=== PATIENT | female | born 1950 | race Caucasian/White ===

== ENCOUNTER 2017-02-21 13:49 | Inpatient (IN) | payer MEDICARE, OTHER ==
[2017-02-21] MEDS ORDERED: FUROSEMIDE 10 MG/ML 4 ML VIAL IV STA (14:07)
[2017-02-21] MEDS ORDERED: diphenhydrAMINE 50 MG/ML 1 ML VIAL IVP STA (14:07)
[2017-02-21] MEDS ORDERED: methylPREDNISolone SOD SUCCI 125 MG/2 ML VIAL IV STA (14:07)
--- NOTE | 2017-02-21 14:12 | ED ---
General Adult HPI - General Source: patient, EMS, RN notes reviewed Mode of arrival: EMS Limitations: no limitations <Vineet Zambrano - Last Filed: 02/21/17 15:36> <Zack Shook - Last Filed: 02/21/17 16:46> - General Chief complaint: Allergic Reaction Stated complaint: Allergic Reaction Time Seen by Provider: 02/21/17 14:02 - History of Present Illness Initial comments: This a 66-year-old female presents emergency department via EMS for complaints of shortness of breath possible ALLERGIC reaction. Patient states she states tomorrow recurrently and somebody sprayed perfume close to her states that she started breaking out on her rash to her right arm and she had some shortness of breath. Patient does admit to having COPD and CHF. Patient states that they gave her breathing treatment on weight emergency Department which helped minimally. Denies any fevers or chills. Patient denies any lower extremity swelling. Patient states she states that mom wouldn't secondary to right above- knee amputation. Patient has no chest pain no headache no dizziness at time patient was not given any steroids or Benadryl prior arrival as IV access was not obtained. (Vineet Zambrano) - Related Data Home Medications Medication Instructions Recorded Confirmed Aspirin 325 mg PO DAILY@1700 03/21/15 02/21/17 Clopidogrel [Plavix] 75 mg PO DAILY 03/21/15 02/21/17 Docusate Sodium [Dulcolax Stool 100 mg PO DAILY 03/21/15 02/21/17 Softener] Furosemide [Lasix] 40 mg PO BID@0800,1700 03/21/15 02/21/17 HYDROcodone/APAP 10-325MG [[place] 1 tab PO Q6H PRN 03/21/15 02/21/17 10] Lactobacillus Acidophilus 1 tab PO TID@0800,1200,1900 03/21/15 02/21/17 [Acidophilus] Mag Hydrox/Al Hydrox/Simeth 16 ml PO QID PRN 03/21/15 02/21/17 [Maalox] Magnesium Hydroxide [Milk of 30 ml PO DAILY PRN 03/21/15 02/21/17 Magnesia] Melatonin 3 mg PO HS 03/21/15 02/21/17 Metoprolol Tartrate [Lopressor] 25 mg PO BID@0800,1700 03/21/15 02/21/17 Multivit with Calcium,Iron,Min 1 tab PO DAILY@1200 03/21/15 02/21/17 [Women's Daily Multivitamin] Potassium Chloride [Klor-Con 20] 20 meq PO DAILY@1700 03/21/15 02/21/17 cloNIDine HCL [Catapres] 0.1 mg PO BID 03/21/15 02/21/17 clonazePAM [KlonoPIN] 0.5 mg PO HS 03/21/15 02/21/17 fentaNYL [Duragesic 25MCG/HR] 1 patch TRANSDERM Q72H 03/21/15 02/21/17 Bisacodyl [Dulcolax] 10 mg RECTAL DAILY PRN 11/28/15 02/21/17 Caldesene Powder 81-15% 1 applic TOPICAL TID 11/28/15 02/21/17 Esomeprazole Magnesium [NexIUM] 40 mg PO DAILY@0700 11/28/15 02/21/17 Ferrous Sulfate [Feosol] 325 mg PO DAILY@169911/28/15 02/21/17 Loperamide HCl [Imodium A-D] 4 mg PO BID PRN 11/28/15 02/21/17 Na Phos,M-B/Na Phos,Di-Ba [Fleet 133 ml RECTAL DAILY PRN 11/28/15 02/21/17 Adult] Nystatin 100,000 Unit/gm Powd 1 applic TOPICAL TID 11/28/15 02/21/17 [Mycostatin Powder] Phenyleph/Pramoxin/Glycr/W.pet 1 applic TOPICAL DAILY PRN 11/28/15 02/21/17 [Preparation H Cream] Prochlorperazine [Compazine] 10 mg PO Q8H PRN 11/28/15 02/21/17 risperiDONE [Risperidone] 0.5 mg PO BID 11/28/15 02/21/17 Mirtazapine [Remeron] 15 mg PO HS 02/21/17 02/21/17 Sertraline HCl [Zoloft] 100 mg PO DAILY 02/21/17 02/21/17 diphenhydrAMINE [Benadryl] 50 mg PO TID 02/21/17 02/21/17 Allergies Allergy/AdvReac Type Severity Reaction Status Date / Time ciprofloxacin [From Cipro] Allergy Unknown Verified 02/21/17 15:10 ciprofloxacin HCl Allergy Unknown Verified 02/21/17 15:10 [From Cipro] Egg Derived Allergy Unknown Verified 02/21/17 15:10 iodine Allergy Unknown Verified 02/21/17 15:10 Penicillins Allergy Unknown Verified 02/21/17 15:10 Phenylpiperazine Allergy Unknown Verified 02/21/17 15:10 Antidepressant red dye Allergy Unknown Verified 02/21/17 15:10 Sulfa (Sulfonamide Allergy Unknown Verified 02/21/17 15:10 Antibiotics) Review of Systems ROS Other: All systems not noted in ROS Statement are negative. <Vineet Zambrano - Last Filed: 02/21/17 15:36> ROS Other: All systems not noted in ROS Statement are negative. <Zack Shook - Last Filed: 02/21/17 16:46> ROS Statement: Those systems with pertinent positive or pertinent negative responses have been documented in the HPI. Past Medical History Past Medical History: Coronary Artery Disease (CAD), Heart Failure, COPD, GERD/ Reflux, Hypertension, Skin Disorder, Vascular Disorder Additional Past Medical History / Comment(s): PVD, abdominal pain, hx. of gastric ulcer, right above knee amputee-uses wheelchair, currently rash on back- very sensitive skin, urinary incontinence-wears depends History of Any Multi-Drug Resistant Organisms: MRSA Date of last positivie culture/infection: 2012 MDRO Source:: right leg Past Surgical History: Orthopedic Surgery Additional Past Surgical History / Comment(s): right AKA, care provider doesn't know what other surgeries she has had Additional Past Anesthesia/Blood Transfusion Reaction / Comment(s): care provider doesn't know anesthesia hx. Past Psychological History: Anxiety, Depression Smoking Status: Former smoker Past Alcohol Use History: None Reported Past Drug Use History: None Reported - Past Family History Mother Family Medical History: Unable to Obtain <Vineet Zambrano - Last Filed: 02/21/17 15:36> General Exam Limitations: no limitations General appearance: alert, in no apparent distress ENT exam: Present: normal exam, normal oropharynx, mucous membranes moist, TM's normal bilaterally, normal external ear exam Neck exam: Present: normal inspection. Absent: tenderness, meningismus, lymphadenopathy Respiratory exam: Present: wheezes, rales. Absent: normal lung sounds bilaterally, respiratory distress, rhonchi, stridor Cardiovascular Exam: Present: regular rate, normal rhythm, normal heart sounds. Absent: systolic murmur, diastolic murmur, rubs, gallop, clicks Extremities exam: Present: other (right aka). Absent: pedal edema Skin exam: Present: warm, dry, rash (right forearm erythematous macular rash noted) <Vineet Zambrano - Last Filed: 02/21/17 15:36> EKG Findings - EKG Comments: EKG Findings:: EKG performed at 14:12 sinus tachycardia with a rate of 104 WI 134 QRS duration 70 QT/QTC 366/41 <Vineet Zambrano - Last Filed: 02/21/17 15:36> Medical Decision Making - Lab Data Result diagrams: 02/21/17 14:07 02/21/17 14:07 <Vineet Zambrano - Last Filed: 02/21/17 15:36> - Lab Data Result diagrams: 02/21/17 14:07 02/21/17 14:07 <Zack Shook - Last Filed: 02/21/17 16:46> - Medical Decision Making 66-year-old female presented emergency department for possible a reaction. Patient to have a mild rash which has resolved though she remains hypoxic. Patient is having COPD exacerbation at this time. Patient will be admitted for IV steroids, breathing treatments. (Vineet Zambrano) 66-year-old female with history of COPD presents with dyspnea. The reevaluation patient still is tachypneic, and hypoxic with decreased breath sounds bilaterally. Patient will be admitted for further treatment. Diagnosis : COPD exacerbation. (Zack Shook) - Lab Data Lab Results 02/21/17 02/21/17 02/21/17 Range/Units 14:07 14:07 14:07 WBC 13.8 H (3.8-10.6) k/uL RBC 6.18 H (3.80-5.40) m/uL Hgb 15.6 (11.4-16.0) gm/dL Hct 48.8 H (34.0-46.0) % MCV 78.9 L (80.0-100.0) fL MCH 25.2 (25.0-35.0) pg MCHC 32.0 (31.0-37.0) g/dL RDW 16.5 H (11.5-15.5) % Plt Count 248 (150-450) k/uL Neutrophils % 75 % Lymphocytes % 17 % Monocytes % 4 % Eosinophils % 3 % Basophils % 1 % Neutrophils # 10.3 H (1.3-7.7) k/uL Lymphocytes # 2.4 (1.0-4.8) k/uL Monocytes # 0.5 (0-1.0) k/uL Eosinophils # 0.4 (0-0.7) k/uL Basophils # 0.1 (0-0.2) k/uL Anisocytosis Slight Microcytosis Slight PT (9.0-12.0) sec INR (<1.2) APTT (22.0-30.0) sec Sodium 140 (137-145) mmol/L Potassium 4.0 (3.5-5.1) mmol/L Chloride 101 (98-107) mmol/L Carbon Dioxide 26 (22-30) mmol/L Anion Gap 13 mmol/L BUN 21 H (7-17) mg/dL Creatinine 0.79 (0.52-1.04) mg/dL Est GFR (MDRD) Af Amer >60 (>60 ml/min/1.73 sqM) Est GFR (MDRD) Non-Af >60 (>60 ml/min/1.73 sqM) Glucose 132 H (74-99) mg/dL Calcium 8.8 (8.4-10.2) mg/dL Magnesium 1.9 (1.6-2.3) mg/dL Total Bilirubin 0.5 (0.2-1.3) mg/dL AST 46 H (14-36) U/L ALT 48 (9-52) U/L Alkaline Phosphatase 116 (38-126) U/L Total Creatine Kinase 21 L (30-135) U/L CK-MB (CK-2) <0.2 (0.0-2.4) ng/mL CK-MB (CK-2) Rel Index Troponin I <0.012 (0.000-0.034) ng/mL NT-Pro-B Natriuret Pep pg/mL Total Protein 8.4 H (6.3-8.2) g/dL Albumin 4.1 (3.5-5.0) g/dL 02/21/17 02/21/17 Range/Units 14:07 14:07 WBC (3.8-10.6) k/uL RBC (3.80-5.40) m/uL Hgb (11.4-16.0) gm/dL Hct (34.0-46.0) % MCV (80.0-100.0) fL MCH (25.0-35.0) pg MCHC (31.0-37.0) g/dL RDW (11.5-15.5) % Plt Count (150-450) k/uL Neutrophils % % Lymphocytes % % Monocytes % % Eosinophils % % Basophils % % Neutrophils # (1.3-7.7) k/uL Lymphocytes # (1.0-4.8) k/uL Monocytes # (0-1.0) k/uL Eosinophils # (0-0.7) k/uL Basophils # (0-0.2) k/uL Anisocytosis Microcytosis PT 10.8 (9.0-12.0) sec INR 1.1 (<1.2) APTT 26.8 (22.0-30.0) sec Sodium (137-145) mmol/L Potassium (3.5-5.1) mmol/L Chloride (98-107) mmol/L Carbon Dioxide (22-30) mmol/L Anion Gap mmol/L BUN (7-17) mg/dL Creatinine (0.52-1.04) mg/dL Est GFR (MDRD) Af Amer (>60 ml/min/1.73 sqM) Est GFR (MDRD) Non-Af (>60 ml/min/1.73 sqM) Glucose (74-99) mg/dL Calcium (8.4-10.2) mg/dL Magnesium (1.6-2.3) mg/dL Total Bilirubin (0.2-1.3) mg/dL AST (14-36) U/L ALT (9-52) U/L Alkaline Phosphatase (38-126) U/L Total Creatine Kinase (30-135) U/L CK-MB (CK-2) (0.0-2.4) ng/mL CK-MB (CK-2) Rel Index Troponin I (0.000-0.034) ng/mL NT-Pro-B Natriuret Pep 129 pg/mL Total Protein (6.3-8.2) g/dL Albumin (3.5-5.0) g/dL Disposition <Vineet Zambrano - Last Filed: 02/21/17 15:36> <Zack Shook - Last Filed: 02/21/17 16:46> Clinical Impression: COPD exacerbation, Allergic reaction, CHF (congestive heart failure), Hypoxia Disposition: ADMITTED IP TO THIS HOSP Condition: Fair
[2017-02-21 14:17] LABS: Anisocytosis Slight; Basophils # (A) 0.1 k/uL (0-0.2); Basophils % (A) 1 %; CH 25.4; CHCM 32.4; Eosinophils # (A) 0.4 k/uL (0-0.7); Eosinophils % (A) 3 %; HCT 48.8 % (34.0-46.0); HDW 3.01; HGB 15.6 gm/dL (11.4-16.0); Luc # (Auto) 0.14; Luc % (Auto) 1; Lymphocytes # (A) 2.4 k/uL (1.0-4.8); Lymphocytes % (A) 17 %; MCH 25.2 pg (25.0-35.0); MCV 78.9 fL (80.0-100.0); Mean Platelet Volume 7.5; Microcytosis Slight; Monocytes # (A) 0.5 k/uL (0-1.0); Monocytes % (A) 4 %; Neutrophils # (A) 10.3 k/uL (1.3-7.7); Neutrophils % (A) 75 %; RBC 6.18 m/uL (3.80-5.40); RDW 16.5 % (11.5-15.5); WBC 13.8 k/uL (3.8-10.6); WBC (Perox) 13.42
[2017-02-21 14:25] LABS: INR 1.1 (<1.2); Partial Thromboplastin Time 26.8 sec (22.0-30.0); Prothrombin Time 10.8 sec (9.0-12.0)
[2017-02-21 14:28] LABS: ALT 48 U/L (9-52); AST 46 U/L (14-36); Alkaline Phosphatase 116 U/L (38-126); Anion Gap 13 mmol/L; Blood Urea Nitrogen 21 mg/dL (7-17); Calcium 8.8 mg/dL (8.4-10.2); Carbon Dioxide 26 mmol/L (22-30); Chloride 101 mmol/L (98-107); Glucose 132 mg/dL (74-99); Magnesium 1.9 mg/dL (1.6-2.3); Non-African American GFR(MDRD) >60 (>60 ml/min/1.73 sqM); Sodium 140 mmol/L (137-145); Total Bilirubin 0.5 mg/dL (0.2-1.3); Total Protein 8.4 g/dL (6.3-8.2)
[2017-02-21 14:45] LABS: Creatine Kinase 21 U/L (30-135)
--- NOTE | 2017-02-21 14:52 | XR ---
EXAMINATION TYPE: XR chest 2V DATE OF EXAM: 02/21/2017 COMPARISON: Chest x-ray and CTA chest May 29, 2013. HISTORY: Difficulty in breathing. TECHNIQUE: Frontal and lateral views of the chest are obtained. FINDINGS: There is background of chronic emphysematous change with upper lobe fibrosis, right greater than left, and hilar retraction bilaterally all redemonstrated. There is no suspicious new focal air space opacity, pleural effusion, or pneumothorax seen. The cardiac silhouette size is within normal limits. The osseous structures are intact. IMPRESSION: Chronic changes without acute pulmonary process.
[2017-02-21] MEDS ORDERED: HYDROcodone/APAP 10-325MG 1 EACH TAB PO ONE (14:55)
[2017-02-21 14:58] LABS: Creatine Kinase MB <0.2 ng/mL (0.0-2.4); Troponin I <0.012 ng/mL (0.000-0.034)
[2017-02-21] MEDS ORDERED: IPRATROPIUM-ALBUTEROL 3 ML NEB INHALATION STA (15:30)
[2017-02-21] MEDS ORDERED: BISACODYL 10 MG SUPP RECTAL PRN (15:39)
[2017-02-21] MEDS ORDERED: PROCHLORPERAZINE 10 MG TAB PO PRN (15:39)
[2017-02-21] MEDS ORDERED: FERROUS SULFATE 325 MG TAB PO SCH (17:00)
[2017-02-21] MEDS ORDERED: ASPIRIN 325 MG TAB PO SCH (17:00)
[2017-02-21 17:53] LABS: Glucose,Whole Blood 192 mg/dL (75-99)
[2017-02-21] MEDS ORDERED: methylPREDNISolone SOD SUCCI 125 MG/2 ML VIAL IV SCH (18:00)
[2017-02-21 18:04] VITALS: BMI 22.5
[2017-02-21] MEDS ORDERED: BENZOCAINE 20% HEMORRHOIDAL OINT 28GM RECTAL PRN (19:37)
[2017-02-21] MEDS: FUROSEMIDE 40 MG TAB PO SCH (19:40)
[2017-02-21] MEDS: ZINC OXIDE-CORN STARCH 142 GM POWDER TOPICAL SCH ×2 (19:40→22:23)
[2017-02-21] MEDS: diphenhydrAMINE 50 MG CAP PO SCH ×2 (19:40→22:08)
[2017-02-21] MEDS: LACTOBACILLUS ACIDOPH & BULGAR 1 EACH PACKET PO SCH (19:41)
[2017-02-21] MEDS: POTASSIUM CHLORIDE ER 20 MEQ TAB.ER PO SCH (19:41)
[2017-02-21] MEDS: METOPROLOL TARTRATE 25 MG TAB PO SCH ×2 (19:41→22:07)
--- NOTE | 2017-02-21 20:51 | P.HPIM ---
History of Present Illness H&P Date: 02/21/17 (PCP Dr. Kwame Ruiz) Chief Complaint: Acute ALLERGIC reaction to perfume and spray in the room. Dictation of admission history and physical, by Dr. Mninie Rodriguez M.D. [facility] date of service is 02/21/[address] Kwame Ruiz. Patient admitted through the emergency room after he evaluated by the ER physician and requested the patient to be admitted. Chief complaint shortness of breath associated with ALLERGIC reaction to the fume sprayed in the room at [facility] with the shortness of breath. And wheezing and cough. History of present illness: Patient brought to the emergency room because of the shortness of breath with the AB sodoku occurred after perfume of spraining the room was perfume or regular spray in the ED facility of [facility] she developed cough and wheezing and flushing as well as respiratory distress. They send her to the emergency room for further evaluation and evaluated by the ER physician who felt that the patient should be admitted to the hospital. Past medical history she had underlying history #1 multiple medication with the chronic pain. #2 she is a resident at [facility] unit #3 right above-knee amputation for poor circulation done [address] rhoades. #4 history of acid reflux a disease #5 hypertension with hypertensive heart disease #5 history of antiplatelet Plavix and aspirin etiology is unclear. #6 depression #7 peripheral vascular disease. No evidence of infection on this admission. Family history she is and has 2 children grown up #1 AGE OF 4040 YEARS OLD AND A DAUGHTER AGE OF 4545 YEARS OLD WITH NORMAL DELIVERY. ONE SISTER AGE OF 69 AND 1 BROTHER AGE OF 65. FATHER OF AL AT AGE OF 6767 YEARS OLD. MOM STILL ALIVE AGE OF 9494 YEARS OLD WITH ALZHEIMER'S. SMOKING HISTORY FOR 30 YEARS WITH THE UNDERLYING COPD. REVIEW OF SYSTEM MAINLY ASSOCIATED WITH EXPOSURE TO THE AIR ENTRY PERFUME AND SHORTNESS OF BREATH AND COUGH. Review of the 14 point no added to the history. Review old records she had a history of diabetes. She has currently normal renal function and she had pain in the left lower quadrant as well as splenic flexure. Physical exam: HEENT: Head was normocephalic and atraumatic she had oropharynx severe dental caries and glazed the tongue uvula midline no fascial asymmetry with normal healing Neck supple no JVD no thyromegaly no lymphadenopathy trachea midline. Chest: Increased anteroposterior diameter with history of COPD with the underlying smoking history of 30 years pack per day. No clear history of cardiac-barr we don't have any previous echo able to be retrieved, Abdomen: Positive bowel sounds with tenderness on the left lower quadrant as well as the splenic flexure of unknown etiology. With the underlying history of anemia however she had increased RBCs which could be due to the hydration. Extremities right above knee amputation, left lower extremities no edema and peripheral vascular disease with the 1+ over 2 on the dorsalis pedis and the posterior tibial. She had also left foot deformity with the presence of onychomycosis Neuro: Unable to ambulate with no prosthesis on the below knee amputation. With one drink only no evidence of stroke, able to communicate. Her laboratory reviewed indicating hyperglycemia with the use of steroid #2 mild elevation of AST. WBC 13.8 with a possibility due to steroid, RBCs 6.18 which is elevated could be secondary to dehydration as well as the hematocrit 48.8 however the MCV is 78.9 and we will be obtaining old and electrophoresis. PT and INR was stable the blood glucose POC 192 will be covered with insulin to scale. Total protein orally intubated 8.4 could be also secondary to dehydration and volume contraction and we will be obtaining CMP tomorrow with the starting hydration was 50 mL an hour. Cardiac enzyme with troponin was normal and a beta natruretic peptide was normal. Assessment: #1 acute ALLERGIC reaction with the associated respiratory symptoms with the exacerbation for COPD. #2 right occns-cdw-cysh amputation with difficulty of ambulation. #3 hyperglycemia possible association with steroid and we will gradually decrease his steroid as change in the prednisone so on IV to every 12 hour and hopefully tomorrow change it to oral if needed. #4 with the severe pain and tenderness on the left lower quadrant and the splenic flexure we'll obtain CAT scan of the abdomen without contrast with a history of ALLERGIES to iodine. #5 tachycardia #6 hypertension with hypertensive heart disease #7 mild dehydration considered with the increase itself and the hematocrit. #8 severe decayed teeth with the need for oral hygiene. Plan: #1 computed tomography scan of the abdomen without contrast #2 adjustment on her medication. #2 start IV 0.9 normal saline 50 mL an hour for rehydration Past Medical History Past Medical History: Coronary Artery Disease (CAD), Heart Failure, COPD, GERD/ Reflux, Hypertension, Skin Disorder, Vascular Disorder Additional Past Medical History / Comment(s): PVD, abdominal pain, hx. of gastric ulcer, right above knee amputee-uses wheelchair, currently rash on back- very sensitive skin, urinary incontinence-wears depends History of Any Multi-Drug Resistant Organisms: MRSA Date of last positivie culture/infection: 2012 MDRO Source:: right leg Past Surgical History: Appendectomy, Cholecystectomy, Orthopedic Surgery Additional Past Surgical History / Comment(s): right AKA, ovarian cyst removed Additional Past Anesthesia/Blood Transfusion Reaction / Comment(s): care provider doesn't know anesthesia hx. Past Psychological History: Anxiety, Depression Smoking Status: Former smoker Past Alcohol Use History: None Reported Past Drug Use History: None Reported - Past Family History Mother Family Medical History: Unable to Obtain Medications and Allergies Home Medications Medication Instructions Recorded Confirmed Type Aspirin 325 mg PO DAILY@1700 03/21/15 02/21/17 History Clopidogrel [Plavix] 75 mg PO DAILY 03/21/15 02/21/17 History Docusate Sodium [Dulcolax Stool 100 mg PO DAILY 03/21/15 02/21/17 History Softener] Furosemide [Lasix] 40 mg PO BID@0800,1700 03/21/15 02/21/17 History HYDROcodone/APAP 10-325MG [[place] 1 tab PO Q6H PRN 03/21/15 02/21/17 History 10] Lactobacillus Acidophilus 1 tab PO TID@0800,1200,1900 03/21/15 02/21/17 History [Acidophilus] Mag Hydrox/Al Hydrox/Simeth 16 ml PO QID PRN 03/21/15 02/21/17 History [Maalox] Magnesium Hydroxide [Milk of 30 ml PO DAILY PRN 03/21/15 02/21/17 History Magnesia] Melatonin 3 mg PO HS 03/21/15 02/21/17 History Metoprolol Tartrate [Lopressor] 25 mg PO BID@0800,1700 03/21/15 02/21/17 History Multivit with Calcium,Iron,Min 1 tab PO DAILY@1200 03/21/15 02/21/17 History [Women's Daily Multivitamin] Potassium Chloride [Klor-Con 20] 20 meq PO DAILY@1700 03/21/15 02/21/17 History cloNIDine HCL [Catapres] 0.1 mg PO BID 03/21/15 02/21/17 History clonazePAM [KlonoPIN] 0.5 mg PO HS 03/21/15 02/21/17 History fentaNYL [Duragesic 25MCG/HR] 1 patch TRANSDERM Q72H 03/21/15 02/21/17 History Bisacodyl [Dulcolax] 10 mg RECTAL DAILY PRN 11/28/15 02/21/17 History Caldesene Powder 81-15% 1 applic TOPICAL TID 11/28/15 02/21/17 History Esomeprazole Magnesium [NexIUM] 40 mg PO DAILY@0700 11/28/15 02/21/17 History Ferrous Sulfate [Feosol] 325 mg PO DAILY@1700 11/28/15 02/21/17 History Loperamide HCl [Imodium A-D] 4 mg PO BID PRN 11/28/15 02/21/17 History Na Phos,M-B/Na Phos,Di-Ba [Fleet 133 ml RECTAL DAILY PRN 11/28/15 02/21/17 History Adult] Nystatin 100,000 Unit/gm Powd 1 applic TOPICAL TID 11/28/15 02/21/17 History [Mycostatin Powder] Phenyleph/Pramoxin/Glycr/W.pet 1 applic TOPICAL DAILY PRN 11/28/15 02/21/17 History [Preparation H Cream] Prochlorperazine [Compazine] 10 mg PO Q8H PRN 11/28/15 02/21/17 History risperiDONE [Risperidone] 0.5 mg PO BID 11/28/15 02/21/17 History Mirtazapine [Remeron] 15 mg PO HS 02/21/17 02/21/17 History Sertraline HCl [Zoloft] 100 mg PO DAILY 02/21/17 02/21/17 History diphenhydrAMINE [Benadryl] 50 mg PO TID 02/21/17 02/21/17 History Allergies Allergy/AdvReac Type Severity Reaction Status Date / Time ciprofloxacin [From Cipro] Allergy Unknown Verified 02/21/17 15:10 ciprofloxacin HCl Allergy Unknown Verified 02/21/17 15:10 [From Cipro] Egg Derived Allergy Unknown Verified 02/21/17 15:10 iodine Allergy Unknown Verified 02/21/17 15:10 Penicillins Allergy Unknown Verified 02/21/17 15:10 Phenylpiperazine Allergy Unknown Verified 02/21/17 15:10 Antidepressant red dye Allergy Unknown Verified 02/21/17 15:10 Sulfa (Sulfonamide Allergy Unknown Verified 02/21/17 15:10 Antibiotics) Physical Exam Vitals: Vital Signs Temp Pulse Resp BP Pulse Ox 02/21/17 17:45 20 02/21/17 16:51 97.9 F 102 H 20 130/69 92 L 02/21/17 15:50 108 H 02/21/17 15:41 106 H 02/21/17 15:14 107 H 20 140/88 91 L 02/21/17 14:55 107 H 20 178/108 93 L 02/21/17 13:50 97.3 F L 96 17 105/59 96 Intake and Output 02/21/17 02/21/17 02/21/17 06:59 14:59 22:59 Other: Weight 67.132 kg 67.132 kg Patient Weight 02/22/17 06:59 Weight 67.132 kg Results CBC & Chem 7: 02/21/17 14:07 02/21/17 14:07 Labs: Abnormal Lab Results - Last 24 Hours (Table) 02/21/17 02/21/17 02/21/17 Range/Units 14:07 14:07 14:07 WBC 13.8 H (3.8-10.6) k/uL RBC 6.18 H (3.80-5.40) m/uL Hct 48.8 H (34.0-46.0) % MCV 78.9 L (80.0-100.0) fL RDW 16.5 H (11.5-15.5) % Neutrophils # 10.3 H (1.3-7.7) k/uL BUN 21 H (7-17) mg/dL Glucose 132 H (74-99) mg/dL POC Glucose (mg/dL) (75-99) mg/dL AST 46 H (14-36) U/L Total Creatine Kinase 21 L (30-135) U/L Total Protein 8.4 H (6.3-8.2) g/dL 02/21/17 Range/Units 17:50 WBC (3.8-10.6) k/uL RBC (3.80-5.40) m/uL Hct (34.0-46.0) % MCV (80.0-100.0) fL RDW (11.5-15.5) % Neutrophils # (1.3-7.7) k/uL BUN (7-17) mg/dL Glucose (74-99) mg/dL POC Glucose (mg/dL) 192 H (75-99) mg/dL AST (14-36) U/L Total Creatine Kinase (30-135) U/L Total Protein (6.3-8.2) g/dL Thrombosis Risk Factor Assmnt - Choose All That Apply Any of the Below Risk Factors Present?: Yes Each Factor Represents 1 point: Abnormal pulmonary function (COPD) Other Risk Factors: Yes Each Risk Factor Represents 2 Points: Age 61-74 years, Patient confined to bed Thrombosis Risk Factor Assessment Total Risk Factor Score: 5 Thrombosis Risk Factor Assessment Level: High Risk
[2017-02-21] MEDS ORDERED: cloNIDine HCL 0.1 MG TAB PO SCH ×2 (21:00)
--- NOTE | 2017-02-21 21:13 | CT ---
EXAMINATION TYPE: CT ChestAbdPelvis wo con DATE OF EXAM: 02/21/2017 COMPARISON: CTA chest May 29, 2013. CT abdomen and pelvis November 01, 2012. HISTORY: Left side pain. Rule out malignancy. CT DLP: 761.6 mGycm. Automated Exposure Control for Dose Reduction was Utilized. TECHNIQUE: CT scan of the thorax, abdomen and pelvis is performed without IV contrast. FINDINGS: Within the limitations of a noncontrast study, the following observations are made LUNGS: There is background moderate emphysematous change redemonstrated. There is persistent moderate apical pleural thickening bilaterally with parenchymal scarring bilaterally not significantly change d from prior study. There are some scarlike opacity in the left upper lobe abutting fissure redemonst rated. There is no suspicious new parenchymal nodule or mass identified bilaterally. No pleural effus ion or pneumothorax is seen bilaterally. Tracheobronchial tree is patent. MEDIASTINUM: There are no greater than 1 cm hilar or mediastinal lymph nodes clearly identified accou nting for limitations related to lack of IV contrast. Scattered prominent but subcentimeter lymph no valeri are redemonstrated. No cardiomegaly or significant pericardial effusion is seen. OTHER: No additional significant abnormality is seen. LIVER/GB: Liver is diffusely low dense consistent with fatty infiltration. Cholecystectomy clips are redemonstrated. PANCREAS: No significant abnormality is seen. SPLEEN: Splenomegaly is seen measuring 15.1 cm on long axis on coronal image 52. ADRENALS: No significant abnormality is seen. KIDNEYS: There are several staghorn-type calculi and left renal pelvis extending into collecting syst em. There is smaller calculus in right renal pelvis. There is 5.3 cm low dense lesion laterally left kidney correlates with simple appearing cyst on prior exam. No intraluminal calculus and bladder is p resent. There are few scattered pelvic phleboliths. BOWEL: There is no suspicious small or large bowel dilatation. There is suspected duodenal diverticul um second portion redemonstrated with debris or fecal material redemonstrated near axial image 72 the re are scattered diverticula throughout the colon. There is no CT evidence for acute diverticulitis. GENITAL ORGANS: No gross abnormality seen. LYMPH NODES: No greater than 1cm abdominal or pelvic lymph nodes are appreciated. OSSEOUS STRUCTURES: There is artifact from fixation hardware left proximal femur through healed fract ure. Multilevel spurring in the thoracic spine is present. Osseous structures are demineralized. Ther e is fairly advanced joint space loss in the right hip. OTHER: There appears to be new metallic stent graft in the right external iliac artery. Scar tissue r ight groin region is seen with clips. There is asymmetric mild to moderate atrophy of right-sided thi gh muscles. IMPRESSION: 1. No worrisome mass or adenopathy is seen to suggest neoplasm. 2. Moderate emphysematous change with apical scarring and pleural thickening redemonstrated. No acute pulmonary process is seen. 3. New splenomegaly is noted and may warrant further clinical workup. 4. Bilateral collecting system calculi with more prominent staghorn type calculi in the left kidney n oted.
[2017-02-21 21:39] LABS: Glucose,Whole Blood 204 mg/dL (75-99)
[2017-02-21] MEDS: MIRTAZAPINE 15 MG TAB PO SCH (22:08)
[2017-02-21] MEDS: INSULIN LISPRO (humaLOG) 300 UNIT/3 ML VIAL SQ SCH (22:08)
[2017-02-21] MEDS: risperiDONE 0.5 MG TAB PO SCH (22:08)
[2017-02-21] MEDS: MAG HYDROX/AL HYDROX/SIMETH 30 ML CUP PO PRN (22:09)
[2017-02-21] MEDS: clonazePAM 0.5 MG TAB PO SCH (22:22)
[2017-02-21] MEDS: ASPIRIN 81 MG CHEW PO SCH (22:22)
[2017-02-21] MEDS: HYDROcodone/APAP 10-325MG 1 EACH TAB PO PRN (22:23)
[2017-02-22] MEDS: methylPREDNISolone SOD SUCCI 40 MG/ML 1 ML VIAL IV SCH ×2 (00:53→09:38)
[2017-02-22] MEDS: MELATONIN 3 MG TABLET PO SCH ×2 (00:59→23:24)
[2017-02-22] MEDS: SODIUM CHLORIDE 0.9% 1,000 ML IV SCH (01:11)
[2017-02-22] MEDS: METOPROLOL TARTRATE 50 MG TAB PO SCH ×3 (01:17→21:42)
[2017-02-22] MEDS: NYSTATIN 100,000 UNIT/GM POWD 15 GM TOPICAL SCH ×3 (01:19→23:24)
[2017-02-22 07:20] LABS: Glucose,Whole Blood 179 mg/dL (75-99)
[2017-02-22 07:42] LABS: Anisocytosis Slight; Basophils % (A) 0 %; CH 25.2; Eosinophils % (A) 0 %; HCT 47.2 % (34.0-46.0); HGB 14.6 gm/dL (11.4-16.0); Hypochromasia Slight; Luc # (Auto) 0.05; Luc % (Auto) 0; Lymphocytes % (A) 5 %; MCH 24.4 pg (25.0-35.0); MCHC 30.9 g/dL (31.0-37.0); Monocytes # (A) 0.3 k/uL (0-1.0); Monocytes % (A) 2 %; Neutrophils # (A) 16.8 k/uL (1.3-7.7); Neutrophils % (A) 93 %; RBC 5.98 m/uL (3.80-5.40); RDW 16.1 % (11.5-15.5); WBC 18.1 k/uL (3.8-10.6); WBC (Perox) 18.37
[2017-02-22] MEDS: IPRATROPIUM-ALBUTEROL 3 ML NEB INHALATION PRN ×4 (08:34→20:02)
[2017-02-22 08:38] LABS: ALT 53 U/L (9-52); AST 35 U/L (14-36); Alkaline Phosphatase 111 U/L (38-126); Anion Gap 14 mmol/L; Blood Urea Nitrogen 28 mg/dL (7-17); Calcium 8.8 mg/dL (8.4-10.2); Carbon Dioxide 26 mmol/L (22-30); Chloride 102 mmol/L (98-107); Glucose 169 mg/dL (74-99); Non-African American GFR(MDRD) >60 (>60 ml/min/1.73 sqM); Potassium 4.5 mmol/L (3.5-5.1); Sodium 142 mmol/L (137-145); Total Bilirubin 0.5 mg/dL (0.2-1.3)
[2017-02-22] MEDS: diphenhydrAMINE 50 MG CAP PO SCH ×3 (09:38→23:24)
[2017-02-22] MEDS: ASPIRIN 81 MG CHEW PO SCH (09:38)
[2017-02-22] MEDS: CLOPIDOGREL 75 MG TAB PO SCH (09:39)
[2017-02-22] MEDS: MULTIVITAMINS, THERA 1 EACH TAB PO SCH (09:39)
[2017-02-22] MEDS: PANTOPRAZOLE 40 MG TABLET PO SCH (09:39)
[2017-02-22] MEDS: DOCUSATE 100 MG CAP PO SCH (09:39)
[2017-02-22] MEDS: FUROSEMIDE 40 MG TAB PO SCH ×2 (09:39→18:03)
[2017-02-22] MEDS: SERTRALINE 100 MG TAB PO SCH (09:40)
[2017-02-22] MEDS: risperiDONE 0.5 MG TAB PO SCH ×2 (09:40→21:42)
[2017-02-22] MEDS: INSULIN LISPRO (humaLOG) 300 UNIT/3 ML VIAL SQ SCH ×3 (09:51→17:58)
[2017-02-22] MEDS: ZINC OXIDE-CORN STARCH 142 GM POWDER TOPICAL SCH ×3 (09:52→23:24)
[2017-02-22] MEDS: LACTOBACILLUS ACIDOPH & BULGAR 1 EACH PACKET PO SCH ×3 (09:52→23:24)
[2017-02-22 10:09] LABS: Hemoglobin A1C 5.9 % (4.2-6.1)
[2017-02-22 11:45] LABS: Glucose,Whole Blood 208 mg/dL (75-99)
[2017-02-22] MEDS: MAG HYDROX/AL HYDROX/SIMETH 30 ML CUP PO PRN ×3 (12:41→21:43)
[2017-02-22] MEDS: HYDROcodone/APAP 10-325MG 1 EACH TAB PO PRN ×2 (12:41→18:02)
[2017-02-22 13:04] LABS: Vitamin B12 1000 pg/mL
[2017-02-22 16:54] LABS: Glucose,Whole Blood 158 mg/dL (75-99)
[2017-02-22] MEDS: METOPROLOL TARTRATE 25 MG TAB PO SCH (18:05)
[2017-02-22] MEDS: POTASSIUM CHLORIDE ER 20 MEQ TAB.ER PO SCH (18:06)
[2017-02-22] MEDS: clonazePAM 0.5 MG TAB PO SCH (21:42)
[2017-02-22] MEDS: MIRTAZAPINE 15 MG TAB PO SCH (21:42)
--- NOTE | 2017-02-22 21:57 | P.GSCN ---
History of Present Illness Consult date: 02/22/17 Reason for Consult: Kidney stones Requesting physician: Ian Peter History of present illness: The patient is a 66-year-old white female with no known prior history of urolithiasis. She has been treated for UTIs. She currently resides at [facility]. She was admitted with dyspnea and cough. A computed tomography scan shows evidence of urolithiasis. We are consulted for this reason. She reports a two-month history of LLQ abdominal pain. Review of Systems - Constitutional Denies chills, Denies fever - Respiratory Reports cough, Reports dyspnea - Genitourinary Genitourinary: Reports dysuria, Reports kidney stones, Denies hematuria, Denies stress incontinence, Denies urge incontinence Past Medical History Past Medical History: Coronary Artery Disease (CAD), Heart Failure, COPD, GERD/ Reflux, Hypertension, Skin Disorder, Vascular Disorder Additional Past Medical History / Comment(s): PVD, abdominal pain, hx. of gastric ulcer, right above knee amputee-uses wheelchair, currently rash on back- very sensitive skin, urinary incontinence-wears depends History of Any Multi-Drug Resistant Organisms: MRSA Year Discovered:: 2012 MDRO Source:: right leg Past Surgical History: Appendectomy, Cholecystectomy, Orthopedic Surgery Additional Past Surgical History / Comment(s): right AKA, ovarian cyst removed Additional Past Anesthesia/Blood Transfusion Reaction / Comm: care provider doesn't know anesthesia hx. Past Psychological History: Anxiety, Depression Smoking Status: Former smoker Past Alcohol Use History: None Reported Past Drug Use History: None Reported - Past Family History Mother Family Medical History: Unable to Obtain Medications and Allergies Home Medications Medication Instructions Recorded Confirmed Type Aspirin 325 mg PO DAILY@1700 03/21/15 02/21/17 History Clopidogrel [Plavix] 75 mg PO DAILY 03/21/15 02/21/17 History Docusate Sodium [Dulcolax Stool 100 mg PO DAILY 03/21/15 02/21/17 History Softener] Furosemide [Lasix] 40 mg PO BID@0800,1700 03/21/15 02/21/17 History HYDROcodone/APAP 10-325MG [[place] 1 tab PO Q6H PRN 03/21/15 02/21/17 History 10] Lactobacillus Acidophilus 1 tab PO TID@0800,1200,1900 03/21/15 02/21/17 History [Acidophilus] Mag Hydrox/Al Hydrox/Simeth 16 ml PO QID PRN 03/21/15 02/21/17 History [Maalox] Magnesium Hydroxide [Milk of 30 ml PO DAILY PRN 03/21/15 02/21/17 History Magnesia] Melatonin 3 mg PO HS 03/21/15 02/21/17 History Metoprolol Tartrate [Lopressor] 25 mg PO BID@0800,1700 03/21/15 02/21/17 History Multivit with Calcium,Iron,Min 1 tab PO DAILY@1200 03/21/15 02/21/17 History [Women's Daily Multivitamin] Potassium Chloride [Klor-Con 20] 20 meq PO DAILY@1700 03/21/15 02/21/17 History cloNIDine HCL [Catapres] 0.1 mg PO BID 03/21/15 02/21/17 History clonazePAM [KlonoPIN] 0.5 mg PO HS 03/21/15 02/21/17 History fentaNYL [Duragesic 25MCG/HR] 1 patch TRANSDERM Q72H 03/21/15 02/21/17 History Bisacodyl [Dulcolax] 10 mg RECTAL DAILY PRN 11/28/15 02/21/17 History Caldesene Powder 81-15% 1 applic TOPICAL TID 11/28/15 02/21/17 History Esomeprazole Magnesium [NexIUM] 40 mg PO DAILY@0700 11/28/15 02/21/17 History Ferrous Sulfate [Feosol] 325 mg PO DAILY@1700 11/28/15 02/21/17 History Loperamide HCl [Imodium A-D] 4 mg PO BID PRN 11/28/15 02/21/17 History Na Phos,M-B/Na Phos,Di-Ba [Fleet 133 ml RECTAL DAILY PRN 11/28/15 02/21/17 History Adult] Nystatin 100,000 Unit/gm Powd 1 applic TOPICAL TID 11/28/15 02/21/17 History [Mycostatin Powder] Phenyleph/Pramoxin/Glycr/W.pet 1 applic TOPICAL DAILY PRN 11/28/15 02/21/17 History [Preparation H Cream] Prochlorperazine [Compazine] 10 mg PO Q8H PRN 11/28/15 02/21/17 History risperiDONE [Risperidone] 0.5 mg PO BID 11/28/15 02/21/17 History Mirtazapine [Remeron] 15 mg PO HS 02/21/17 02/21/17 History Sertraline HCl [Zoloft] 100 mg PO DAILY 02/21/17 02/21/17 History diphenhydrAMINE [Benadryl] 50 mg PO TID 02/21/17 02/21/17 History Allergies Allergy/AdvReac Type Severity Reaction Status Date / Time ciprofloxacin [From Cipro] Allergy Unknown Verified 02/21/17 15:10 ciprofloxacin HCl Allergy Unknown Verified 02/21/17 15:10 [From Cipro] Egg Derived Allergy Unknown Verified 02/21/17 15:10 iodine Allergy Unknown Verified 02/21/17 15:10 Penicillins Allergy Unknown Verified 02/21/17 15:10 Phenylpiperazine Allergy Unknown Verified 02/21/17 15:10 Antidepressant red dye Allergy Unknown Verified 02/21/17 15:10 Sulfa (Sulfonamide Allergy Unknown Verified 02/21/17 15:10 Antibiotics) Surgical - Exam Vital Signs Temp Pulse Resp BP Pulse Ox 97.3 F L 96 17 105/59 96 02/21/17 13:50 02/21/17 13:50 02/21/17 13:50 02/21/17 13:50 02/21/17 13:50 - General well developed, well nourished, no distress - Respiratory normal respiratory effort - Abdomen Abdomen: soft, tender (LLQ tenderness), no guarding, no rigid, no rebound - Psychiatric oriented to time, oriented to person, oriented to place, speech is normal, memory intact Results - Labs 02/22/17 06:58 02/22/17 06:58 Abnormal Lab Results - Last 24 Hours (Table) 02/22/17 02/22/17 02/22/17 Range/Units 06:58 06:58 07:18 WBC 18.1 H (3.8-10.6) k/uL RBC 5.98 H (3.80-5.40) m/uL Hct 47.2 H (34.0-46.0) % MCV 79.0 L (80.0-100.0) fL MCH 24.4 L (25.0-35.0) pg MCHC 30.9 L (31.0-37.0) g/dL RDW 16.1 H (11.5-15.5) % Neutrophils # 16.8 H (1.3-7.7) k/uL BUN 28 H (7-17) mg/dL Glucose 169 H (74-99) mg/dL POC Glucose (mg/dL) 179 H (75-99) mg/dL Plasma Lactic Acid Jacinto (0.7-2.0) mmol/L ALT 53 H (9-52) U/L 02/22/17 02/22/17 02/22/17 Range/Units 11:43 15:12 16:52 WBC (3.8-10.6) k/uL RBC (3.80-5.40) m/uL Hct (34.0-46.0) % MCV (80.0-100.0) fL MCH (25.0-35.0) pg MCHC (31.0-37.0) g/dL RDW (11.5-15.5) % Neutrophils # (1.3-7.7) k/uL BUN (7-17) mg/dL Glucose (74-99) mg/dL POC Glucose (mg/dL) 208 H 158 H (75-99) mg/dL Plasma Lactic Acid Jacinto 2.8 H* (0.7-2.0) mmol/L ALT (9-52) U/L 02/22/17 Range/Units 18:48 WBC (3.8-10.6) k/uL RBC (3.80-5.40) m/uL Hct (34.0-46.0) % MCV (80.0-100.0) fL MCH (25.0-35.0) pg MCHC (31.0-37.0) g/dL RDW (11.5-15.5) % Neutrophils # (1.3-7.7) k/uL BUN (7-17) mg/dL Glucose (74-99) mg/dL POC Glucose (mg/dL) (75-99) mg/dL Plasma Lactic Acid Jacinto 3.2 H* (0.7-2.0) mmol/L ALT (9-52) U/L Diabetes panel 02/21/17 02/22/17 Range/Units 14:07 06:58 Sodium 142 (137-145) mmol/L Potassium 4.5 (3.5-5.1) mmol/L Chloride 102 (98-107) mmol/L Carbon Dioxide 26 (22-30) mmol/L BUN 28 H (7-17) mg/dL Creatinine 0.89 (0.52-1.04) mg/dL Glucose 169 H (74-99) mg/dL Hemoglobin A1c 5.9 (4.2-6.1) % Calcium 8.8 (8.4-10.2) mg/dL AST 35 (14-36) U/L ALT 53 H (9-52) U/L Alkaline Phosphatase 111 (38-126) U/L Total Protein 8.0 (6.3-8.2) g/dL Albumin 3.9 (3.5-5.0) g/dL Calcium panel 02/22/17 Range/Units 06:58 Calcium 8.8 (8.4-10.2) mg/dL Albumin 3.9 (3.5-5.0) g/dL Pituitary panel 02/22/17 Range/Units 06:58 Sodium 142 (137-145) mmol/L Potassium 4.5 (3.5-5.1) mmol/L Chloride 102 (98-107) mmol/L Carbon Dioxide 26 (22-30) mmol/L BUN 28 H (7-17) mg/dL Creatinine 0.89 (0.52-1.04) mg/dL Glucose 169 H (74-99) mg/dL Calcium 8.8 (8.4-10.2) mg/dL Adrenal panel 02/22/17 Range/Units 06:58 Sodium 142 (137-145) mmol/L Potassium 4.5 (3.5-5.1) mmol/L Chloride 102 (98-107) mmol/L Carbon Dioxide 26 (22-30) mmol/L BUN 28 H (7-17) mg/dL Creatinine 0.89 (0.52-1.04) mg/dL Glucose 169 H (74-99) mg/dL Calcium 8.8 (8.4-10.2) mg/dL Total Bilirubin 0.5 (0.2-1.3) mg/dL AST 35 (14-36) U/L ALT 53 H (9-52) U/L Alkaline Phosphatase 111 (38-126) U/L Total Protein 8.0 (6.3-8.2) g/dL Albumin 3.9 (3.5-5.0) g/dL Assessment and Plan (1) Renal calculi Status: Acute Plan: The patient is a 66-year-old white female admitted with dyspnea. She has no prior history of urolithiasis, but a computed tomography scan shows evidence of bilateral renal calculi. There appears to be a calculus within the right renal pelvis, and a partial staghorn calculus on the left. There is no evidence of hydronephrosis. The left kidney appears atrophic. A KUB x-ray will be obtained for further evaluation. Time with Patient: Greater than 30
[2017-02-22 23:30] LABS: Glucose,Whole Blood 124 mg/dL (75-99)
[2017-02-23] MEDS: HYDROcodone/APAP 10-325MG 1 EACH TAB PO PRN ×4 (02:23→20:52)
[2017-02-23 07:30] LABS: Basophils % (A) 0 %; CH 24.7; CHCM 31.5; Eosinophils # (A) 0.1 k/uL (0-0.7); Eosinophils % (A) 0 %; HCT 44.1 % (34.0-46.0); HDW 2.92; HGB 14.3 gm/dL (11.4-16.0); Hypochromasia Slight; Luc # (Auto) 0.17; Luc % (Auto) 1; Lymphocytes # (A) 2.2 k/uL (1.0-4.8); Lymphocytes % (A) 13 %; MCH 25.5 pg (25.0-35.0); MCHC 32.3 g/dL (31.0-37.0); MCV 78.7 fL (80.0-100.0); Mean Platelet Volume 6.7; Monocytes # (A) 0.9 k/uL (0-1.0); Monocytes % (A) 5 %; Neutrophils # (A) 13.5 k/uL (1.3-7.7); Neutrophils % (A) 81 %; RDW 15.2 % (11.5-15.5); WBC 16.8 k/uL (3.8-10.6)
[2017-02-23 07:32] LABS: Glucose,Whole Blood 91 mg/dL (75-99)
[2017-02-23] MEDS: IPRATROPIUM-ALBUTEROL 3 ML NEB INHALATION PRN ×2 (08:18→13:38)
[2017-02-23] MEDS: SODIUM CHLORIDE 0.9% 1,000 ML IV SCH ×3 (08:35→15:31)
[2017-02-23] MEDS: INSULIN LISPRO (humaLOG) 300 UNIT/3 ML VIAL SQ SCH ×5 (08:36→21:17)
[2017-02-23] MEDS: MAG HYDROX/AL HYDROX/SIMETH 30 ML CUP PO PRN ×2 (08:43→14:46)
[2017-02-23] MEDS: LACTOBACILLUS ACIDOPH & BULGAR 1 EACH PACKET PO SCH ×3 (08:46→19:44)
[2017-02-23] MEDS: risperiDONE 0.5 MG TAB PO SCH ×2 (08:46→20:52)
[2017-02-23] MEDS: PANTOPRAZOLE 40 MG TABLET PO SCH (08:46)
[2017-02-23] MEDS: NYSTATIN 100,000 UNIT/GM POWD 15 GM TOPICAL SCH ×3 (08:46→20:53)
[2017-02-23] MEDS: METOPROLOL TARTRATE 50 MG TAB PO SCH ×2 (08:46→20:52)
[2017-02-23] MEDS: FUROSEMIDE 40 MG TAB PO SCH (08:47)
[2017-02-23] MEDS: SERTRALINE 100 MG TAB PO SCH (08:47)
[2017-02-23] MEDS: CLOPIDOGREL 75 MG TAB PO SCH (08:50)
[2017-02-23] MEDS: diphenhydrAMINE 50 MG CAP PO SCH (08:50)
[2017-02-23] MEDS: DOCUSATE 100 MG CAP PO SCH (08:50)
[2017-02-23] MEDS: METOPROLOL TARTRATE 25 MG TAB PO SCH ×3 (08:50→17:08)
[2017-02-23] MEDS: ZINC OXIDE-CORN STARCH 142 GM POWDER TOPICAL SCH ×3 (11:06→20:53)
[2017-02-23 11:26] LABS: Appearance,Urine Turbid (Clear); Bacteria,Urine Few /hpf; Bilirubin,Urine Negative (Negative); Glucose,Urine (UA) Negative (Negative); Ketones,Urine Negative (Negative); Leukocyte Esterase,Urine Large (Negative); Nitrite,Urine Negative (Negative); PH, Urine 7.5 (5.0-8.0); Particle Count 19799; Protein,Urine Trace (Negative); RBC,Urine >182 /hpf (0-5); Specific Gravity,Urine 1.007 (1.001-1.035); UA Billing (MACRO vs. MICRO) MICRO; Urobilinogen,Urine <2.0 mg/dL (<2.0); WBC,Urine >182 /hpf (0-5)
[2017-02-23 11:43] LABS: Glucose,Whole Blood 102 mg/dL (75-99)
[2017-02-23] MEDS: ASPIRIN 81 MG CHEW PO SCH (12:19)
[2017-02-23] MEDS: MULTIVITAMINS, THERA 1 EACH TAB PO SCH (12:19)
--- NOTE | 2017-02-23 13:16 | XR ---
EXAMINATION TYPE: XR KUB DATE OF EXAM: 02/23/2017 CLINICAL HISTORY: Nephrolithiasis TECHNIQUE: Single supine KUB image of the abdomen is obtained. COMPARISON: CT abdomen pelvis dated 02/21/2017. FINDINGS: Staghorn calculus is again seen on the left. The known right renal calculus is not well vi sualized and may be due to overlying bowel gas. Vascular stent is seen within the right common iliac vasculature extending into the femoral artery. Surgical clips are seen within the inguinal region. At heromatous changes are seen of the abdominal aorta and its branches. Left-sided cephalomedullary freddie and fixation plate with surrounding heterotopic ossification is noted from fixation of prior fracture . Scattered gas is seen in non-distended small bowel loops. Gas and fecal material is seen in non-dist ended colon. Cholecystectomy clips are seen within the right upper quadrant. IMPRESSION: 1. Left staghorn calculus. Nonvisualization of the known right renal calculus, possibly due to overly ing bowel gas. 2. Nonobstructive bowel gas pattern.
--- NOTE | 2017-02-23 13:16 | CDI ---
In responding to this query, please exercise your independent professional judgment. The [facility] Coding Staff and Clinical Documentation Specialists appreciate your assistance in clarifying documentation, maintaining compliance with coding guidelines, accurately documenting patients condition and capturing severity of illness. The fact that a question is asked does not imply that any particular answer is desired or expected. Communication forms are a method of clarifying documentation and are not made part of the Legal Health Record. Thank you in advance for your clarification. Last Revision, September 2016 Bella [place] [address] [address] Documentation Clarification Form Date: 02/23/2017 1:07:00 PM From: Shae Rodriguez CCS, CCDS Admit Date: 02/21/2017 3:56:00 PM Patient Name: Prema Krause Visit Number: [id number] Discharge Date: Dr. Ian Peter: CHF is documented in the history & physical. History/Risk Factors: Hypertensive heart disease & CHF on home po Lasix 20 mg BID, COPD, Former smoker. Residing in [place] for [facility]. Clinical Indicators: Patient had allergic reaction to perfumed sprayed in her room in skilled nursing, broke out in a rash, complained of sob, wheezing & cough. VS: P 96 - 107, R 17 (sob, labored), PO 96 ra, 93 2Lnc BNP: 129 Chest X Ray: Chronic changes. Treatment: Blood & urine cultures pending. IV Lasix, IV Benadryl, IV Solumedrol , Albuterol INH. Consults: Urology (for kidney stones) In your professional opinion, can you please clarify the acuity and type of CHF if known? Systolic Heart Failure: o Acute o Chronic o Acute on Chronic Diastolic Heart Failure: o Acute o Chronic o Acute on Chronic Systolic & Diastolic Heart Failure: o Acute o Chronic o Acute on Chronic Unable to determine Other, please specify Please document in your progress notes and discharge summary in order to capture severity of illness and risk of mortality. Include clinical findings that support your diagnosis. FYI: Press F11 to launch patient chart MTDD
--- NOTE | 2017-02-23 13:18 | PN ---
DATE OF SERVICE: 02/22/2017 Patient initially admitted through the emergency room, sent from [facility] by EMS with the understanding of acute allergic reaction to perfume or spray in the room. Patient did well; however, and on the examination through the emergency room they gave her steroids and we gradually decreased the steroids and probably will discontinue today with no shortness of breath; however, on the examination , found that she had severe tenderness on the left flank with the associated shortness of breath. We obtained CT scan of the chest, abdomen and pelvis. We found noted in the CT scan results, emphysema, also apical scarring and significant splenomegaly, bilateral collecting system calculi with the prominence staghorn calculi of the left kidney and the EKG was indicating inferior infarction in the past; however patient had no evidence of symptoms of chest pain or anginal pain. Patient also had right [id number] amputation and she has actually the left hip she had a screw with apparently fracture in the past and they have fixation in the left hip which was found to be in the CT scan. Patient had persistent leukocytosis and the etiology of that is unclear except chronic infection with bilateral calyceal nephrolithiasis on the staghorn and we will be obtaining the opinion of Urology tomorrow. Meanwhile, will obtain the UA and culture and sensitivity to see if the chronicity of the infection if it is present at this time. On the examination today, patient is resting comfortably. She accepted the pain in the left flank and she is conscious, alert, oriented. Her vitals signs today indicating that her heart rate in the 80s and the blood pressure in the average of 107/65 today, temperature 97.6 and the pulse rate 83. Her mean blood pressure is 79. Her pulse ox is 95% and she is on 2 L nasal cannula and her laboratory today was indicating on 02/22 that her sodium 142 and potassium 4.5 per renal function appeared to be estimated with glomerular filtrate rate for non- more than 60. She has blood sugar 169 which is monitored and covered with insulin to scale with the history of diabetes mellitus. Her AST is 53 and the alkaline phosphatase 111, her total protein is normal with the albumin as well as vitamin B12 of 1000. Apparently, we do not have a CBC with differential today and will obtain that tomorrow as well as the BMP and hemoglobin A1c on 02/21 and her hemoglobin A1c was 5.9. On the current examination the patient is conscious, alert, still complaining of pain and requesting morphine and shots in spite that she has taken pain patch as well Duragesic 25 mcg and [place]. HEENT: The head was normocephalic, atraumatic. She had dental caries, severe and she had no teeth in the upper jaw. Neck was supple, no JVD, no thyromegaly, no lymphadenopathy. Chest was increased anteroposterior diameter; however, no wheezes, no rhonchi today. The heart was regular sinus and the abdomen was soft. She had tenderness on the left flank, probably now we know with the CT, no evidence of malignancy but presence of the staghorn calculi in the left kidney. The extremities, we have right below knee amputation and the left she had a pin and screw with the removal of the head of the left humerus and unknown how many years ago that done. Patient is a very poor historian. Patient unable to ambulate and we will be planning for consultation. ASSESSMENT: 1. History of allergic reaction. 2. Persistent leukocytosis probably associated with chronic infection and we will be obtain blood culture as well as the urine and obtaining also the consultation with Neurology for his input regarding of this problem. Will adjust his steroid and discontinue for today. No further reaction and she is from the point of acute allergy has been resolved. NIRALI
[2017-02-23 14:18] LABS: Anion Gap 14 mmol/L; Blood Urea Nitrogen 26 mg/dL (7-17); Calcium 7.9 mg/dL (8.4-10.2); Carbon Dioxide 23 mmol/L (22-30); Chloride 110 mmol/L (98-107); Glucose 136 mg/dL (74-99); Non-African American GFR(MDRD) >60 (>60 ml/min/1.73 sqM); Potassium 3.5 mmol/L (3.5-5.1); Sodium 147 mmol/L (137-145)
--- NOTE | 2017-02-23 14:36 | ECHOF ---
Referral Reason:r/o endocarditis MEASUREMENTS -------- HEIGHT: 172.7 cm WEIGHT: 67.6 kg BP: 123/82 IVSd: 1.3 cm (0.6 - 1.1) LVIDd: 3.0 cm (3.9 - 5.3) LVPWd: 1.1 cm (0.6 - 1.1) IVSs: 1.1 cm LVIDs: 2.3 cm LVPWs: 1.2 cm Ao Diam: 2.9 cm (2.0 - 3.7) AV Cusp: 1.9 cm (1.5 - 2.6) LA Diam: 2.8 cm (2.7 - 3.8) MV EXCURSION: 11.540 mm (> 18.000) MV EF SLOPE: 24 mm/s (70 - 150) EPSS: 0.4 cm MV E Kurt: 0.73 m/s MV DecT: 164 ms MV A Kurt: 0.64 m/s MV E/A Ratio: 1.13 RAP: 5.00 mmHg RVSP: 9.49 mmHg FINDINGS -------- Sinus rhythm. This was a technically difficult study with suboptimal views. No Apicals due to skin tears. There is mild concentric left ventricular hypertrophy. Overall left ventricular systolic function is normal with, an EF between 55 - 60 %. The right ventricle is normal in size and function. The left atrium is normal in size. The right atrium is normal in size. The aortic valve is trileaflet, and appears structurally normal. No aortic stenosis or regurgitation. The mitral valve leaflets are mildly thickened. Mild mitral annular calcification present. There is trace mitral regurgitation. Trace tricuspid regurgitation present. The right ventricular systolic pressure, as measured by Doppler, is 9.49mmHg. Pulmonic valve appears structurally normal. The aortic root size is normal. The pericardium is normal. CONCLUSIONS -------- 1. Sinus rhythm. 2. The mitral valve leaflets are mildly thickened. 3. Mild mitral annular calcification present. 4. There is trace mitral regurgitation. 5. Trace tricuspid regurgitation present. 6. The right ventricular systolic pressure, as measured by Doppler, is 9.49mmHg. 7. Pulmonic valve appears structurally normal. 8. The aortic root size is normal. 9. The pericardium is normal. 10. This was a technically difficult study with suboptimal views. 11. No Apicals due to skin tears. 12. There is mild concentric left ventricular hypertrophy. 13. Overall left ventricular systolic function is normal with, an EF between 55 - 60 %. 14. The right ventricle is normal in size and function. 15. The left atrium is normal in size. 16. The right atrium is normal in size. 17. The aortic valve is trileaflet, and appears structurally normal. No aortic stenosis or regurgitation. [employer] HEAD MATCHER: Patricia Myrick RDCS
[2017-02-23] MEDS: AZTREONAM 2 GM in SODIUM CHLORIDE 0.9% 100 ML IVPB SCH ×2 (15:31→23:42)
[2017-02-23 16:49] LABS: Glucose,Whole Blood 96 mg/dL (75-99)
[2017-02-23] MEDS: POTASSIUM CHLORIDE ER 20 MEQ TAB.ER PO SCH (17:07)
[2017-02-23] MEDS: MELATONIN 3 MG TABLET PO SCH (20:51)
[2017-02-23] MEDS: MIRTAZAPINE 15 MG TAB PO SCH (20:52)
[2017-02-23] MEDS: clonazePAM 0.5 MG TAB PO SCH (20:52)
[2017-02-23 21:15] LABS: Glucose,Whole Blood 113 mg/dL (75-99)
[2017-02-24] MEDS: MAG HYDROX/AL HYDROX/SIMETH 30 ML CUP PO PRN ×4 (03:24→21:48)
[2017-02-24] MEDS: HYDROcodone/APAP 10-325MG 1 EACH TAB PO PRN ×4 (03:24→21:55)
[2017-02-24] MEDS: IPRATROPIUM-ALBUTEROL 3 ML NEB INHALATION PRN ×5 (03:46→19:52)
[2017-02-24 07:07] LABS: Glucose,Whole Blood 92 mg/dL (75-99)
[2017-02-24 07:26] LABS: Anisocytosis Slight; Basophils # (A) 0.1 k/uL (0-0.2); Basophils % (A) 1 %; CH 25.1; CHCM 30.6; Eosinophils # (A) 0.1 k/uL (0-0.7); Eosinophils % (A) 1 %; HCT 46.5 % (34.0-46.0); HDW 2.91; HGB 13.9 gm/dL (11.4-16.0); Hypochromasia Moderate; Luc # (Auto) 0.14; Luc % (Auto) 1; Lymphocytes # (A) 1.5 k/uL (1.0-4.8); Lymphocytes % (A) 16 %; MCH 24.5 pg (25.0-35.0); MCHC 29.9 g/dL (31.0-37.0); MCV 82.2 fL (80.0-100.0); Mean Platelet Volume 7.5; Monocytes # (A) 0.5 k/uL (0-1.0); Monocytes % (A) 6 %; Neutrophils # (A) 7.1 k/uL (1.3-7.7); Neutrophils % (A) 75 %; RBC 5.66 m/uL (3.80-5.40); RDW 16.1 % (11.5-15.5); WBC 9.5 k/uL (3.8-10.6); WBC (Perox) 9.15
--- NOTE | 2017-02-24 07:37 | PN ---
MEDICAL FOLLOWUP: Patient's age is 66 years ago, . HER DATA: She is 5 feet 8 inches, 71 kg and BSA 1.84 sq. m, BMI 23.8 kg/sq m. ALLERGIES: 1. CIPROFLOXACIN. 2. IODINE. 3. PENICILLIN. 4. SULFA. 5. RED DYE. 6. PHENYLPIPERAZINE ANTIDEPRESSANT. Patient seen today, evaluated and discussed with her sister as well as the patient. Her vital signs indicating that her white count was 18.1 on the 21 of February and today 16.8. Her hematocrit improved to 44.1. Her platelet count 182 today. Her chemistry profile is pending and her last chemistry profile indicating that her blood sugar was hemoglobin A1c was 5.9 with glucose 169. Normal vitamin B12. Troponin was normal. Her potassium is 4.5. Her carbon dioxide 26. Her BUN is 28 and creatinine 0.89. Her temperature is 97.8. Her pulse 80 and her respiratory rate is 20. Her blood pressure 128/70 and her pulse ox 98% on 2 L. The KUB showed staghorn in the left kidney, however, she also found in the lab that she had underlying urinalysis which was indicating moderate blood, large leukocyte esterase and urine RBC was more than 182 and white cells in the urine more than 182 as well and there is many clumps present with the few bacteria. Culture was obtained. Her CBG has been controlled very well 91 to 102. Her lactic acid today 3.2 was increased and yesterday was 2.8. The CT scan of the abdomen and pelvis as well as the chest indicating no malignancy, however, she bilateral nephrolithiasis and probably she has also pyelonephritis as well with the abnormal urinalysis indicate infection as well and this could be associated with the chronicity of the infection of the kidney with stones especially with the staghorn stone. Currently with this, lab is sepsis. We already ordered the echocardiogram 2-D with Doppler. However, the result was not yet available and I did call the echo and they will show it to Dr. Anne Patricia who is currently busy with procedure and he will be calling me subsequently to see how much function of her heart and left ventricular function for increase her IV fluid. We will be temporarily increasing her IV fluid to 100 mL an hour until further information of the echocardiogram. Patient did not have evidence of congestive heart failure and not present any congestive heart failure in this admission or I have no knowledge of the previous admission. With this finding, we will be gradually adjusting her medication as well and decreasing her Lasix to the minimum as we have understanding that the Lasix was used for her blood pressure. No evidence of edema. No evidence of congestive heart failure and her BNP was normal. We will be consulting the infectious disease, Dr. Boogie, which I did talk to him personally and because of the patient has multiple allergies as mentioned above and we will be planning to see which antibiotic needed for how long as well as well as Dr. Childs will be looking after the patient's staghorn and the chronic infection. The patient had on the examination today she had severe flank pain with minimal palpation on the left flank area. Her bowel sound is present. There is no tenderness in the other quadrant. Her chest is clear to auscultation and percussion. She had history of COPD and the heart was regular sinus rhythm and no evidence of dysrhythmia. Patient found to be on Plavix and I did ask the patient she said that she had questionable stroke 6 years ago by her sister. She has multiple medications for depression. She has severe peripheral disease and she had right below knee amputation and the left she had prosthesis as well with the screw in the left hip. She is unable to walk. Patient is conscious, alert, oriented x3 with the underlying oropharyngeal tooth decayed. ASSESSMENT: No evidence of congestive heart failure. I did receive a call from the inquiry Mrs. Shea Rothman and I did advise that patient has no evidence of congestive heart failure and the inquiry is invalid. The echo was done, however , that mainly for evaluation of the left ventricular function with a history of hypertension. Patient received blood culture yesterday, which we do not have result and the urine culture is pending. The CMP is pending. We also ordered PTH intact to see the activity of the parathyroid hormone. Because of the chronic obstructive pulmonary disease, she is on oxygen. PLAN: 1. Consulting the infectious doctor, Dr. Boogie. 2. Working with Dr. Childs, urologist, regarding of her chronic infection. 3. Sepsis. 4. History of allergic reaction has been resolved. 5. Left flank pain severe secondary to the staghorn stone. 6. Multiple medications. We will be continuing the current treatment and antibiotic will be taking care by Dr. Keagan infectious disease as I spoke to him personally. Progress note more than 30 minutes. NIRALI
[2017-02-24 08:10] LABS: Anion Gap 12 mmol/L; Blood Urea Nitrogen 20 mg/dL (7-17); Calcium 8.1 mg/dL (8.4-10.2); Carbon Dioxide 23 mmol/L (22-30); Chloride 112 mmol/L (98-107); Glucose 98 mg/dL (74-99); Non-African American GFR(MDRD) >60 (>60 ml/min/1.73 sqM); Potassium 4.5 mmol/L (3.5-5.1); Sodium 147 mmol/L (137-145)
[2017-02-24] MEDS: METOPROLOL TARTRATE 25 MG TAB PO SCH ×2 (08:44→16:55)
[2017-02-24] MEDS: AZTREONAM 2 GM in SODIUM CHLORIDE 0.9% 100 ML IVPB SCH ×2 (08:44→15:09)
[2017-02-24] MEDS: LACTOBACILLUS ACIDOPH & BULGAR 1 EACH PACKET PO SCH ×3 (08:44→21:49)
[2017-02-24] MEDS: INSULIN LISPRO (humaLOG) 300 UNIT/3 ML VIAL SQ SCH ×3 (08:45→17:30)
[2017-02-24] MEDS: PANTOPRAZOLE 40 MG TABLET PO SCH (08:45)
[2017-02-24] MEDS: DOCUSATE 100 MG CAP PO SCH (08:46)
[2017-02-24] MEDS: CLOPIDOGREL 75 MG TAB PO SCH (08:46)
[2017-02-24] MEDS: risperiDONE 0.5 MG TAB PO SCH ×2 (08:47→21:48)
[2017-02-24] MEDS: ZINC OXIDE-CORN STARCH 142 GM POWDER TOPICAL SCH ×2 (08:47→16:58)
[2017-02-24] MEDS: SERTRALINE 100 MG TAB PO SCH (08:47)
[2017-02-24] MEDS: FUROSEMIDE 20 MG TAB PO SCH (08:48)
[2017-02-24] MEDS: METOPROLOL TARTRATE 50 MG TAB PO SCH ×2 (08:49→21:48)
[2017-02-24] MEDS: NYSTATIN 100,000 UNIT/GM POWD 15 GM TOPICAL SCH ×2 (09:06→16:57)
--- NOTE | 2017-02-24 10:40 | US ---
EXAMINATION TYPE: US kidneys/renal and bladder DATE OF EXAM: 02/24/2017 COMPARISON: 02/21/2017 CLINICAL HISTORY: CK D, nephrolithiasis, atrophic left kidney.. Lt flank pain, abnormal CT EXAM MEASUREMENTS: Right Kidney: 11.5 x 5.4 x 5.2 cm Left Kidney: 10.3 x 5.5 x 5.3 cm Difficult scan, pt limited mobility There are bilateral renal calculi as noted by recent CT scan. There is a least 2 cysts seen involving the left kidney measuring 5.4 x 4.4 x 5.2 cm and has a simple appearance. Bladder distends normally. IMPRESSION: Bilateral renal calculi corresponding to the CT abnormality. Simple appearing left renal cyst noted. No obvious hydronephrosis.
[2017-02-24 12:02] LABS: Glucose,Whole Blood 99 mg/dL (75-99)
[2017-02-24] MEDS: ASPIRIN 81 MG CHEW PO SCH (12:37)
[2017-02-24] MEDS: MULTIVITAMINS, THERA 1 EACH TAB PO SCH (12:37)
[2017-02-24] MEDS: SODIUM CHLORIDE 0.9% 1,000 ML IV SCH (14:50)
--- NOTE | 2017-02-24 16:06 | P.PN ---
Subjective The patient is in the hospital with dyspnea. She seems to have improved. Dr. childs was asked to see the patient for kidney stones. She is found to have it partial staghorn on the left to almost a complete staghorn. I saw the patient in consultation for Dr. Childs to consider a percutaneous nephrostolithotomy. I think this is a reasonable approach. The patient is interested that. I reviewed the x-rays with radiology and they concur. I will see her in the office as an outpatient to get this arranged. Objective - Vital Signs Vital signs: Vital Signs Temp 98.0 F 02/24/17 15:00 Pulse 80 02/24/17 16:01 Resp 16 02/24/17 15:00 BP 123/75 02/24/17 15:00 Pulse Ox 95 02/24/17 15:49 Intake & Output 02/23/17 02/24/17 02/24/17 18:59 06:59 18:59 Intake Total 744 839 6082 Output Total 200 Balance 342 498 5356 Intake: IV 600 Sodium Chloride 0.9% 1, 600 000 ml @ 75 mls/hr IV . [id number] [facility] Rx#:[id number] Intake, IV Titration 600 Amount Sodium Chloride 0.9% 1, 600 000 ml @ 75 mls/hr IV . [id number] [facility] Rx#:[id number] Oral 200 480 480 Output: Urine 200 Straight 200 Other: Voiding Method Diaper Incontinent # Voids 1 2 # Bowel Movements 1 - Labs CBC & Chem 7: 02/24/17 06:45 02/24/17 06:45 Labs: Abnormal Lab Results - Last 24 Hours (Table) 02/23/17 02/24/17 02/24/17 Range/Units 21:08 06:45 06:45 RBC 5.66 H (3.80-5.40) m/uL Hct 46.5 H (34.0-46.0) % MCH 24.5 L (25.0-35.0) pg MCHC 29.9 L (31.0-37.0) g/dL RDW 16.1 H (11.5-15.5) % Sodium 147 H (137-145) mmol/L Chloride 112 H (98-107) mmol/L BUN 20 H (7-17) mg/dL POC Glucose (mg/dL) 113 H (75-99) mg/dL Calcium 8.1 L (8.4-10.2) mg/dL Microbiology - Last 24 Hours (Table) 02/23/17 11:00 Urine Culture - Preliminary Urine,Catheterized Gram Neg Bacilli 02/22/17 15:19 Blood Culture - Preliminary Blood No Growth after 24 hours
[2017-02-24] MEDS: POTASSIUM CHLORIDE ER 20 MEQ TAB.ER PO SCH (16:55)
[2017-02-24 17:02] LABS: Glucose,Whole Blood 124 mg/dL (75-99)
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
[2017-02-24 21:09] LABS: Glucose,Whole Blood 121 mg/dL (75-99)
[2017-02-24] MEDS: MELATONIN 3 MG TABLET PO SCH (21:48)
[2017-02-24] MEDS: clonazePAM 0.5 MG TAB PO SCH (21:48)
[2017-02-24] MEDS: MIRTAZAPINE 15 MG TAB PO SCH (21:48)
[2017-02-25] MEDS: AZTREONAM 2 GM in SODIUM CHLORIDE 0.9% 100 ML IVPB SCH ×4 (00:13→23:04)
[2017-02-25] MEDS: INSULIN LISPRO (humaLOG) 300 UNIT/3 ML VIAL SQ SCH ×5 (00:15→21:05)
[2017-02-25] MEDS: ZINC OXIDE-CORN STARCH 142 GM POWDER TOPICAL SCH ×4 (00:15→20:52)
[2017-02-25] MEDS: NYSTATIN 100,000 UNIT/GM POWD 15 GM TOPICAL SCH ×4 (00:15→20:52)
[2017-02-25] MEDS: SODIUM CHLORIDE 0.9% 1,000 ML IV SCH ×3 (04:04→09:15)
[2017-02-25] MEDS: HYDROcodone/APAP 10-325MG 1 EACH TAB PO PRN ×4 (04:10→23:06)
[2017-02-25] MEDS: MAG HYDROX/AL HYDROX/SIMETH 30 ML CUP PO PRN ×3 (04:10→23:06)
[2017-02-25 07:14] LABS: Glucose,Whole Blood 99 mg/dL (75-99)
[2017-02-25] MEDS: IPRATROPIUM-ALBUTEROL 3 ML NEB INHALATION PRN ×4 (08:41→19:58)
[2017-02-25] MEDS: PANTOPRAZOLE 40 MG TABLET PO SCH (09:18)
[2017-02-25] MEDS: METOPROLOL TARTRATE 25 MG TAB PO SCH ×2 (09:18→20:42)
[2017-02-25] MEDS: ASPIRIN 81 MG CHEW PO SCH (09:19)
[2017-02-25] MEDS: DOCUSATE 100 MG CAP PO SCH (09:20)
[2017-02-25] MEDS: CLOPIDOGREL 75 MG TAB PO SCH (09:20)
[2017-02-25] MEDS: FUROSEMIDE 20 MG TAB PO SCH (09:20)
[2017-02-25] MEDS: METOPROLOL TARTRATE 50 MG TAB PO SCH ×2 (09:21→20:49)
[2017-02-25] MEDS: risperiDONE 0.5 MG TAB PO SCH ×2 (09:21→20:48)
[2017-02-25] MEDS: SERTRALINE 100 MG TAB PO SCH (09:22)
[2017-02-25] MEDS: LACTOBACILLUS ACIDOPH & BULGAR 1 EACH PACKET PO SCH ×3 (09:23→20:48)
[2017-02-25 11:48] LABS: Glucose,Whole Blood 104 mg/dL (75-99)
[2017-02-25] MEDS: MULTIVITAMINS, THERA 1 EACH TAB PO SCH (12:37)
--- NOTE | 2017-02-25 14:35 | P.PN ---
Subjective There is a dictation on progress note date of service 03/07/2017, PCP attending physician Dr. Kwame Ruiz. Dictating the progress note by Dr. Maura Kim FACP. Patient seen and evaluated today discussed with her the course of the plan. Patient seen by Dr. Cai urologist with the underlying bilateral nephrolithiasis and chronic infection with the pyelonephritis associated with elevated lactic acid which has been currently improved and normalize. Also the urine showed to be infected with Proteus mirabilis and currently on antibiotic. Dr. Boogie infectious disease will address the issue of how long antibiotic and the Avenue of the antibiotic subsequently patient will be [facility] and to follow up with Dr. Cai as outpatient where today he will be planning for surgical intervention probably next week when Dr. Ruiz will be back. Patient is seen today: Conscious alert oriented 3 no acute respiratory distress , she still have pain in the left flank and that's associated with the staghorn stone and probably was had the surgery may be the amount of narcotic needs to be adjusted. HEENT no change with the dental hygiene as needed. Neck was supple no JVD no thyromegaly no lymphadenopathy. Chest clear to auscultation percussion heart: Regular sinus rhythm no evidence of congestive heart failure. Abdomen soft positive bowel sounds with the tenderness on the flanks mainly on the left side however she had bilateral nephrolithiasis and the chronic leukocytosis has been is improved and now normalized and normal white cell. Extremities she had peripheral vascular disease with the right above-knee amputation done by Dr. rhoades in the past. And she had a peripheral vascular disease of the left lower extremities however no acute ischemic changes. The laboratory reviewed and will repeat the lab in a.m. Assessment #1 assessment associated with sepsis and bilateral nephrolithiasis with staghorn stones in the left kidney with elevated lactic acid and infected urine was Proteus mirabilis. #2 underlying pyelonephritis under the treatment with antibiotic Zosyn. #3 future plan for surgery I Dr. Cai as outpatient. 4 right below-knee amputation and left peripheral vascular disease of the lower extremities We'll continue the medication and antibiotic, we'll wait for Dr. Garber for his decision with the continuation of the antibiotic Culture was negative. Objective - Vital Signs Vital signs: Vital Signs Temp 97.3 F L 02/25/17 02:30 Pulse 88 02/25/17 12:15 Resp 16 02/25/17 02:30 BP 137/72 02/25/17 02:30 Pulse Ox 96 02/25/17 02:30 Intake & Output 02/24/17 02/25/17 02/25/17 18:59 06:59 18:59 Intake Total 1080 1375 Output Total 400 Balance 1080 975 Intake: IV 825 Sodium Chloride 0.9% 1, 825 000 ml @ 75 mls/hr IV . [id number] [facility] Rx#:[id number] Intake, IV Titration 600 100 Amount Aztreonam 2 gm In Sodium 100 Chloride 0.9% 100 ml @ 100 mls/hr IVPB Q8HR [facility] LU[facility] Rx#:[id number] Sodium Chloride 0.9% 1, 600 000 ml @ 75 mls/hr IV . [id number] [facility] Rx#:[id number] Oral 480 450 Output: Urine 400 Other: Voiding Method Diaper Diaper Incontinent Incontinent # Voids 2 # Bowel Movements 1 - Labs CBC & Chem 7: 02/24/17 06:45 02/24/17 06:45 Labs: Abnormal Lab Results - Last 24 Hours (Table) 02/24/17 02/24/17 02/25/17 Range/Units 16:42 21:07 11:46 POC Glucose (mg/dL) 124 H 121 H 104 H (75-99) mg/dL Microbiology - Last 24 Hours (Table) 02/23/17 11:00 Urine Culture - Final Urine,Catheterized Proteus mirabilis 02/22/17 15:19 Blood Culture - Preliminary Blood No Growth after 48 hours
[2017-02-25 17:16] LABS: Glucose,Whole Blood 92 mg/dL (75-99)
[2017-02-25 20:45] LABS: Glucose,Whole Blood 111 mg/dL (75-99)
[2017-02-25] MEDS: clonazePAM 0.5 MG TAB PO SCH (20:48)
[2017-02-25] MEDS: POTASSIUM CHLORIDE ER 20 MEQ TAB.ER PO SCH (20:48)
[2017-02-25] MEDS: MIRTAZAPINE 15 MG TAB PO SCH (20:48)
[2017-02-25] MEDS: MELATONIN 3 MG TABLET PO SCH (20:48)
--- NOTE | 2017-02-25 21:48 | PN ---
DATE OF SERVICE: 02/25/2017 REASON FOR FOLLOWUP: Gram-negative urinary tract infection. INTERVAL HISTORY: The patient is afebrile. She is breathing comfortably. The patient denies significant chest pain. No shortness of breath or cough. No abdominal pain. No nausea, vomiting or any diarrhea. On examination, blood pressure is 137/72 with a pulse of 75, temperature 97.3. She is 96% on room air. General description is an elderly female lying in bed in no distress. RESPIRATORY SYSTEM: Unlabored breathing. Clear to auscultation anteriorly. HEART: S1, S2. Regular rate and rhythm. ABDOMEN: Soft. No tenderness. LABS: No new labs obtained today. Urine is showing Proteus mirabilis. DIAGNOSTIC IMPRESSION AND PLAN: Patient with Proteus mirabilis urinary tract infection in a patient who has underlying staghorn calculus. which is usually ( ) associated with this type of infection. She is responding to the Azactam because of her multiple antibiotic allergies, though the organism is sensitive to ceftriaxone. May be able to give her a dose of Rocephin tomorrow, and if the patient does well, discharge antibiotic can be in the form of Ceftin. Will continue supportive care. NIRALI
[2017-02-26] MEDS: IPRATROPIUM-ALBUTEROL 3 ML NEB INHALATION PRN (07:20)
[2017-02-26 07:29] LABS: ALT 55 U/L (9-52); AST 38 U/L (14-36); Alkaline Phosphatase 95 U/L (38-126); Anion Gap 9 mmol/L; Blood Urea Nitrogen 18 mg/dL (7-17); Calcium 8.4 mg/dL (8.4-10.2); Carbon Dioxide 23 mmol/L (22-30); Chloride 111 mmol/L (98-107); Glucose 107 mg/dL (74-99); Non-African American GFR(MDRD) >60 (>60 ml/min/1.73 sqM); Potassium 4.4 mmol/L (3.5-5.1); Sodium 143 mmol/L (137-145); Total Bilirubin 0.4 mg/dL (0.2-1.3); Total Protein 6.8 g/dL (6.3-8.2)
[2017-02-26 07:30] LABS: Glucose,Whole Blood 106 mg/dL (75-99)
[2017-02-26 07:35] LABS: Basophils % (A) 0 %; CH 24.4; CHCM 30.5; Eosinophils # (A) 0.4 k/uL (0-0.7); Eosinophils % (A) 4 %; HCT 45.6 % (34.0-46.0); HGB 14.3 gm/dL (11.4-16.0); Hypochromasia Marked; Luc # (Auto) 0.12; Luc % (Auto) 1; Lymphocytes # (A) 1.6 k/uL (1.0-4.8); Lymphocytes % (A) 15 %; MCH 25.2 pg (25.0-35.0); MCHC 31.3 g/dL (31.0-37.0); MCV 80.3 fL (80.0-100.0); Mean Platelet Volume 6.6; Monocytes # (A) 0.4 k/uL (0-1.0); Monocytes % (A) 3 %; Neutrophils # (A) 8.1 k/uL (1.3-7.7); Neutrophils % (A) 76 %; RBC 5.68 m/uL (3.80-5.40); RDW 15.2 % (11.5-15.5); WBC 10.7 k/uL (3.8-10.6); WBC (Perox) 10.67
[2017-02-26] MEDS: MAG HYDROX/AL HYDROX/SIMETH 30 ML CUP PO PRN ×3 (07:57→21:35)
[2017-02-26] MEDS: FUROSEMIDE 20 MG TAB PO SCH (07:58)
[2017-02-26] MEDS: LACTOBACILLUS ACIDOPH & BULGAR 1 EACH PACKET PO SCH ×3 (07:58→17:27)
[2017-02-26] MEDS: METOPROLOL TARTRATE 25 MG TAB PO SCH ×2 (07:58→17:27)
[2017-02-26] MEDS: PANTOPRAZOLE 40 MG TABLET PO SCH (07:59)
[2017-02-26] MEDS: CLOPIDOGREL 75 MG TAB PO SCH (07:59)
[2017-02-26] MEDS: METOPROLOL TARTRATE 50 MG TAB PO SCH ×2 (07:59→21:37)
[2017-02-26] MEDS: DOCUSATE 100 MG CAP PO SCH (07:59)
[2017-02-26] MEDS: ASPIRIN 81 MG CHEW PO SCH (08:00)
[2017-02-26] MEDS: INSULIN LISPRO (humaLOG) 300 UNIT/3 ML VIAL SQ SCH ×4 (08:00→21:41)
[2017-02-26] MEDS: HYDROcodone/APAP 10-325MG 1 EACH TAB PO PRN ×3 (08:10→21:36)
[2017-02-26] MEDS: ZINC OXIDE-CORN STARCH 142 GM POWDER TOPICAL SCH ×3 (08:15→21:38)
[2017-02-26] MEDS: SERTRALINE 100 MG TAB PO SCH (08:20)
[2017-02-26] MEDS: NYSTATIN 100,000 UNIT/GM POWD 15 GM TOPICAL SCH ×3 (08:25→21:38)
[2017-02-26] MEDS: risperiDONE 0.5 MG TAB PO SCH ×2 (08:30→21:37)
[2017-02-26] MEDS: AZTREONAM 2 GM in SODIUM CHLORIDE 0.9% 100 ML IVPB SCH ×2 (09:06→17:53)
[2017-02-26 12:07] LABS: Glucose,Whole Blood 90 mg/dL (75-99)
[2017-02-26] MEDS: MULTIVITAMINS, THERA 1 EACH TAB PO SCH (12:32)
[2017-02-26] MEDS: LOSARTAN 25 MG TAB PO SCH (14:20)
[2017-02-26 16:16] LABS: Glucose,Whole Blood 127 mg/dL (75-99)
[2017-02-26] MEDS: POTASSIUM CHLORIDE ER 20 MEQ TAB.ER PO SCH (17:27)
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
--- NOTE | 2017-02-26 20:04 | PN ---
ALLERGIES INCLUDE: 1. CIPROFLOXACIN. 2. IODINE. 3. PENICILLIN. 4. PHENYLPIPERAZINE ANTIDEPRESSANT. 5. RED DYE. 6. SULFONAMIDE. Patient is a resident at [facility]. Attending physician is Dr. Kwame Ruiz. I am dictating the progress note in the absence of Dr. Kwame Ruiz. Patient currently is seen and evaluated today. Her underlying vital signs indicate blood pressure has started to pepper picker; today it is 153/93. Her temperature is 97.7, pulse rate 77, respiratory rate 20. Her mean blood pressure is 112. Her oxygen saturation on room air is 96. Current laboratory indicates that her white count is 10.7 with RBC 5.68, mildly elevated, with neutrophils of 8.1. She had also hypochromasia. On the chem-3, her sodium is normal at 143, potassium 4.4, chloride 111. She was on IV fluid for hydration with the elevated lactic acid with the associated sepsis. She had BUN of 18 and creatinine 0.63. MTDD
[2017-02-26 20:19] LABS: Glucose,Whole Blood 94 mg/dL (75-99)
[2017-02-26] MEDS: MIRTAZAPINE 15 MG TAB PO SCH (21:37)
[2017-02-26] MEDS: MELATONIN 3 MG TABLET PO SCH (21:37)
[2017-02-26] MEDS: clonazePAM 0.5 MG TAB PO SCH (21:40)
[2017-02-27 07:12] LABS: Glucose,Whole Blood 110 mg/dL (75-99)
[2017-02-27 07:12] LABS: Anisocytosis Slight; Basophils # (A) 0.1 k/uL (0-0.2); Basophils % (A) 0 %; CH 25.2; CHCM 31.5; Eosinophils # (A) 0.4 k/uL (0-0.7); Eosinophils % (A) 3 %; HCT 46.6 % (34.0-46.0); HDW 2.96; HGB 14.6 gm/dL (11.4-16.0); Hypochromasia Slight; Luc # (Auto) 0.13; Luc % (Auto) 1; Lymphocytes # (A) 1.5 k/uL (1.0-4.8); Lymphocytes % (A) 11 %; MCH 25.2 pg (25.0-35.0); MCHC 31.3 g/dL (31.0-37.0); MCV 80.3 fL (80.0-100.0); Mean Platelet Volume 7.1; Monocytes # (A) 0.5 k/uL (0-1.0); Monocytes % (A) 4 %; Neutrophils # (A) 10.9 k/uL (1.3-7.7); Neutrophils % (A) 81 %; RDW 16.3 % (11.5-15.5); WBC 13.5 k/uL (3.8-10.6); WBC (Perox) 13.68
--- NOTE | 2017-02-27 07:27 | PN ---
DATE OF SERVICE: 02/26/2017 Reason for follow up is proteus mirabilis urinary tract infection. INTERVAL HISTORY: The patient is afebrile. She is feeling better, breathing comfortably. Denies any significant chest pain, shortness of breath, cough. Some pain in the left leg area but no worsening. No nausea,vomiting. No abdominal pain or diarrhea. On examination, blood pressure 152/93 with a pulse of 84, temperature is 97.5. She is 93% on 3 L nasal cannula. General description is an elderly female lying in bed in no distress. RESPIRATORY SYSTEM: Unlabored breathing, clear to auscultation anteriorly. HEART: S1, S2, regular rate and rhythm. ABDOMEN: Soft, no tenderness. LABS: Hemoglobin is 14.3, white count is 10.7 with a BUN of 18, creatinine 0.63. Urine with proteus mirabilis that is sensitive to Rocephin. DIAGNOSTIC IMPRESSION AND PLAN: Patient with a proteus mirabilis urinary tract infection. The patient did have ( ) of the UTI with the ( ). Patient did have PENICILLIN allergy with rash. No history of ( ). She has been given a dose of Rocephin which the patient tolerated. She will be continued on Rocephin with the plan to finish therapy with Ceftin 500 mg twice a day for two weeks. Continue supportive care. MTDD
[2017-02-27 07:33] LABS: Anion Gap 11 mmol/L; Blood Urea Nitrogen 17 mg/dL (7-17); Calcium 8.4 mg/dL (8.4-10.2); Carbon Dioxide 23 mmol/L (22-30); Chloride 110 mmol/L (98-107); Glucose 114 mg/dL (74-99); Non-African American GFR(MDRD) >60 (>60 ml/min/1.73 sqM); Sodium 144 mmol/L (137-145)
[2017-02-27] MEDS: INSULIN LISPRO (humaLOG) 300 UNIT/3 ML VIAL SQ SCH (07:55)
[2017-02-27] MEDS: risperiDONE 0.5 MG TAB PO SCH (07:55)
[2017-02-27] MEDS: METOPROLOL TARTRATE 25 MG TAB PO SCH (07:55)
[2017-02-27] MEDS: LACTOBACILLUS ACIDOPH & BULGAR 1 EACH PACKET PO SCH ×2 (07:55→12:05)
[2017-02-27] MEDS: LOSARTAN 25 MG TAB PO SCH (07:55)
[2017-02-27] MEDS: DOCUSATE 100 MG CAP PO SCH (07:55)
[2017-02-27] MEDS: PANTOPRAZOLE 40 MG TABLET PO SCH (07:56)
[2017-02-27] MEDS: SERTRALINE 100 MG TAB PO SCH (07:56)
[2017-02-27] MEDS: ASPIRIN 81 MG CHEW PO SCH (07:56)
[2017-02-27] MEDS: CLOPIDOGREL 75 MG TAB PO SCH (07:56)
[2017-02-27] MEDS: ZINC OXIDE-CORN STARCH 142 GM POWDER TOPICAL SCH (07:56)
[2017-02-27] MEDS: MAG HYDROX/AL HYDROX/SIMETH 30 ML CUP PO PRN ×2 (07:59→14:38)
[2017-02-27] MEDS: HYDROcodone/APAP 10-325MG 1 EACH TAB PO PRN ×2 (07:59→14:37)
[2017-02-27] MEDS: METOPROLOL TARTRATE 50 MG TAB PO SCH (08:05)
[2017-02-27] MEDS ORDERED: cefTRIAXone 2,000 MG in SODIUM CHLORIDE 0.9% 100 ML IVPB SCH (09:00)
[2017-02-27] MEDS: FUROSEMIDE 20 MG TAB PO SCH (09:45)
[2017-02-27 11:58] LABS: Glucose,Whole Blood 92 mg/dL (75-99)
[2017-02-27] MEDS: MULTIVITAMINS, THERA 1 EACH TAB PO SCH (12:05)
[2017-02-27] MEDS: NYSTATIN 100,000 UNIT/GM POWD 15 GM TOPICAL SCH (12:05)
[2017-02-27 15:38] VITALS: BP 133/87; PULSE 90; RESP 16; TEMP 97.6
[2017-02-27 16:46] LABS: Glucose,Whole Blood 97 mg/dL (75-99)
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
--- NOTE | 2017-02-28 09:39 | PN ---
DATE OF SERVICE: 02/27/2017 REASON FOR FOLLOW UP: Proteus mirabilis urinary tract infection. INTERVAL HISTORY: The patient is afebrile. She is breathing comfortably. Patient has tolerated Rocephin without any problem. Denies significant chest pain, shortness of breath or cough. No abdominal pain, nausea, vomiting or any diarrhea. On examination: Blood pressure 127/56 with pulse 58. Temperature 98.1. She is 95% on room air. General description is an elderly female lying in bed in no distress. RESPIRATORY: Unlabored breathing. Clear to auscultation anteriorly. HEART: S1, S2 regular rate and rhythm. ABDOMEN: Soft, no tenderness. LABS: BUN 17 with creatinine 0.61. Urine with Proteus mirabilis that is sensitive to the ceftriaxone. DIAGNOSTIC IMPRESSION AND PLAN: Patient with urinary tract infection with ( ) calculus. Urine with Proteus mirabilis sensitive to Rocephin currently on Rocephin that will be switched to p.o ceftriaxone twice a day for two weeks to finish course of therapy. MTDD
== END 2017-02-27 17:18 | DRG 915 ==
LOC: EC 13:49 → 3SUR 15:56
PROVIDERS: ADMIT Internal Medicine; ATTEND Internal Medicine
DX: T78.49XA Other allergy, initial encounter (principal); A41.9 Sepsis, unspecified organism; E11.51 Type 2 diabetes mellitus with diabetic peripheral angiopathy without gangrene; I11.9 Hypertensive heart disease without heart failure; E11.65 Type 2 diabetes mellitus with hyperglycemia; J44.1 Chronic obstructive pulmonary disease with (acute) exacerbation; N12 Tubulo-interstitial nephritis, not specified as acute or chronic; R09.02 Hypoxemia; K21.9 Gastro-esophageal reflux disease without esophagitis; N20.0 Calculus of kidney; E86.0 Dehydration; K02.9 Dental caries, unspecified; F32.9 Major depressive disorder, single episode, unspecified; F41.9 Anxiety disorder, unspecified; D63.8 Anemia in other chronic diseases classified elsewhere; B96.4 Proteus (mirabilis) (morganii) as the cause of diseases classified elsewhere; I25.10 Atherosclerotic heart disease of native coronary artery without angina pectoris; G89.4 Chronic pain syndrome; R32 Unspecified urinary incontinence; Z16.24 Resistance to multiple antibiotics; Z79.82 Long term (current) use of aspirin; Z79.02 Long term (current) use of antithrombotics/antiplatelets; Z79.899 Other long term (current) drug therapy; Z87.891 Personal history of nicotine dependence; Z86.14 Personal history of Methicillin resistant Staphylococcus aureus infection; Z89.611 Acquired absence of right leg above knee; Z87.11 Personal history of peptic ulcer disease; Z86.73 Personal history of transient ischemic attack (TIA), and cerebral infarction without residual deficits; Z90.49 Acquired absence of other specified parts of digestive tract; Z88.0 Allergy status to penicillin; Z88.2 Allergy status to sulfonamides; Z88.8 Allergy status to other drugs, medicaments and biological substances; Z88.1 Allergy status to other antibiotic agents; Z91.041 Radiographic dye allergy status; Z91.012 Allergy to eggs; Z91.02 Food additives allergy status
CPT/HCPCS: 36415; 71020; 71250; 74000; 74176; 76770; 80048; 80053; 81001; 82550; 82553; 82607; 83021; 83036; 83605; 83735; 83880; 83970; 84484; 85025; 85610; 85730; 87040; 87077; 87086; 87186; 93005; 93306; 94640; 96374; 96375; 99285

== ENCOUNTER 2017-03-25 08:47 | Inpatient (IN) | payer MEDICARE, OTHER ==
[2017-03-19 16:45] VITALS: BMI 22.6
--- NOTE | 2017-03-25 05:16 | HP ---
HISTORY AND PHYSICAL ADMITTING DIAGNOSIS: Left renal calculus. PROCEDURE TO BE PERFORMED: Left percutaneous nephrostolithotomy. Mrs. Krause is a 66-year-old female with no previous history of urolithiasis treated for recurrent urinary tract infection. She is a resident of [facility]. She was in the hospital recently with dyspnea and a cough. She had a CT scan of the abdomen which identified a partial to almost complete staghorn calculus on the left. Dr. Childs saw the patient in consultation and due to the large size of the stone probably need for a percutaneous nephrostolithotomy and I saw the patient in followup. I reviewed the CT scan with the radiologist and the patient and we decided to proceed with a percutaneous nephrostolithotomy. The risks and complications including injury to adjacent organs, infection, bleeding, pain, loss of kidney, failure to remove all the stone, urosepsis among others have been explained, understood and accepted. She comes for this procedure. PAST MEDICAL HISTORY: She has had no fever, chest pain, chills, nausea or vomiting. She does have some mild left lower quadrant discomfort. She has not had any hematuria. Past medical history is positive for coronary artery disease, COPD, reflux, hypertension, vascular disease. She has a history of gastric ulcer. Surgical history includes right ptgvz-yel-fwci amputation for vascular disease. She does have chronic incontinence. SURGICAL HISTORY: Surgical history includes appendectomy, cholecystectomy, a right atdak-khl-xoyf amputation, ovarian cyst. She used to smoke, but no longer does. MEDICATIONS: Medications have included: 1. Aspirin, which is stopped. 2. Plavix, which is stopped. 3. Colace. 4. Lasix. 5. Charlotte. 6. Acidophilus. 7. Maalox. 8. Lopressor 25 b.i.d. 9. Potassium chloride 20 mEq daily. 10.Catapres 0.1 mg b.i.d. 11.Klonopin 0.5 mg daily. 12.Duragesic patch 25 mcg/hour 1 patch q.72 hours. 13.Dulcolax 10 mg daily p.r.n. 14.Nexium 40 mg daily. 15.Feosol 325 daily. 16.Imodium 4 mg b.i.d. 17.Compazine 10 mg q.8 hours p.r.n. 18.Risperidone 0.5 mg p.o. b.i.d. 19.Remeron 15 mg at bedtime. 20.Zoloft 100 mg daily. 21.Benadryl 50 mg t.i.d. ALLERGIES: Allergies include possibly CIPRO, IODINE, PENICILLIN, PHENYLPIPERAZINE, SULFA, none of these are documented as to the reaction. PHYSICAL EXAMINATION: On examination, blood pressure is 105/59, pulse 96, respirations 17, temperature 97.3. HEENT examination is unremarkable. Respirations are nonlabored. She is not tachycardic. Abdomen is soft. No mass or organomegaly. Extremities without edema on the left. There is a right agvwn-zmb-xhoq amputation. Neurologic examination grossly intact. IMPRESSION: This patient has a partial staghorn calculus on the left and she comes for percutaneous nephrostolithotomy. PUSHPA / MYN: [id number] /
[~2017-03-25 08:47] MED LIST: DEXAMETHASONE SOD PHOSPHATE 10 MG/ML 1 ML VIAL IV ONE; GENTAMICIN 100 MG in SODIUM CHLORIDE 0.9% 100 ML IVPB ONE; ONDANSETRON 4 MG/2 ML VIAL IVP ONE; Pre Op ABX Message 1 EACH MISC MISCELLANE ONE
--- NOTE | 2017-03-25 09:04 | XR ---
Abdomen HISTORY: Left renal calculus Frontal view of the abdomen on 2 images correlated to prior dated 02/23/2017 Postop changes are stable. Bone mineralization is reduced. There are dense vascular calcifications pr esent. Staghorn calculus within the left kidney is stable. Surgical clips are present in the right up per quadrant. Calcifications in the right kidney are poorly visualized. IMPRESSION: Nephrolithiasis on the left is stable.
[2017-03-25 10:13] LABS: Glucose,Whole Blood 123 mg/dL (75-99)
[2017-03-25] MEDS: LACTATED RINGERS 1,000 ML IV ONE ×2 (10:19→16:32)
[2017-03-25] MEDS ORDERED: LIDOCAINE 1% 20 ML VIAL (10MG/ML) FOR IV START INTRADERMA ONE (10:20)
[2017-03-25] MEDS ORDERED: PROPOFOL 10 MG/ML 20 ML VIAL IV ONE (10:40)
[2017-03-25] MEDS ORDERED: ROCURONIUM BROMIDE 10 MG/ML 10 ML VIAL IV ONE (10:40)
[2017-03-25] MEDS ORDERED: MIDAZOLAM 2 MG/2 ML VIAL ONE (10:40)
[2017-03-25] MEDS ORDERED: NEOSTIGMINE 1 MG/ML 10 ML VIAL ONE (10:40)
[2017-03-25] MEDS ORDERED: fentaNYL (PF) 50 MCG/ML 2 ML AMP ONE (10:40)
[2017-03-25] MEDS ORDERED: LACTATED RINGERS 1,000 ML IV ONE (10:40)
[2017-03-25] MEDS ORDERED: SUCCINYLCHOLINE CHLORIDE 100 MG/5 ML SYR IV ONE (10:40)
[2017-03-25] MEDS ORDERED: LIDOCAINE 1% INJ 10MG/ML (20 ML MDV) ONE (10:40)
[2017-03-25] MEDS ORDERED: PHENYLEPHRINE-0.9% NACL SYG 1 MG/10 ML SYRINGE ONE (10:40)
[2017-03-25] MEDS ORDERED: SODIUM CHLORIDE 0.9% 50 ML with ceFAZolin 2,000 MG IV ONE ×2 (10:55)
[2017-03-25] MEDS ORDERED: IOHEXOL 350 MG/ML 100 ML BOTTLE MISCELLANE ONE (11:15)
[2017-03-25] MEDS ORDERED: MAGNESIUM HYDROXIDE 2,400 MG/10 ML CUP PO PRN (12:35)
[2017-03-25] MEDS ORDERED: MAG HYDROX/AL HYDROX/SIMETH 30 ML CUP PO PRN ×2 (12:35)
[2017-03-25] MEDS ORDERED: BISACODYL 10 MG SUPP RECTAL PRN (12:35)
--- NOTE | 2017-03-25 12:47 | P.OP ---
Date of Procedure: 03/25/17 Preoperative Diagnosis: Infected left renal staghorn calculus Postoperative Diagnosis: Same Procedure(s) Performed: Cystoscopy, placement of left occluding balloon catheter, left percutaneous nephrostomy (Dr. bowman), percutaneous nephrostolithotomy with ultrasound, placement of 20-Slovak reentry nephrostomy tube. Implants: Anesthesia: MINAA Surgeon: Yan Bahena Estimated Blood Loss (ml): 200 Pathology: other (Stone) Condition: stable Disposition: PACU Indications for Procedure: The patient is a 66-year-old bedridden jail patient with a staghorn calculus, greater than 3 cm diameter, that is infected who comes for a percutaneous nephrostolithotomy. Operative Findings: Description of Procedure: The patient is brought to the operating suite given a general endotracheal anesthesia on the transport gurney. She's placed in a frog position with a sterile prep and drape. Cystoscopy with a Foroblique lens and 21-Slovak sheath identifies a normal urethra. The bladder wall is chronically inflamed. The left ureteral orifice is intubated with a 5-Slovak occluding balloon catheter that passed into the renal pelvis. The cystoscope was removed the ureteral catheter secured to a 16-Slovak [place]. Patient is placed in a prone position with care to airways and extremities. Dr. Bowman of radiology performed percutaneous access to the left lower pole calyx. The track is dilated to 30-Slovak. With the rigid nephroscope I remove clot. The mucosa of the collecting systems extremely inflamed as expected with a chronically infected Staghorn calculus. Culture specific antibiotics for the Proteus infection. With ultrasound I break the large stone into smaller pieces in either suction or grasp the fragments out. After removing all the visible fragments with the rigid scope I passed the flexible scope throughout the collecting system remove fragments as possible. It is quite edematous and bleeds quite easily making visualization somewhat difficult. At the end of the procedure there appears to be small fragments that I'm unable to localize due to edema and bleeding. A second look nephroscopy will be required because of the fact that this is an infected stone. I thus placed a 20-Slovak reentry nephrostomy tube into the collecting system for a second look. It is secured to the skin with 2-0 silk. It is positioned appropriately be determined fluoroscopically. It is secured to the skin with 2-0 silk. The wound distress the patient awake and returned recovery in good condition. She tolerated the procedure well. Blood loss is 200 mL. She'll be placed in the hospital postoperatively.
[2017-03-25] MEDS: HYDROmorphone 1 MG/ML 1 ML SYRINGE IVP PRN ×2 (13:02→13:09)
[2017-03-25 13:21] LABS: Glucose,Whole Blood 187 mg/dL (75-99)
[2017-03-25] MEDS: ONDANSETRON 4 MG/2 ML VIAL IVP PRN ×2 (14:13→17:03)
[2017-03-25] MEDS: DEXTROSE 5%-0.45% NACL 1,000 ML IV SCH (14:46)
[2017-03-25] MEDS: KETOROLAC 30 MG/ML 1 ML VIAL IVP PRN ×2 (14:47→21:15)
--- NOTE | 2017-03-25 15:12 | FL ---
EXAMINATION TYPE: FL Perc Nephrostomy New Access DATE OF EXAM: 03/25/2017 COMPARISON: NONE HISTORY: Left renal stones Procedure had been discussed with the patient by Dr. Bahena, risks, benefits, alternatives, were dis cussed and any questions were answered. Informed consent was obtained. The patient was in a semipro ne position prepped and draped on the OR table in the usual sterile fashion. Utilizing a 15 cm lengt h Chiba needle a single pass was made into a lower pole posterior calyx under fluoroscopic guidance. An 0.018 guidewire is passed through the needle and there was placement of a 6-Kinyarwanda catheter sheat h system. There was conversion to a 0.035 system was performed with passage of a guidewire into the ureter utilizing a directional catheter. A second safety wire was placed. Remaining portion of pro cedure performed by . Approximately 2 minutes 32 seconds of fluoroscopy was provided. No i mages provided IMPRESSION: 1. Successful intraoperative left nephrostomy prior to nephrolithotomy.
[2017-03-25] MEDS ORDERED: SODIUM CHLORIDE 0.9% 500 ML IV ONE (15:45)
[2017-03-25] MEDS ORDERED: CALDESENE TOPICAL SCH (16:00)
[2017-03-25] MEDS: NYSTATIN 100,000 UNIT/GM POWD 15 GM TOPICAL SCH ×2 (17:03→21:22)
[2017-03-25] MEDS: ceFAZolin 1,000 MG in DEXTROSE/WATER 1 50ML.BAG IVPB SCH ×2 (17:03→23:25)
[2017-03-25] MEDS: HYDROcodone/APAP 10-325MG 1 EACH TAB PO PRN (17:03)
[2017-03-25] MEDS: FUROSEMIDE 40 MG TAB PO SCH (17:13)
[2017-03-25] MEDS: METOPROLOL TARTRATE 50 MG TAB PO SCH (19:47)
[2017-03-25] MEDS ORDERED: CEFUROXIME 250 MG TAB PO SCH (21:00)
[2017-03-25] MEDS: MIRTAZAPINE 15 MG TAB PO SCH (21:22)
[2017-03-25] MEDS: risperiDONE 0.5 MG TAB PO SCH (21:22)
[2017-03-25] MEDS: clonazePAM 0.5 MG TAB PO SCH (23:32)
[2017-03-26] MEDS: DEXTROSE 5%-0.45% NACL 1,000 ML IV SCH ×3 (00:24→20:50)
[2017-03-26] MEDS: HYDROcodone/APAP 10-325MG 1 EACH TAB PO PRN ×2 (01:53→08:24)
[2017-03-26] MEDS: IPRATROPIUM-ALBUTEROL 3 ML NEB INHALATION PRN ×2 (02:15→16:27)
[2017-03-26] MEDS ORDERED: FUROSEMIDE 10 MG/ML 2 ML VIAL IV STA (02:24)
[2017-03-26] MEDS: ACETAMINOPHEN TAB 325 MG TAB PO PRN ×2 (03:21→13:49)
--- NOTE | 2017-03-26 03:33 | XR ---
EXAM: XR Chest, 1 View CLINICAL HISTORY: Reason: shortness of breath and wheezing TECHNIQUE: Frontal view of the chest. COMPARISON: 02/21/2017. FINDINGS: Lungs: Again seen is a background of chronic emphysematous change with upper lobe fibrosis. Hilar retraction again seen bilaterally. No evidence of suspicious new focal airspace opacity. Pleural space: Unremarkable. No pneumothorax. Heart: Unchanged. No cardiomegaly. Mediastinum: Unremarkable. Bones/joints: Unchanged. Other findings: Patient's chin overlies the bilateral apices. IMPRESSION: Chronic changes without acute pulmonary process, essentially unchanged.
[2017-03-26] MEDS: KETOROLAC 30 MG/ML 1 ML VIAL IVP PRN ×3 (04:46→22:03)
[2017-03-26 05:05] LABS: CH 25.7; CHCM 32.8; HDW 3.03; MCH 25.1 pg (25.0-35.0); MCHC 31.9 g/dL (31.0-37.0); MCV 78.7 fL (80.0-100.0); Mean Platelet Volume 7.7; RBC 4.57 m/uL (3.80-5.40); RDW 15.8 % (11.5-15.5); WBC 14.2 k/uL (3.8-10.6)
[2017-03-26 05:18] LABS: Anion Gap 11 mmol/L; Blood Urea Nitrogen 13 mg/dL (7-17); Calcium 7.4 mg/dL (8.4-10.2); Carbon Dioxide 22 mmol/L (22-30); Chloride 105 mmol/L (98-107); Glucose 121 mg/dL (74-99); Magnesium 1.4 mg/dL (1.6-2.3); Non-African American GFR(MDRD) >60 (>60 ml/min/1.73 sqM); Phosphorous 2.6 mg/dL (2.5-4.5); Potassium 3.5 mmol/L (3.5-5.1); Sodium 138 mmol/L (137-145)
[2017-03-26 05:41] LABS: HGB 11.5 gm/dL (11.4-16.0)
[2017-03-26] MEDS ORDERED: SODIUM CHLORIDE 0.9% 500 ML IV STA (05:48)
[2017-03-26 06:14] LABS: Glucose,Whole Blood 115 mg/dL (75-99)
[2017-03-26] MEDS ORDERED: NALOXONE 0.4 MG/ML 1 ML VIAL IV PRN (06:48)
--- NOTE | 2017-03-26 06:49 | P.PN ---
Subjective The patient is 24 hours post left percutaneous nephrostolithotomy. This was an infected stone. She grew Proteus mirabilis preoperatively. She was on culture specific antibiotics preoperatively and intraoperatively. She had a somewhat rolando course consistent with urinary tract infection with sepsis postoperatively. She had a labile blood pressure and was tachycardic. She required fluid boluses. She continued to be labile thus I placed in the intensive care unit. She will be cared for by the intensivists. She seems to be better this morning although her blood pressure is lower. Her labs were consistent with the sepsis. Objective - Vital Signs Vital signs: Vital Signs Temp 97.1 F L 03/26/17 05:28 Pulse 112 H 03/26/17 05:56 Resp 24 03/26/17 05:28 BP 81/44 03/26/17 05:56 Pulse Ox 96 03/26/17 05:28 Intake & Output 03/25/17 03/25/17 03/26/17 06:59 18:59 06:59 Intake Total 1102.5 400 Output Total 1275 660 Balance -172.5 -260 Weight 67.585 kg Intake: IV 1102.5 400 Dextrose 5%-0.45% NaCl 1, 400 000 ml @ 100 mls/hr IV . Q10H [facility] Rx#:[id number] Output: Drainage 25 120 Left Back 25 120 Urine 1050 540 Uretheral (Gamb[place]) 540 Estimated Blood Loss 200 Other: Voiding Method Indwelling Catheter Indwelling Catheter - Labs CBC & Chem 7: 03/26/17 04:49 03/26/17 04:49 Labs: Abnormal Lab Results - Last 24 Hours (Table) 03/25/17 03/25/17 03/26/17 Range/Units 09:49 13:19 04:49 WBC 14.2 H (3.8-10.6) k/uL MCV 78.7 L (80.0-100.0) fL RDW 15.8 H (11.5-15.5) % Glucose (74-99) mg/dL POC Glucose (mg/dL) 123 H 187 H (75-99) mg/dL Plasma Lactic Acid Jacinto (0.7-2.0) mmol/L Calcium (8.4-10.2) mg/dL Magnesium (1.6-2.3) mg/dL 03/26/17 03/26/1703/26/17 Range/Units 04:49 04:49 06:13 WBC (3.8-10.6) k/uL MCV (80.0-100.0) fL RDW (11.5-15.5) % Glucose 121 H (74-99) mg/dL POC Glucose (mg/dL) 115 H (75-99) mg/dL Plasma Lactic Acid Jacinto 2.3 H* (0.7-2.0) mmol/L Calcium 7.4 L (8.4-10.2) mg/dL Magnesium 1.4 L (1.6-2.3) mg/dL
[2017-03-26] MEDS: NOREPINEPHRIN 4 MG-0.9% NS PMX 4 MG/250 ML ML IV SCH ×2 (06:55→18:21)
[2017-03-26] MEDS ORDERED: NOREPINEPHRIN 4 MG-0.9% NS PMX 4 MG/250 ML ML IV ONE (06:59)
[2017-03-26] MEDS ORDERED: SODIUM CHLORIDE 0.9% 1,000 ML IV ONE (07:14)
[2017-03-26] MEDS: ONDANSETRON 4 MG/2 ML VIAL IVP PRN (08:39)
[2017-03-26] MEDS: HEPARIN SODIUM,PORCINE 5,000 UNIT/ML 1 ML VIAL SQ SCH ×2 (08:59→16:15)
[2017-03-26] MEDS: PANTOPRAZOLE 40 MG TABLET PO SCH (08:59)
[2017-03-26] MEDS: DOCUSATE 100 MG CAP PO SCH (08:59)
[2017-03-26] MEDS: risperiDONE 0.5 MG TAB PO SCH ×2 (09:37→20:51)
[2017-03-26] MEDS: ceFAZolin 1,000 MG in DEXTROSE/WATER 1 50ML.BAG IVPB SCH ×3 (09:37→23:12)
[2017-03-26] MEDS: SERTRALINE 100 MG TAB PO SCH (09:37)
[2017-03-26] MEDS: MEROPENEM 1 GM in SODIUM CHLORIDE 0.9% 100 ML IVPB SCH ×2 (10:21→16:55)
[2017-03-26] MEDS: FUROSEMIDE 40 MG TAB PO SCH ×3 (12:28→20:50)
[2017-03-26] MEDS: METOPROLOL TARTRATE 50 MG TAB PO SCH ×2 (12:28→20:50)
[2017-03-26] MEDS: LOSARTAN 25 MG TAB PO SCH (12:29)
[2017-03-26] MEDS: NYSTATIN 100,000 UNIT/GM POWD 15 GM TOPICAL SCH ×3 (12:30→23:11)
[2017-03-26] MEDS: POTASSIUM CHLORIDE ER 20 MEQ TAB.ER PO SCH (12:30)
--- NOTE | 2017-03-26 12:44 | P.CNPUL ---
History of Present Illness Consult date: 03/26/17 Requesting physician: Yan Bahena Chief complaint: Hypertension, sepsis. History of present illness: This is a 66-year-old female, [facility] patient with a staghorn calculus, infected with Proteus mirabilis based on previous workup by Dr. Cai. Patient was admitted this time for percutaneous nephroostolithotomy. This was done on , postoperatively, the patient developed symptoms of hypotension, tachycardia, and she required multiple fluid boluses. Considering the low blood pressure, patient was admitted to the ICU, and I was asked to see her on consultation. Over the last 24 hours, patient received about 3 L of IV fluid boluses, patient did require placement on levo fed for low blood pressure. Hence the patient seems to have developed a picture of septic shock from urinary tract infection and infected nephrolithiasis. During my evaluation, patient was noted to be in no form of distress, complaining of low back pain, and this pain has been going on since her surgery. Considering the cultures of her urine, I recommended adding Merrem. Patient is ALLERGIC to multiple medications including quinolones, she is also ALLERGIC to penicillin. She was on cefazolin given to her by urology in the immediate postoperative period. During my evaluation, patient denied any headaches, no blurred vision, no dizziness. No nausea no vomiting no abdominal pain. No dysuria and no frequency no urgency. Review of Systems Constitutional: Positive fever, chills, no weight loss, some weakness, some fatigue. HEENT: Negative Pulmonary: No cough no wheezing no shortness of breath. Cardiac: No chest pain no palpitations no diaphoresis. Patient did have hypotension responded as noted above. GI: No nausea no vomiting no abdominal pain no melena no hematemesis. Genitourinary: As noted in the HPI. Hematologic: No history of clotting or bleeding or bruising. Muscular skeletal: History of previous right above-knee amputation. Neurologic: No headaches, no blurred vision, no dizziness. Past Medical History Past Medical History: Coronary Artery Disease (CAD), Heart Failure, COPD, GERD/ Reflux, Hypertension, Skin Disorder, Vascular Disorder Additional Past Medical History / Comment(s): PVD, abdominal pain, hx. of gastric ulcer, right above knee amputee-uses wheelchair, currently rash on back- very sensitive skin, urinary incontinence-wears depends History of Any Multi-Drug Resistant Organisms: MRSA Date of last positivie culture/infection: 2012 MDRO Source:: right leg Past Surgical History: Appendectomy, Cholecystectomy, Orthopedic Surgery Additional Past Surgical History / Comment(s): right AKA, ovarian cyst removed Additional Past Anesthesia/Blood Transfusion Reaction / Comment(s): care provider doesn't know anesthesia hx. Past Psychological History: Anxiety, Depression Smoking Status: Former smoker Past Alcohol Use History: None Reported Past Drug Use History: None Reported - Past Family History Mother Family Medical History: Unable to Obtain Medications and Allergies Home Medications Medication Instructions Recorded Confirmed Type Clopidogrel [Plavix] 75 mg PO DAILY 03/21/15 03/26/17 History Docusate Sodium [Dulcolax Stool 100 mg PO DAILY 03/21/15 03/26/17 History Softener] Furosemide [Lasix] 40 mg PO BID@0800,1700 03/21/15 03/26/17 History Lactobacillus Acidophilus 1 tab PO TID@0800,1200,1900 03/21/15 03/26/17 History [Acidophilus] Mag Hydrox/Al Hydrox/Simeth 16 ml PO QID PRN 03/21/15 03/26/17 History [Maalox] Melatonin 3 mg PO HS 03/21/15 03/26/17 History Multivit with Calcium,Iron,Min 1 tab PO DAILY@1200 03/21/15 03/26/17 History [Women's Daily Multivitamin] Potassium Chloride [Klor-Con 20] 20 meq PO DAILY 03/21/15 03/26/17 History clonazePAM [KlonoPIN] 0.5 mg PO HS 03/21/15 03/26/17 History Bisacodyl [Dulcolax] 10 mg RECTAL DAILY PRN 11/28/15 03/26/17 History Caldesene Powder 81-15% 1 applic TOPICAL TID 11/28/15 03/26/17 History Esomeprazole Magnesium [NexIUM] 40 mg PO DAILY@0700 11/28/15 03/26/17 History Nystatin 100,000 Unit/gm Powd 1 applic TOPICAL TID 11/28/15 03/26/17 History [Mycostatin Powder] Phenyleph/Pramoxin/Glycr/W.pet 1 applic TOPICAL DAILY PRN 11/28/15 03/26/17 History [Preparation H Cream] risperiDONE [Risperidone] 0.5 mg PO BID 11/28/15 03/26/17 History Mirtazapine [Remeron] 15 mg PO HS 02/21/17 03/26/17 History Aspirin 81 mg PO DAILY 02/27/17 03/26/17 Rx HYDROcodone/APAP 10-325MG [[place] 1 tab PO Q6H PRN #30 02/27/17 03/26/17 Rx 10-325] Ipratropium-Albuterol Nebulize 3 ml INHALATION RT-Q4H PRN neb 02/27/17 Rx [Duoneb 0.5 mg-3 mg/3 ml Soln] Losartan [Cozaar] 12.5 mg PO DAILY #0 tab 02/27/17 03/26/17 Rx Metoprolol Tartrate [Lopressor] 50 mg PO BID tab 02/27/17 03/26/17 Rx Lactose-Reduced Food [Ensure Plus] 237 ml PO BID 03/19/17 03/26/17 History Mag Hydrox/Al Hydrox/Simeth 30 ml PO QID PRN 03/19/17 03/26/17 History [Maalox] Magnesium Hydroxide [Milk of 7,200 mg PO DAILY PRN 03/19/17 03/26/17 History Magnesia Concentrate] Na Phos,M-B/Na Phos,Di-Ba [Fleet 133 ml RECTAL DAILY PRN 03/19/17 03/26/17 History Adult] Sertraline [Zoloft] 100 mg PO DAILY 03/19/17 03/26/17 History fentaNYL [Duragesic 25MCG/HR] 1 patch TRANSDERM Q72H 03/19/17 03/26/17 History Cefuroxime Axetil [Ceftin] 500 mg PO BID 03/24/17 03/26/17 History Allergies Allergy/AdvReac Type Severity Reaction Status Date / Time ciprofloxacin [From Cipro] Allergy Unknown Verified 03/19/17 15:41 ciprofloxacin HCl Allergy Unknown Verified 03/19/17 15:41 [From Cipro] iodine Allergy Unknown Verified 03/19/17 15:41 Penicillins Allergy Unknown Verified 03/19/17 15:41 Phenylpiperazine Allergy Unknown Verified 03/19/17 15:41 Antidepressant red dye Allergy Unknown Verified 03/19/17 15:41 Sulfa (Sulfonamide Allergy Unknown Verified 03/19/17 15:41 Antibiotics) Physical Exam Vitals: Vital Signs Temp Pulse Pulse Pulse Pulse Resp BP 03/26/17 10:00 107 H 30 H 87/47 03/26/17 09:00 112 H 26 H 100/63 03/26/17 08:00 98.1 F 104 H 25 H 99/49 03/26/17 07:41 03/26/17 07:00 103 H 29 H 77/36 03/26/17 06:22 110 H 26 H 82/42 03/26/17 05:56 112 H 03/26/17 05:52 112 H 03/26/17 05:45 03/26/17 05:28 97.1 F L 107 H 24 03/26/17 05:21 105 H 03/26/17 04:49 124 H 03/26/17 04:40 102.4 F H 03/26/17 04:35 122 H 03/26/17 04:30 124 H 03/26/17 04:25 123 H 03/26/17 04:23 98.8 F 125 H 28 H 03/26/17 03:19 101.9 F H 120 H 20 03/26/17 02:58 03/26/17 02:26 108 H 03/26/17 02:15 112 H 03/26/17 02:08 98.2 F 113 H 28 H 03/26/17 01:54 98.8 F 112 H 24 03/26/17 00:00 16 03/25/17 23:31 98.5 F 94 16 03/25/17 21:15 90 03/25/17 20:00 16 03/25/17 19:40 98.5 F 88 16 03/25/17 17:30 87 03/25/17 17:20 89 03/25/17 17:15 95 03/25/17 17:00 89 03/25/17 16:45 88 03/25/17 16:30 90 03/25/17 16:15 85 03/25/17 16:00 89 03/25/17 15:45 89 03/25/17 15:30 89 03/25/17 15:15 86 03/25/17 15:00 89 03/25/17 14:45 102 H 03/25/17 14:30 99.1 F 95 16 03/25/17 14:13 90 16 03/25/17 13:58 91 16 03/25/17 13:43 92 18 03/25/17 13:27 94 18 03/25/17 13:13 86 18 03/25/17 12:58 101 H 20 03/25/17 12:43 98.2 F 99 16 BP BP Pulse Ox 03/26/17 10:00 100 03/26/17 09:00 100 03/26/17 08:00 100 03/26/17 07:41 100 03/26/17 07:00 99 03/26/17 06:22 95 03/26/17 05:56 81/44 03/26/17 05:52 72/72 03/26/17 05:45 70/36 03/26/17 05:28 96/44 96 03/26/17 05:21 72/37 03/26/17 04:49 102/53 03/26/17 04:40 03/26/17 04:35 112/47 03/26/17 04:30 85/61 03/26/17 04:25 85/66 03/26/17 04:23 108/51 95 03/26/17 03:19 98/50 97 03/26/17 02:58 110/60 03/26/17 02:26 03/26/17 02:15 03/26/17 02:08 142/84 97 03/26/17 01:54 106/85 97 03/26/17 00:00 03/25/17 23:31 97/61 96 03/25/17 21:15 91/63 03/25/17 20:00 03/25/17 19:40 87/58 97 03/25/17 17:30 93/53 03/25/17 17:20 114/64 03/25/17 17:15 96/57 03/25/17 17:00 106/56 03/25/17 16:45 104/67 03/25/17 16:30 109/76 03/25/17 16:15 87/54 03/25/17 16:00 82/52 03/25/17 15:45 89/55 03/25/17 15:30 82/60 03/25/17 15:15 80/52 03/25/17 15:00 84/59 03/25/17 14:45 87/52 03/25/17 14:30 162/57 96 03/25/17 14:13 112/61 96 03/25/17 13:58 103/67 96 03/25/17 13:43 131/61 95 03/25/17 13:27 98/50 96 03/25/17 13:13 95/51 95 03/25/17 12:58 116/64 96 03/25/17 12:43 142/76 97 Intake and Output 03/25/17 03/26/17 03/26/17 22:59 06:59 14:59 Intake Total 400 1800 Output Total 245 440 210 Balance 155 -440 1590 Intake: IV 400 300 Dextrose 5%-0.45% NaCl 1, 400 300 000 ml @ 100 mls/hr IV . Q10H [facility] Rx#:[id number] Intake, IV Titration 1500 Amount Sodium Chloride 0.9% 1, 1500 000 ml @ 999 mls/hr IV . Q1H1M [facility] Rx#:[id number] Output: Drainage 25 120 Left Back 25 120 Urine 220 320 210 Uretheral ([place]) 220 320 Other: Voiding Method Indwelling Catheter Physical Exam: Revealed a 66-year-old in no distress. HEENT:[Neck is supple.] [No neck masses.] [No thyromegaly.] [No JVD.] Chest: [Clear throughout, no crackles, no rhonchi, no wheezes.] Cardiac Exam: [Normal S1 and S2, no S3 gallop, no murmur.] Abdomen: [Soft, nontender, no megaly, no rebound, no guarding, normal bowel sounds.] Extremities: Above-knee amputation] Neurological Exam: [No focal neurologic deficit.] Results - Laboratory Findings CBC and BMP: 03/26/17 04:49 03/26/17 04:49 Abnormal lab findings: Abnormal Labs 03/25/17 03/25/17 03/26/17 09:49 13:19 04:49 WBC 14.2 H MCV 78.7 L RDW 15.8 H Glucose POC Glucose (mg/dL) 123 H 187 H Plasma Lactic Acid Jacinto Calcium Magnesium 03/26/17 03/26/17 03/26/17 04:49 04:49 06:13 WBC MCV RDW Glucose 121 H POC Glucose (mg/dL) 115 H Plasma Lactic Acid Jacinto 2.3 H* Calcium 7.4 L Magnesium 1.4 L - Diagnostic Findings Chest x-ray: image reviewed (Chronic changes, no acute pulmonary process noted. Background of chronic emphysema noted with upper lobe fibrosis.) Assessment and Plan Plan: Impression: 1 acute septic shock secondary to urinary tract infection secondary to Proteus mirabilis. 2 status post percutaneous nephrostolithotomy, postoperative day #1. 3 history of chronic urolithiasis and recurrent urinary tract infections. 4 history of multiple comorbidities including coronary artery disease, COPD, hypertension, peripheral vessel occlusive disease and the right above-knee amputation, history of gastric ulcer. Recommendation: Continue present supportive care measures including fluids, antibiotics in the form of Merrem, pressors for low blood pressure and titrate accordingly. Bronchodilators for underlying COPD, pain medications for pain control. GI and DVT prophylaxis. We will continue to follow. Time with Patient: Greater than 30
[2017-03-26] MEDS: MAG HYDROX/AL HYDROX/SIMETH 30 ML CUP PO PRN ×2 (13:45→22:04)
[2017-03-26] MEDS ORDERED: LIDOCAINE 2% INJ 20 MG/ML SQ ONE (14:26)
--- NOTE | 2017-03-26 15:12 | XR ---
EXAMINATION TYPE: XR chest 1V portable DATE OF EXAM: 03/26/2017 CLINICAL HISTORY: Left-sided PICC line. TECHNIQUE: Single AP portable upright view of the chest is obtained. COMPARISON: Chest x-ray from earlier today. CT chest abdomen and pelvis February 21, 2017. FINDINGS: There is new left-sided PICC line with tip near central left brachiocephalic vein. There i s low lung volumes with chronic fibrosis and nodularity and pleural thickening involving upper lungs bilaterally redemonstrated. Right hilar scarring is redemonstrated. There is no new suspicious focal airspace opacity, pleural effusion, or pneumothorax seen bilaterally. Cardiac silhouette size is stab le and within normal limits. Osseous structures are demineralized. IMPRESSION: New left-sided PICC line with tip near central left brachiocephalic vein. No evidence of complication related to PICC line placement. Other findings are stable as detailed above.
[2017-03-26] MEDS: clonazePAM 0.5 MG TAB PO SCH (20:50)
[2017-03-26] MEDS: MIRTAZAPINE 15 MG TAB PO SCH (20:51)
[2017-03-26] MEDS: MELATONIN 3 MG TABLET PO SCH (23:11)
[2017-03-27] MEDS: HEPARIN SODIUM,PORCINE 5,000 UNIT/ML 1 ML VIAL SQ SCH ×4 (00:52→23:23)
[2017-03-27] MEDS: MEROPENEM 1 GM in SODIUM CHLORIDE 0.9% 100 ML IVPB SCH ×4 (00:52→23:23)
[2017-03-27 05:07] LABS: Anion Gap 5 mmol/L; Blood Urea Nitrogen 8 mg/dL (7-17); Calcium 6.8 mg/dL (8.4-10.2); Carbon Dioxide 25 mmol/L (22-30); Chloride 111 mmol/L (98-107); Glucose 132 mg/dL (74-99); Magnesium 1.5 mg/dL (1.6-2.3); Non-African American GFR(MDRD) >60 (>60 ml/min/1.73 sqM); Phosphorous 2.1 mg/dL (2.5-4.5); Potassium 3.1 mmol/L (3.5-5.1); Sodium 141 mmol/L (137-145)
[2017-03-27 05:17] LABS: Basophils % (A) 1 %; CH 24.4; CHCM 30.9; Eosinophils # (A) 0.1 k/uL (0-0.7); Eosinophils % (A) 2 %; HCT 32.3 % (34.0-46.0); HDW 3.15; HGB 10.3 gm/dL (11.4-16.0); Hypochromasia Moderate; Luc % (Auto) 2; Lymphocytes % (A) 15 %; MCH 25.3 pg (25.0-35.0); MCV 79.1 fL (80.0-100.0); Mean Platelet Volume 7.8; Monocytes # (A) 0.4 k/uL (0-1.0); Monocytes % (A) 6 %; Neutrophils # (A) 5.1 k/uL (1.3-7.7); Neutrophils % (A) 75 %; RBC 4.08 m/uL (3.80-5.40); RDW 15.3 % (11.5-15.5); WBC 6.8 k/uL (3.8-10.6)
[2017-03-27] MEDS: DEXTROSE 5%-0.45% NACL 1,000 ML IV SCH ×2 (07:10→15:24)
[2017-03-27] MEDS: MAGNESIUM SULFATE-D5W PMX 1 GM in DEXTROSE/WATER 1 100ML.BAG IVPB SCH ×2 (07:11→10:12)
[2017-03-27] MEDS: POTASSIUM CHLORIDE 10 MEQ in WATER FOR INJECTION 1 100ML.BAG IVPB SCH ×2 (07:54→10:12)
[2017-03-27] MEDS: ceFAZolin 1,000 MG in DEXTROSE/WATER 1 50ML.BAG IVPB SCH ×3 (08:23→23:46)
[2017-03-27] MEDS: SERTRALINE 100 MG TAB PO SCH (08:24)
[2017-03-27] MEDS: PANTOPRAZOLE 40 MG TABLET PO SCH (08:24)
[2017-03-27] MEDS: DOCUSATE 100 MG CAP PO SCH (08:24)
[2017-03-27] MEDS: MAG HYDROX/AL HYDROX/SIMETH 30 ML CUP PO PRN ×3 (08:24→21:43)
[2017-03-27] MEDS: POTASSIUM CHLORIDE ER 20 MEQ TAB.ER PO SCH (08:24)
[2017-03-27] MEDS: risperiDONE 0.5 MG TAB PO SCH ×2 (08:24→20:05)
[2017-03-27] MEDS: NYSTATIN 100,000 UNIT/GM POWD 15 GM TOPICAL SCH ×3 (08:24→21:43)
--- NOTE | 2017-03-27 08:56 | CDI ---
In responding to this query, please exercise your independent professional judgment. The [facility] Coding Staff and Clinical Documentation Specialists appreciate your assistance in clarifying documentation, maintaining compliance with coding guidelines, accurately documenting patients condition and capturing severity of illness. The fact that a question is asked does not imply that any particular answer is desired or expected. Communication forms are a method of clarifying documentation and are not made part of the Legal Health Record. Thank you in advance for your clarification. Last Revision, September 2016 Bella Horvath [address] [place] [address] Documentation Clarification Form Date: 03/27/2017 8:37:00 AM From: Prudence Cannon RN, CDS Admit Date: 03/26/2017 6:20:00 AM Patient Name: Prema Krause Visit Number: [id number] Dr. Quang Garcia, 56 year old patient direct admitted for Percutaneous Nephrostolithotomy and is being treated for Sepsis, septic shock secondary to recurrent UTI second to Proteus miribilis. Patient has a history of Heart Failure per your consult note. History/Risk Factors: CAD, Heart Failure, COPD, HTN Clinical Indicators: ECHO 03/05/17: mild LVH, LV function normal EF 55-60%, VS: 99.4 101 36 99/52 99/2L CXR: "chronic fibrosis and nodularity and pleural thickening involving upper lungs bilaterally redemonstrated" "Heart Failure" documented under past medical history in your consult note Treatment: Home Meds: Losartan 12.5 daily, Lasix 40 bid, Lopressor 50 bid :In your professional opinion, can you please clarify the acuity and type of CHF if known? Systolic Heart Failure: Compensated Chronic Acute Acute on Chronic Diastolic Heart Failure: Compensated Chronic Acute Acute on Chronic Unable to determine Other, please specify Please document in your progress notes and discharge summary in order to capture severity of illness and risk of mortality. Include clinical findings that support your diagnosis. FYI: Press F11 to launch patient chart. Thank you. NIRALI
--- NOTE | 2017-03-27 09:36 | XR ---
EXAMINATION TYPE: XR chest 1V portable DATE OF EXAM: 03/27/2017 HISTORY: Shortness of breath. COMPARISON: 03/26/2017 TECHNIQUE: Single view of the chest is submitted. FINDINGS: Demonstrated are scattered senescent parenchymal change. There is no evidence for focal infiltrate. There is pulmonary venous congestion. Upper lobe scarring noted. The heart is stable. Hilar and mediastinal structures are within normal limits. Degenerative changes are seen of the dorsal spine. IMPRESSION: 1. Chronic changes without evidence for acute pulmonary disease.
[2017-03-27] MEDS: FUROSEMIDE 40 MG TAB PO SCH ×3 (09:45→14:11)
--- NOTE | 2017-03-27 12:17 | P.PN ---
Subjective The patient is in her second postoperative day from her percutaneous nephrostolithotomy. She developed a urine infection with sepsis secondary to manipulation of the infected stone despite culture specific antibiotics. She has recuperated nicely in the intensive care unit yesterday. She'll be transferred to the floor today. She is feeling much better. She is off her pressor agents. The catheter,. She is eating a regular diet. She will need a secondary nephrostolithotomy later next week. Continue with supportive care. Objective - Vital Signs Vital signs: Vital Signs Temp 98.7 F 03/27/17 09:00 Pulse 99 03/27/17 11:00 Resp 33 H 03/27/17 11:00 BP 107/57 03/27/17 11:00 Pulse Ox 97 03/27/17 11:00 Intake & Output 03/26/17 03/27/17 03/27/17 18:59 06:59 18:59 Intake Total 3186.375 1599.375 500 Output Total 2200 1685 445 Balance 986.375 -85.625 55 Weight 75.9 kg Intake: IV 1100 1350 500 Dextrose 5%-0.45% NaCl 1, 1100 1200 500 000 ml @ 100 mls/hr IV . Q10H [facility] Rx#:[id number] Meropenem 1 gm In Sodium 100 Chloride 0.9% 100 ml @ 200 mls/hr IVPB Q8HR [facility] Rx#:[id number] ceFAZolin 1,000 mg In 50 Dextrose/Water 1 50ml.bag @ 100 mls/hr IVPB Q8HR [facility] Rx#:[id number] Intake, IV Titration 2086.375 249.375 Amount Norepinephrin 4 mg-0.9% 86.375 249.375 Ns Pmx 4 mg In 250 ml @ Titrate IV .Q0M MARIA LUISA Rx#: [id number] Sodium Chloride 0.9% 1, 2000 000 ml @ 999 mls/hr IV . Q1H1M ONE Rx#:[id number] Output: Drainage 400 425 Left Back 400 425 Urine 1800 1260 445 Uretheral ([place]) 320 Other: Voiding Method Indwelling Catheter Indwelling Catheter Indwelling Catheter - Labs CBC & Chem 7: 03/27/17 04:30 03/27/17 11:40 Labs: Abnormal Lab Results - Last 24 Hours (Table) 03/27/17 03/27/17 Range/Units 04:30 04:30 Hgb 10.3 L (11.4-16.0) gm/dL Hct 32.3 L (34.0-46.0) % MCV 79.1 L (80.0-100.0) fL Plt Count 130 L (150-450) k/uL Potassium 3.1 L (3.5-5.1) mmol/L Chloride 111 H (98-107) mmol/L Glucose 132 H (74-99) mg/dL Calcium 6.8 L (8.4-10.2) mg/dL Phosphorus 2.1 L (2.5-4.5) mg/dL Magnesium 1.5 L (1.6-2.3) mg/dL
--- NOTE | 2017-03-27 12:26 | P.PN ---
Subjective Principal diagnosis: Acute sepsis secondary to urinary tract infection, post percutaneous nephrostolithotomy. This is a 66-year-old female, care home patient with a staghorn calculus, infected with Proteus mirabilis based on previous workup by Dr. Cai. Patient was admitted this time for percutaneous nephroostolithotomy. This was done on , postoperatively, the patient developed symptoms of hypotension, tachycardia, and she required multiple fluid boluses. Considering the low blood pressure, patient was admitted to the ICU, and I was asked to see her on consultation. Over the last 24 hours, patient received about 3 L of IV fluid boluses, patient did require placement on levo fed for low blood pressure. Hence the patient seems to have developed a picture of septic shock from urinary tract infection and infected nephrolithiasis. During my evaluation, patient was noted to be in no form of distress, complaining of low back pain, and this pain has been going on since her surgery. Considering the cultures of her urine, I recommended adding Merrem. Patient is ALLERGIC to multiple medications including quinolones, she is also ALLERGIC to penicillin. She was on cefazolin given to her by urology in the immediate postoperative period. During my evaluation, patient denied any headaches, no blurred vision, no dizziness. No nausea no vomiting no abdominal pain. No dysuria and no frequency no urgency. Patient was reevaluated today on 03/27/2017, remains in the ICU, however she is off norepinephrine, and her blood pressures seems to be holding. Patient required norepinephrine for what seemed to be a septic shock from urinary tract infection secondary to Proteus mirabilis. Patient had a T-max of 99.4 yesterday , presently afebrile. WBC count is down to 6.8 hemoglobin is 10.3. Electrolytes are relatively normal except for low potassium being corrected as per protocol. Lactic acid was down to 1.7 yesterday. Magnesium is 1.5 being corrected as per protocol. And potassium was corrected as per protocol. Patient denies any shortness of breath, no cough, no wheezing, no nausea, no vomiting, continues to have some left upper quadrant tenderness. Chest x-ray showed chronic parenchymal changes, no acute process. And no evidence of congestive heart failure. No evidence of pneumonia or noncardiogenic pulmonary edema. Objective - Vital Signs Vital signs: Vital Signs Temp 98.7 F 03/27/17 09:00 Pulse 99 03/27/17 11:00 Resp 33 H 03/27/17 11:00 BP 107/57 03/27/17 11:00 Pulse Ox 97 03/27/17 11:00 Intake & Output 03/26/17 03/27/17 03/27/17 18:59 06:59 18:59 Intake Total 3186.375 1599.375 500 Output Total 2200 1685 445 Balance 986.375 -85.625 55 Weight 75.9 kg Intake: IV 1100 1350 500 Dextrose 5%-0.45% NaCl 1, 1100 1200 500 000 ml @ 100 mls/hr IV . Q10H [facility] Rx#:[id number] Meropenem 1 gm In Sodium 100 Chloride 0.9% 100 ml @ 200 mls/hr IVPB Q8HR [facility] Rx#:[id number] ceFAZolin 1,000 mg In 50 Dextrose/Water 1 50ml.bag @ 100 mls/hr IVPB Q8HR [facility] Rx#:[id number] Intake, IV Titration 2086.375 249.375 Amount Norepinephrin 4 mg-0.9% 86.375 249.375 Ns Pmx 4 mg In 250 ml @ Titrate IV .Q0M [facility] Rx#: [id number] Sodium Chloride 0.9% 1, 2000 000 ml @ 999 mls/hr IV . Q1H1M ONE Rx#:[id number] Output: Drainage 400 425 Left Back 400 425 Urine 1800 1260 445 Uretheral ([place]) 320 Other: Voiding Method Indwelling Catheter Indwelling Catheter Indwelling Catheter - Exam Physical Exam: Revealed a 66-year-old in no distress. HEENT:[Neck is supple.] [No neck masses.] [No thyromegaly.] [No JVD.] Chest: [Clear throughout, no crackles, no rhonchi, no wheezes.] Cardiac Exam: [Normal S1 and S2, no S3 gallop, no murmur.] Abdomen: [Soft, slightly tender left upper quadrant, no megaly, no rebound, no guarding, normal bowel sounds.] Extremities: Above-knee amputation] Neurological Exam: [No focal neurologic deficit.] - Labs CBC & Chem 7: 03/27/17 04:30 03/27/17 11:40 Labs: Abnormal Lab Results - Last 24 Hours (Table) 03/27/17 03/27/17 Range/Units 04:30 04:30 Hgb 10.3 L (11.4-16.0) gm/dL Hct 32.3 L (34.0-46.0) % MCV 79.1 L (80.0-100.0) fL Plt Count 130 L (150-450) k/uL Potassium 3.1 L (3.5-5.1) mmol/L Chloride 111 H (98-107) mmol/L Glucose 132 H (74-99) mg/dL Calcium 6.8 L (8.4-10.2) mg/dL Phosphorus 2.1 L (2.5-4.5) mg/dL Magnesium 1.5 L (1.6-2.3) mg/dL Assessment and Plan Plan: Impression: 1 acute septic shock secondary to urinary tract infection secondary to Proteus mirabilis. 2 status post percutaneous nephrostolithotomy, postoperative day #2 3 history of chronic urolithiasis and recurrent urinary tract infections. 4 history of multiple comorbidities including coronary artery disease, COPD, hypertension, peripheral vessel occlusive disease and the right above-knee amputation, history of gastric ulcer. 5 patient has history of chronic compensated diastolic congestive heart failure , stable at this point, and she is not demonstrating any findings of congestive heart failure presently. Recommendation: Continue present supportive care measures including fluids, antibiotics in the form of Merrem, off pressors for low blood pressure. Bronchodilators for underlying COPD, pain medications for pain control. GI and DVT prophylaxis. We will continue to follow. We'll likely transfer the patient out of the ICU today. Time with Patient: Less than 30
[2017-03-27] MEDS: LOSARTAN 25 MG TAB PO SCH (12:57)
[2017-03-27] MEDS: METOPROLOL TARTRATE 50 MG TAB PO SCH ×2 (12:57→20:05)
[2017-03-27] MEDS: KETOROLAC 30 MG/ML 1 ML VIAL IVP PRN ×2 (13:03→18:57)
[2017-03-27] MEDS: MELATONIN 3 MG TABLET PO SCH (20:04)
[2017-03-27] MEDS: MIRTAZAPINE 15 MG TAB PO SCH (20:05)
[2017-03-27] MEDS: clonazePAM 0.5 MG TAB PO SCH (20:07)
[2017-03-28] MEDS: KETOROLAC 30 MG/ML 1 ML VIAL IVP PRN ×4 (01:21→20:57)
[2017-03-28] MEDS: DEXTROSE 5%-0.45% NACL 1,000 ML IV SCH ×4 (04:29→12:12)
[2017-03-28] MEDS: PANTOPRAZOLE 40 MG TABLET PO SCH (06:29)
[2017-03-28 06:35] LABS: Basophils % (A) 0 %; CH 24.4; CHCM 30.8; Eosinophils # (A) 0.1 k/uL (0-0.7); Eosinophils % (A) 2 %; HCT 32.3 % (34.0-46.0); HDW 3.18; HGB 10.2 gm/dL (11.4-16.0); Hypochromasia Moderate; Luc # (Auto) 0.17; Luc % (Auto) 3; Lymphocytes % (A) 18 %; MCHC 31.5 g/dL (31.0-37.0); MCV 79.5 fL (80.0-100.0); Mean Platelet Volume 7.7; Monocytes # (A) 0.3 k/uL (0-1.0); Monocytes % (A) 6 %; Neutrophils # (A) 4.1 k/uL (1.3-7.7); Neutrophils % (A) 72 %; RBC 4.07 m/uL (3.80-5.40); WBC 5.8 k/uL (3.8-10.6); WBC (Perox) 6.03
[2017-03-28 06:49] LABS: Anion Gap 8 mmol/L; Blood Urea Nitrogen 7 mg/dL (7-17); Calcium 7.7 mg/dL (8.4-10.2); Carbon Dioxide 23 mmol/L (22-30); Chloride 109 mmol/L (98-107); Glucose 108 mg/dL (74-99); Non-African American GFR(MDRD) >60 (>60 ml/min/1.73 sqM); Phosphorous 1.3 mg/dL (2.5-4.5); Potassium 3.7 mmol/L (3.5-5.1); Sodium 140 mmol/L (137-145)
[2017-03-28] MEDS: FUROSEMIDE 40 MG TAB PO SCH (07:37)
[2017-03-28] MEDS: HEPARIN SODIUM,PORCINE 5,000 UNIT/ML 1 ML VIAL SQ SCH ×3 (07:38→23:36)
[2017-03-28] MEDS: DOCUSATE 100 MG CAP PO SCH (07:38)
[2017-03-28] MEDS: SERTRALINE 100 MG TAB PO SCH (07:38)
[2017-03-28] MEDS: POTASSIUM CHLORIDE ER 20 MEQ TAB.ER PO SCH (07:38)
[2017-03-28] MEDS: risperiDONE 0.5 MG TAB PO SCH ×2 (07:39→19:57)
[2017-03-28] MEDS: ACETAMINOPHEN TAB 325 MG TAB PO PRN (07:47)
[2017-03-28] MEDS: LOSARTAN 25 MG TAB PO SCH (07:48)
[2017-03-28] MEDS: METOPROLOL TARTRATE 50 MG TAB PO SCH ×2 (07:49→19:58)
[2017-03-28] MEDS: NYSTATIN 100,000 UNIT/GM POWD 15 GM TOPICAL SCH ×3 (07:57→22:18)
[2017-03-28] MEDS ORDERED: FUROSEMIDE 40 MG TAB PO SCH (09:00)
[2017-03-28] MEDS: MAG HYDROX/AL HYDROX/SIMETH 30 ML CUP PO PRN ×2 (09:48→18:46)
[2017-03-28] MEDS: MEROPENEM 1 GM in SODIUM CHLORIDE 0.9% 100 ML IVPB SCH ×3 (09:48→23:36)
[2017-03-28] MEDS: ceFAZolin 1,000 MG in DEXTROSE/WATER 1 50ML.BAG IVPB SCH ×3 (10:26→23:36)
--- NOTE | 2017-03-28 11:48 | P.PN ---
Subjective Principal diagnosis: Acute sepsis secondary to urinary tract infection, post percutaneous nephrostolithotomy. This is a 66-year-old female, retirement patient with a staghorn calculus, infected with Proteus mirabilis based on previous workup by Dr. Cai. Patient was admitted this time for percutaneous nephroostolithotomy. This was done on , postoperatively, the patient developed symptoms of hypotension, tachycardia, and she required multiple fluid boluses. Considering the low blood pressure, patient was admitted to the ICU, and I was asked to see her on consultation. Over the last 24 hours, patient received about 3 L of IV fluid boluses, patient did require placement on levo fed for low blood pressure. Hence the patient seems to have developed a picture of septic shock from urinary tract infection and infected nephrolithiasis. During my evaluation, patient was noted to be in no form of distress, complaining of low back pain, and this pain has been going on since her surgery. Considering the cultures of her urine, I recommended adding Merrem. Patient is ALLERGIC to multiple medications including quinolones, she is also ALLERGIC to penicillin. She was on cefazolin given to her by urology in the immediate postoperative period. During my evaluation, patient denied any headaches, no blurred vision, no dizziness. No nausea no vomiting no abdominal pain. No dysuria and no frequency no urgency. Patient was reevaluated today on 03/27/2017, remains in the ICU, however she is off norepinephrine, and her blood pressures seems to be holding. Patient required norepinephrine for what seemed to be a septic shock from urinary tract infection secondary to Proteus mirabilis. Patient had a T-max of 99.4 yesterday , presently afebrile. WBC count is down to 6.8 hemoglobin is 10.3. Electrolytes are relatively normal except for low potassium being corrected as per protocol. Lactic acid was down to 1.7 yesterday. Magnesium is 1.5 being corrected as per protocol. And potassium was corrected as per protocol. Patient denies any shortness of breath, no cough, no wheezing, no nausea, no vomiting, continues to have some left upper quadrant tenderness. Chest x-ray showed chronic parenchymal changes, no acute process. And no evidence of congestive heart failure. No evidence of pneumonia or noncardiogenic pulmonary edema. Patient was reevaluated today on 03/28/2017, doing well, hemodynamically stable, urine output is excellent, she has a low-grade fever, blood cultures were ordered. And she remains on Merrem for her urinary tract infection and what seems to be a presentation of septic shock. CBC is normal basic metabolic profile is normal renal profile is normal. Patient is tolerating antibiotics well. Objective - Vital Signs Vital signs: Vital Signs Temp 98.0 F 03/28/17 11:43 Pulse 77 03/28/17 11:44 Resp 20 03/28/17 11:44 BP 97/62 03/28/17 11:43 Pulse Ox 96 03/28/17 11:43 Intake & Output 03/27/17 03/28/17 03/28/17 18:59 06:59 18:59 Intake Total 1270 650 240 Output Total 1021 702 Balance 249 -52 240 Weight 71.5 kg Intake: IV 1150 350 Dextrose 5%-0.45% NaCl 1, 1000 300 000 ml @ 100 mls/hr IV . Q10H [facility] Rx#:[id number] Meropenem 1 gm In Sodium 100 Chloride 0.9% 100 ml @ 200 mls/hr IVPB Q8HR [facility] Rx#:[id number] ceFAZolin 1,000 mg In 50 50 Dextrose/Water 1 50ml.bag @ 100 mls/hr IVPB Q8HR [facility] Rx#:[id number] Intake, IV Titration 200 Amount Meropenem 1 gm In Sodium 200 Chloride 0.9% 100 ml @ 200 mls/hr IVPB Q8HR [facility] Rx#:[id number] Oral 120 100 240 Output: Drainage 400 Left Back 400 Urine 1020 300 Stool 1 2 Other: Voiding Method Indwelling Catheter Diaper Diaper # Voids 1 2 # Bowel Movements 1 - Exam Physical Exam: Revealed a 66-year-old in no distress. HEENT:[Neck is supple.] [No neck masses.] [No thyromegaly.] [No JVD.] Chest: [Clear throughout, no crackles, no rhonchi, no wheezes.] Cardiac Exam: [Normal S1 and S2, no S3 gallop, no murmur.] Abdomen: [Soft, slightly tender left upper quadrant, no megaly, no rebound, no guarding, normal bowel sounds.] Extremities: Above-knee amputation] Neurological Exam: [No focal neurologic deficit.] - Labs CBC & Chem 7: 03/28/17 05:43 03/28/17 05:43 Labs: Abnormal Lab Results - Last 24 Hours (Table) 03/28/17 03/28/17 Range/Units 05:43 05:43 Hgb 10.2 L (11.4-16.0) gm/dL Hct 32.3 L (34.0-46.0) % MCV 79.5 L (80.0-100.0) fL Plt Count 114 L (150-450) k/uL Chloride 109 H (98-107) mmol/L Glucose 108 H (74-99) mg/dL Calcium 7.7 L (8.4-10.2) mg/dL Phosphorus 1.3 L (2.5-4.5) mg/dL Assessment and Plan Plan: Impression: 1 acute septic shock secondary to urinary tract infection secondary to Proteus mirabilis. 2 status post percutaneous nephrostolithotomy, postoperative day #3 3 history of chronic urolithiasis and recurrent urinary tract infections. 4 history of multiple comorbidities including coronary artery disease, COPD, hypertension, peripheral vessel occlusive disease and the right above-knee amputation, history of gastric ulcer. 5 patient has history of chronic compensated diastolic congestive heart failure , stable at this point, and she is not demonstrating any findings of congestive heart failure presently. Recommendation: Continue present supportive care measures including fluids, antibiotics in the form of Merrem, off pressors for low blood pressure. Bronchodilators for underlying COPD, pain medications for pain control. GI and DVT prophylaxis. We will continue to follow. Discharge planning probably early next week, patient already has a PICC line in place for possible IV antibiotics on outpatient basis. Time with Patient: Less than 30
--- NOTE | 2017-03-28 13:05 | P.PN ---
Subjective The patient is in her third day postop from a left percutaneous nephrostolithotomy. The stone is a chronic infected stone with Proteus. Despite antibiotic she became septic and required a 24-hour stay in the intensive care unit. She is recuperating nicely. She has minimal discomfort. Her urine output is good. Her vital signs and labs are stable. I suspect she' ll be ready for discharge in the next couple of days. I plan on doing a second look nephroscopy next . This has been discussed with the patient. I suspect she'll be transferred back to [facility] earlier in the week and then return as an outpatient for final stone and stent removal. Objective - Vital Signs Vital signs: Vital Signs Temp 98.0 F 03/28/17 11:43 Pulse 77 03/28/17 11:44 Resp 20 03/28/17 11:44 BP 97/62 03/28/17 11:43 Pulse Ox 96 03/28/17 11:43 Intake & Output 03/27/17 03/28/17 03/28/17 18:59 06:59 18:59 Intake Total 1270 650 600 Output Total 1021 702 Balance 249 -52 600 Weight 71.5 kg Intake: IV 1150 350 Dextrose 5%-0.45% NaCl 1, 1000 300 000 ml @ 100 mls/hr IV . Q10H [facility] Rx#:[id number] Meropenem 1 gm In Sodium 100 Chloride 0.9% 100 ml @ 200 mls/hr IVPB Q8HR [facility] Rx#:[id number] ceFAZolin 1,000 mg In 50 50 Dextrose/Water 1 50ml.bag @ 100 mls/hr IVPB Q8HR [facility] Rx#:[id number] Intake, IV Titration 200 Amount Meropenem 1 gm In Sodium 200 Chloride 0.9% 100 ml @ 200 mls/hr IVPB Q8HR [facility] Rx#:[id number] Oral 120 100 600 Output: Drainage 400 Left Back 400 Urine 1020 300 Stool 1 2 Other: Voiding Method Indwelling Catheter Diaper Diaper # Voids 1 2 # Bowel Movements 1 - Labs CBC & Chem 7: 03/28/17 05:43 03/28/17 05:43 Labs: Abnormal Lab Results - Last 24 Hours (Table) 03/28/17 03/28/17 Range/Units 05:43 05:43 Hgb 10.2 L (11.4-16.0) gm/dL Hct 32.3 L (34.0-46.0) % MCV 79.5 L (80.0-100.0) fL Plt Count 114 L (150-450) k/uL Chloride 109 H (98-107) mmol/L Glucose 108 H (74-99) mg/dL Calcium 7.7 L (8.4-10.2) mg/dL Phosphorus 1.3 L (2.5-4.5) mg/dL
--- NOTE | 2017-03-28 16:10 | XR ---
Abdomen HISTORY: Left renal calculus follow-up Frontal view of the abdomen on 2 images correlated to prior dated 03/25/2017 Interval placement of a left-sided approximately tube with ureteral extension coursing along the dist ribution of the ureter. Postop changes are again noted as on previous. Multiple small calcifications are seen overlying the left kidney, 3 or 4 calcifications suspected, the largest approximately 6 to 7 mm.. Basilar atelectatic changes are noted. No evident pneumoperitoneum. IMPRESSION: There are some residual fragments of calcification within the left kidney.
[2017-03-28] MEDS: MELATONIN 3 MG TABLET PO SCH (19:57)
[2017-03-28] MEDS: MIRTAZAPINE 15 MG TAB PO SCH (19:57)
[2017-03-28] MEDS: clonazePAM 0.5 MG TAB PO SCH (19:59)
[2017-03-29] MEDS: PANTOPRAZOLE 40 MG TABLET PO SCH (06:33)
[2017-03-29] MEDS: KETOROLAC 30 MG/ML 1 ML VIAL IVP PRN (07:53)
[2017-03-29] MEDS: LOSARTAN 25 MG TAB PO SCH (07:53)
[2017-03-29] MEDS: NYSTATIN 100,000 UNIT/GM POWD 15 GM TOPICAL SCH ×3 (07:54→20:07)
[2017-03-29] MEDS: DOCUSATE 100 MG CAP PO SCH (07:54)
[2017-03-29] MEDS: METOPROLOL TARTRATE 50 MG TAB PO SCH ×2 (07:54→20:06)
[2017-03-29] MEDS: HEPARIN SODIUM,PORCINE 5,000 UNIT/ML 1 ML VIAL SQ SCH ×3 (07:54→23:58)
[2017-03-29] MEDS: POTASSIUM CHLORIDE ER 20 MEQ TAB.ER PO SCH (07:55)
[2017-03-29] MEDS: risperiDONE 0.5 MG TAB PO SCH ×2 (07:55→20:06)
[2017-03-29] MEDS: SERTRALINE 100 MG TAB PO SCH (07:55)
[2017-03-29] MEDS: DEXTROSE 5%-0.45% NACL 1,000 ML IV SCH (09:44)
[2017-03-29] MEDS: MAG HYDROX/AL HYDROX/SIMETH 30 ML CUP PO PRN ×2 (10:47→20:11)
[2017-03-29] MEDS: MEROPENEM 1 GM in SODIUM CHLORIDE 0.9% 100 ML IVPB SCH ×2 (10:47→15:31)
[2017-03-29] MEDS: ceFAZolin 1,000 MG in DEXTROSE/WATER 1 50ML.BAG IVPB SCH ×3 (11:17→23:58)
[2017-03-29 11:31] VITALS: RESP 18
--- NOTE | 2017-03-29 12:15 | P.PN ---
Subjective Principal diagnosis: Acute sepsis secondary to urinary tract infection, post percutaneous nephrostolithotomy. This is a 66-year-old female, residential patient with a staghorn calculus, infected with Proteus mirabilis based on previous workup by Dr. Cai. Patient was admitted this time for percutaneous nephroostolithotomy. This was done on , postoperatively, the patient developed symptoms of hypotension, tachycardia, and she required multiple fluid boluses. Considering the low blood pressure, patient was admitted to the ICU, and I was asked to see her on consultation. Over the last 24 hours, patient received about 3 L of IV fluid boluses, patient did require placement on levo fed for low blood pressure. Hence the patient seems to have developed a picture of septic shock from urinary tract infection and infected nephrolithiasis. During my evaluation, patient was noted to be in no form of distress, complaining of low back pain, and this pain has been going on since her surgery. Considering the cultures of her urine, I recommended adding Merrem. Patient is ALLERGIC to multiple medications including quinolones, she is also ALLERGIC to penicillin. She was on cefazolin given to her by urology in the immediate postoperative period. During my evaluation, patient denied any headaches, no blurred vision, no dizziness. No nausea no vomiting no abdominal pain. No dysuria and no frequency no urgency. Patient was reevaluated today on 03/27/2017, remains in the ICU, however she is off norepinephrine, and her blood pressures seems to be holding. Patient required norepinephrine for what seemed to be a septic shock from urinary tract infection secondary to Proteus mirabilis. Patient had a T-max of 99.4 yesterday , presently afebrile. WBC count is down to 6.8 hemoglobin is 10.3. Electrolytes are relatively normal except for low potassium being corrected as per protocol. Lactic acid was down to 1.7 yesterday. Magnesium is 1.5 being corrected as per protocol. And potassium was corrected as per protocol. Patient denies any shortness of breath, no cough, no wheezing, no nausea, no vomiting, continues to have some left upper quadrant tenderness. Chest x-ray showed chronic parenchymal changes, no acute process. And no evidence of congestive heart failure. No evidence of pneumonia or noncardiogenic pulmonary edema. Patient was reevaluated today on 03/28/2017, doing well, hemodynamically stable, urine output is excellent, she has a low-grade fever, blood cultures were ordered. And she remains on Merrem for her urinary tract infection and what seems to be a presentation of septic shock. CBC is normal basic metabolic profile is normal renal profile is normal. Patient is tolerating antibiotics well. Reevaluated today on 03/29/2017, patient is doing quite well, relatively asymptomatic. Remains on antibiotics for her urinary tract infection and septic shock on presentation. WBC count is 5.8 hemoglobin is 10.2. Basic metabolic profile is normal. Patient is doing extremely well, and could be considered for discharge planning with IV antibiotics on outpatient basis for at least 2-3 weeks. Objective - Vital Signs Vital signs: Vital Signs Temp 98.6 F 03/29/17 11:30 Pulse 75 03/29/17 11:31 Resp 18 03/29/17 11:31 BP 116/62 03/29/17 11:30 Pulse Ox 97 03/29/17 11:30 Intake & Output 03/28/17 03/29/17 03/29/17 18:59 06:59 18:59 Intake Total 840 900 180 Output Total 701 1151 Balance 139 -251 180 Weight 75.5 kg Intake: IV 450 Dextrose 5%-0.45% NaCl 1, 300 000 ml @ 25 mls/hr IV . Q24H [facility]ISA Rx#:[id number] Meropenem 1 gm In Sodium 100 Chloride 0.9% 100 ml @ 200 mls/hr IVPB Q8HR [facility] Rx#:[id number] ceFAZolin 1,000 mg In 50 Dextrose/Water 1 50ml.bag @ 100 mls/hr IVPB Q8HR MARIA LUISA Rx#:[id number] Oral 840 450 180 Output: Drainage 500 Left Back 500 Urine 700 650 Stool 1 1 Other: Voiding Method Diaper Diaper Diaper # Voids 3 1 - Exam Physical Exam: Revealed a 66-year-old in no distress. HEENT:[Neck is supple.] [No neck masses.] [No thyromegaly.] [No JVD.] Chest: [Clear throughout, no crackles, no rhonchi, no wheezes.] Cardiac Exam: [Normal S1 and S2, no S3 gallop, no murmur.] Abdomen: [Soft, slightly tender left upper quadrant, no megaly, no rebound, no guarding, normal bowel sounds.] Extremities: Above-knee amputation] Neurological Exam: [No focal neurologic deficit.] - Labs CBC & Chem 7: 03/28/17 05:43 03/28/17 05:43 Assessment and Plan Plan: Impression: 1 acute septic shock secondary to urinary tract infection secondary to Proteus mirabilis. 2 status post percutaneous nephrostolithotomy, postoperative day #4 3 history of chronic urolithiasis and recurrent urinary tract infections. 4 history of multiple comorbidities including coronary artery disease, COPD, hypertension, peripheral vessel occlusive disease and the right above-knee amputation, history of gastric ulcer. 5 patient has history of chronic compensated diastolic congestive heart failure , stable at this point, and she is not demonstrating any findings of congestive heart failure presently. Recommendation: Continue present supportive care measures including fluids, antibiotics in the form of Merrem, Bronchodilators for underlying COPD, pain medications for pain control. GI and DVT prophylaxis. We will continue to follow. Discharge planning probably early next week, patient already has a PICC line in place for possible IV antibiotics on outpatient basis. Time with Patient: Less than 30
[2017-03-29] MEDS: HYDROcodone/APAP 10-325MG 1 EACH TAB PO PRN ×2 (14:22→20:10)
--- NOTE | 2017-03-29 14:35 | P.PN ---
Subjective The patient continues to recuperate from her left percutaneous nephrostolithotomy, postoperative urinary tract infection with sepsis and hypotension. She feels well. Her vital signs are stable. Urine output is good. Cultures are negative. Her KUB shows some persistent stone as I expected and she will need a secondary nephrostolithotomy which have scheduled for next . Urologic standpoint she can go home back to [facility] tomorrow. She should stay on antibiotic until we cleaned up the left side and probably even the right side. Her Proteus urinary infection was instituted to oral Ceftin. I will discuss with Dr. Garcia as to what antibiotic we will send her back on. Objective - Vital Signs Vital signs: Vital Signs Temp 98.6 F 03/29/17 11:30 Pulse 75 03/29/17 11:31 Resp 18 03/29/17 11:31 BP 116/62 03/29/17 11:30 Pulse Ox 97 03/29/17 11:30 Intake & Output 03/28/17 03/29/17 03/29/17 18:59 06:59 18:59 Intake Total 840 900 540 Output Total 701 1151 Balance 139 -251 540 Weight 75.5 kg Intake: IV 450 Dextrose 5%-0.45% NaCl 1, 300 000 ml @ 25 mls/hr IV . Q24H MARIA LUISA Rx#:[id number] Meropenem 1 gm In Sodium 100 Chloride 0.9% 100 ml @ 200 mls/hr IVPB Q8HR MARIA LUISA Rx#:[id number] ceFAZolin 1,000 mg In 50 Dextrose/Water 1 50ml.bag @ 100 mls/hr IVPB Q8HR MARIA LUISA Rx#:[id number] Oral 840 450 540 Output: Drainage 500 Left Back 500 Urine 700 650 Stool 1 1 Other: Voiding Method Diaper Diaper Diaper # Voids 3 1 - Labs CBC & Chem 7: 03/28/17 05:43 03/28/17 05:43 Labs: Microbiology - Last 24 Hours (Table) 03/28/17 11:23 Blood Culture - Preliminary Blood No Growth after 24 hours
[2017-03-29] MEDS: clonazePAM 0.5 MG TAB PO SCH (20:05)
[2017-03-29] MEDS: MELATONIN 3 MG TABLET PO SCH (20:06)
[2017-03-29] MEDS: MIRTAZAPINE 15 MG TAB PO SCH (20:06)
[2017-03-30] MEDS: MEROPENEM 1 GM in SODIUM CHLORIDE 0.9% 100 ML IVPB SCH ×2 (00:02→11:02)
[2017-03-30] MEDS: HYDROcodone/APAP 10-325MG 1 EACH TAB PO PRN ×2 (02:51→10:19)
[2017-03-30] MEDS: MAG HYDROX/AL HYDROX/SIMETH 30 ML CUP PO PRN ×2 (02:51→10:19)
[2017-03-30] MEDS: PANTOPRAZOLE 40 MG TABLET PO SCH (06:26)
--- NOTE | 2017-03-30 07:32 | P.DS ---
Providers Date of admission: 03/26/17 06:20 Expected date of discharge: 03/30/17 Attending physician: Yan Bahena Consults: 03/26/17 05:57 Consult Physician Stat Consulting Provider: Quang Garcia Reason/Comments: ICU management Do you want consulting provider notified?: Yes Primary care physician: Stated None Hospital Course: The patient was brought into the hospital 03/25/2017 for a left percutaneous nephrostolithotomy. 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 Not unexpectedly she had sepsis post surgical treatment by culture specific antibiotics. She ended up in the ICU. She had a 24-hour stay where they responded nicely and was transferred back to the floor. She has done well ever since. She has grown Proteus mirabilis sensitive to the capsule that she has been on and now will be discharged home on Ceftin which she is on preoperatively. Postoperative KUB does show a some persistence of stone as expected and she will need a second look nephrostolithotomy which is scheduled for 04/02/2017. She will resume her home medications. Her diet is regular. Condition is stable. Patient Condition at Discharge: Stable Plan - Discharge Summary New Discharge Prescriptions: New Cefuroxime Axetil [Ceftin] 500 mg PO BID #30 tab No Action Furosemide [Lasix] 40 mg PO BID@0800,1700 Potassium Chloride [Klor-Con 20] 20 meq PO DAILY clonazePAM [KlonoPIN] 0.5 mg PO HS Clopidogrel [Plavix] 75 mg PO DAILY Multivit with Calcium,Iron,Min [Women's Daily Multivitamin] 1 tab PO DAILY@ 1200 Melatonin 3 mg PO HS Mag Hydrox/Al Hydrox/Simeth [Maalox] 16 ml PO QID PRN PRN Reason: Gerd DISTRESS >48H Lactobacillus Acidophilus [Acidophilus] 1 tab PO TID@0800,1200,1900 Docusate Sodium [Dulcolax Stool Softener] 100 mg PO DAILY Phenyleph/Pramoxin/Glycr/W.pet [Preparation H Cream] 1 applic TOPICAL DAILY PRN PRN Reason: Hemorrhoids Bisacodyl [Dulcolax] 10 mg RECTAL DAILY PRN PRN Reason: Constipation risperiDONE [Risperidone] 0.5 mg PO BID Esomeprazole Magnesium [NexIUM] 40 mg PO DAILY@0700 Nystatin 100,000 Unit/gm Powd [Mycostatin Powder] 1 applic TOPICAL TID Caldesene Powder 81-15% 1 applic TOPICAL TID Mirtazapine [Remeron] 15 mg PO HS Aspirin 81 mg PO DAILY Ipratropium-Albuterol Nebulize [Duoneb 0.5 mg-3 mg/3 ml Soln] 3 ml INHALATION RT-Q4H PRN neb PRN Reason: Shortness Of Breath Or Wheezing Losartan [Cozaar] 12.5 mg PO DAILY #0 tab Metoprolol Tartrate [Lopressor] 50 mg PO BID tab HYDROcodone/APAP 10-325MG [Seward 10-325] 1 tab PO Q6H PRN #30 PRN Reason: Pain fentaNYL [Duragesic 25MCG/HR] 1 patch TRANSDERM Q72H Sertraline [Zoloft] 100 mg PO DAILY Mag Hydrox/Al Hydrox/Simeth [Maalox] 30 ml PO QID PRN PRN Reason: GERD Magnesium Hydroxide [Milk of Magnesia Concentrate] 7,200 mg PO DAILY PRN PRN Reason: Constipation Na Phos,M-B/Na Phos,Di-Ba [Fleet Adult] 133 ml RECTAL DAILY PRN PRN Reason: Constipation Lactose-Reduced Food [Ensure Plus] 237 ml PO BID Cefuroxime Axetil [Ceftin] 500 mg PO BID Discharge Medication List Clopidogrel [Plavix] 75 mg PO DAILY 03/21/15 [History] Docusate Sodium [Dulcolax Stool Softener] 100 mg PO DAILY 03/21/15 [History] Furosemide [Lasix] 40 mg PO BID@0800,1700 03/21/15 [History] Lactobacillus Acidophilus [Acidophilus] 1 tab PO TID@0800,1200,1900 03/21/15 [ History] Mag Hydrox/Al Hydrox/Simeth [Maalox] 16 ml PO QID PRN 03/21/15 [History] Melatonin 3 mg PO HS 03/21/15 [History] Multivit with Calcium,Iron,Min [Women's Daily Multivitamin] 1 tab PO DAILY@1200 03/21/15 [History] Potassium Chloride [Klor-Con 20] 20 meq PO DAILY 03/21/15 [History] clonazePAM [KlonoPIN] 0.5 mg PO HS 03/21/15 [History] Bisacodyl [Dulcolax] 10 mg RECTAL DAILY PRN 11/28/15 [History] Caldesene Powder 81-15% 1 applic TOPICAL TID 11/28/15 [History] Esomeprazole Magnesium [NexIUM] 40 mg PO DAILY@0700 11/28/15 [History] Nystatin 100,000 Unit/gm Powd [Mycostatin Powder] 1 applic TOPICAL TID 11/28/15 [History] Phenyleph/Pramoxin/Glycr/W.pet [Preparation H Cream] 1 applic TOPICAL DAILY PRN 11/28/15 [History] risperiDONE [Risperidone] 0.5 mg PO BID 11/28/15 [History] Mirtazapine [Remeron] 15 mg PO HS 02/21/17 [History] Aspirin 81 mg PO DAILY 02/27/17 [Rx] HYDROcodone/APAP 10-325MG [Seward 10-325] 1 tab PO Q6H PRN #30 02/27/17 [Rx] Ipratropium-Albuterol Nebulize [Duoneb 0.5 mg-3 mg/3 ml Soln] 3 ml INHALATION RT -Q4H PRN neb 02/27/17 [Rx] Losartan [Cozaar] 12.5 mg PO DAILY #0 tab 02/27/17 [Rx] Metoprolol Tartrate [Lopressor] 50 mg PO BID tab 02/27/17 [Rx] Lactose-Reduced Food [Ensure Plus] 237 ml PO BID 03/19/17 [History] Mag Hydrox/Al Hydrox/Simeth [Maalox] 30 ml PO QID PRN 03/19/17 [History] Magnesium Hydroxide [Milk of Magnesia Concentrate] 7,200 mg PO DAILY PRN [History] Na Phos,M-B/Na Phos,Di-Ba [Fleet Adult] 133 ml RECTAL DAILY PRN 03/19/17 [ History] Sertraline [Zoloft] 100 mg PO DAILY 03/19/17 [History] fentaNYL [Duragesic 25MCG/HR] 1 patch TRANSDERM Q72H 03/19/17 [History] Cefuroxime Axetil [Ceftin] 500 mg PO BID 03/24/17 [History] Cefuroxime Axetil [Ceftin] 500 mg PO BID #30 tab 03/30/17 [Rx] Follow up Appointment(s)/Referral(s): Yan Bahena MD [STAFF PHYSICIAN] - 04/09/17 Activity/Diet/Wound Care/Special Instructions: The patient should go home with her nephrostomy tube. I have scheduled her for a second look nephroscopy and nephrostolithotomy for . We will contact [facility] for that arrangement. [facility] and should continue with that. She may resume her home medications.
--- NOTE | 2017-03-30 09:42 | IR ---
PICC LINE PLACEMENT: HISTORY: Infection requiring long-term antibiotic therapy PROCEDURE: Ultrasound guidance of PICC line placement. COMPLICATIONS: None ANESTHESIA: 1. 1% Lidocaine locally. FINDINGS/TECHNIQUE: The procedure was explained to the patient. The risks, complications, benefits and alternatives were discussed and any questions were answered. Informed consent was obtained. The patient was placed supine on the fluoroscopic table and prepped and draped in the usual sterile fash ion. Utilizing a 21 gauge needle and sonographic guidance, access in the left basilic vein was achi eved and there is placement of a 0.018 guidewire. The vein is patent. A 5-F. sheath was placed over the guidewire. The guidewire and dilator were removed and a 5-F. Double lumen PICC line was placed through the sheath with the chest x-ray confirming the tip at the level of the SVC. The sheath was r emoved, the catheter was flushed and sutured into position. The patient was stable throughout the pr ocedure and remained stable upon discharge from the Department of Radiology. The vein puncture was patent under ultrasound. A floyd scale image was obtained to document patency of the vein punctured. All elements of the maximal barrier technique were utilized. No images submitted. IMPRESSION: 1. Successful PICC line placement under ultrasound performed bedside within the ICU.
[2017-03-30] MEDS: HEPARIN SODIUM,PORCINE 5,000 UNIT/ML 1 ML VIAL SQ SCH (10:19)
[2017-03-30] MEDS: SERTRALINE 100 MG TAB PO SCH (10:20)
[2017-03-30] MEDS: FUROSEMIDE 40 MG TAB PO SCH (10:20)
[2017-03-30] MEDS: DOCUSATE 100 MG CAP PO SCH (10:20)
[2017-03-30] MEDS: NYSTATIN 100,000 UNIT/GM POWD 15 GM TOPICAL SCH (10:21)
[2017-03-30] MEDS: LOSARTAN 25 MG TAB PO SCH (10:21)
[2017-03-30] MEDS: METOPROLOL TARTRATE 50 MG TAB PO SCH (10:21)
[2017-03-30] MEDS: risperiDONE 0.5 MG TAB PO SCH (10:22)
[2017-03-30] MEDS: POTASSIUM CHLORIDE ER 20 MEQ TAB.ER PO SCH (10:22)
[2017-03-30] MEDS: ceFAZolin 1,000 MG in DEXTROSE/WATER 1 50ML.BAG IVPB SCH (11:02)
--- NOTE | 2017-03-30 12:52 | P.PN ---
Subjective Plan dated 03/30/2017 This is a 66-year-old female with history of acute septic shock secondary to urinary tract infection caused by Proteus mirabilis. She is status post percutaneous nephro lithotomy postop day #5 and has a history of chronic urolithiasis and chronic urinary tract infections. In addition, she has a history of CAD COPD hypertension peripheral vascular disease and right above-the -knee amputation. The patient is doing relatively well. She is being readied for possible discharge. She was admitted to Dr. Cai's service. No issues with her lungs. The shortness of breath no cough no wheezing or phlegm production. No chest pain. No nausea vomiting or diarrhea. Objective - Vital Signs Vital signs: Vital Signs Temp 97.9 F 03/30/17 04:00 Pulse 87 03/30/17 09:50 Resp 18 03/30/17 09:50 BP 114/67 03/30/17 04:00 Pulse Ox 93 L 03/30/17 10:14 Intake & Output 03/29/17 03/30/17 03/30/17 18:59 06:59 18:59 Intake Total 1360 600 240 Output Total 401 350 1 Balance 959 250 239 Weight 74.5 kg Intake: IV 600 600 Dextrose 5%-0.45% NaCl 1, 300 300 000 ml @ 25 mls/hr IV . Q24H MARIA LUISA Rx#:[id number] Meropenem 1 gm In Sodium 200 200 Chloride 0.9% 100 ml @ 200 mls/hr IVPB Q8HR MARIA LUISA Rx#:[id number] ceFAZolin 1,000 mg In 100 100 Dextrose/Water 1 50ml.bag @ 100 mls/hr IVPB Q8HR MARIA LUISA Rx#:[id number] Oral 760 240 Output: Drainage 400 350 Left Back 400 350 Stool 1 1 Other: Voiding Method Diaper Diaper Diaper # Voids 1 2 1 # Bowel Movements 1 - Exam No acute distress, oriented 3. HEENT examination is grossly unremarkable. Mucous membranes are moist. No oral lesions. Neck supple. Full range of motion. No adenopathy or thyromegaly. Cardiovascular examination reveals regular rhythm rate. S1-S2 normal. No S3- S4 or crackles. Breath sounds are equal. No adventitious lung sounds. Abdomen soft bowel sounds are heard. Extremities are intact. No cyanosis clubbing or edema. Skin without rash. Neurologic examination is nonfocal. - Labs CBC & Chem 7: 03/28/17 05:43 03/28/17 05:43 Labs: Microbiology - Last 24 Hours (Table) 03/28/17 11:23 Blood Culture - Preliminary Blood No Growth after 24 hours Assessment and Plan (1) Urinary tract infection Status: Acute (2) Sepsis due to urinary tract infection Status: Acute (3) Kidney stones Status: Acute (4) Renal calculi Status: Acute Plan: Plan dated 03/30/2017 The patient might be discharged home today. The patient seemed be doing relatively well. No respiratory or hemodynamic issues. She's not requiring any supplemental oxygen. She does have follow-up with one of my partners in the office. No additional recommendations are made. Time with Patient: Less than 30
[2017-03-30] MEDS: DEXTROSE 5%-0.45% NACL 1,000 ML IV SCH (14:48)
[2017-03-30 14:53] VITALS: BP 126/65; PULSE 82; TEMP 96.7
== END 2017-03-30 15:20 | DRG 853 ==
LOC: OR 08:47 → EDSTATUS 10:30 → 3SUR 12:43 → OR 03-26 06:20 → 6ICU 03-26 06:20 → 6SEL 03-27 13:40
PROVIDERS: ADMIT Urology; ATTEND Urology
DX: A41.9 Sepsis, unspecified organism (principal); R65.21 Severe sepsis with septic shock; I50.32 Chronic diastolic (congestive) heart failure; N39.0 Urinary tract infection, site not specified; I11.0 Hypertensive heart disease with heart failure; J44.9 Chronic obstructive pulmonary disease, unspecified; B96.4 Proteus (mirabilis) (morganii) as the cause of diseases classified elsewhere; I25.10 Atherosclerotic heart disease of native coronary artery without angina pectoris; I73.9 Peripheral vascular disease, unspecified; K21.9 Gastro-esophageal reflux disease without esophagitis; N20.0 Calculus of kidney; Z79.02 Long term (current) use of antithrombotics/antiplatelets; Z79.82 Long term (current) use of aspirin; Z79.899 Other long term (current) drug therapy; Z87.11 Personal history of peptic ulcer disease; Z87.440 Personal history of urinary (tract) infections; Z87.442 Personal history of urinary calculi; Z87.891 Personal history of nicotine dependence; Z88.0 Allergy status to penicillin; Z89.611 Acquired absence of right leg above knee; Z88.1 Allergy status to other antibiotic agents; Z88.3 Allergy status to other anti-infective agents; Z88.2 Allergy status to sulfonamides; Z74.01 Bed confinement status
CPT/HCPCS: 36569; 50432; 71010; 74000; 76937; 80048; 82365; 83605; 83735; 84100; 84132; 85025; 85027; 86850; 86900; 86901; 87040; 87324; 93005; 94640; 94760

== ENCOUNTER 2017-04-02 09:05 | Day surgery (SDC) | payer MEDICARE, OTHER ==
[2017-03-31 16:00] VITALS: BMI 25.4
--- NOTE | 2017-04-01 21:55 | HP ---
HISTORY AND PHYSICAL DIAGNOSIS: Persistent infected kidney stones. PROCEDURE TO BE PERFORMED: Secondary percutaneous nephrostolithotomy. Mrs. Krause is 66. She came to our attention because of recurrent infection, a staghorn calculus on the left and stones on the right. Last week she underwent a percutaneous nephrostolithotomy to debulk the majority of the large staghorn calculus on the left. She was on culture-specific antibiotics. Despite that, she became septic postoperatively requiring a 24-hour ICU stay. She recuperated nicely and was transferred back to [facility] on Thursday. She comes for a secondary nephrostolithotomy to completely remove all the stones from her left kidney. PAST MEDICAL HISTORY: 1. Coronary artery disease. 2. COPD. 3. Reflux esophagitis. 4. Hypertension. 5. Vascular disease. 6. Gastric ulcer. SURGICAL HISTORY: Surgical history includes: 1. Ajcwy-bfb-kgxm amputation for vascular disease. 2. Appendectomy. 3. Cholecystectomy. 4. Ovarian cystectomy. REVIEW OF SYSTEMS: Noncontributory. FAMILY AND SOCIAL HISTORY: She is a nonsmoker at present. She used to smoke. She lives at [facility]. MEDICATIONS: Medications include: 1. Aspirin and Plavix, which have stopped. 2. Colace. 3. Lasix. 4. [place]. 5. Acidophilus. 6. Maalox. 7. Lopressor. 8. Potassium. 9. Catapres. 10.Klonopin. 11.Duragesic patch. 12.Dulcolax. 13.Nexium. 14.Feosol. 15.Imodium. 16.Compazine. 17.Risperdal. 18.Remeron. 19.Zoloft. 20.Benadryl. 21.Ceftin. ALLERGIES: 1. CIPRO. 2. IODINE. 3. PENICILLIN. 4. PHENYLPIPERAZINE. 5. SULFA. PHYSICAL EXAMINATION: Pleasant white female. She has an above-knee right amputation. HEENT examination is unremarkable. Respirations are nonlabored. She is not tachycardic. There is a nephroscopy tube out of her left flank area. Her abdomen is soft. Extremities without edema. Neurological examination is grossly intact. IMPRESSION: Retained stone, status post percutaneous nephrostolithotomy for full branch staghorn calculus. PLAN: Secondary nephrostolithotomy to the small amount of remaining stone. MMODL / IJN: [id number] /
[~2017-04-02 09:05] MED LIST changes: -GENTAMICIN 100 MG in SODIUM CHLORIDE 0.9% 100 ML IVPB ONE; +HYDROmorphone 1 MG/ML 1 ML SYRINGE IVP PRN; +LACTATED RINGERS 1,000 ML IV SCH; +LIDOCAINE 1% 20 ML VIAL (10MG/ML) FOR IV START INTRADERMA PRN; -Pre Op ABX Message 1 EACH MISC MISCELLANE ONE; +SCOPOLAMINE 1.5MG/72HR PATCH TRANSDERM ONE; +ceFAZolin 2 GM in SODIUM CHLORIDE 0.9% 100 ML IVPB ONE
[2017-04-02] MEDS ORDERED: LACTATED RINGERS 1,000 ML IV ONE (09:21)
[2017-04-02 09:48] LABS: Anisocytosis Slight; Basophils # (A) 0.1 k/uL (0-0.2); Basophils % (A) 0 %; CH 25.5; CHCM 33.3; Eosinophils # (A) 0.4 k/uL (0-0.7); Eosinophils % (A) 2 %; HCT 40.3 % (34.0-46.0); HDW 3.21; HGB 13.1 gm/dL (11.4-16.0); Luc # (Auto) 0.19; Luc % (Auto) 1; Lymphocytes # (A) 1.6 k/uL (1.0-4.8); Lymphocytes % (A) 10 %; MCH 24.9 pg (25.0-35.0); MCHC 32.4 g/dL (31.0-37.0); MCV 76.9 fL (80.0-100.0); Mean Platelet Volume 7.8; Microcytosis Slight; Monocytes # (A) 0.7 k/uL (0-1.0); Monocytes % (A) 4 %; Neutrophils # (A) 13.3 k/uL (1.3-7.7); Neutrophils % (A) 82 %; RBC 5.24 m/uL (3.80-5.40); RDW 16.2 % (11.5-15.5); WBC 16.1 k/uL (3.8-10.6); WBC (Perox) 17.49
[2017-04-02 10:05] LABS: Anion Gap 13 mmol/L; Blood Urea Nitrogen 15 mg/dL (7-17); Calcium 8.6 mg/dL (8.4-10.2); Carbon Dioxide 23 mmol/L (22-30); Chloride 104 mmol/L (98-107); Glucose 136 mg/dL (74-99); Non-African American GFR(MDRD) >60 (>60 ml/min/1.73 sqM); Potassium 4.3 mmol/L (3.5-5.1); Sodium 140 mmol/L (137-145)
[2017-04-02] MEDS ORDERED: fentaNYL (PF) 50 MCG/ML 2 ML AMP ONE (10:35)
[2017-04-02] MEDS ORDERED: SUCCINYLCHOLINE CHLORIDE 100 MG/5 ML SYR IV ONE (10:35)
[2017-04-02] MEDS ORDERED: PROPOFOL 10 MG/ML 20 ML VIAL IV ONE (10:35)
[2017-04-02] MEDS ORDERED: LIDOCAINE 1% INJ 10MG/ML (20 ML MDV) ONE (10:35)
[2017-04-02] MEDS ORDERED: MIDAZOLAM 2 MG/2 ML VIAL ONE (10:35)
[2017-04-02] MEDS ORDERED: ePHEDrine SULFATE/0.9% NACL/PF 50 MG/5 ML SYRINGE IV ONE (10:35)
[2017-04-02] MEDS ORDERED: PHENYLEPHRINE-0.9% NACL SYG 1 MG/10 ML SYRINGE ONE (10:35)
[2017-04-02] MEDS ORDERED: IOHEXOL 350 MG/ML 50ML BOTTLE INJ ONE (11:09)
--- NOTE | 2017-04-02 11:27 | P.OP ---
Date of Procedure: 04/02/17 Preoperative Diagnosis: Left renal calculi Postoperative Diagnosis: Same Procedure(s) Performed: Secondary nephroscopy with nephrostolithotomy Anesthesia: HOLLI Surgeon: Yan Bahena Pathology: none sent Condition: stable Disposition: PACU Indications for Procedure: The patient is a 66-year-old female who underwent a left percutaneous nephrostolithotomy for full branch staghorn last week. She comes for a secondary nephroscopy and nephrostolithotomy for remaining fragments Description of Procedure: Patient brought operating suite and given a general endotracheal anesthesia on the transport gurney Gamboa catheters placed sterilely. She's placed in a prone position care to airways and extremities. The nephrostomy tube was removed. An 035 wires passed down the ureter. With flexible and rigid nephroscopy the collecting system was inspected in its entirety. Small fragments are irrigated are basketed out. Then the procedure I see no remaining fragments. The patient 's awake and returned recovery in good condition. The nephrostomy tube remains out. The Gam[place] catheter be removed. She'll be discharged home upon recovery and follow in the office in 2 weeks. At that point time we will assess the right side to determine whether further treatment will be needed.
[2017-04-02 11:37] VITALS: TEMP 97.2
[2017-04-02] MEDS ORDERED: HYDROcodone/APAP 10-325MG 1 EACH TAB PO ONE (13:16)
[2017-04-02 13:47] VITALS: BP 102/71; PULSE 88; RESP 20
--- NOTE | 2017-04-02 15:22 | FL ---
EXAMINATION TYPE: FL Perc Nephro Tube Change DATE OF EXAM: 04/02/2017 COMPARISON: NONE HISTORY: Urology procedure TECHNIQUE: Fluoroscopy. FINDINGS: Fluoroscopic guidance was provided during procedure. A total of 11 seconds of fluoroscopi c time was utilized during the procedure and spot images was acquired. IMPRESSION: As Above.
[2017-04-04 06:52] LABS: Glucose,Whole Blood 127 mg/dL (75-99)
--- NOTE | 2017-04-06 10:59 | XR ---
EXAMINATION TYPE: XR KUB DATE OF EXAM: 04/02/2017 9:09 AM CLINICAL HISTORY: Presurgical study, left-sided calculus TECHNIQUE: Single supine KUB image of the abdomen is obtained. COMPARISON: Abdominal x-ray March 28, 2017 FINDINGS: There is redemonstration of percutaneous left-sided nephrostomy tube and left ureter food and beverage intern al stent likely short of UVJ. There are 2-5 adjacent are staghorn type calculi upper pole level left kidney redemonstrated. No right-sided nephrolithiasis. Scattered pelvic phleboliths are seen. There is vascular calcification in the pelvis. There is metallic stent graft in the right common and external iliac artery redemonstrated. Cholecystectomy clips are redemonstrated. Partial visualization of surgical change left hip level is redemonstrated. IMPRESSION: Stable left-sided nephrolithiasis and surgical change.
== END 2017-04-02 13:59 ==
LOC: OR 09:05
PROVIDERS: ATTEND Urology
DX: N20.0 Calculus of kidney (principal); I25.10 Atherosclerotic heart disease of native coronary artery without angina pectoris; J44.9 Chronic obstructive pulmonary disease, unspecified; K21.0 Gastro-esophageal reflux disease with esophagitis; I50.9 Heart failure, unspecified; I11.0 Hypertensive heart disease with heart failure; K25.9 Gastric ulcer, unspecified as acute or chronic, without hemorrhage or perforation; I73.9 Peripheral vascular disease, unspecified; Z88.1 Allergy status to other antibiotic agents; Z88.2 Allergy status to sulfonamides; Z88.8 Allergy status to other drugs, medicaments and biological substances; Z91.09 Other allergy status, other than to drugs and biological substances; Z87.891 Personal history of nicotine dependence; Z79.891 Long term (current) use of opiate analgesic; Z79.82 Long term (current) use of aspirin; Z79.899 Other long term (current) drug therapy; Z89.611 Acquired absence of right leg above knee
CPT/HCPCS: 80048; 85025; 74000; 50435; 50561; C1769; J2250; J1100; J0690; J2405; J2001; J3010; J2370; J0330; J2704; Q9967

== ENCOUNTER 2017-06-04 09:03 | Day surgery (SDC) | payer MEDICARE, OTHER ==
[2017-05-15 15:45] VITALS: BMI 22.1
[~2017-06-04 09:03] MED LIST changes: +GENTAMICIN 100 MG in SODIUM CHLORIDE 0.9% 100 ML IVPB ONE; +HYDROmorphone 0.5 MG/0.5 ML SYRINGE IVP PRN; -HYDROmorphone 1 MG/ML 1 ML SYRINGE IVP PRN; -LIDOCAINE 1% 20 ML VIAL (10MG/ML) FOR IV START INTRADERMA PRN; +MIDAZOLAM 2 MG/2 ML VIAL IV PRN; +Pre Op ABX Message 1 EACH MISC MISCELLANE ONE; -SCOPOLAMINE 1.5MG/72HR PATCH TRANSDERM ONE; -ceFAZolin 2 GM in SODIUM CHLORIDE 0.9% 100 ML IVPB ONE
--- NOTE | 2017-06-04 09:52 | XR ---
EXAMINATION TYPE: XR KUB DATE OF EXAM: 06/04/2017 COMPARISON: 04/02/2017 INDICATION: Renal stone TECHNIQUE: Single view abdomen supine view FINDINGS: There is a normal bowel gas pattern. Psoas margins are normal. Spleen appears prominent. There is a 1.9 x 0.8 cm calcification within the mid portion left kidney. This was present previousl y. No right renal stones are evident. Cholecystectomy clips are present. Ureteral stones are not iden tified. Vascular calcifications within the iliac vessels. A stent is present on the right. Left hip p in is present. IMPRESSION: 1. Mid left renal stone.
[2017-06-04] MEDS ORDERED: GLYCOPYRROLATE 0.2 MG/ML 2 ML VIAL ONE (11:08)
[2017-06-04] MEDS ORDERED: LIDOCAINE 1% INJ 10MG/ML (20 ML MDV) ONE (11:08)
[2017-06-04] MEDS ORDERED: fentaNYL (PF) 50 MCG/ML 2 ML AMP ONE (11:08)
[2017-06-04] MEDS ORDERED: ePHEDrine SULFATE/0.9% NACL/PF 50 MG/5 ML SYRINGE IV ONE (11:08)
[2017-06-04] MEDS ORDERED: MIDAZOLAM 2 MG/2 ML VIAL ONE (11:08)
[2017-06-04] MEDS ORDERED: NEOSTIGMINE 1 MG/ML 10 ML VIAL ONE (11:08)
[2017-06-04] MEDS ORDERED: PROPOFOL 10 MG/ML 20 ML VIAL IV ONE (11:08)
[2017-06-04] MEDS ORDERED: SUCCINYLCHOLINE CHLORIDE 100 MG/5 ML SYR IV ONE (11:08)
[2017-06-04] MEDS ORDERED: ROCURONIUM BROMIDE 10 MG/ML 10 ML VIAL IV ONE (11:08)
[2017-06-04] MEDS ORDERED: PHENYLEPHRINE-0.9% NACL SYG 1 MG/10 ML SYRINGE ONE (11:08)
[2017-06-04] MEDS ORDERED: IOHEXOL 350 MG/ML 50ML BOTTLE IRRIGATION ONE (12:20)
[2017-06-04] MEDS ORDERED: MAGNESIUM HYDROXIDE 2,400 MG/10 ML CUP PO PRN (12:36)
[2017-06-04] MEDS ORDERED: BISACODYL 10 MG SUPP RECTAL PRN (12:36)
[2017-06-04] MEDS ORDERED: IPRATROPIUM-ALBUTEROL 3 ML NEB INHALATION PRN (12:36)
[2017-06-04] MEDS ORDERED: NYSTATIN 100,000 UNIT/GM POWD 15 GM TOPICAL PRN (12:36)
[2017-06-04] MEDS ORDERED: NA PHOS,M-B/NA PHOS,DI-BA 133 ML ENEMA RECTAL PRN (12:36)
[2017-06-04] MEDS ORDERED: MAG HYDROX/AL HYDROX/SIMETH 30 ML CUP PO PRN (12:38)
[2017-06-04] MEDS ORDERED: ACETAMINOPHEN TAB 325 MG TAB PO PRN (12:38)
[2017-06-04] MEDS ORDERED: ONDANSETRON 4 MG/2 ML VIAL IVP PRN (12:38)
--- NOTE | 2017-06-04 12:47 | P.OP ---
Date of Procedure: 06/04/17 Preoperative Diagnosis: Infected right renal calculi Postoperative Diagnosis: Same Procedure(s) Performed: Cystoscopy, placement of losing balloon catheter right, percutaneous nephrostomy (Dr. León percutaneous nephrostolithotomy (Dr. Bahena Anesthesia: HOLLI Surgeon: Yan Bahena Estimated Blood Loss (ml): 30 Pathology: none sent Condition: stable Disposition: PACU Indications for Procedure: The patient is a 66-year-old senior care patient who proximally one month ago underwent percutaneous nephrostolithotomy to a large volume of left renal infected kidney stones. She is recuperated for that. Her computed tomography scan identified stone and stony debris in the right kidney she come for a or cutaneous nephrostomy on the right Description of Procedure: The patient is brought to the operating suite and on the transport gurney given a successful general endotracheal anesthesia. She's placed in a frog position with a sterile prep and drape. Cystoscopy a Foroblique lens and 22-Austrian sheath identifies a normal urethra. The ureteral orifices are normal. The right ureteral orifice is in intubated with a 5-Austrian occluding balloon catheter. It is secured to a Gamboa catheter The patient placed in a prone position to care to airways and extremities. The ureteral catheters adjusted. Dr. León of radiology performed percutaneous access to the lower pole calyx. I dilate the tract to 30-Austrian. I remove clot and sand-like debris adherent to the clot out of the renal pelvis and out of the collecting system. I irrigate the rest of the debris out of the collecting system. I look up into the upper middle and lower poles and irrigate sand out of the collecting system. There is no remaining stone. The ureters inspected and there is no stone. An 8-Austrian J nephrostomy tubes place the patient awake and returned recovery room good condition Impression successful removal of less than 2 cm of sand out of the collecting system It is important to remove this sand in this debilitated immobilized patient has a sand would turn into a staghorn calculus. Blood loss is less than 30 mL. She tolerated the procedure well be observed in the hospital overnight. She'll be discharged home tomorrow follow-up next week for nephrostomy tube removal
[2017-06-04 13:18] LABS: Glucose,Whole Blood 150 mg/dL (75-99)
--- NOTE | 2017-06-04 13:25 | FL ---
EXAMINATION TYPE: FL Perc Nephrostomy New Access DATE OF EXAM: 06/04/2017 COMPARISON: NONE HISTORY: Right-sided kidney stones PROCEDURE: Maximal barrier technique was utilized. The skin overlying the right kidney was localized using fluo roscopy and the overlying skin prepped and draped. Lidocaine used for local anesthesia. Skin rayo w as made with a scalpel. Access was gained under fluoroscopy, following placement of a ureteral occlu thierno balloon by the referring clinician and instillation of air in the renal collecting system with a 21-gauge needle to the kidney. A suitable posterior calyx was chosen. A 0.018 inch wire was Definition 6. The access site was dilated and subsequently a sheath was advanced into the renal pelvis follow ing dilation with balloon along the tract. The patient underwent nephrolithotomy by the referring cl inician. The patient remained in stable condition without complication. The patient was discharged to observation. 5.24 minutes fluoroscopy time, 2 intraoperative C-arm images document the procedure IMPRESSION: STATUS POST NEPHROSTOMY PLACEMENT FOR NEPHROLITHOTOMY WITH FLUOROSCOPIC GUIDANCE. THIS PROCEDURE PER FORMED BY THE UNDERSIGNED.
[2017-06-04] MEDS: HYDROcodone/APAP 10-325MG 1 EACH TAB PO PRN (14:18)
[2017-06-04] MEDS: MORPHINE SULFATE 4 MG/ML SYRINGE IVP PRN ×3 (15:06→21:00)
[2017-06-04] MEDS: DEXTROSE 5%-0.45% NACL 1,000 ML IV SCH (15:06)
[2017-06-04] MEDS: ZINC OXIDE-CORN STARCH 142 GM POWDER TOPICAL SCH ×2 (15:16→20:59)
[2017-06-04 17:07] LABS: Glucose,Whole Blood 187 mg/dL (75-99)
[2017-06-04] MEDS: MAG HYDROX/AL HYDROX/SIMETH 30 ML CUP PO PRN ×2 (17:21→23:16)
[2017-06-04] MEDS: FUROSEMIDE 40 MG TAB PO SCH (17:23)
[2017-06-04] MEDS: METOPROLOL TARTRATE 50 MG TAB PO SCH (20:58)
[2017-06-04] MEDS: MIRTAZAPINE 15 MG TAB PO SCH (20:58)
[2017-06-04] MEDS: risperiDONE 0.5 MG TAB PO SCH (20:59)
[2017-06-04 21:10] LABS: Glucose,Whole Blood 166 mg/dL (75-99)
[2017-06-04] MEDS: clonazePAM 0.5 MG TAB PO SCH (21:11)
[2017-06-05] MEDS: HYDROcodone/APAP 10-325MG 1 EACH TAB PO PRN (03:20)
[2017-06-05] MEDS: DEXTROSE 5%-0.45% NACL 1,000 ML IV SCH ×2 (03:20→12:38)
[2017-06-05] MEDS: MORPHINE SULFATE 4 MG/ML SYRINGE IVP PRN ×3 (05:17→19:12)
[2017-06-05 06:52] LABS: Glucose,Whole Blood 120 mg/dL (75-99)
[2017-06-05] MEDS: METOPROLOL TARTRATE 50 MG TAB PO SCH ×2 (08:29→20:22)
[2017-06-05] MEDS: FUROSEMIDE 40 MG TAB PO SCH ×2 (08:29→18:18)
[2017-06-05] MEDS: DOCUSATE 100 MG CAP PO SCH (08:29)
[2017-06-05] MEDS: PANTOPRAZOLE 40 MG TABLET PO SCH (08:29)
[2017-06-05] MEDS: POTASSIUM CHLORIDE ER 20 MEQ TAB.ER PO SCH (08:29)
[2017-06-05] MEDS: SERTRALINE 50 MG TAB PO SCH (08:30)
[2017-06-05] MEDS: [UNRECOGNIZED DRUG - OTHER] IVP SCH ×3 (08:30→23:27)
[2017-06-05] MEDS: ZINC OXIDE-CORN STARCH 142 GM POWDER TOPICAL SCH ×3 (08:30→22:41)
[2017-06-05] MEDS: risperiDONE 0.25 MG TAB PO SCH (08:30)
[2017-06-05] MEDS: MAG HYDROX/AL HYDROX/SIMETH 30 ML CUP PO PRN ×2 (09:54→20:22)
[2017-06-05 11:54] LABS: Glucose,Whole Blood 121 mg/dL (75-99)
[2017-06-05 17:13] LABS: Glucose,Whole Blood 106 mg/dL (75-99)
[2017-06-05] MEDS: risperiDONE 0.5 MG TAB PO SCH (20:22)
[2017-06-05] MEDS: clonazePAM 0.5 MG TAB PO SCH (20:22)
[2017-06-05] MEDS: MIRTAZAPINE 15 MG TAB PO SCH (20:22)
[2017-06-05 20:47] LABS: Glucose,Whole Blood 124 mg/dL (75-99)
[2017-06-05] MEDS ORDERED: MELATONIN 3 MG TABLET PO SCH (23:00)
[2017-06-06] MEDS: MORPHINE SULFATE 4 MG/ML SYRINGE IVP PRN ×3 (04:31→11:33)
[2017-06-06] MEDS: DEXTROSE 5%-0.45% NACL 1,000 ML IV SCH (04:33)
[2017-06-06] MEDS: HYDROcodone/APAP 10-325MG 1 EACH TAB PO PRN (05:50)
[2017-06-06 07:41] LABS: Glucose,Whole Blood 119 mg/dL (75-99)
[2017-06-06 08:07] VITALS: BP 97/59; PULSE 79; RESP 20; TEMP 96.7
[2017-06-06] MEDS: PANTOPRAZOLE 40 MG TABLET PO SCH (08:10)
[2017-06-06] MEDS: FUROSEMIDE 40 MG TAB PO SCH (08:11)
[2017-06-06] MEDS: METOPROLOL TARTRATE 50 MG TAB PO SCH (08:11)
[2017-06-06] MEDS: risperiDONE 0.25 MG TAB PO SCH (08:12)
[2017-06-06] MEDS: POTASSIUM CHLORIDE ER 20 MEQ TAB.ER PO SCH (08:12)
[2017-06-06] MEDS: SERTRALINE 50 MG TAB PO SCH (08:12)
[2017-06-06] MEDS: ZINC OXIDE-CORN STARCH 142 GM POWDER TOPICAL SCH (08:13)
[2017-06-06] MEDS: MAG HYDROX/AL HYDROX/SIMETH 30 ML CUP PO PRN (09:01)
[2017-06-06] MEDS: [UNRECOGNIZED DRUG - OTHER] IVP SCH (09:58)
--- NOTE | 2017-06-06 10:07 | P.DS ---
Providers Expected date of discharge: 06/06/17 Attending physician: Yan Bahena Primary care physician: Stated None Hospital Course: The patient is a 66-year-old female with a history of multiple right renal calculi who underwent percutaneous nephrostolithotomy for treatment of a staghorn left renal calculus in March. She was admitted electively for percutaneous nephrostolithotomy for treatment of right renal calculi. The procedure was performed on the date of admission. The patient remained afebrile and was discharged on her second day postop with the nephrostomy catheter in place. It is anticipated that she will see Dr. Bahena on 06/09 or for removal of the nephrostomy catheter. She has a history of a chronic Proteus mirabilis urinary tract infection and will continue cefuroxime 500 mg twice a day until that time. Patient Condition at Discharge: Good Plan - Discharge Summary Discharge Rx Participant: No New Discharge Prescriptions: No Action Furosemide [Lasix] 40 mg PO BID@0800,1700 Potassium Chloride [Klor-Con 20] 20 meq PO DAILY clonazePAM [KlonoPIN] 0.5 mg PO HS Clopidogrel [Plavix] 75 mg PO DAILY Multivit with Calcium,Iron,Min [Women's Daily Multivitamin] 1 tab PO DAILY@ 1200 Melatonin 3 mg PO HS Lactobacillus Acidophilus [Acidophilus] 1 tab PO TID@0800,1200,1900 Docusate Sodium [Dulcolax Stool Softener] 100 mg PO DAILY Phenyleph/Pramoxin/Glycr/W.pet [Preparation H Cream] 1 applic TOPICAL DAILY PRN PRN Reason: Hemorrhoids Bisacodyl [Dulcolax] 10 mg RECTAL DAILY PRN PRN Reason: Constipation risperiDONE [Risperidone] 0.25 mg PO QAM Esomeprazole Magnesium [NexIUM] 40 mg PO DAILY@0700 Nystatin 100,000 Unit/gm Powd [Mycostatin Powder] 1 applic TOPICAL TID PRN PRN Reason: FUNGAL INFECTION Caldesene Powder 81-15% 1 applic TOPICAL TID Mirtazapine [Remeron] 15 mg PO HS Aspirin 81 mg PO DAILY Ipratropium-Albuterol Nebulize [Duoneb 0.5 mg-3 mg/3 ml Soln] 3 ml INHALATION RT-Q4H PRN neb PRN Reason: Shortness Of Breath Or Wheezing Losartan [Cozaar] 12.5 mg PO DAILY #0 tab Metoprolol Tartrate [Lopressor] 50 mg PO BID tab HYDROcodone/APAP 10-325MG [Ray 10-325] 1 tab PO Q6H PRN #30 PRN Reason: Pain Sertraline [Zoloft] 50 mg PO DAILY Mag Hydrox/Al Hydrox/Simeth [Maalox] 15 ml PO QID PRN PRN Reason: GERD Magnesium Hydroxide [Milk of Magnesia Concentrate] 30 ml PO DAILY PRN PRN Reason: Constipation Na Phos,M-B/Na Phos,Di-Ba [Fleet Adult] 133 ml RECTAL DAILY PRN PRN Reason: Constipation carBAMazepine [carBAMazepine ER] 200 mg PO BID fentaNYL 50MCG/HR PATCH [Duragesic 50MCG/HR] 50 mcg TRANSDERM Q72H Mag Hydrox/Al Hydrox/Simeth [Maalox] 30 ml PO QID PRN PRN Reason: HEARTBURN, INDIGESTION Menthol/Zinc Oxide [Calmoseptine Ointment] 1 applic TOPICAL TID risperiDONE [RisperDAL] 0.5 mg PO HS Lactose-Reduced Food [Ensure Plus] 1 can PO BID Cefuroxime [Ceftin] 250 mg PO BID Discharge Medication List Clopidogrel [Plavix] 75 mg PO DAILY 03/21/15 [History] Docusate Sodium [Dulcolax Stool Softener] 100 mg PO DAILY 03/21/15 [History] Furosemide [Lasix] 40 mg PO BID@0800,1700 03/21/15 [History] Lactobacillus Acidophilus [Acidophilus] 1 tab PO TID@0800,1200,1900 03/21/15 [ History] Melatonin 3 mg PO HS 03/21/15 [History] Multivit with Calcium,Iron,Min [Women's Daily Multivitamin] 1 tab PO DAILY@1200 03/21/15 [History] Potassium Chloride [Klor-Con 20] 20 meq PO DAILY 03/21/15 [History] clonazePAM [KlonoPIN] 0.5 mg PO HS 03/21/15 [History] Bisacodyl [Dulcolax] 10 mg RECTAL DAILY PRN 11/28/15 [History] Caldesene Powder 81-15% 1 applic TOPICAL TID 11/28/15 [History] Esomeprazole Magnesium [NexIUM] 40 mg PO DAILY@0700 11/28/15 [History] Nystatin 100,000 Unit/gm Powd [Mycostatin Powder] 1 applic TOPICAL TID PRN 11/27 [History] Phenyleph/Pramoxin/Glycr/W.pet [Preparation H Cream] 1 applic TOPICAL DAILY PRN 11/28/15 [History] risperiDONE [Risperidone] 0.25 mg PO QAM 11/28/15 [History] Mirtazapine [Remeron] 15 mg PO HS 02/21/17 [History] Aspirin 81 mg PO DAILY 02/27/17 [Rx] HYDROcodone/APAP 10-325MG [Ray 10-325] 1 tab PO Q6H PRN #30 02/27/17 [Rx] Ipratropium-Albuterol Nebulize [Duoneb 0.5 mg-3 mg/3 ml Soln] 3 ml INHALATION RT -Q4H PRN neb 02/27/17 [Rx] Losartan [Cozaar] 12.5 mg PO DAILY #0 tab 02/27/17 [Rx] Metoprolol Tartrate [Lopressor] 50 mg PO BID tab 02/27/17 [Rx] Mag Hydrox/Al Hydrox/Simeth [Maalox] 15 ml PO QID PRN 03/19/17 [History] Magnesium Hydroxide [Milk of Magnesia Concentrate] 30 ml PO DAILY PRN 03/19/17 [ History] Na Phos,M-B/Na Phos,Di-Ba [Fleet Adult] 133 ml RECTAL DAILY PRN 03/19/17 [ History] Sertraline [Zoloft] 50 mg PO DAILY 03/19/17 [History] Lactose-Reduced Food [Ensure Plus] 1 can PO BID 05/19/17 [History] Mag Hydrox/Al Hydrox/Simeth [Maalox] 30 ml PO QID PRN 05/19/17 [History] Menthol/Zinc Oxide [Calmoseptine Ointment] 1 applic TOPICAL TID 05/19/17 [ History] carBAMazepine [carBAMazepine ER] 200 mg PO BID 05/19/17 [History] fentaNYL 50MCG/HR PATCH [Duragesic 50MCG/HR] 50 mcg TRANSDERM Q72H 05/19/17 [ History] risperiDONE [RisperDAL] 0.5 mg PO HS 05/19/17 [History] Cefuroxime [Ceftin] 250 mg PO BID 06/06/17 [History] Follow up Appointment(s)/Referral(s): Yan Bahena MD [STAFF PHYSICIAN] - 3 Days Discharge Disposition: TRANSFER TO SNF/ECF
[2017-06-06] MEDS ORDERED: BENZOCAINE 20% HEMORRHOIDAL OINT 28GM RECTAL PRN (10:08)
[2017-06-06] MEDS: DOCUSATE 100 MG CAP PO SCH (11:19)
[2017-06-06] MEDS ORDERED: LACTOBACILLUS ACIDOPH & BULGAR 1 EACH PACKET PO SCH (12:00)
[2017-06-06] MEDS ORDERED: MULTIVITAMINS, THERA 1 EACH TAB PO SCH (12:00)
[2017-06-06 12:09] LABS: Glucose,Whole Blood 120 mg/dL (75-99)
[2017-06-06] MEDS ORDERED: MENTHOL-ZINC OXIDE OINT 113 GM TUBE TOPICAL SCH (16:00)
[2017-06-06] MEDS ORDERED: NON-FORMULARY DRUG (Lactose-Reduced Food [Ensure Plus] 1 CAN) PO SCH (21:00)
[2017-06-06] MEDS ORDERED: CEFUROXIME 250 MG TAB PO SCH ×2 (21:00)
[2017-06-06] MEDS ORDERED: MELATONIN 3 MG TABLET PO SCH (21:00)
[2017-06-07] MEDS ORDERED: CLOPIDOGREL 75 MG TAB PO SCH (09:00)
[2017-06-07] MEDS ORDERED: ASPIRIN 81 MG PO SCH (09:00)
[2017-06-07] MEDS ORDERED: LOSARTAN 25 MG TAB PO SCH (09:00)
== END 2017-06-06 13:01 ==
LOC: OR 09:03 → 4MS4W 12:25 → OR 06-06 13:01
PROVIDERS: ATTEND Urology
DX: N20.0 Calculus of kidney (principal); D64.9 Anemia, unspecified; I11.0 Hypertensive heart disease with heart failure; I50.9 Heart failure, unspecified; I25.10 Atherosclerotic heart disease of native coronary artery without angina pectoris; I27.20 Pulmonary hypertension, unspecified; E11.9 Type 2 diabetes mellitus without complications; K21.9 Gastro-esophageal reflux disease without esophagitis; L30.9 Dermatitis, unspecified; F31.9 Bipolar disorder, unspecified; F43.10 Post-traumatic stress disorder, unspecified; J44.9 Chronic obstructive pulmonary disease, unspecified; E78.5 Hyperlipidemia, unspecified; Z86.73 Personal history of transient ischemic attack (TIA), and cerebral infarction without residual deficits; Z79.02 Long term (current) use of antithrombotics/antiplatelets; Z79.82 Long term (current) use of aspirin; Z79.899 Other long term (current) drug therapy; Z88.1 Allergy status to other antibiotic agents; Z88.0 Allergy status to penicillin; Z88.2 Allergy status to sulfonamides; Z91.09 Other allergy status, other than to drugs and biological substances; Z87.891 Personal history of nicotine dependence
CPT/HCPCS: 74000; 50432; 52000; C1769 ×3; C1894; C1729; J2250; J2270 ×3; J1100; J2710; J2405; J0694 ×2; J2001; J3010; J1580; J2370; J0330; J2704; Q9967

== ENCOUNTER → 2018-01-14 | Outpatient (CLI) | payer MEDICARE, OTHER ==
--- NOTE | 2018-01-14 14:54 | CT ---
EXAMINATION TYPE: CT abdomen pelvis wo con DATE OF EXAM: 01/14/2018 COMPARISON: 02/21/2017 HISTORY: 67-year-old female pain, calculus of kidney CT DLP: 422.8 mGycm. Automated exposure control for dose reduction was used. TECHNIQUE: Contiguous axial scanning of the abdomen and pelvis without IV contrast. Coronal and sagit martin reconstructions performed. FINDINGS: Heart is normal size with small pericardial effusion measuring 8 mm thick at the base of the heart. Emphysematous changes in the visualized lower lungs with strandy atelectasis/scarring. No pleural eff usion. Ectatic 2.6 cm distal thoracic aorta. Noncontrast appearance of the liver, adrenal glands, and atrophic pancreas show no gross abnormality. Diverticulum of the second portion of the duodenum projecting in the pancreatic head region. Stable dilated bile duct at 1.6 cm. Patient is status post cholecystectomy. There is similar mild splenomegaly at 14.7 cm coronal image 55. 1 cm cortical hypodensity lower pole right kidney not clearly seen on 02/21/2017. Six-month follow-up C T can be performed to exclude the possibility of an enlarging solid lesion. Lobulated contour to the upper to mid pole right kidney is unchanged. Previous right-sided renal calculi have resolved. Redemonstrated 5.7 cm left renal cyst. Multiple left-sided renal calculi are redemonstrated. The numb er of calculi have decreased in lower pole now with a couple residual calculi measuring up to 5 mm. C alculi at the posterior midpole have also decreased now with a residual 5 mm calculus Calculi in the upper pole casting along the calyceal system has increased in the interval measuring u p to 1.9 cm versus 1.5 cm, previously. The previous central staghorn calculus in the pelvis has resol nidia. 2 hypodense lesions at the lower pole of the right kidney measuring 1.7 and 1.6 cm are new with the previous lower pole exophytic lesion now much smaller. Stable prominent left para-aortic lymph node measuring 7 mm. No mesenteric lymphadenopathy. Mild atherosclerotic calcifications in the infrarenal abdominal aorta, more moderate within the iliac arteries with a right-sided external iliac artery stent. Diffuse colonic diverticulosis with mild stool. No pericolonic inflammatory change. Bladder is urine distended. Uterus and both ovaries are visualized. Pelvic phleboliths. Mild pelvic f merly relaxation. No abnormal fluid collection in the pelvis or pelvic lymphadenopathy. Bones: Diffuse osteopenia. Left hip dynamic hip screw fixation. Degenerative changes at both hips. Mi ld degenerative disc disease L5-S1. Mild superior and plate deformities of L1, L2, and L3, age indete rminate, likely chronic in the absence of any localizing pain. No surrounding swelling. However, perez ges are new from 02/21/2017. IMPRESSION: 1. The previous right sided collecting system calculi have cleared. There is a new 1 cm hypodense le thierno lower pole right kidney not seen previously. Six-month follow-up CT recommended to exclude an en larging solid mass. 2. Multiple left-sided renal calculi. The previous staghorn calculus in the renal pelvis has resolve d. A staghorn calculus in the upper calyceal system is larger measuring 1.9 cm versus 1.5 cm, previou sly. Smaller clusters of calculi in the mid and lower pole have decreased. 3. 2 new hypodense lesions in the lower pole left kidney measuring up to 1.7 cm likely represent cys ts. The previous lower pole cyst is much smaller. Again, these can be reassessed at 6 month follow-up . 4. Stable splenomegaly (14.7 cm) and diffuse clonic diverticulosis. Mild pelvic floor relaxation. 5. Mild superior endplate compression deformities at L1, L2, and L3 are age indeterminate but new fr om 02/21/2017. These are still suspected to be chronic injuries. Correlate for any localizing pain.
== END | disposition home or self-care (01) ==
LOC: RADCTMAIN 14:02
PROVIDERS: ATTEND Urology
DX: N20.0 Calculus of kidney (principal); K57.30 Diverticulosis of large intestine without perforation or abscess without bleeding; N81.89 Other female genital prolapse; R16.0 Hepatomegaly, not elsewhere classified; N28.9 Disorder of kidney and ureter, unspecified; Z88.0 Allergy status to penicillin; Z88.1 Allergy status to other antibiotic agents; Z88.2 Allergy status to sulfonamides; Z91.041 Radiographic dye allergy status
CPT/HCPCS: 74176

== ENCOUNTER 2018-02-17 06:46 | Inpatient (IN) | payer MEDICARE, OTHER ==
[2018-02-10 10:53] VITALS: BMI 20.7
--- NOTE | 2018-02-16 20:46 | P.GSHP ---
History of Present Illness H&P Date: 02/16/18 Juan is67. She has chronic medical debiltiation due to cardiac disease and cva SHe is bedridden SHe has painful left renal stones, large She comes for a pcnl left - Constitutional Constitutional: Reports chronic pain - Genitourinary (Female) Genitourinary: Reports as per HPI - Musculoskeletal Musculoskeletal: Reports leg numbness/tingling, Reports myalgias - Neurological Neurological: Reports balance difficulties Past Medical History Past Medical History: Coronary Artery Disease (CAD), Heart Failure, COPD, Diabetes Mellitus, GERD/Reflux, Hypertension, Renal Disease, Skin Disorder, Vascular Disorder Additional Past Medical History / Comment(s): PVD. abdominal pain, hx. of gastric ulcer, right above knee amputee-uses wheelchair, very sensitive skin, urinary incontinence-wears depends. Kidney stones History of Any Multi-Drug Resistant Organisms: MRSA Date of last positivie culture/infection: 2012 MDRO Source:: right leg Past Surgical History: Appendectomy, Cholecystectomy, Orthopedic Surgery Additional Past Surgical History / Comment(s): Right AKA. Ovarian cyst removed. LT PERCUTANEOUS NEPHROSTOLITHOTOMY 03/2016, PICC LINE past; NEPHROSCOPY , NEPHROSTOLITHOTOMY 04/02/17. Past Anesthesia/Blood Transfusion Reactions: No Reported Reaction Additional Past Anesthesia/Blood Transfusion Reaction / Comment(s): care provider doesn't know anesthesia hx. Smoking Status: Former smoker - Past Family History Mother Family Medical History: Unable to Obtain Additional Family Medical History / Comment(s): CARE PROVIDER DOES NOT HAVE THIS INFORMATION Medications and Allergies Home Medications Medication Instructions Recorded Confirmed Type Clopidogrel [Plavix] 75 mg PO DAILY 03/21/15 02/12/18 History Docusate Sodium [Dulcolax Stool 100 mg PO DAILY 03/21/15 02/12/18 History Softener] Furosemide [Lasix] 40 mg PO BID@0800,1700 03/21/15 02/12/18 History Lactobacillus Acidophilus 1 tab PO TID@0800,1200,1900 03/21/15 02/12/18 History [Acidophilus] Melatonin 6 mg PO HS 03/21/15 02/12/18 History Multivit with Calcium,Iron,Min 1 tab PO DAILY@1200 03/21/15 02/12/18 History [Women's Daily Multivitamin] Potassium Chloride [Klor-Con 20] 20 meq PO DAILY 03/21/15 02/12/18 History clonazePAM [KlonoPIN] 0.5 mg PO HS 03/21/15 02/12/18 History Bisacodyl [Dulcolax] 10 mg RECTAL DAILY PRN 11/28/15 02/12/18 History Caldesene Powder 81-15% 1 applic TOPICAL TID 11/28/15 02/12/18 History Esomeprazole Magnesium [NexIUM] 40 mg PO DAILY@0700 11/28/15 02/12/18 History risperiDONE [Risperidone] 0.25 mg PO BID 11/28/15 02/12/18 History Mirtazapine [Remeron] 15 mg PO HS 02/21/17 02/12/18 History Aspirin 81 mg PO DAILY 02/27/17 02/12/18 Rx HYDROcodone/APAP 10-325MG [[place] 1 tab PO Q6H PRN #30 02/27/17 02/12/18 Rx 10-325] Losartan [Cozaar] 12.5 mg PO DAILY #0 tab 02/27/17 02/12/18 Rx Metoprolol Tartrate [Lopressor] 50 mg PO BID tab 02/27/17 02/12/18 Rx Magnesium Hydroxide [Milk of 30 ml PO DAILY PRN 03/19/17 02/12/18 History Magnesia Concentrate] Sertraline [Zoloft] 100 mg PO DAILY 03/19/17 02/12/18 History carBAMazepine [carBAMazepine ER] 200 mg PO BID 05/19/17 02/12/18 History fentaNYL 50MCG/HR PATCH [Duragesic 50 mcg TRANSDERM Q72H 05/19/17 02/12/18 History 50MCG/HR] Isosorbide Mononitrate ER [Imdur] 30 mg PO DAILY tab.er.24h 06/15/17 02/12/18 Rx Ferrous Sulfate [Feosol] 325 mg PO DAILY 02/12/18 02/12/18 History Mag Hydrox/Al Hydrox/Simeth 30 ml PO QID PRN 02/12/18 02/12/18 History [Maalox] Nystatin 100,000Unit/gm Cream 1 applic TOPICAL BID 02/12/18 02/12/18 History [Mycostatin Cream] Triamcinolone 0.025% Cream 1 applic TOPICAL BID 02/12/18 02/12/18 History [Kenalog 0.025% Cream] Allergies Allergy/AdvReac Type Severity Reaction Status Date / Time ciprofloxacin [From Cipro] Allergy Unknown Verified 02/10/18 10:43 iodine Allergy Unknown Verified 02/10/18 10:43 Penicillins Allergy Unknown Verified 02/10/18 10:43 Phenylpiperazine Allergy Unknown Verified 02/10/18 10:43 Antidepressant red dye Allergy Unknown Verified 02/10/18 10:43 Sulfa (Sulfonamide Allergy Unknown Verified 02/10/18 10:43 Antibiotics) Surgical - Exam - General well developed, well nourished, no distress - Eyes PERRL - ENT no hearing loss - Neck no masses - Respiratory normal expansion, normal respiratory effort - Cardiovascular Rhythm: irregularly irregular - Abdomen Abdomen: soft, non tender - Integumentary no rash, no growths - Neurologic normal sensation - Musculoskeletal normal posture - Psychiatric oriented to time, oriented to person, oriented to place, speech is normal, memory intact Results - Imaging CT scan - abdomen: report reviewed, image reviewed CT scan - pelvis: report reviewed, image reviewed Assessment and Plan Assessment: impression: Left renal calculi large, Multiple medical and cardiac illnesses PLan: Pcnl left large
[~2018-02-17 06:46] MED LIST changes: -GENTAMICIN 100 MG in SODIUM CHLORIDE 0.9% 100 ML IVPB ONE; +GENTAMICIN 90 MG in SODIUM CHLORIDE 0.9% 100 ML IVPB ONE; -LACTATED RINGERS 1,000 ML IV SCH; +LIDOCAINE 1% 20 ML VIAL (10MG/ML) FOR IV START INTRADERMA PRN; -Pre Op ABX Message 1 EACH MISC MISCELLANE ONE; +SCOPOLAMINE 1.5MG/72HR PATCH TRANSDERM ONE; +cefTRIAXone IN SWFI 1,000 MG/10 ML SYRINGE IVP ONE
[2018-02-17] MEDS: LACTATED RINGERS 1,000 ML IV SCH (07:33)
--- NOTE | 2018-02-17 07:47 | XR ---
EXAMINATION TYPE: XR KUB DATE OF EXAM: 02/17/2018 7:36 AM CLINICAL HISTORY: Preoperative evaluation for percutaneous nephrostomy and nephrolithiasis. TECHNIQUE: Single supine KUB image of the abdomen is obtained. COMPARISON: 06/04/2017. FINDINGS: There is redemonstration of 2 adjacent left renal calculi measuring approximately 1.2 cm an d 1.3 cm. Extensive left common iliac vascular sclerosis and right iliofemoral stent surgical clips i n the superficial inguinal region are noted. Left-sided surgical fixation of the proximal femur is se en with moderate right femoral acetabular arthropathy. Bowel is nondilated. Cholecystectomy clips res mario alberto within the right upper quadrant. IMPRESSION: 1. Redemonstration of nephrolithiasis as seen on the prior of 06/04/2017. No new calculi are identifi ed. 2. Nonobstructive bowel gas pattern.
[2018-02-17] MEDS ORDERED: MIDAZOLAM 2 MG/2 ML VIAL ONE (07:58)
[2018-02-17] MEDS ORDERED: PROPOFOL 10 MG/ML 20 ML VIAL IV ONE (07:58)
[2018-02-17] MEDS ORDERED: fentaNYL (PF) 50 MCG/ML 2 ML AMP ONE (07:58)
[2018-02-17] MEDS ORDERED: SUCCINYLCHOLINE CHLORIDE 100 MG/5 ML SYR IV ONE (07:58)
[2018-02-17] MEDS ORDERED: IOPAMIDOL-370 50ML BTL MISCELLANE ONE (08:51)
--- NOTE | 2018-02-17 09:57 | FL ---
EXAMINATION TYPE: FL Perc Nephrostomy New Access DATE OF EXAM: 02/17/2018 COMPARISON: NONE HISTORY: Left renal calculus Procedure had been discussed with the patient by Dr. Bahena, risks, benefits, alternatives, were dis cussed and any questions were answered. Informed consent was obtained. The patient was in a semipro ne position prepped and draped on the OR table in the usual sterile fashion. Utilizing a 15 cm lengt h Ch[place] needle a single pass was made into a lower pole posterior calyx under fluoroscopic guidance. An 0.018 guidewire is passed through the needle and there was placement of a 6-[place] catheter sheat h system. There was conversion to a 0.035 system was performed with passage of a guidewire into the ureter utilizing a directional catheter. A second safety wire was placed. Remaining portion of pro cedure performed by . Approximately 5.06 minutes of fluoroscopy was provided. IMPRESSION: 1. Successful intraoperative left nephrostomy prior to nephrolithotomy.
--- NOTE | 2018-02-17 10:15 | P.OP ---
Date of Procedure: 02/17/18 Preoperative Diagnosis: Left renal calculi large, infected Postoperative Diagnosis: Same Procedure(s) Performed: Cystoscopy, placement of ureteral catheter left, percutaneous nephrostomy, percutaneous nephrostolithotomy with ultrasound, large, placement of 10-Yemeni J nephrostomy Anesthesia: HOLLI Surgeon: Yan Bahena Estimated Blood Loss (ml): 100 Pathology: other (Stone) Condition: stable Disposition: PACU Indications for Procedure: The patient is a 59-year-old female, snf patient due to multiple medical illnesses with chronic urinary infections. She has partial staghorn, greater than 2 cm stone in the upper pole calyx and a smaller stone in the lower pole calyx on the left side she comes for percutaneous nephrostolithotomy she's been on preoperative antibiotics. Description of Procedure: The patient is brought to the operating suite. She is given a successful general endotracheal anesthesia on the transport gurney. She's placed in a frog position with a sterile prep and drape. Cystoscopy is performed. The left ureteral orifice is identified. It is difficult to intubate. He requires using the ureteroscope to pass an 025 wire up into the collecting system. Then over the 025 wire 5-Yemeni ureteral catheter passed up into the upper collecting system. The patient is placed in prone position. Care to airways and extremities are maintained. Dr. Bowman of radiology performed percutaneous access to the upper pole calyx where the large stone resides. I dilate the tract to 30- Yemeni. I look in the collecting system with grasping forceps or ultrasound and remove the stone. The stone was very soft consistent with a struvite stone. I move into the lower pole calyx and remove stone. I looked down the ureter there is no remaining stone. Then of the procedure I see no remaining stone with flexible scope. I passed over the working wire a 10-Yemeni J nephrostomy tube the coils in the renal pelvis. It is secured the skin. The sheath is removed. The patient awake and returned recovery in good condition. Blood loss is approximately 100 mL.
[2018-02-17] MEDS ORDERED: MAG HYDROX/AL HYDROX/SIMETH 30 ML CUP PO PRN (11:46)
[2018-02-17] MEDS ORDERED: BISACODYL 10 MG SUPP RECTAL PRN (11:46)
[2018-02-17] MEDS ORDERED: MAGNESIUM HYDROXIDE 2,400 MG/10 ML CUP PO PRN (11:46)
[2018-02-17] MEDS: HYDROcodone/APAP 10-325MG 1 EACH TAB PO PRN ×2 (12:01→17:30)
[2018-02-17] MEDS: MAG HYDROX/AL HYDROX/SIMETH 30 ML CUP PO PRN ×2 (12:12→17:35)
[2018-02-17] MEDS: MULTIVITAMINS, THERA 1 EACH TAB PO SCH (15:11)
[2018-02-17] MEDS: ACETAMINOPHEN TAB 325 MG TAB PO PRN (15:11)
[2018-02-17] MEDS: LACTOBACILLUS ACIDOPH & BULGAR 1 EACH PACKET PO SCH ×2 (15:12→22:02)
[2018-02-17] MEDS: DEXTROSE 5%-0.45% NACL 1,000 ML IV SCH ×2 (19:31→22:20)
[2018-02-17] MEDS: ZINC OXIDE-CORN STARCH 142 GM POWDER TOPICAL SCH ×2 (19:32→22:24)
[2018-02-17] MEDS: FUROSEMIDE 40 MG TAB PO SCH (19:35)
[2018-02-17] MEDS: ONDANSETRON 4 MG/2 ML VIAL IVP PRN (21:26)
[2018-02-17] MEDS: clonazePAM 0.5 MG TAB PO SCH (22:21)
[2018-02-17] MEDS: CEFUROXIME 250 MG TAB PO SCH (22:21)
[2018-02-17] MEDS: MELATONIN 3 MG TABLET PO SCH (22:21)
[2018-02-17] MEDS: MIRTAZAPINE 15 MG TAB PO SCH (22:22)
[2018-02-17] MEDS: NYSTATIN 100,000UNIT/GM CREAM 30 GM TUBE TOPICAL SCH (22:22)
[2018-02-17] MEDS: risperiDONE 0.25 MG TAB PO SCH (22:22)
[2018-02-17] MEDS: METOPROLOL TARTRATE 50 MG TAB PO SCH (22:22)
[2018-02-17] MEDS: TRIAMCINOLONE 0.1% CREAM 80 GM TUBE TOPICAL SCH (22:23)
[2018-02-18] MEDS: ACETAMINOPHEN TAB 325 MG TAB PO PRN (00:53)
[2018-02-18] MEDS: HYDROcodone/APAP 10-325MG 1 EACH TAB PO PRN ×4 (00:54→21:37)
[2018-02-18] MEDS: LACTATED RINGERS 1,000 ML IV SCH (01:58)
[2018-02-18] MEDS: DEXTROSE 5%-0.45% NACL 1,000 ML IV SCH ×2 (08:46→15:37)
[2018-02-18] MEDS: FUROSEMIDE 40 MG TAB PO SCH ×2 (08:47→17:42)
[2018-02-18] MEDS: PANTOPRAZOLE 40 MG TABLET PO SCH (08:47)
[2018-02-18] MEDS: LACTOBACILLUS ACIDOPH & BULGAR 1 EACH PACKET PO SCH ×3 (08:48→22:33)
[2018-02-18] MEDS: ASPIRIN 81 MG PO SCH (08:48)
[2018-02-18] MEDS: DOCUSATE 100 MG CAP PO SCH (08:48)
[2018-02-18] MEDS: CEFUROXIME 250 MG TAB PO SCH (08:48)
[2018-02-18] MEDS: FERROUS SULFATE 325 MG TAB PO SCH (08:50)
[2018-02-18] MEDS: LOSARTAN 25 MG TAB PO SCH (08:50)
[2018-02-18] MEDS: ISOSORBIDE MONONITRATE ER 30 MG TAB.ER.24H PO SCH (08:50)
[2018-02-18] MEDS: METOPROLOL TARTRATE 50 MG TAB PO SCH ×2 (08:51→21:38)
[2018-02-18] MEDS: risperiDONE 0.25 MG TAB PO SCH ×2 (08:51→21:40)
[2018-02-18] MEDS: POTASSIUM CHLORIDE ER 20 MEQ TAB.ER PO SCH (08:51)
[2018-02-18] MEDS: SERTRALINE 100 MG TAB PO SCH (08:51)
[2018-02-18] MEDS: MULTIVITAMINS, THERA 1 EACH TAB PO SCH (08:56)
[2018-02-18] MEDS ORDERED: CLOPIDOGREL 75 MG TAB PO SCH (09:00)
[2018-02-18] MEDS: MAG HYDROX/AL HYDROX/SIMETH 30 ML CUP PO PRN (14:15)
[2018-02-18] MEDS: NYSTATIN 100,000UNIT/GM CREAM 30 GM TUBE TOPICAL SCH ×2 (14:15→21:40)
[2018-02-18] MEDS: ZINC OXIDE-CORN STARCH 142 GM POWDER TOPICAL SCH ×3 (14:15→21:39)
[2018-02-18] MEDS: TRIAMCINOLONE 0.1% CREAM 80 GM TUBE TOPICAL SCH ×2 (14:15→21:39)
--- NOTE | 2018-02-18 17:59 | P.PN ---
Subjective Progress Note Date: 02/18/18 Principal diagnosis: POD #1, s/p Left PCNL The patient reports left-sided abdominal and flank discomfort. She denies nausea and vomiting. Objective - Vital Signs Vital signs: Vital Signs Temp 98.4 F 02/18/18 14:00 Pulse 83 02/18/18 14:00 Resp 18 02/18/18 14:00 BP 94/55 02/18/18 14:00 Pulse Ox 94 L 02/18/18 14:00 Intake & Output 02/17/18 02/18/18 02/18/18 18:59 06:59 18:59 Intake Total 950 800 Output Total 570 1350 570 Balance 380 -1350 230 Weight 59.874 kg Intake: IV 950 Intake, IV Titration 800 Amount Dextrose 5%-0.45% NaCl 1, 800 000 ml @ 100 mls/hr IV . Q10H [facility] Rx#:[id number] Output: Drainage 100 225 120 Left Posterior Hip 100 225 120 Urine 450 1125 450 2-way Urethral 200 Estimated Blood Loss 20 Other: Voiding Method Indwelling Catheter Indwelling Catheter Indwelling Catheter - Constitutional General appearance: Present: average body habitus, cooperative - Gastrointestinal General gastrointestinal: Present: soft. Absent: distended Localized gastrointestinal: tender: LUQ (No rebound tenderness), LLQ (No rebound tenderness) - Psychiatric Psychiatric: Present: A&O x's 3 Assessment and Plan Plan: The patient's condition is stable. The left nephrostomy tube is draining urine which shows evidence of hematuria without clots. The [place] catheter is draining blood-tinged urine. The [place] catheter will be removed.
[2018-02-18] MEDS: MELATONIN 3 MG TABLET PO SCH (21:37)
[2018-02-18] MEDS: clonazePAM 0.5 MG TAB PO SCH (21:37)
[2018-02-18] MEDS: MIRTAZAPINE 15 MG TAB PO SCH (21:40)
[2018-02-18] MEDS: CEFDINIR 300 MG CAP PO SCH (23:18)
[2018-02-19] MEDS: DEXTROSE 5%-0.45% NACL 1,000 ML IV SCH ×3 (03:27→23:06)
[2018-02-19] MEDS: HYDROcodone/APAP 10-325MG 1 EACH TAB PO PRN ×4 (03:34→23:06)
[2018-02-19] MEDS: LACTATED RINGERS 1,000 ML IV SCH (03:39)
--- NOTE | 2018-02-19 07:12 | P.PN ---
Subjective Progress Note Date: 02/19/18 The patient is status post percutaneous nephrostolithotomy left. She is a prison patient and incapacitated. She is still having too much pain to be discharged home. The urine is clearing. Objective - Vital Signs Vital signs: Vital Signs Temp 97.3 F L 02/18/18 23:22 Pulse 94 02/18/18 23:22 Resp 20 02/18/18 23:22 BP 103/69 02/18/18 23:22 Pulse Ox 96 02/18/18 23:22 Intake & Output 02/18/18 02/19/18 02/19/18 18:59 06:59 18:59 Intake Total 800 950 Output Total 570 950 Balance 230 0 Intake: Intake, IV Titration 800 800 Amount Dextrose 5%-0.45% NaCl 1, 800 800 000 ml @ 100 mls/hr IV . Q10H [facility] Rx#:[id number] Oral 150 Output: Drainage 120 200 Left Posterior Hip 120 200 Urine 450 750 2-way Urethral 150 Other: Voiding Method Indwelling Catheter Indwelling Catheter
[2018-02-19] MEDS: ASPIRIN 81 MG PO SCH (09:04)
[2018-02-19] MEDS: DOCUSATE 100 MG CAP PO SCH (09:04)
[2018-02-19] MEDS: ISOSORBIDE MONONITRATE ER 30 MG TAB.ER.24H PO SCH (09:04)
[2018-02-19] MEDS: FERROUS SULFATE 325 MG TAB PO SCH (09:04)
[2018-02-19] MEDS: SERTRALINE 100 MG TAB PO SCH (09:04)
[2018-02-19] MEDS: MULTIVITAMINS, THERA 1 EACH TAB PO SCH (09:05)
[2018-02-19] MEDS: POTASSIUM CHLORIDE ER 20 MEQ TAB.ER PO SCH (09:05)
[2018-02-19] MEDS: risperiDONE 0.25 MG TAB PO SCH ×2 (09:18→20:20)
[2018-02-19] MEDS: LOSARTAN 25 MG TAB PO SCH (09:18)
[2018-02-19] MEDS: LACTOBACILLUS ACIDOPH & BULGAR 1 EACH PACKET PO SCH ×3 (09:19→16:54)
[2018-02-19] MEDS: METOPROLOL TARTRATE 50 MG TAB PO SCH ×2 (09:19→20:19)
[2018-02-19] MEDS: CEFDINIR 300 MG CAP PO SCH ×2 (09:19→20:23)
[2018-02-19] MEDS: FUROSEMIDE 40 MG TAB PO SCH ×2 (09:19→16:54)
[2018-02-19] MEDS: PANTOPRAZOLE 40 MG TABLET PO SCH (09:19)
[2018-02-19] MEDS: MAG HYDROX/AL HYDROX/SIMETH 30 ML CUP PO PRN ×2 (09:26→15:28)
[2018-02-19] MEDS: NYSTATIN 100,000UNIT/GM CREAM 30 GM TUBE TOPICAL SCH ×2 (10:10→20:18)
[2018-02-19] MEDS: TRIAMCINOLONE 0.1% CREAM 80 GM TUBE TOPICAL SCH ×3 (10:10→20:18)
[2018-02-19] MEDS: ZINC OXIDE-CORN STARCH 142 GM POWDER TOPICAL SCH ×3 (10:11→20:18)
[2018-02-19] MEDS: clonazePAM 0.5 MG TAB PO SCH (20:19)
[2018-02-19] MEDS: MELATONIN 3 MG TABLET PO SCH (20:20)
[2018-02-19] MEDS: MIRTAZAPINE 15 MG TAB PO SCH (20:20)
[2018-02-20] MEDS: HYDROcodone/APAP 10-325MG 1 EACH TAB PO PRN ×3 (06:03→18:30)
[2018-02-20] MEDS: LACTATED RINGERS 1,000 ML IV SCH (06:06)
[2018-02-20] MEDS: MAG HYDROX/AL HYDROX/SIMETH 30 ML CUP PO PRN ×2 (11:15→18:52)
[2018-02-20] MEDS: POTASSIUM CHLORIDE ER 20 MEQ TAB.ER PO SCH (11:16)
[2018-02-20] MEDS: FERROUS SULFATE 325 MG TAB PO SCH (11:16)
[2018-02-20] MEDS: SERTRALINE 100 MG TAB PO SCH (11:16)
[2018-02-20] MEDS: FUROSEMIDE 40 MG TAB PO SCH ×2 (11:16→18:52)
[2018-02-20] MEDS: PANTOPRAZOLE 40 MG TABLET PO SCH (11:16)
[2018-02-20] MEDS: METOPROLOL TARTRATE 50 MG TAB PO SCH ×2 (11:16→21:58)
[2018-02-20] MEDS: ASPIRIN 81 MG PO SCH (11:17)
[2018-02-20] MEDS: DOCUSATE 100 MG CAP PO SCH (11:17)
[2018-02-20] MEDS: LOSARTAN 25 MG TAB PO SCH (11:17)
[2018-02-20] MEDS: risperiDONE 0.25 MG TAB PO SCH ×2 (11:17→21:58)
[2018-02-20] MEDS: ISOSORBIDE MONONITRATE ER 30 MG TAB.ER.24H PO SCH (11:17)
[2018-02-20] MEDS: LACTOBACILLUS ACIDOPH & BULGAR 1 EACH PACKET PO SCH ×3 (11:18→21:57)
[2018-02-20] MEDS: CEFDINIR 300 MG CAP PO SCH ×2 (11:18→21:59)
[2018-02-20] MEDS: ZINC OXIDE-CORN STARCH 142 GM POWDER TOPICAL SCH ×3 (11:26→21:58)
[2018-02-20] MEDS: TRIAMCINOLONE 0.1% CREAM 80 GM TUBE TOPICAL SCH ×2 (11:26→21:58)
[2018-02-20] MEDS: NYSTATIN 100,000UNIT/GM CREAM 30 GM TUBE TOPICAL SCH ×2 (11:26→21:58)
[2018-02-20] MEDS: DEXTROSE 5%-0.45% NACL 1,000 ML IV SCH ×2 (11:27→18:30)
--- NOTE | 2018-02-20 12:50 | P.PN ---
Subjective Progress Note Date: 02/20/18 Principal diagnosis: POD #3, s/p Left PCNL The patient reports left-sided abdominal and flank discomfort. She denies nausea and vomiting. She is tolerating diet. The nephrostomy tube is draining clear urine. Objective - Vital Signs Vital signs: Vital Signs Temp 99.4 F 02/20/18 07:30 Pulse 89 02/20/18 07:30 Resp 16 02/20/18 07:30 BP 111/71 02/20/18 07:30 Pulse Ox 95 02/20/18 07:30 Intake & Output 02/19/18 02/20/18 02/20/18 18:59 06:59 18:59 Intake Total 1040 400 Output Total 201 300 Balance 839 100 Intake: Intake, IV Titration 800 400 Amount Dextrose 5%-0.45% NaCl 1, 800 400 000 ml @ 100 mls/hr IV . Q10H [facility] Rx#:[id number] Oral 240 Output: Drainage 200 300 Left flank 200 300 Urine 1 Other: Voiding Method Diaper # Voids 1 1 1 # Bowel Movements 1 - Constitutional General appearance: Present: cooperative, no acute distress - Gastrointestinal General gastrointestinal: Present: soft, tenderness (Mild left-sided tenderness , with voluntary guarding, no rebound). Absent: distended - Psychiatric Psychiatric: Present: A&O x's 3 Assessment and Plan Plan: The patient's condition is stable, but she states she continues to experience significant pain. The left nephrostomy tube is draining clear urine, and I intend to remove the nephrostomy tube tomorrow if her condition remains stable.
[2018-02-20] MEDS: MULTIVITAMINS, THERA 1 EACH TAB PO SCH (15:14)
[2018-02-20] MEDS: ONDANSETRON 4 MG/2 ML VIAL IVP PRN (21:57)
[2018-02-20] MEDS: MELATONIN 3 MG TABLET PO SCH (21:57)
[2018-02-20] MEDS: clonazePAM 0.5 MG TAB PO SCH (21:58)
[2018-02-20] MEDS: MIRTAZAPINE 15 MG TAB PO SCH (21:59)
[2018-02-21] MEDS: HYDROcodone/APAP 10-325MG 1 EACH TAB PO PRN ×4 (01:14→22:20)
--- NOTE | 2018-02-21 01:14 | P.PN ---
Subjective Progress Note Date: 02/21/18 Principal diagnosis: POD #4, s/p Left PCNL The patient reports left-sided abdominal and flank discomfort, particularly with movement. She denies nausea and vomiting. She is tolerating diet. The nephrostomy tube is draining clear urine. Objective - Vital Signs Vital signs: Vital Signs Temp 98.2 F 02/20/18 20:08 Pulse 68 02/20/18 20:08 Resp 20 02/20/18 20:08 BP 115/68 02/20/18 20:08 Pulse Ox 96 02/20/18 20:08 Intake & Output 02/20/18 02/20/18 02/21/18 06:59 18:59 06:59 Intake Total 400 700 Output Total 300 100 Balance 100 -100 700 Intake: Intake, IV Titration 400 500 Amount Dextrose 5%-0.45% NaCl 1, 400 500 000 ml @ 100 mls/hr IV . Q10H [facility] Rx#:[id number] Oral 200 Output: Drainage 300 100 Left flank 300 100 Other: Voiding Method Diaper Diaper Incontinent # Voids 1 2 1 # Bowel Movements 1 1 - Constitutional General appearance: Present: average body habitus, no acute distress - Gastrointestinal General gastrointestinal: Present: soft, tenderness (Mild left-sided tenderness) . Absent: distended - Psychiatric Psychiatric: Present: A&O x's 3 Assessment and Plan Plan: The patient's condition is stable, but she states she continues to experience significant pain. This is exacerbated by movement. The left nephrostomy tube is draining clear urine, and I removed the tube at the bedside. The patient tolerated this well. I anticipate that she will feel better with the tube out, and that she will be discharged on February 22.
[2018-02-21] MEDS: DEXTROSE 5%-0.45% NACL 1,000 ML IV SCH ×3 (04:38→22:38)
[2018-02-21] MEDS: LACTATED RINGERS 1,000 ML IV SCH (05:13)
[2018-02-21] MEDS: LOSARTAN 25 MG TAB PO SCH (08:54)
[2018-02-21] MEDS: CEFDINIR 300 MG CAP PO SCH ×2 (08:54→22:11)
[2018-02-21] MEDS: risperiDONE 0.25 MG TAB PO SCH ×2 (08:54→22:12)
[2018-02-21] MEDS: LACTOBACILLUS ACIDOPH & BULGAR 1 EACH PACKET PO SCH ×3 (08:55→22:38)
[2018-02-21] MEDS: FUROSEMIDE 40 MG TAB PO SCH ×2 (08:55→15:33)
[2018-02-21] MEDS: DOCUSATE 100 MG CAP PO SCH (08:55)
[2018-02-21] MEDS: ASPIRIN 81 MG PO SCH (08:55)
[2018-02-21] MEDS: POTASSIUM CHLORIDE ER 20 MEQ TAB.ER PO SCH (08:57)
[2018-02-21] MEDS: METOPROLOL TARTRATE 50 MG TAB PO SCH ×2 (09:11→22:19)
[2018-02-21] MEDS: SERTRALINE 100 MG TAB PO SCH (09:11)
[2018-02-21] MEDS: PANTOPRAZOLE 40 MG TABLET PO SCH (09:11)
[2018-02-21] MEDS: ISOSORBIDE MONONITRATE ER 30 MG TAB.ER.24H PO SCH (09:11)
[2018-02-21] MEDS: FERROUS SULFATE 325 MG TAB PO SCH (09:11)
[2018-02-21] MEDS: MAG HYDROX/AL HYDROX/SIMETH 30 ML CUP PO PRN ×2 (09:11→22:10)
[2018-02-21] MEDS: ZINC OXIDE-CORN STARCH 142 GM POWDER TOPICAL SCH ×3 (09:21→22:13)
[2018-02-21] MEDS: TRIAMCINOLONE 0.1% CREAM 80 GM TUBE TOPICAL SCH ×2 (09:21→22:13)
[2018-02-21] MEDS: ONDANSETRON 4 MG/2 ML VIAL IVP PRN ×2 (09:21→22:42)
[2018-02-21] MEDS: NYSTATIN 100,000UNIT/GM CREAM 30 GM TUBE TOPICAL SCH ×2 (09:21→22:13)
[2018-02-21] MEDS: MULTIVITAMINS, THERA 1 EACH TAB PO SCH (12:05)
[2018-02-21] MEDS: MELATONIN 3 MG TABLET PO SCH (22:10)
[2018-02-21] MEDS: clonazePAM 0.5 MG TAB PO SCH (22:11)
[2018-02-21] MEDS: MIRTAZAPINE 15 MG TAB PO SCH (22:12)
[2018-02-22] MEDS: LACTATED RINGERS 1,000 ML IV SCH (05:25)
[2018-02-22] MEDS: HYDROcodone/APAP 10-325MG 1 EACH TAB PO PRN (06:29)
--- NOTE | 2018-02-22 07:10 | P.DS ---
Providers Date of admission: 02/17/18 06:46 Attending physician: Yan Bahena Primary care physician: Stated None Hospital Course: This 67-year-old female was admitted to the hospital 02/17/2018 for a left percutaneous nephrostolithotomy due to an infected and painful stone. Other than pain she did well postoperatively. She had a lot of pain from her nephrostomy tube thus was kept in the hospital several days. The nephrostomy tube was removed today. Her pain is now gone. Her preoperative pain is gone. She is afebrile. Vital signs are stable. She'll be discharged home today. She'll follow-up in the office in 2 weeks with a renal ultrasound. Condition is good. She'll resume all her home medications. Patient Condition at Discharge: Good Plan - Discharge Summary Discharge Rx Participant: No New Discharge Prescriptions: No Action Furosemide [Lasix] 40 mg PO BID@0800,1700 Potassium Chloride [Klor-Con 20] 20 meq PO DAILY clonazePAM [KlonoPIN] 0.5 mg PO HS Clopidogrel [Plavix] 75 mg PO DAILY Multivit with Calcium,Iron,Min [Women's Daily Multivitamin] 1 tab PO DAILY@ 1200 Melatonin 6 mg PO HS Lactobacillus Acidophilus [Acidophilus] 1 tab PO TID@0800,1200,1900 Docusate Sodium [Dulcolax Stool Softener] 100 mg PO DAILY Bisacodyl [Dulcolax] 10 mg RECTAL DAILY PRN PRN Reason: Constipation risperiDONE [Risperidone] 0.25 mg PO BID Esomeprazole Magnesium [NexIUM] 40 mg PO DAILY@0700 Caldesene Powder 81-15% 1 applic TOPICAL TID Mirtazapine [Remeron] 15 mg PO HS Aspirin 81 mg PO DAILY Losartan [Cozaar] 12.5 mg PO DAILY #0 tab Metoprolol Tartrate [Lopressor] 50 mg PO BID tab HYDROcodone/APAP 10-325MG [[place] 10-325] 1 tab PO Q6H PRN #30 PRN Reason: Pain Sertraline [Zoloft] 100 mg PO DAILY Magnesium Hydroxide [Milk of Magnesia Concentrate] 7,200 ml PO DAILY PRN PRN Reason: Constipation fentaNYL 50MCG/HR PATCH [Duragesic 50MCG/HR] 1 patch TRANSDERM Q72H Isosorbide Mononitrate ER [Imdur] 30 mg PO DAILY tab.er.24h Mag Hydrox/Al Hydrox/Simeth [Maalox] 30 ml PO QID PRN PRN Reason: gerd Ferrous Sulfate [Feosol] 325 mg PO DAILY Nystatin 100,000Unit/gm Cream [Mycostatin Cream] 1 applic TOPICAL BID Triamcinolone 0.025% Cream [Kenalog 0.025% Cream] 1 applic TOPICAL BID carBAMazepine [TEGretol XR] 200 mg PO Q12H Cefuroxime [Ceftin] 250 mg PO BID Discharge Medication List Clopidogrel [Plavix] 75 mg PO DAILY 03/21/15 [History] Docusate Sodium [Dulcolax Stool Softener] 100 mg PO DAILY 03/21/15 [History] Furosemide [Lasix] 40 mg PO BID@0800,1700 03/21/15 [History] Lactobacillus Acidophilus [Acidophilus] 1 tab PO TID@0800,1200,1900 03/21/15 [ History] Melatonin 6 mg PO HS 03/21/15 [History] Multivit with Calcium,Iron,Min [Women's Daily Multivitamin] 1 tab PO DAILY@1200 03/21/15 [History] Potassium Chloride [Klor-Con 20] 20 meq PO DAILY 03/21/15 [History] clonazePAM [KlonoPIN] 0.5 mg PO HS 03/21/15 [History] Bisacodyl [Dulcolax] 10 mg RECTAL DAILY PRN 11/28/15 [History] Caldesene Powder 81-15% 1 applic TOPICAL TID 11/28/15 [History] Esomeprazole Magnesium [NexIUM] 40 mg PO DAILY@0700 11/28/15 [History] risperiDONE [Risperidone] 0.25 mg PO BID 11/28/15 [History] Mirtazapine [Remeron] 15 mg PO HS 02/21/17 [History] Aspirin 81 mg PO DAILY 02/27/17 [Rx] HYDROcodone/APAP 10-325MG [[place] 10-325] 1 tab PO Q6H PRN #30 02/27/17 [Rx] Losartan [Cozaar] 12.5 mg PO DAILY #0 tab 02/27/17 [Rx] Metoprolol Tartrate [Lopressor] 50 mg PO BID tab 02/27/17 [Rx] Magnesium Hydroxide [Milk of Magnesia Concentrate] 7,200 ml PO DAILY PRN [History] Sertraline [Zoloft] 100 mg PO DAILY 03/19/17 [History] fentaNYL 50MCG/HR PATCH [Duragesic 50MCG/HR] 1 patch TRANSDERM Q72H 05/19/17 [ History] Isosorbide Mononitrate ER [Imdur] 30 mg PO DAILY tab.er.24h 06/15/17 [Rx] Ferrous Sulfate [Feosol] 325 mg PO DAILY 02/12/18 [History] Mag Hydrox/Al Hydrox/Simeth [Maalox] 30 ml PO QID PRN 02/12/18 [History] Nystatin 100,000Unit/gm Cream [Mycostatin Cream] 1 applic TOPICAL BID 02/12/18 [ History] Triamcinolone 0.025% Cream [Kenalog 0.025% Cream] 1 applic TOPICAL BID 02/12/18 [History] Cefuroxime [Ceftin] 250 mg PO BID 02/17/18 [History] carBAMazepine [TEGretol XR] 200 mg PO Q12H 02/17/18 [History] Follow up Appointment(s)/Referral(s): Yan Bahena MD [STAFF PHYSICIAN] - 2 Weeks (renal us in office) Activity/Diet/Wound Care/Special Instructions: resume home medications Discharge Disposition: HOME SELF-CARE
[2018-02-22] MEDS: PANTOPRAZOLE 40 MG TABLET PO SCH (09:07)
[2018-02-22] MEDS: METOPROLOL TARTRATE 50 MG TAB PO SCH (09:07)
[2018-02-22] MEDS: POTASSIUM CHLORIDE ER 20 MEQ TAB.ER PO SCH (09:07)
[2018-02-22] MEDS: DOCUSATE 100 MG CAP PO SCH (09:07)
[2018-02-22] MEDS: FERROUS SULFATE 325 MG TAB PO SCH (09:07)
[2018-02-22] MEDS: ISOSORBIDE MONONITRATE ER 30 MG TAB.ER.24H PO SCH (09:07)
[2018-02-22] MEDS: SERTRALINE 100 MG TAB PO SCH (09:07)
[2018-02-22] MEDS: FUROSEMIDE 40 MG TAB PO SCH (09:08)
[2018-02-22] MEDS: LACTOBACILLUS ACIDOPH & BULGAR 1 EACH PACKET PO SCH (09:08)
[2018-02-22] MEDS: ASPIRIN 81 MG PO SCH (09:08)
[2018-02-22] MEDS: MULTIVITAMINS, THERA 1 EACH TAB PO SCH (09:08)
[2018-02-22] MEDS: risperiDONE 0.25 MG TAB PO SCH (09:09)
[2018-02-22] MEDS: CEFDINIR 300 MG CAP PO SCH (09:09)
[2018-02-22] MEDS: LOSARTAN 25 MG TAB PO SCH (09:09)
[2018-02-22] MEDS: TRIAMCINOLONE 0.1% CREAM 80 GM TUBE TOPICAL SCH (10:21)
[2018-02-22] MEDS: ZINC OXIDE-CORN STARCH 142 GM POWDER TOPICAL SCH (10:21)
[2018-02-22] MEDS: NYSTATIN 100,000UNIT/GM CREAM 30 GM TUBE TOPICAL SCH (10:21)
[2018-02-22] MEDS: DEXTROSE 5%-0.45% NACL 1,000 ML IV SCH (11:29)
[2018-02-22 11:54] VITALS: BP 105/69; PULSE 83; RESP 12; TEMP 97.4
== END 2018-02-22 12:15 | DRG 661 ==
LOC: 2ORMAIN 06:46 → 3SUR 09:38
PROVIDERS: ADMIT Urology; ATTEND Urology
PROC: 0T778DZ Dilation of Left Ureter with Intraluminal Device, Via Natural or Artificial Opening Endoscopic (ICD-10-PCS; 2018-02-17)
PROC: 0T9430Z Drainage of Left Kidney Pelvis with Drainage Device, Percutaneous Approach (ICD-10-PCS; 2018-02-17)
PROC: 0TC43ZZ Extirpation of Matter from Left Kidney Pelvis, Percutaneous Approach (ICD-10-PCS; principal; 2018-02-17 08:00)
DX: N20.0 Calculus of kidney (principal); E11.51 Type 2 diabetes mellitus with diabetic peripheral angiopathy without gangrene; I11.0 Hypertensive heart disease with heart failure; I25.10 Atherosclerotic heart disease of native coronary artery without angina pectoris; I50.9 Heart failure, unspecified; J44.9 Chronic obstructive pulmonary disease, unspecified; K21.9 Gastro-esophageal reflux disease without esophagitis; R32 Unspecified urinary incontinence; Z87.442 Personal history of urinary calculi; Z74.01 Bed confinement status; Z79.02 Long term (current) use of antithrombotics/antiplatelets; Z79.82 Long term (current) use of aspirin; Z79.899 Other long term (current) drug therapy; Z89.611 Acquired absence of right leg above knee; Z87.11 Personal history of peptic ulcer disease; Z87.891 Personal history of nicotine dependence; Z86.14 Personal history of Methicillin resistant Staphylococcus aureus infection; Z90.49 Acquired absence of other specified parts of digestive tract; Z88.0 Allergy status to penicillin; Z88.2 Allergy status to sulfonamides; Z88.8 Allergy status to other drugs, medicaments and biological substances; Z88.1 Allergy status to other antibiotic agents; Z91.041 Radiographic dye allergy status
CPT/HCPCS: 50432; 74018; 82365; 86850; 86900; 86901

== ENCOUNTER 2019-03-10 01:08 | Inpatient (IN) | payer MEDICARE, OTHER ==
[2019-03-10 02:28] LABS: Basophils # (A) 0.1 k/uL (0-0.2); Basophils % (A) 1 %; Eosinophils # (A) 0.3 k/uL (0-0.7); Eosinophils % (A) 3 %; HCT 50.7 % (34.0-46.0); HGB 16.1 gm/dL (11.4-16.0); Lymphocytes # (A) 2.4 k/uL (1.0-4.8); Lymphocytes % (A) 21 %; MCH 24.9 pg (25.0-35.0); MCHC 31.6 g/dL (31.0-37.0); MCV 78.8 fL (80.0-100.0); Mean Platelet Volume 6.5; Monocytes # (A) 0.6 k/uL (0-1.0); Monocytes % (A) 5 %; Neutrophils # (A) 8.1 k/uL (1.3-7.7); Neutrophils % (A) 70 %; Platelet Count 234 k/uL (150-450); RBC 6.44 m/uL (3.80-5.40); RDW 15.2 % (11.5-15.5); WBC 11.7 k/uL (3.8-10.6)
[2019-03-10 02:51] LABS: African American GFR (CKD) >90 (>60 ml/min/1.73 sqM); Anion Gap 11 mmol/L; Blood Urea Nitrogen 18 mg/dL (7-17); Calcium 8.8 mg/dL (8.4-10.2); Carbon Dioxide 27 mmol/L (22-30); Chloride 102 mmol/L (98-107); Glucose 133 mg/dL (74-99); Sodium 140 mmol/L (137-145); Total Bilirubin 0.6 mg/dL (0.2-1.3)
--- NOTE | 2019-03-10 03:01 | XR ---
INDICATION: Chest pain COMPARISON: CXR 06/13/17 FINDINGS: Frontal and lateral views of the chest are provided. Redemonstrated is right greater than left upper lobe scarring and fibrosis with superior retraction of the radha. There is no airspace consolidation, pleural effusion, or pneumothorax. Heart size and pulmonary vascularity are normal. There are no acute osseous findings. IMPRESSION: No acute cardiopulmonary disease.
[2019-03-10 03:21] LABS: ALT 25 U/L (9-52); AST 44 U/L (14-36); Albumin 4.2 g/dL (3.5-5.0); Alkaline Phosphatase 129 U/L (38-126); Potassium 4.6 mmol/L (3.5-5.1)
--- NOTE | 2019-03-10 03:29 | ED ---
GI Bleed HPI - General Chief complaint: GI Bleed Stated complaint: GI Bleed Source: patient, EMS Mode of arrival: EMS Limitations: no limitations - History of Present Illness Initial comments: Prema is a 68-year-old female who presents to the ER today via EMS for evaluation of acute onset GI. Patient she's been having some left-sided abdominal pain, this evening she felt that she had a large bowel movement and cold nursing staff for further evaluation where they noted she had bright red blood and blood clots. Patient was cleaned up and a new diaper was placed. Patient and began scratching at her buttocks where she has multiple excoriations as noted to cut her left lateral but she can have bleeding from that site as well. Patient is on Plavix. She reports that she's had regular colonoscopies up until a few years ago and has always been told that normal she's never had diverticulitis or diverticulosis to her knowledge. She has no history of GI bleeding. - Related Data Home Medications Medication Instructions Recorded Confirmed Clopidogrel [Plavix] 75 mg PO DAILY 03/21/15 02/17/18 Docusate Sodium [Dulcolax Stool 100 mg PO DAILY 03/21/15 02/17/18 Softener] Furosemide [Lasix] 40 mg PO BID@0800,1700 03/21/15 02/17/18 Lactobacillus Acidophilus 1 tab PO TID@0800,1200,1900 03/21/15 02/17/18 [Acidophilus] Melatonin 6 mg PO HS 03/21/15 02/17/18 Multivit with Calcium,Iron,Min 1 tab PO DAILY@1200 03/21/15 02/17/18 [Women's Daily Multivitamin] Potassium Chloride [Klor-Con 20] 20 meq PO DAILY 03/21/15 02/17/18 clonazePAM [KlonoPIN] 0.5 mg PO HS 03/21/15 02/17/18 Bisacodyl [Dulcolax] 10 mg RECTAL DAILY PRN 11/28/15 02/17/18 Caldesene Powder 81-15% 1 applic TOPICAL TID 11/28/15 02/17/18 Esomeprazole Magnesium [NexIUM] 40 mg PO DAILY@0700 11/28/15 02/17/18 risperiDONE [Risperidone] 0.25 mg PO BID 11/28/15 02/17/18 Mirtazapine [Remeron] 15 mg PO HS 02/21/17 02/17/18 Magnesium Hydroxide [Milk of 7,200 ml PO DAILY PRN 03/19/17 02/17/18 Magnesia Concentrate] Sertraline [Zoloft] 100 mg PO DAILY 03/19/17 02/17/18 fentaNYL 50MCG/HR PATCH [Duragesic 1 patch TRANSDERM Q72H 05/19/17 02/17/18 50MCG/HR] Ferrous Sulfate [Feosol] 325 mg PO DAILY 02/12/18 02/17/18 Mag Hydrox/Al Hydrox/Simeth 30 ml PO QID PRN 02/12/18 02/17/18 [Maalox] Nystatin 100,000Unit/gm Cream 1 applic TOPICAL BID 02/12/18 02/17/18 [Mycostatin Cream] Triamcinolone 0.025% Cream 1 applic TOPICAL BID 02/12/18 02/17/18 [Kenalog 0.025% Cream] Cefuroxime [Ceftin] 250 mg PO BID 02/17/18 02/17/18 carBAMazepine [TEGretol XR] 200 mg PO Q12H 02/17/18 02/17/18 Previous Rx's Medication Instructions Recorded Aspirin 81 mg PO DAILY 02/27/17 HYDROcodone/APAP 10-325MG [Welches 1 tab PO Q6H PRN #30 02/27/17 10-325] Losartan [Cozaar] 12.5 mg PO DAILY #0 tab 02/27/17 Metoprolol Tartrate [Lopressor] 50 mg PO BID tab 02/27/17 Isosorbide Mononitrate ER [Imdur] 30 mg PO DAILY tab.er.24h 06/15/17 Allergies Allergy/AdvReac Type Severity Reaction Status Date / Time ciprofloxacin [From Cipro] Allergy Unknown Verified 02/17/18 10:40 iodine Allergy Unknown Verified 02/17/18 10:40 Penicillins Allergy Unknown Verified 02/17/18 10:40 Phenylpiperazine Allergy Unknown Verified 02/17/18 10:40 Antidepressant red dye Allergy Unknown Verified 02/17/18 10:40 Sulfa (Sulfonamide Allergy Unknown Verified 02/17/18 10:40 Antibiotics) Review of Systems ROS Statement: Those systems with pertinent positive or pertinent negative responses have been documented in the HPI. ROS Other: All systems not noted in ROS Statement are negative. Past Medical History Past Medical History: Coronary Artery Disease (CAD), Heart Failure, COPD, Diabetes Mellitus, GERD/Reflux, Hypertension, Renal Disease, Skin Disorder, Vascular Disorder Additional Past Medical History / Comment(s): PVD. abdominal pain, hx. of gastric ulcer, right above knee amputee-uses wheelchair, very sensitive skin, urinary incontinence-wears depends. Kidney stones History of Any Multi-Drug Resistant Organisms: MRSA Date of last positivie culture/infection: 2012 MDRO Source:: right leg Past Surgical History: Appendectomy, Cholecystectomy, Orthopedic Surgery Additional Past Surgical History / Comment(s): Right AKA. Ovarian cyst removed. LT PERCUTANEOUS NEPHROSTOLITHOTOMY 03/2016, PICC LINE past; NEPHROSCOPY, NEPHROSTOLITHOTOMY 04/02/17. Past Anesthesia/Blood Transfusion Reactions: No Reported Reaction Additional Past Anesthesia/Blood Transfusion Reaction / Comment(s): care provider doesn't know anesthesia hx. Past Psychological History: Anxiety, Depression Smoking Status: Former smoker Past Alcohol Use History: None Reported Past Drug Use History: None Reported - Past Family History Mother Family Medical History: Unable to Obtain Additional Family Medical History / Comment(s): CARE PROVIDER DOES NOT HAVE THIS INFORMATION General Exam - General Exam Comments Initial Comments: Physical Exam GENERAL: Patient is well-developed and well-nourished. Patient is nontoxic and well- hydrated and is in no distress. HENT: Normocephalic, Atraumatic. EYES: PERRL, EOMI No conjunctival pallor PULMONARY: Unlabored respirations. No audible rales rhonchi or wheezing was noted. CARDIOVASCULAR: There is a regular rate and rhythm without any murmurs gallops or rubs. ABDOMEN: Soft and nontender with normal bowel sounds. SKIN: Multiple excoriations on the buttocks consistent with patient's history of scratching No pallor : Normal external genitalia NEUROLOGIC: Patient is alert and oriented x3. Moving all extremities spontaneously MUSCULOSKELETAL: Normal extremities with adequate strength and full range of motion. No lower extremity swelling or edema. No calf tenderness. PSYCHIATRIC: Normal psychiatric evaluation. Limitations: no limitations Course Vital Signs 03/10/19 03/10/19 03/10/19 01:17 03:39 05:09 Temperature 98.6 F Pulse Rate 86 84 83 Respiratory 18 18 18 Rate Blood Pressure 150/93 152/83 141/68 O2 Sat by Pulse 94 L 92 L 95 Oximetry Medical Decision Making - Medical Decision Making The patient was seen and evaluated, history is obtained from patient and EMS This is a 68-year-old female who presented with bright red blood per rectum and left-sided abdominal pain On initial evaluation patient also had multiple superficial excoriations to her left buttock and hip from apparently scratching and patient was noted to be bleeding. Labs and imaging were ordered Labs resulted with mild leukocytosis, hemoglobin is stable at 16.1 CT scan of the abdomen did confirm uncomplicated diverticulitis, Rocephin and Flagyl were ordered for treatment Patient care was discussed with patient's primary care physician Dr. Peter who agrees with plan for admission with a consult to general surgery Dr. Warren Admission orders were placed Patient remained hemodynamically stable throughout her stay in the emergency department - Lab Data Result diagrams: 03/10/19 01:40 03/10/19 01:40 Lab Results 03/10/19 03/10/19 03/10/19 Range/Units 01:40 01:40 01:40 WBC 11.7 H (3.8-10.6) k/uL RBC 6.44 H (3.80-5.40) m/uL Hgb 16.1 H (11.4-16.0) gm/dL Hct 50.7 H (34.0-46.0) % MCV 78.8 L (80.0-100.0) fL MCH 24.9 L (25.0-35.0) pg MCHC 31.6 (31.0-37.0) g/dL RDW 15.2 (11.5-15.5) % Plt Count 234 (150-450) k/uL Neutrophils % 70 % Lymphocytes % 21 % Monocytes % 5 % Eosinophils % 3 % Basophils % 1 % Neutrophils # 8.1 H (1.3-7.7) k/uL Lymphocytes # 2.4 (1.0-4.8) k/uL Monocytes # 0.6 (0-1.0) k/uL Eosinophils # 0.3 (0-0.7) k/uL Basophils # 0.1 (0-0.2) k/uL APTT (22.0-30.0) sec Sodium 140 (137-145) mmol/L Potassium 4.6 (3.5-5.1) mmol/L Chloride 102 (98-107) mmol/L Carbon Dioxide 27 (22-30) mmol/L Anion Gap 11 mmol/L BUN 18 H (7-17) mg/dL Creatinine 0.62 (0.52-1.04) mg/dL Est GFR (CKD-EPI)AfAm >90 (>60 ml/min/1.73 sqM) Est GFR (CKD-EPI)NonAf >90 (>60 ml/min/1.73 sqM) Glucose 133 H (74-99) mg/dL Plasma Lactic Acid Jacinto 2.7 H* (0.7-2.0) mmol/L Calcium 8.8 (8.4-10.2) mg/dL Total Bilirubin 0.6 (0.2-1.3) mg/dL AST 44 H (14-36) U/L ALT 25 (9-52) U/L Alkaline Phosphatase 129 H (38-126) U/L Troponin I (0.000-0.034) ng/mL Total Protein 8.0 (6.3-8.2) g/dL Albumin 4.2 (3.5-5.0) g/dL 03/10/19 03/10/19 Range/Units 01:40 01:40 WBC (3.8-10.6) k/uL RBC (3.80-5.40) m/uL Hgb (11.4-16.0) gm/dL Hct (34.0-46.0) % MCV (80.0-100.0) fL MCH (25.0-35.0) pg MCHC (31.0-37.0) g/dL RDW (11.5-15.5) % Plt Count (150-450) k/uL Neutrophils % % Lymphocytes % % Monocytes % % Eosinophils % % Basophils % % Neutrophils # (1.3-7.7) k/uL Lymphocytes # (1.0-4.8) k/uL Monocytes # (0-1.0) k/uL Eosinophils # (0-0.7) k/uL Basophils # (0-0.2) k/uL APTT 25.6 (22.0-30.0) sec Sodium (137-145) mmol/L Potassium (3.5-5.1) mmol/L Chloride (98-107) mmol/L Carbon Dioxide (22-30) mmol/L Anion Gap mmol/L BUN (7-17) mg/dL Creatinine (0.52-1.04) mg/dL Est GFR (CKD-EPI)AfAm (>60 ml/min/1.73 sqM) Est GFR (CKD-EPI)NonAf (>60 ml/min/1.73 sqM) Glucose (74-99) mg/dL Plasma Lactic Acid Jacinto (0.7-2.0) mmol/L Calcium (8.4-10.2) mg/dL Total Bilirubin (0.2-1.3) mg/dL AST (14-36) U/L ALT (9-52) U/L Alkaline Phosphatase (38-126) U/L Troponin I <0.012 (0.000-0.034) ng/mL Total Protein (6.3-8.2) g/dL Albumin (3.5-5.0) g/dL Disposition Clinical Impression: Lower gastrointestinal hemorrhage, Diverticulitis Disposition: ADMITTED IP TO THIS [facility] Condition: Stable Referrals: Ian Peter MD [Primary Care Provider] - 1-2 days
[2019-03-10] MEDS ORDERED: MORPHINE SULFATE 4 MG/ML SYRINGE IVP STA (03:35)
[2019-03-10] MEDS ORDERED: methylPREDNISolone SOD SUCCI 125 MG/2 ML VIAL IV STA (03:41)
[2019-03-10] MEDS ORDERED: diphenhydrAMINE 50 MG/ML 1 ML VIAL IVP STA (03:41)
--- NOTE | 2019-03-10 04:37 | CT ---
INDICATION: Left lower quadrant pain, GI bleeding TECHNIQUE: CT acquisition is performed through the abdomen and pelvis following the administration of IV contrast. Sagittal and coronal reformatted images are provided. DOSE INFORMATION: DLP 1108 mGy-cm. This CT exam was performed using one or more of the following dose reduction techniques: automated exposure control, adjustment of the mA and/or kV according to patient size, and/or use of iterative reconstruction technique. COMPARISON: CT abdomen and pelvis, 01/14/18 FINDINGS: The lung bases are clear. Gallbladder is surgically absent. The common bile duct is dilated measuring 1.6 cm, possibly due to reservoir effect. The liver is unremarkable. There is splenomegaly measuring 14 cm. The pancreas and adrenal glands are unremarkable. There are several small cysts in the right kidney. There is no hydronephrosis. There are several cysts in the left kidney, the largest measuring 4.5 cm. There is atrophy and cortical thinning of the left kidney, greatest at the lower pole. There are multiple nonobstructing left kidney stones, the largest measuring 1.4 cm in the upper pole. There is no hydronephrosis. The uterus is normal. Urinary bladder is incompletely distended. There is aortoiliac atherosclerosis without aneurysm. There is no adenopathy. The appendix is not visualized. There is no evidence of small or large bowel obstruction. There is colonic diverticulosis. There is mild pericolic fat stranding in the proximal sigmoid colon compatible with acute diverticulitis. There is no free air or abscess. The bones are osteopenic. There are stable mild compression deformities of L1, L2, and L3. There has been prior ORIF of the left femur. There are no acute osseous findings. IMPRESSION: 1. Mild acute diverticulitis the proximal sigmoid colon. No free air or abscess. 2. Bilateral renal cysts. Left kidney atrophy/scarring. Nonobstructing left kidney stones. 3. Cholecystectomy with enlarged common bile duct, possibly due to reservoir effect.
[2019-03-10] MEDS ORDERED: metroNIDAZOLE-NS PMX 500 MG in SALINE 1 100ML.BAG IVPB STA (05:29)
[2019-03-10] MEDS ORDERED: cefTRIAXone IN SWFI 1,000 MG/10 ML SYRINGE IVP STA (05:29)
[2019-03-10] MEDS ORDERED: NALOXONE 0.4 MG/ML 1 ML VIAL IV PRN (05:41)
[2019-03-10] MEDS: SODIUM CHLORIDE 0.9% 1,000 ML IV SCH ×2 (06:50→10:03)
[2019-03-10] MEDS: MORPHINE SULFATE 4 MG/ML SYRINGE IV PRN ×3 (10:17→19:59)
--- NOTE | 2019-03-10 10:34 | P.GSCN ---
History of Present Illness Consult date: 03/10/19 Reason for Consult: diverticulitis and GI bleeding History of present illness: The patient is a 68-year-old female who developed rectal bleeding this morning. To her knowledge she has never had this in the past. On CT scan she is found to have diverticulitis. Denies any prior episodes of diverticulitis. She does admit to having some left lower quadrant pain for the last 3 days. Denies nausea or vomiting. Denies fever or chills. Admits to some distention. Denies family history of GI malignancy or inflammatory bowel disease. the patient has had normal colonoscopies in the past. None recently. Review of Systems All systems: negative Past Medical History Past Medical History: Coronary Artery Disease (CAD), Heart Failure, COPD, Diabetes Mellitus, GERD/Reflux, GI Bleed, Hearing Disorder / Deafness, Hypertension, Osteoarthritis (OA), Pneumonia, Renal Disease, Seizure Disorder, Skin Disorder, Vascular Disorder Additional Past Medical History / Comment(s): NIDDM type II-pt states she was on oral meds for about 6 months once, CVA-pt states no residual, L foot drop, last seizure 20 yrs ago, bronchitis, gastric ulcer, bloody stool in past, kidney stones with surgeries, PVD-R AKA, gastric ulcer, diverticular disease, hemorr hoids, UTIs, migraines, chronic low back pain and R stump pain, tinnitis bilaterally, [place] R ear, anemia, dermatitis, incontinence of urine and stool, past L elbow fracture. History of Any Multi-Drug Resistant Organisms: MRSA Year Discovered:: 2012 MDRO Source:: right leg Past Surgical History: Appendectomy, Cholecystectomy, Orthopedic Surgery, Tonsillectomy Additional Past Surgical History / Comment(s): EGD, colonoscopies, bilateral percutaneous nephroscopies, arch/aortagrams, R foot 5th toe amp then R AKA, L hip ORIF with plate/screws, laparatomy for rupture ovarian cyst, cox-since removed, PICC-since removed. Past Anesthesia/Blood Transfusion Reactions: No Reported Reaction Additional Past Anesthesia/Blood Transfusion Reaction / Comm: care provider doesn't know anesthesia hx. Smoking Status: Former smoker - Past Family History Father Family Medical History: COPD, Myocardial Infarction (IN) Additional Family Medical History / Comment(s): Father was a smoker with emphysema. He from his 3rd IN at the age of 67yrs. Mother Family Medical History: No Reported History Additional Family Medical History / Comment(s): Mother was healthy and lived to be 95yrs old. Medications and Allergies Home Medications Medication Instructions Recorded Confirmed Type Clopidogrel [Plavix] 75 mg PO DAILY 03/21/15 03/10/19 History Docusate Sodium [Dulcolax Stool 100 mg PO DAILY 03/21/15 03/10/19 History Softener] Furosemide [Lasix] 40 mg PO BID@0800,1700 03/21/15 03/10/19 History Lactobacillus Acidophilus 1 tab PO TID@0800,1200,1700 03/21/15 03/10/19 History [Acidophilus] Melatonin 6 mg PO HS 03/21/15 03/10/19 History Multivit with Calcium,Iron,Min 1 tab PO DAILY 03/21/15 03/10/19 History [Women's Daily Multivitamin] Potassium Chloride [Klor-Con 20] 20 meq PO DAILY 03/21/15 03/10/19 History Bisacodyl [Dulcolax] 10 mg RECTAL DAILY PRN 11/28/15 03/10/19 History Esomeprazole Magnesium [NexIUM] 40 mg PO DAILY 11/28/15 03/10/19 History Mirtazapine [Remeron] 15 mg PO HS 02/21/17 03/10/19 History Aspirin 81 mg PO DAILY 02/27/17 03/10/19 Rx Losartan [Cozaar] 12.5 mg PO DAILY #0 tab 02/27/17 03/10/19 Rx Sertraline [Zoloft] 100 mg PO DAILY 03/19/17 03/10/19 History fentaNYL 50MCG/HR PATCH [Duragesic 1 patch TRANSDERM Q72H 05/19/17 03/10/19 History 50MCG/HR] Isosorbide Mononitrate ER [Imdur] 30 mg PO DAILY tab.er.24h 06/15/17 03/10/19 Rx Ferrous Sulfate [Feosol] 325 mg PO DAILY 02/12/18 03/10/19 History Mag Hydrox/Al Hydrox/Simeth 30 ml PO QID PRN 02/12/18 03/10/19 History [Maalox] Nystatin 100,000Unit/gm Cream 1 applic TOPICAL BID 02/12/18 03/10/19 History [Mycostatin Cream] carBAMazepine [TEGretol XR] 200 mg PO Q12H 02/17/18 03/10/19 History Acetaminophen [Tylenol 8 Hour] 1,300 mg PO Q4H PRN 03/10/19 03/10/19 History Cholecalciferol [Vitamin D3] 1,200 unit PO DAILY@1700 03/10/19 03/10/19 History HYDROcodone/APAP 10-325MG [Summers 1 tab PO TID 03/10/19 03/10/19 History 10-325] LORazepam [Ativan] 0.5 mg PO BID 03/10/19 03/10/19 History Lactose-Reduced Food [Ensure Plus] 120 ml PO BID@0800,1700 03/10/19 03/10/19 History Lubricant Drops Solution 1.4% 1 drop BOTH EYES BID 03/10/19 03/10/19 History Magnesium Hydroxide [Milk of 2,400 mg PO DAILY PRN 03/10/19 03/10/19 History Magnesia] Metoprolol Tartrate [Lopressor] 50 mg PO BID@0800,1700 03/10/19 03/10/19 History Na Phos,M-B/Na Phos,Di-Ba [Fleet 133 ml RECTAL DAILY PRN 03/10/19 03/10/19 History Adult] Nitroglycerin Sl Tabs [Nitrostat] 0.4 mg SUBLINGUAL Q5M PRN 03/10/19 03/10/19 History Nystatin 100,000 Unit/gm Powd 1 applic TOPICAL BID 03/10/19 03/10/19 History [Mycostatin Powder] Ondansetron HCl [Zofran] 4 mg PO Q12H PRN 03/10/19 03/10/19 History Triamcinolone 0.5% Cream [Kenalog 1 applic TOPICAL BID 03/10/19 03/10/19 History 0.5% Cream] guaiFENesin [guaiFENesin Oral 100 mg PO Q4HR PRN 03/10/19 03/10/19 History Solution] risperiDONE [RisperDAL] 0.25 mg PO BID 03/10/19 03/10/19 History Allergies Allergy/AdvReac Type Severity Reaction Status Date / Time ciprofloxacin [From Cipro] Allergy Unknown Verified 03/10/19 07:03 iodine Allergy Unknown Verified 03/10/19 07:03 Penicillins Allergy Unknown Verified 03/10/19 07:03 Phenylpiperazine Allergy Unknown Verified 03/10/19 07:03 Antidepressant red dye Allergy Unknown Verified 03/10/19 07:03 Sulfa (Sulfonamide Allergy Unknown Verified 03/10/19 07:03 Antibiotics) Surgical - Exam Osteopathic Statement: *. No significant issues noted on an osteopathic structural exam other than those noted in the History and Physical/Consult. Vital Signs Temp Pulse Resp BP Pulse Ox 98.6 F 86 18 150/93 94 L 03/10/19 01:17 03/10/19 01:17 03/10/19 01:17 03/10/19 01:17 03/10/19 01:17 - General chronically ill appearing well developed, well nourished, obese - Eyes normal ocular movement - Neck trachea midline - Respiratory normal respiratory effort, clear to auscultation - Cardiovascular Rhythm: regular - Abdomen Abdomen: soft, tender (left lower quadrant tenderness with mild voluntary guarding), no rebound, no distended Results - Labs 03/10/19 01:40 03/10/19 01:40 Abnormal Lab Results - Last 24 Hours (Table) 03/10/19 03/10/19 03/10/19 Range/Units 01:40 01:40 01:40 WBC 11.7 H (3.8-10.6) k/uL RBC 6.44 H (3.80-5.40) m/uL Hgb 16.1 H (11.4-16.0) gm/dL Hct 50.7 H (34.0-46.0) % MCV 78.8 L (80.0-100.0) fL MCH 24.9 L (25.0-35.0) pg Neutrophils # 8.1 H (1.3-7.7) k/uL BUN 18 H (7-17) mg/dL Glucose 133 H (74-99) mg/dL Plasma Lactic Acid Jacinto 2.7 H* (0.7-2.0) mmol/L AST 44 H (14-36) U/L Alkaline Phosphatase 129 H (38-126) U/L 03/10/19 Range/Units 08:14 WBC (3.8-10.6) k/uL RBC (3.80-5.40) m/uL Hgb (11.4-16.0) gm/dL Hct (34.0-46.0) % MCV (80.0-100.0) fL MCH (25.0-35.0) pg Neutrophils # (1.3-7.7) k/uL BUN (7-17) mg/dL Glucose (74-99) mg/dL Plasma Lactic Acid Jacinto 2.6 H* (0.7-2.0) mmol/L AST (14-36) U/L Alkaline Phosphatase (38-126) U/L Diabetes panel 03/10/19 Range/Units 01:40 Sodium 140 (137-145) mmol/L Potassium 4.6 (3.5-5.1) mmol/L Chloride 102 (98-107) mmol/L Carbon Dioxide 27 (22-30) mmol/L BUN 18 H (7-17) mg/dL Creatinine 0.62 (0.52-1.04) mg/dL Glucose 133 H (74-99) mg/dL Calcium 8.8 (8.4-10.2) mg/dL AST 44 H (14-36) U/L ALT 25 (9-52) U/L Alkaline Phosphatase 129 H (38-126) U/L Total Protein 8.0 (6.3-8.2) g/dL Albumin 4.2 (3.5-5.0) g/dL Calcium panel 03/10/19 Range/Units 01:40 Calcium 8.8 (8.4-10.2) mg/dL Albumin 4.2 (3.5-5.0) g/dL Pituitary panel 03/10/19 Range/Units 01:40 Sodium 140 (137-145) mmol/L Potassium 4.6 (3.5-5.1) mmol/L Chloride 102 (98-107) mmol/L Carbon Dioxide 27 (22-30) mmol/L BUN 18 H (7-17) mg/dL Creatinine 0.62 (0.52-1.04) mg/dL Glucose 133 H (74-99) mg/dL Calcium 8.8 (8.4-10.2) mg/dL Adrenal panel 03/10/19 Range/Units 01:40 Sodium 140 (137-145) mmol/L Potassium 4.6 (3.5-5.1) mmol/L Chloride 102 (98-107) mmol/L Carbon Dioxide 27 (22-30) mmol/L BUN 18 H (7-17) mg/dL Creatinine 0.62 (0.52-1.04) mg/dL Glucose 133 H (74-99) mg/dL Calcium 8.8 (8.4-10.2) mg/dL Total Bilirubin 0.6 (0.2-1.3) mg/dL AST 44 H (14-36) U/L ALT 25 (9-52) U/L Alkaline Phosphatase 129 H (38-126) U/L Total Protein 8.0 (6.3-8.2) g/dL Albumin 4.2 (3.5-5.0) g/dL - Imaging CT scan - abdomen: report reviewed Assessment and Plan (1) Diverticulitis Current Visit: Yes Status: Acute Code(s): K57.92 - DVTRCLI OF INTEST, PART UNSP, W/O PERF OR ABSCESS W/O BLEED SNOMED Code(s): 213208932 (2) Lower gastrointestinal hemorrhage Current Visit: Yes Status: Acute Code(s): K92.2 - GASTROINTESTINAL HEMORRHAGE, UNSPECIFIED SNOMED Code(s): 06013265 Plan: IV antibiotics. Bowel rest. Serial H and H. Serial exam. Hold the Plavix. DVT and ulcer prophylaxis. Currently nonsurgical. I will follow with you.
--- NOTE | 2019-03-10 19:28 | HP ---
HISTORY AND PHYSICAL DATE OF ADMISSION: 03/10/2019. DATE OF DICTATION: 03/10/2019. CHIEF COMPLAINT: They changed her diaper in the [facility] and found stool mixed with fresh blood. At that time they called me and the patient was directed to the hospital. She did not have pain; however, in the hospital she had pain in the left lower quadrant and across the descending colon. HISTORY OF PRESENT ILLNESS: Mrs. Prema Krause is a 68-year-old white female, . She presented to the emergency room via EMS from the [facility]. They stated that she had left-sided abdominal pain. In the evening she had a large bowel movement, and the nurse staff on further evaluation found bright red blood and blood clots. They cleaned her up and they called for the transfer. Patient arrived in the ER. She had multiple excoriations in the ER due to scratching. She is on Plavix. She had a previous colonoscopy; however, her primary care doctor, Dr. Ruiz, has retired, and currently I am starting to take care of her. She had no history in the past of GI bleeding and no history of diverticulitis in the past. CURRENT MEDICATIONS: 1. Plavix 75 mg daily. 2. Stool softener 100 mg daily. 3. Lasix 40 mg twice a day. 4. Lactobacillus acidophilus 1 tablet t.i.d. 5. Melatonin for sleep 6 mg at bedtime. 6. Multivitamin with calcium and iron. 7. Potassium chloride 20 mEq daily. 8. With the anxiety and neurosis, she has clonazepam, Klonopin, 0.5 mg at bedtime. 9. Dulcolax 10 mg rectally on a p.r.n. basis. 10.Caldesene powder application topically 3 times a day. 11.Nexium 40 mg once a day before breakfast. 12.Risperidone 0.25 mg b.i.d. 13.Remeron 15 mg at bedtime. She has been followed by Psychiatry on the facility. 14.Magnesium hydroxide (Milk of Magnesia) once a day. 15.Zoloft 100 mg once a day. 16.Ferrous sulfate 325 mg once a day. 17.Maalox 30 mL q.i.d. p.r.n. 18.Nystatin 100,000 and cream topical area. 19.Triamcinolone 0.025 cream, which is Kenalog, topical area twice a day. 20.Cefuroxime 250 mg twice a day. 21.Carbamazepine 200 mg once a day. ALLERGIES: 1. CIPRO. 2. IODINE. 3. PENICILLIN. 4. PHENYLPIPERAZINE ANTIDEPRESSANT. 5. RED DYE. 6. SULFONAMIDE ANTIBIOTIC. REVIEW OF SYSTEMS: She was comfortable, with no complaints otherwise. The aid who was changing her diaper found the stool mixed with blood. Subsequently the patient reported the pain in the left side of the abdomen. Nothing else pertinent. She has a history of right lower extremity above-knee amputation. She has a flaccid left lower extremity. She is bedridden; no ambulation. PAST MEDICAL HISTORY: 1. Coronary artery disease. 2. COPD. 3. Heart failure. 4. Diabetes mellitus. 5. GERD. 6. Hypertension. 7. Renal disorder. 8. Skin disorder. 9. Vascular disorder. 10.Peripheral vascular disease. 11.Abdominal pain. 12.History of gastric ulcer in the past. 13.Right above-knee amputation. Uses wheelchair. 14.Very sensitive skin. 15.Urinary incontinence; wears Depends. 16.History of kidney stones. 17.History of MRSA in the past in 2012. 18.History of appendectomy. 19.Cholecystectomy. 20.Orthopedic surgery. 21.She had an ovarian cyst removed. 22.Left percutaneous nephrostomy in March 2016. 23.PICC line in the past. 24.Nephrostolithotomy on April 02, 2017. She has no allergy to anesthesia. She has a history of anxiety, depression. She is a former smoker. No alcohol or illicit drugs in the past. Currently she lives in [facility]. PHYSICAL EXAMINATION: The patient is seen, evaluated, conscious, alert, oriented, and the head was normocephalic, atraumatic. Pupils were equal, reactive. Oropharynx showed severe decayed teeth that definitely need attention. She is able to communicate. VITAL SIGNS at the time she reached the emergency room: Temperature was 98.6, pulse 86, respiratory rate 18, blood pressure 150/93, pulse ox 94% on room air. EYES: Pupils equal, reactive. Conjunctivae pink. Sclerae nonicteric. NECK: Supple. No JVD. No thyromegaly. No lymphadenopathy. Trachea midline. CHEST: Clear to auscultation and percussion and no wheezes or rhonchi. HEART: PMI in the fifth intercostal space. Normal S1, S2. No gallop. ABDOMEN: There was severe tenderness on the descending colon as well as the right lower quadrant. SKIN: There is excoriation on the buttocks with scratching. She has as well diapers and she had GI bleeding. GENERAL: She is conscious, alert x3. She is nonambulatory, with the left leg deformity, flaccid. LOWER EXTREMITIES: She had right lower extremity above-knee amputation for peripheral vascular disease. LABORATORY DATA: with the underlying admission for acute diverticulitis, uncomplicated so far. Her underlying psychiatric abnormality as well as her troponin was normal on the lab. Subsequently we consulted with the underlying diagnosis acute GI bleed, found to be diverticular bleed probably, and we consulted the surgeon, Dr. Warren/Jhony/ . Reviewing of the laboratory found that her glucose was 133; that is not fasting. Her BUN was 18, creatinine 0.62 with the non- estimated glomerular filtration rate more than 90. Her total bilirubin was 0.6, AST 44, alkaline phosphatase 129, and her lactic acid was 2.7. PT and INR were normal and the troponin was normal. Her white count 11.7 with a hemoglobin 16.1, and no left shift. PLAN: N.P.O. except for ice chips until seen by the surgeon. Meanwhile, we will consult Dr. Warren, the surgeon. We will also consult Dr. Boogie of Infectious Disease for evaluation of the lactic acid elevation. However, we will continue hydration and start antibiotic Rocephin 1 gram q.12 hours and Flagyl 500 mg q.6 hours until seen by Infectious Disease. Chest x-ray also was negative for acute cardiopulmonary disease. The patient will be monitored with labs in the morning. Repeat lactic acid with the hydration. MMODL / IJN: [id number] /
[2019-03-10] MEDS: metroNIDAZOLE-NS PMX 500 MG in SALINE 1 100ML.BAG IVPB SCH (19:55)
--- NOTE | 2019-03-10 23:41 | P.CONS ---
History of Present Illness - Reason for Consult Consult date: 03/10/19 Acute sigmoid diverticulitis Requesting physician: Ian Peter - Chief Complaint Acute left lower abdominal pain and bleeding per rectum x one day - History of Present Illness Patient is 68 year female who was brought into the ER at [facility] for management of acute left lower quadrant abdominal pain and bleeding per rectum apparently the patient's symptoms started the day of presentation hospital pain has been mostly in the left lower quadrant area described the pain to be dull aching to sharp almost 7-8 out of 10 and no radiation patient did have a large old moment and have blood in it the patient denies having any nausea and vomiting no high-grade fever or rigors did have some chills the symptom the patient was brought into the ER patient was evaluated by the ER physician patient did have CT of abdominal pelvis complicated with evidence of mild sigmoid diverticulitis patient has been admitted to the hospital infectious disease was consulted for further recommendation regarding antibiotic because of her multiple antibiotic ALLERGIES , patient on presentation hospital was afebrile and remains to be afebrile she did have mildly elevated white count of 11.1 thousand Review of Systems Positive points has been mentioned in HPI rest of the systems are negative Past Medical History Past Medical History: Coronary Artery Disease (CAD), Heart Failure, COPD, Cortney betes Mellitus, GERD/Reflux, GI Bleed, Hearing Disorder / Deafness, Hypertension, Osteoarthritis (OA), Pneumonia, Renal Disease, Seizure Disorder, Skin Disorder, Vascular Disorder Additional Past Medical History / Comment(s): NIDDM type II-pt states she was on oral meds for about 6 months once, CVA-pt states no residual, L foot drop, last seizure 20 yrs ago, bronchitis, gastric ulcer, bloody stool in past, kidney stones with surgeries, PVD-R AKA, gastric ulcer, diverticular disease, hemorrhoids, UTIs, migraines, chronic low back pain and R stump pain, tinnitis bilaterally, MESA GRANDE R ear, anemia, dermatitis, incontinence of urine and stool, past L elbow fracture. History of Any Multi-Drug Resistant Organisms: MRSA Year Discovered:: 2012 MDRO Source:: right leg Past Surgical History: Appendectomy, Cholecystectomy, Orthopedic Surgery, Tonsillectomy Additional Past Surgical History / Comment(s): EGD, colonoscopies, bilateral percutaneous nephroscopies, arch/aortagrams, R foot 5th toe amp then R AKA, L hip ORIF with plate/screws, laparatomy for rupture ovarian cyst, cox-since removed, PICC-since removed. Past Anesthesia/Blood Transfusion Reactions: No Reported Reaction Additional Past Anesthesia/Blood Transfusion Reaction / Comm: care provider doesn't know anesthesia hx. Smoking Status: Former smoker - Past Family History Father Family Medical History: COPD, Myocardial Infarction ([place]) Additional Family Medical History / Comment(s): Father was a smoker with emphysema. He from his 3rd [place] at the age of 67yrs. Mother Family Medical History: No Reported History Additional Family Medical History / Comment(s): Mother was healthy and lived to be 95yrs old. Medications and Allergies Home Medications Medication Instructions Recorded Confirmed Type Clopidogrel [Plavix] 75 mg PO DAILY 03/21/15 03/10/19 History Docusate Sodium [Dulcolax Stool 100 mg PO DAILY 03/21/15 03/10/19 History Softener] Furosemide [Lasix] 40 mg PO BID@0800,1700 03/21/15 03/10/19 History Lactobacillus Acidophilus 1 tab PO TID@0800,1200,1700 03/21/15 03/10/19 History [Acidophilus] Melatonin 6 mg PO HS 03/21/15 03/10/19 History Multivit with Calcium,Iron,Min 1 tab PO DAILY 03/21/15 03/10/19 History [Women's Daily Multivitamin] Potassium Chloride [Klor-Con 20] 20 meq PO DAILY 03/21/15 03/10/19 History Bisacodyl [Dulcolax] 10 mg RECTAL DAILY PRN 11/28/15 03/10/19 History Esomeprazole Magnesium [NexIUM] 40 mg PO DAILY 11/28/15 03/10/19 History Mirtazapine [Remeron] 15 mg PO HS 02/21/17 03/10/19 History Aspirin 81 mg PO DAILY 02/27/17 03/10/19 Rx Losartan [Cozaar] 12.5 mg PO DAILY #0 tab 02/27/17 03/10/19 Rx Sertraline [Zoloft] 100 mg PO DAILY 03/19/17 03/10/19 History fentaNYL 50MCG/HR PATCH [Duragesic 1 patch TRANSDERM Q72H 05/19/17 03/10/19 History 50MCG/HR] Isosorbide Mononitrate ER [Imdur] 30 mg PO DAILY tab.er.24h 06/15/17 03/10/19 Rx Ferrous Sulfate [Feosol] 325 mg PO DAILY 02/12/18 03/10/19 History Mag Hydrox/Al Hydrox/Simeth 30 ml PO QID PRN 02/12/18 03/10/19 History [Maalox] Nystatin 100,000Unit/gm Cream 1 applic TOPICAL BID 02/12/18 03/10/19 History [Mycostatin Cream] carBAMazepine [TEGretol XR] 200 mg PO Q12H 02/17/18 03/10/19 History Acetaminophen [Tylenol 8 Hour] 1,300 mg PO Q4H PRN 03/10/19 03/10/19 History Cholecalciferol [Vitamin D3] 1,200 unit PO DAILY@1700 03/10/19 03/10/19 History HYDROcodone/APAP 10-325MG [[place] 1 tab PO TID 03/10/19 03/10/19 History 10-325] LORazepam [Ativan] 0.5 mg PO BID 03/10/19 03/10/19 History Lactose-Reduced Food [Ensure Plus] 120 ml PO BID@0800,1700 03/10/19 03/10/19 History Lubricant Drops Solution 1.4% 1 drop BOTH EYES BID 03/10/19 03/10/19 History Magnesium Hydroxide [Milk of 2,400 mg PO DAILY PRN 03/10/19 03/10/19 History Magnesia] Metoprolol Tartrate [Lopressor] 50 mg PO BID@0800,1700 03/10/19 03/10/19 History Na Phos,M-B/Na Phos,Di-Ba [Fleet 133 ml RECTAL DAILY PRN 03/10/19 03/10/19 History Adult] Nitroglycerin Sl Tabs [Nitrostat] 0.4 mg SUBLINGUAL Q5M PRN 03/10/19 03/10/19 History Nystatin 100,000 Unit/gm Powd 1 applic TOPICAL BID 03/10/19 03/10/19 History [Mycostatin Powder] Ondansetron HCl [Zofran] 4 mg PO Q12H PRN 03/10/19 03/10/19 History Triamcinolone 0.5% Cream [Kenalog 1 applic TOPICAL BID 03/10/19 03/10/19 History 0.5% Cream] guaiFENesin [guaiFENesin Oral 100 mg PO Q4HR PRN 03/10/19 03/10/19 History Solution] risperiDONE [RisperDAL] 0.25 mg PO BID 03/10/19 03/10/19 History Allergies Allergy/AdvReac Type Severity Reaction Status Date / Time ciprofloxacin [From Cipro] Allergy Unknown Verified 03/10/19 07:03 iodine Allergy Unknown Verified 03/10/19 07:03 Penicillins Allergy Unknown Verified 03/10/19 07:03 Phenylpiperazine Allergy Unknown Verified 03/10/19 07:03 Antidepressant red dye Allergy Unknown Verified 03/10/19 07:03 Sulfa (Sulfonamide Allergy Unknown Verified 03/10/19 07:03 Antibiotics) Physical Exam Vitals: Vital Signs Temp Pulse Pulse Resp BP BP Pulse Ox 03/10/19 14:49 98.0 F 79 16 123/82 94 L 03/10/19 08:57 98 F 90 18 119/60 98 03/10/19 08:16 92 18 117/51 97 03/10/19 06:16 87 16 148/71 96 03/10/19 05:09 83 18 141/68 95 03/10/19 03:39 84 18 152/83 92 L 03/10/19 01:17 98.6 F 86 18 150/93 94 L Intake and Output 03/10/19 03/10/19 03/10/19 06:59 14:59 22:59 Intake Total 525 Output Total 1 Balance 524 Intake: Intake, IV Titration 525 Amount Sodium Chloride 0.9% 1, 525 000 ml @ 75 mls/hr IV . [id number] [facility] Rx#:[id number] Oral 0 Output: Urine 1 Other: Voiding Method Diaper Incontinent Weight 63.049 kg GENERAL DESCRIPTION: Elderly female lying in bed, no distress. No tachypnea or accessory muscle of respiration use. HEENT: Shows Pallor , no scleral icterus. Oral mucous membrane is dry. No pharyngeal erythema or thrush NECK: Trachea central, no thyromegaly. LUNGS: Unlabored breathing. Clear to auscultation anteriorly. No wheeze or c rackle. HEART: S1, S2, regular rate and rhythm. No loud murmur ABDOMEN: Soft, left lower quadrant tenderness , no guarding or rigidity, no organomegaly EXTREMITIES: No edema of feet. SKIN: No rash, no masses palpable. NEUROLOGICAL: The patient is awake, alert, oriented x3, mood and affect normal. Results CBC & Chem 7: 03/10/19 01:40 03/10/19 01:40 Labs: Abnormal Lab Results - Last 24 Hours (Table) 03/10/19 03/10/19 03/10/19 Range/Units 01:40 01:40 01:40 WBC 11.7 H (3.8-10.6) k/uL RBC 6.44 H (3.80-5.40) m/uL Hgb 16.1 H (11.4-16.0) gm/dL Hct 50.7 H (34.0-46.0) % MCV 78.8 L (80.0-100.0) fL MCH 24.9 L (25.0-35.0) pg Neutrophils # 8.1 H (1.3-7.7) k/uL BUN 18 H (7-17) mg/dL Glucose 133 H (74-99) mg/dL Plasma Lactic Acid Jacinto 2.7 H* (0.7-2.0) mmol/L AST 44 H (14-36) U/L Alkaline Phosphatase 129 H (38-126) U/L 03/10/19 Range/Units 08:14 WBC (3.8-10.6) k/uL RBC (3.80-5.40) m/uL Hgb (11.4-16.0) gm/dL Hct (34.0-46.0) % MCV (80.0-100.0) fL MCH (25.0-35.0) pg Neutrophils # (1.3-7.7) k/uL BUN (7-17) mg/dL Glucose (74-99) mg/dL Plasma Lactic Acid Jacinto 2.6 H* (0.7-2.0) mmol/L AST (14-36) U/L Alkaline Phosphatase (38-126) U/L Assessment and Plan Assessment: 1-patient with acute left lower quadrant abdominal pain in addition to the bleeding per rectum in this patient who did have mildly elevated white count tenderness in the left lower quadrant area with evidence of acute sigmoid diverticulitis likely the reason of her pain and bleeding per rectum and no need to cover for enteric gram-negative both aerobes and anaerobes 2-Patient with multiple antibiotics ALLERGIES that will limit the number of antibiotic safe to use, patient has taken Keflex without any problem (1) Sigmoid diverticulitis Current Visit: Yes Status: Acute Code(s): K57.32 - DVTRCLI OF LG INT W/O PERFORATION OR ABSCESS W/O BLEEDING SNOMED Code(s): 577851726 Plan: 1-Rocephin 2 g IV piggyback daily and Flagyl 500 every 8 hour 2-gentle IV fluid and nothing by mouth for bowel rest we will follow on clinical condition and culture to further adjust medication if needed Thank you for this consultation will follow this patient along with you Time with Patient: Greater than 30
[2019-03-11] MEDS: MORPHINE SULFATE 4 MG/ML SYRINGE IV PRN ×5 (00:56→22:52)
[2019-03-11] MEDS: metroNIDAZOLE-NS PMX 500 MG in SALINE 1 100ML.BAG IVPB SCH ×5 (00:57→23:38)
[2019-03-11] MEDS ORDERED: ACETAMINOPHEN TAB 500 MG TAB PO PRN (09:00)
[2019-03-11] MEDS ORDERED: NITROGLYCERIN SL TABS 0.4 MG TAB SUBLINGUAL PRN (09:00)
[2019-03-11 09:46] LABS: ALT 33 U/L (9-52); AST 29 U/L (14-36); African American GFR (CKD) >90 (>60 ml/min/1.73 sqM); Albumin 3.1 g/dL (3.5-5.0); Alkaline Phosphatase 109 U/L (38-126); Anion Gap 8 mmol/L; Blood Urea Nitrogen 16 mg/dL (7-17); Calcium 7.8 mg/dL (8.4-10.2); Carbon Dioxide 25 mmol/L (22-30); Chloride 112 mmol/L (98-107); Glucose 96 mg/dL (74-99); Potassium 3.7 mmol/L (3.5-5.1); Sodium 145 mmol/L (137-145); Total Bilirubin 0.3 mg/dL (0.2-1.3); Total Protein 6.1 g/dL (6.3-8.2)
[2019-03-11 09:54] LABS: Basophils % (A) 1 %; Eosinophils # (A) 0.1 k/uL (0-0.7); Eosinophils % (A) 1 %; HCT 41.3 % (34.0-46.0); Hypochromasia Slight; Lymphocytes # (A) 1.4 k/uL (1.0-4.8); Lymphocytes % (A) 17 %; MCH 25.5 pg (25.0-35.0); MCHC 31.5 g/dL (31.0-37.0); MCV 81.2 fL (80.0-100.0); Mean Platelet Volume 6.7; Monocytes # (A) 0.4 k/uL (0-1.0); Monocytes % (A) 5 %; Neutrophils % (A) 75 %; Platelet Count 168 k/uL (150-450); RBC 5.08 m/uL (3.80-5.40); RDW 15.2 % (11.5-15.5)
[2019-03-11] MEDS: NYSTATIN 100,000 UNIT/GM POWD 15 GM TOPICAL SCH ×2 (10:20→20:21)
[2019-03-11] MEDS: SODIUM CHLORIDE 0.9% 1,000 ML IV SCH ×2 (12:16→20:25)
[2019-03-11] MEDS: ENOXAPARIN 30 MG/0.3 ML SYRINGE SQ SCH (12:17)
[2019-03-11] MEDS: TRIAMCINOLONE ACET 0.5% CREAM 15 GM TUBE TOPICAL SCH ×2 (12:18→20:20)
[2019-03-11] MEDS: risperiDONE 0.25 MG TAB PO SCH ×3 (12:18→20:20)
[2019-03-11] MEDS: ARTIFICIAL TEARS-HYPROMELLOSE DROPS 15 ML BTL BOTH EYES SCH ×2 (12:18→20:20)
[2019-03-11] MEDS: NYSTATIN 100,000UNIT/GM CREAM 30 GM TUBE TOPICAL SCH ×2 (12:18→20:21)
--- NOTE | 2019-03-11 14:59 | P.PN ---
Subjective Progress Note Date: 03/11/19 Principal diagnosis: Diverticulitis The patient is seen on rounds. She feels a little bit better although her pain is about the same as it was on admission. She is not having nausea or vomiting. Denies any flatus. Objective - Vital Signs Vital signs: Vital Signs Temp 97.9 F 03/11/19 14:23 Pulse 84 03/11/19 14:23 Resp 20 03/11/19 14:23 BP 133/71 03/11/19 14:23 Pulse Ox 94 L 03/11/19 14:23 Intake & Output 03/10/19 03/11/19 03/11/19 18:59 06:59 18:59 Intake Total 525 Output Total 1 Balance 524 Intake: Intake, IV Titration 525 Amount Sodium Chloride 0.9% 1, 525 000 ml @ 75 mls/hr IV . [id number] ON LICENSE OF [facility] Rx#:[id number] Oral 0 Output: Urine 1 Other: Voiding Method Diaper Diaper Diaper Incontinent Incontinent Incontinent # Voids 2 1 - Constitutional General appearance: Present: cooperative, no acute distress - Respiratory Respiratory: bilateral: CTA - Cardiovascular Rhythm: regular - Gastrointestinal General gastrointestinal: Present: normal bowel sounds, soft, tenderness (Right lower quadrant with mild voluntary guarding) - Labs CBC & Chem 7: 03/11/19 08:57 03/11/19 08:57 Labs: Abnormal Lab Results - Last 24 Hours (Table) 03/11/19 Range/Units 08:57 Chloride 112 H (98-107) mmol/L Calcium 7.8 L (8.4-10.2) mg/dL Total Protein 6.1 L (6.3-8.2) g/dL Albumin 3.1 L (3.5-5.0) g/dL Assessment and Plan (1) Diverticulitis Current Visit: Yes Status: Acute Code(s): K57.92 - DVTRCLI OF INTEST, PART UNSP, W/O PERF OR ABSCESS W/O BLEED SNOMED Code(s): 852758647 (2) Lower gastrointestinal hemorrhage Current Visit: Yes Status: Acute Code(s): K92.2 - GASTROINTESTINAL HEMORRHAGE, UNSPECIFIED SNOMED Code(s): 73381617 Plan: The patient is surgically stable. I recommend continuing nothing by mouth status. IV antibiotics. Serial exams. Progressing slowly.
--- NOTE | 2019-03-11 15:09 | PN ---
PROGRESS NOTE DATE OF SERVICE: 03/11/2019 FULL CODE. This patient is a 68-year-old white female. Her height is 5 feet 8 inches, weight 63.049 kg, BSA 1.75 m2, BMI 21.1 kg/m2. ALLERGIES: 1. CIPROFLOXACIN. 2. IODINE. 3. PENICILLIN. 4. PHENYLPIPERAZINE. 5. ANTIDEPRESSANT. 6. RED DYE. 7. SULFONAMIDE ANTIBIOTIC. The patient was seen today and evaluated. She is still complaining of the pain in the left-sided colon as well as the lower sided with a very tender abdomen in this area. The patient was seen by the surgeon, Dr. Stuart, and so far on antibiotic. However, her current laboratory indicates a white count of 8 and hemoglobin 13. It dropped from 16. Her electrolytes are within normal limits, with only chloride 112 from the IV fluids. Her chemistry indicates that her renal function is stable and her admission was 2.6 lactic acid; currently it is 1.6. With these findings and her possible decubitus as well, consultation with Dr. Boogie from Infectious Disease was obtained, with the underlying possible sepsis. However, she had acute diverticulitis. She had a CT scan of the abdomen on admission which indicated the acute diverticulitis in the proximal sigmoid and bilateral renal cysts. Left kidney is atrophic and has scarring. She had nonobstructing left kidney stones. She had a cholecystectomy and enlarged common bile duct due to the reservoir effect. She has underlying compression fracture deformities in L1, 2 and 3. She has history of open reduction of the left femur. She had mild pericolonic fat stranding in the proximal sigmoid colon compatible with acute diverticulitis. She had aortoiliac atherosclerosis. No aneurysm. She was found to have cysts in the left kidney with the largest 4.5 cm and atrophy and cortical atrophy as well of the left kidney. She has multiple nonobstructive left kidney stones. The largest is 1.4 cm in the upper pole. No hydronephrosis was present. The uterus is normal and the bladder is incompletely distended. PHYSICAL EXAMINATION: On today's examination, she is conscious, alert, oriented, and she still has the pain. She is n.p.o. and she was requesting ice chips, which were given to the patient. VITAL SIGNS: Temperature 97.6, pulse rate 78, respiratory rate 19, blood pressure 131/69. She is still n.p.o. Her pulse ox was 92; prior to that 95. She is on 2 L nasal cannula. On examination, the patient has facial seborrheic dermatitis. She has severe dental decay and poor dentition. However, she had no facial asymmetry. Uvula midline. The neck were supple. No JVD. No thyromegaly. No lymphadenopathy. Trachea midline. Chest was clear to auscultation and percussion. HEART: Regular sinus rhythm. ABDOMEN: Severely tender, mainly on the left-sided descending colon to the left lower quadrant. EXTREMITIES: She has history of severe peripheral vascular disease. She had above-knee amputation. Left lower extremity with history of surgery for the hip and she is flaccid with foot deviation and atrophic muscles. ASSESSMENT: 1. Patient with nephrolithiasis of the left kidney, with chronic kidney disease and decreased function and nephrolithiasis. 2. Underlying acute diverticulitis by the CT scan with gastrointestinal bleeding and associated with the stool. 3. History of underlying chronic pain syndrome associated with her compression fracture of L1, L2, L3, L4. PLAN: Will continue her current n.p.o. status. Will ask infectious Disease as well as the surgeon and we will see if the patient improves with the IV antibiotic and hydration. Consideration of the left flank pain could be associated as well with the nephrolithiasis. MMODL / IJN: [id number] /
[2019-03-11] MEDS: METOPROLOL TARTRATE 50 MG TAB PO SCH (17:01)
--- NOTE | 2019-03-11 17:24 | PN ---
PROGRESS NOTE DATE OF SERVICE: 03/11/2019 REASON FOR FOLLOWUP: Sigmoid diverticulitis. INTERVAL HISTORY: The patient is currently afebrile. The patient has been breathing comfortably. Still complaining of pain to the left lower quadrant area, but no further bleeding per rectum. No chest pain, shortness of breath or cough. No urinary symptoms. PHYSICAL EXAMINATION: Blood pressure 133/71 with a pulse of 84, temperature 97.9. She is 94% on 2 L nasal cannula. General description is an elderly female up in the bed in no distress. RESPIRATORY SYSTEM: Unlabored breathing. Clear to auscultation anteriorly. HEART: S1, S2. Regular rate and rhythm. ABDOMEN: Soft. Minimally tender in the left lower quadrant area. No guarding or rigidity. LABS: Hemoglobin creatinine 0.62. DIAGNOSTIC IMPRESSION AND PLAN: Patient with acute sigmoid diverticulitis, uncomplicated. Patient at this time is covered with Zosyn. To continue while waiting for her condition to stabilize. Continue supportive care. MMODL / IJN: [id number] /
[2019-03-11] MEDS: ONDANSETRON 4 MG/2 ML VIAL IVP PRN (18:18)
[2019-03-11] MEDS: MELATONIN 3 MG TABLET PO SCH (20:20)
[2019-03-12] MEDS: ONDANSETRON 4 MG/2 ML VIAL IVP PRN ×2 (02:20→18:00)
[2019-03-12] MEDS: metroNIDAZOLE-NS PMX 500 MG in SALINE 1 100ML.BAG IVPB SCH ×3 (05:00→18:00)
[2019-03-12] MEDS: MORPHINE SULFATE 4 MG/ML SYRINGE IV PRN ×4 (05:00→19:26)
[2019-03-12] MEDS: ENOXAPARIN 30 MG/0.3 ML SYRINGE SQ SCH (08:00)
[2019-03-12] MEDS: METOPROLOL TARTRATE 50 MG TAB PO SCH ×2 (08:01→18:01)
[2019-03-12] MEDS: NYSTATIN 100,000UNIT/GM CREAM 30 GM TUBE TOPICAL SCH ×2 (08:01→20:38)
[2019-03-12] MEDS: TRIAMCINOLONE ACET 0.5% CREAM 15 GM TUBE TOPICAL SCH ×2 (08:01→20:38)
[2019-03-12] MEDS: risperiDONE 0.25 MG TAB PO SCH ×2 (08:01→20:37)
[2019-03-12] MEDS: NYSTATIN 100,000 UNIT/GM POWD 15 GM TOPICAL SCH ×2 (08:01→20:38)
[2019-03-12] MEDS: ARTIFICIAL TEARS-HYPROMELLOSE DROPS 15 ML BTL BOTH EYES SCH ×2 (08:01→20:37)
--- NOTE | 2019-03-12 09:50 | P.PN ---
Subjective Progress Note Date: 03/12/19 Principal diagnosis: Diverticulitis The patient think she feels somewhat better today. Yesterday afternoon she did have nausea and vomiting. Later in the day she did have a bowel movement. Denies any nausea this morning. She is asking about clear liquids. Objective - Vital Signs Vital signs: Vital Signs Temp 97.5 F L 03/12/19 04:57 Pulse 80 03/12/19 04:57 Resp 20 03/12/19 04:57 BP 141/69 03/12/19 04:57 Pulse Ox 95 03/12/19 04:57 Intake & Output 03/11/19 03/12/19 03/12/19 18:59 06:59 18:59 Other: Voiding Method Diaper Diaper Diaper Incontinent # Voids 1 1 - Constitutional General appearance: Present: cooperative, no acute distress - Respiratory Respiratory: bilateral: CTA, diminished (At the bases) - Cardiovascular Rhythm: regular - Gastrointestinal General gastrointestinal: Present: normal bowel sounds, soft, tenderness (Left lower quadrant tenderness is present but improved from yesterday) - Labs CBC & Chem 7: 03/11/19 08:57 03/11/19 08:57 Assessment and Plan (1) Diverticulitis Current Visit: Yes Status: Acute Code(s): K57.92 - DVTRCLI OF INTEST, PART UNSP, W/O PERF OR ABSCESS W/O BLEED SNOMED Code(s): 182334759 (2) Lower gastrointestinal hemorrhage Current Visit: Yes Status: Acute Code(s): K92.2 - GASTROINTESTINAL HEMORRHAGE, UNSPECIFIED SNOMED Code(s): 48074131 Plan: She'll be given some popsicles and water. If she is able to tolerate that we'll give her clear liquid tray for lunch. Continue IV antibiotics. Progressing slowly.
[2019-03-12] MEDS: SODIUM CHLORIDE 0.9% 1,000 ML IV SCH (11:46)
--- NOTE | 2019-03-12 12:55 | P.PN ---
Subjective Progress Note Date: 03/12/19 Principal diagnosis: Diagnoses: #1 GI bleed probably secondary to diabetic to every colitis and diverticular bleed. Stable hemoglobin. #2 acute diverticulitis of the sigmoid area with the probably pain in the descending colon and left lower quadrant last bowel movement no blood. #3 left kidney nephrolithiasis nonobstructive with a history of removal of staghorn stone in the past by urology associated. We will decrease function. However her estimated EGFR more than 90. #4 underlying history of chronic pain syndrome. #5 history of compression fracture of the spine thoracolumbar with inability to walk. #6 hypocalcemia was questionable vitamin D deficiency we will be checking the laboratories #7 hypertension with hypertensive heart disease and stable coronary artery dis ease. #8 she is having psychiatric disease with the associated depression and bipolar. #9 right above-knee amputation secondary to peripheral vascular disease and infection. #10 left hip fracture with inability to walk on the left lower extremities with atrophy of the muscle and foot drop with the underlying lumbosacral compression fracture. Progress note 03/12/2019 Patient seen and evaluated [id number]. Patient seen by Dr. Stuart the surgeon who advance her diet to clear liquid. Patient also seen by the infectious disease and antibiotic adjusted Dr. Boogie. Today on exam: Patient feel better today and she had yesterday bowel movement was normal blood. Impression 97.5 oral F heart rate 80/m regular respiratory rate 20 per minute nonlabored.Blood pressure 141/69 with a mean 93 Pulse ox 95% on 2 L nasal nasal cannula Laboratory: WBC 8, hemoglobin 13, hematocrit 41.3, on admission white count 11.7, hemoglobin 16.1 and hematocrit 50.7. With the MCV 78.8 Indicating dehydration with the underlying hemoconcentration mild macrocytosis probably associated with the acute bleeding from the diverticular disease. And she dropped 3 g but generally stable no need for blood transfusion. Conscious alert oriented 3 with good mood Head was normocephalic and atraumatic, fascial she had a stable radiodermatitis, oropharynx severe dental caries. Uvula midline and no fascial asymmetry Neck was supple no JVD no thyromegaly no lymphadenopathy trachea midline. Chest clear to auscultation but and percussion no wheezes nor rhonchi's. Heart regular sinus rhythm compensated no chest pains. Abdomen: She had still tenderness on the left flank with the underlying nephrolithiasis however nonobstructive, pain was tenderness in the left lower quadrant from acute diverticulitis no rebound effect. Extremities: Right below knee amputation was normal stump, left lower extremity intact with atrophic muscles and foot drop with positive pulses no ulceration. Plan /Assessment: Improved gradually, she will be started on clear liquid diet see how his pain improving or not. Continue the antibiotic. Hypocalcemia and will check vitamin D tomorrow and possible supplementation if it is abnormal. We'll check also CBC for the stability of her hemoglobin. Objective - Vital Signs Vital signs: Vital Signs Temp 97.5 F L 03/12/19 04:57 Pulse 80 03/12/19 04:57 Resp 20 03/12/19 04:57 BP 141/69 03/12/19 04:57 Pulse Ox 95 03/12/19 04:57 Intake & Output 03/11/19 03/12/19 03/12/19 18:59 06:59 18:59 Other: Voiding Method Diaper Diaper Diaper Incontinent # Voids 1 1 1 # Bowel Movements 1 - Labs CBC & Chem 7: 03/11/19 08:57 03/11/19 08:57
[2019-03-12] MEDS: MELATONIN 3 MG TABLET PO SCH (20:37)
[2019-03-13] MEDS: metroNIDAZOLE-NS PMX 500 MG in SALINE 1 100ML.BAG IVPB SCH ×4 (00:13→18:19)
[2019-03-13] MEDS: SODIUM CHLORIDE 0.9% 1,000 ML IV SCH ×2 (00:14→13:35)
[2019-03-13] MEDS: ONDANSETRON 4 MG/2 ML VIAL IVP PRN ×3 (04:06→21:41)
[2019-03-13] MEDS: MORPHINE SULFATE 4 MG/ML SYRINGE IV PRN ×4 (04:06→21:41)
[2019-03-13 08:40] LABS: Basophils # (A) 0.1 k/uL (0-0.2); Basophils % (A) 1 %; Eosinophils # (A) 0.1 k/uL (0-0.7); Eosinophils % (A) 1 %; HCT 42.5 % (34.0-46.0); HGB 13.5 gm/dL (11.4-16.0); Hypochromasia Slight; Lymphocytes # (A) 0.9 k/uL (1.0-4.8); Lymphocytes % (A) 10 %; MCH 25.4 pg (25.0-35.0); MCHC 31.7 g/dL (31.0-37.0); MCV 80.1 fL (80.0-100.0); Mean Platelet Volume 6.6; Monocytes # (A) 0.4 k/uL (0-1.0); Monocytes % (A) 4 %; Neutrophils # (A) 7.8 k/uL (1.3-7.7); Neutrophils % (A) 84 %; Platelet Count 177 k/uL (150-450); RBC 5.31 m/uL (3.80-5.40); RDW 14.8 % (11.5-15.5); WBC 9.3 k/uL (3.8-10.6)
[2019-03-13 09:06] LABS: African American GFR (CKD) >90 (>60 ml/min/1.73 sqM); Anion Gap 12 mmol/L; Blood Urea Nitrogen 7 mg/dL (7-17); Calcium 7.8 mg/dL (8.4-10.2); Carbon Dioxide 20 mmol/L (22-30); Chloride 110 mmol/L (98-107); Glucose 88 mg/dL (74-99); Magnesium 1.8 mg/dL (1.6-2.3); Potassium 3.7 mmol/L (3.5-5.1); Sodium 142 mmol/L (137-145)
[2019-03-13] MEDS: METOPROLOL TARTRATE 50 MG TAB PO SCH ×2 (09:38→17:20)
[2019-03-13] MEDS: ENOXAPARIN 30 MG/0.3 ML SYRINGE SQ SCH (09:38)
[2019-03-13] MEDS: NYSTATIN 100,000 UNIT/GM POWD 15 GM TOPICAL SCH ×2 (09:39→20:21)
[2019-03-13] MEDS: TRIAMCINOLONE ACET 0.5% CREAM 15 GM TUBE TOPICAL SCH ×2 (09:39→20:21)
[2019-03-13] MEDS: NYSTATIN 100,000UNIT/GM CREAM 30 GM TUBE TOPICAL SCH ×2 (09:39→20:21)
[2019-03-13] MEDS: ARTIFICIAL TEARS-HYPROMELLOSE DROPS 15 ML BTL BOTH EYES SCH ×2 (09:39→20:20)
[2019-03-13] MEDS: risperiDONE 0.25 MG TAB PO SCH ×2 (09:39→20:20)
--- NOTE | 2019-03-13 11:11 | P.PN ---
Subjective Progress Note Date: 03/13/19 Principal diagnosis: Diverticulitis The patient is feeling a little better today. Tolerating clear liquids. She did require pain medication and nausea medication. She feels the nausea is due to the antibiotics. She says if she takes oral or IV antibiotics it upsets her stomach. She had several watery bowel movements Objective - Vital Signs Vital signs: Vital Signs Temp 97.7 F 03/13/19 05:58 Pulse 84 03/13/19 05:58 Resp 18 03/13/19 05:58 BP 152/79 03/13/19 05:58 Pulse Ox 92 L 03/13/19 05:58 Intake & Output 03/12/19 03/13/19 03/13/19 18:59 06:59 18:59 Intake Total 600 Output Total 1 Balance 600 -1 Intake: Oral 600 Output: Stool 1 Other: Voiding Method Diaper Diaper Diaper # Voids 2 2 1 # Bowel Movements 2 1 - Constitutional General appearance: Present: cooperative, no acute distress - Respiratory Respiratory: bilateral: CTA - Gastrointestinal General gastrointestinal: Present: normal bowel sounds, soft, tenderness (Left lower quadrant with mild voluntary guarding) - Labs CBC & Chem 7: 03/13/19 07:41 03/13/19 07:41 Labs: Abnormal Lab Results - Last 24 Hours (Table) 03/13/19 03/13/19 Range/Units 07:41 07:41 Neutrophils # 7.8 H (1.3-7.7) k/uL Lymphocytes # 0.9 L (1.0-4.8) k/uL Chloride 110 H (98-107) mmol/L Carbon Dioxide 20 L (22-30) mmol/L Creatinine 0.49 L (0.52-1.04) mg/dL Calcium 7.8 L (8.4-10.2) mg/dL Assessment and Plan (1) Diverticulitis Current Visit: Yes Status: Acute Code(s): K57.92 - DVTRCLI OF INTEST, PART UNSP, W/O PERF OR ABSCESS W/O BLEED SNOMED Code(s): 981526931 (2) Lower gastrointestinal hemorrhage Current Visit: Yes Status: Acute Code(s): K92.2 - GASTROINTESTINAL HEMORRHAGE, UNSPECIFIED SNOMED Code(s): 06807713 Plan: Slowly advance the diet. Currently nonsurgical. Continue medical care.
--- NOTE | 2019-03-13 15:13 | P.PN ---
Subjective Progress Note Date: 03/13/19 Principal diagnosis: Diagnoses: #1 GI bleed probably secondary to diabetic to every colitis and diverticular bleed. Stable hemoglobin. #2 acute diverticulitis of the sigmoid area with the probably pain in the descending colon and left lower quadrant last bowel movement no blood. #3 left kidney nephrolithiasis nonobstructive with a history of removal of staghorn stone in the past by urology associated. We will decrease function. However her estimated EGFR more than 90. #4 underlying history of chronic pain syndrome. #5 history of compression fracture of the spine thoracolumbar with inability to walk. #6 hypocalcemia was questionable vitamin D deficiency we will be checking the laboratories #7 hypertension with hypertensive heart disease and stable coronary artery dis ease. #8 she is having psychiatric disease with the associated depression and bipolar. #9 right above-knee amputation secondary to peripheral vascular disease and infection. #10 left hip fracture with inability to walk on the left lower extremities with atrophy of the muscle and foot drop with the underlying lumbosacral compression fracture. Progress note date of service 03/13/2019. Patient seen and evaluated Vital sign temperature 97.7 F oral, pulse rate 84/m regular sinus, respiratory rate 18, blood pressure 152/79. Pulse ox 92% on 2 L nasal cannula. Patient seen today with no specific complaint she had bowel movement twice yesterday and she had the loose bowel, she has acute diverticulitis, she had diarrhea, she is on antibiotic, will check for C. difficile as well. Her diet has been advanced to full liquid by Dr. Campbell the surgeon she also followed by Dr. Boogie. On the exam: HEENT negative, neck was supple, chest is clear to auscultation and percussion Heart regular sinus rhythm, Abdomen soft positive bowel sounds with tenderness on the left flank due to nephrolithiasis, tenderness on the left lower quadrant due to acute diverticulitis with improvement. Right above-knee amputation left inability to ambulate with hip surgery on the left side as well as she had compression fracture of the spine.. I did discuss with the patient in detail we will be oriented first on the di verticulitis until clear. Subsequently we will refer her to Dr. Cai the urology for evaluation of recurrent stone in the left kidney with the previous history of a staghorn stone has been removed. Renal function is stable with estimated glomerular filtration rate more than 90, blood sugar 88 and she is currently on full liquid diet. Electrolytes within normal limit however carbon dioxide is 20 we'll be checking again tomorrow and to see if that corrected or need for further evaluation. WBC 9.3 with hemoglobin stable at 13.5, no blood in the stools that she had twice. Hypocalcemia we will be obtaining ionized calcium, magnesium is normal. Liver enzyme is normal. Vitamin D laboratory sent to the lab result is pending. Patient stable general condition with stable psychiatric disorder and able to sleep. Assessment: Plan Acute diverticulitis of the sigmoid currently improving with the advancing the diet. Nephrolithiasis of the left kidney with a history of staghorn stone has been removed from the left kidney in the past by Dr. Cai the urologist. Underlying right above-knee amputation secondary severe peripheral vascular disease and infection. In unable to walk with left hip surgery and atrophy of the muscle of the left lower extremities and foot drop associated with lumbar compression fracture old L1 L2 L3 and history of ORIF of the left femur history of cholecystectomy with the enlargement, bile duct due to reservoir effect her computed tomography scan done on 03/10/2019 Chronic pain syndrome, currently stable on fentanyl patch every 72 hour 50 g. Patient on antibiotic ceftriaxone 2 g every daily as well as Flagyl 500 mg every 6 hours. Liquid stool sent for C. difficile for precaution. Continue to follow monitoring in the hospital. Objective - Vital Signs Vital signs: Vital Signs Temp 97.7 F 03/13/19 05:58 Pulse 84 03/13/19 05:58 Resp 18 03/13/19 05:58 BP 152/79 03/13/19 05:58 Pulse Ox 92 L 03/13/19 05:58 Intake & Output 03/12/19 03/13/19 03/13/19 18:59 06:59 18:59 Intake Total 600 Output Total 1 Balance 600 -1 Intake: Oral 600 Output: Stool 1 Other: Voiding Method Diaper Diaper Diaper # Voids 2 2 1 # Bowel Movements 2 1 - Labs CBC & Chem 7: 03/13/19 07:41 03/13/19 07:41 Labs: Abnormal Lab Results - Last 24 Hours (Table) 03/13/19 03/13/19 Range/Units 07:41 07:41 Neutrophils # 7.8 H (1.3-7.7) k/uL Lymphocytes # 0.9 L (1.0-4.8) k/uL Chloride 110 H (98-107) mmol/L Carbon Dioxide 20 L (22-30) mmol/L Creatinine 0.49 L (0.52-1.04) mg/dL Calcium 7.8 L (8.4-10.2) mg/dL
[2019-03-13] MEDS: MELATONIN 3 MG TABLET PO SCH (20:21)
[2019-03-14] MEDS: metroNIDAZOLE-NS PMX 500 MG in SALINE 1 100ML.BAG IVPB SCH ×3 (00:59→12:19)
--- NOTE | 2019-03-14 02:03 | PN ---
PROGRESS NOTE DATE OF SERVICE: 03/13/2019. REASON FOR FOLLOW UP: Diverticulitis. INTERVAL HISTORY: The patient is currently afebrile. The patient has been breathing comfortably. The patient's abdominal pain has improved. Has been tolerating a soft diet. No nausea, no vomiting. No diarrhea. No hematochezia. PHYSICAL EXAMINATION: Blood pressure is 149/81 with a pulse of 78, temperature 97.8. She is 95% on 2 L nasal cannula. General description is an elderly female lying in bed in no distress. Respiratory system: Unlabored breathing. Clear to auscultation anteriorly. Heart S1, S2. Regular rate and rhythm. Abdomen soft. No tenderness. Extremities: No edema of the feet. LABS: Hemoglobin is 13.5, white count 9.3, BUN of 7, creatinine 0.49. DIAGNOSTIC IMPRESSION AND PLAN: Patient with acute sigmoid diverticulitis. No evidence of any complication or perforation. The patient's symptoms slowly clinically improving on Rocephin, Flagyl which will be continued while inpatient, finish the therapy with Ceftin and Flagyl. Continue supportive care. MMODL / IJN: [id number] /
[2019-03-14] MEDS: SODIUM CHLORIDE 0.9% 1,000 ML IV SCH ×2 (04:18→15:49)
[2019-03-14] MEDS: MORPHINE SULFATE 4 MG/ML SYRINGE IV PRN ×2 (04:35→09:15)
[2019-03-14] MEDS: TRIAMCINOLONE ACET 0.5% CREAM 15 GM TUBE TOPICAL SCH ×2 (09:02→21:02)
[2019-03-14] MEDS: METOPROLOL TARTRATE 50 MG TAB PO SCH ×2 (09:02→15:49)
[2019-03-14] MEDS: risperiDONE 0.25 MG TAB PO SCH ×2 (09:02→21:03)
[2019-03-14] MEDS: NYSTATIN 100,000UNIT/GM CREAM 30 GM TUBE TOPICAL SCH ×2 (09:02→21:02)
[2019-03-14] MEDS: ARTIFICIAL TEARS-HYPROMELLOSE DROPS 15 ML BTL BOTH EYES SCH ×2 (09:02→21:02)
[2019-03-14] MEDS: NYSTATIN 100,000 UNIT/GM POWD 15 GM TOPICAL SCH ×2 (09:02→21:02)
[2019-03-14] MEDS: ENOXAPARIN 30 MG/0.3 ML SYRINGE SQ SCH (09:02)
--- NOTE | 2019-03-14 13:14 | P.PN ---
Subjective Progress Note Date: 03/14/19 Principal diagnosis: Diagnoses: #1 GI bleed probably secondary to diabetic to every colitis and diverticular bleed. Stable hemoglobin. #2 acute diverticulitis of the sigmoid area with the probably pain in the descending colon and left lower quadrant last bowel movement no blood. #3 left kidney nephrolithiasis nonobstructive with a history of removal of staghorn stone in the past by urology associated. We will decrease function. However her estimated EGFR more than 90. #4 underlying history of chronic pain syndrome. #5 history of compression fracture of the spine thoracolumbar with inability to walk. #6 hypocalcemia was questionable vitamin D deficiency we will be checking the laboratories #7 hypertension with hypertensive heart disease and stable coronary artery dis ease. #8 she is having psychiatric disease with the associated depression and bipolar. #9 right above-knee amputation secondary to peripheral vascular disease and infection. #10 left hip fracture with inability to walk on the left lower extremities with atrophy of the muscle and foot drop with the underlying lumbosacral compression fracture. This is a progress note dictation on date 03/14/2019 Patient seen and evaluated discussed with her the plan of care. She did not have symptoms except she had requested dietary changes and morphine IV to be oral tablet of pain medication with the underlying chronic pain syndrome as well as she has nephrolithiasis of the left kidney I did discuss with her as well the next step after she heals from the acute diverticulitis in the future after 1 month or so that we will be referring her to Dr. Villeda for evaluation of the recurrent of the nephrolithiasis of the left kidney with decreased function as well as she had previous staghorn stone in the left kidney was removed by Dr. Cai. Currently his vital signs stable temperature 97.7 oral and pulse is 68/m nonlabored, respiratory rate 20 nonlabored as well her blood pressure is 158/88 however she complained of pain and prior to that was 140/77 and pulse ox was 96 and now is 93 at the time of examination however she is using 2 L of nasal cannula. Lab her last laboratories on was on 03/13/2019 with a white count time 0.3 and hemoglobin 13.5 stable with no evidence of blood in the stools and probably that could be associated with the acute diverticular bleed with diverticulitis. Line she has normal renal function and despite that she had left nephrolithiasis. Her vitamin D was indicator of 29.6 which is close to normal, her C. difficile is negative On the examination patient is conscious alert oriented able to communicate freely and she requesting the [place] for the pain. Her HEENT the head was normocephalic and atraumatic she had stitches dental caries and needs future attention in the [facility] for the indicate to us. But she is able to swallow and eat normally and currently advanced to regular diet and will watch her today and if she has no symptoms then we will be transferring her back tomorrow [place] tomorrow. The neck was supple and the chest was clear to auscultation and percussion no wheezes no rhonchi's the heart was regular sinus rhythm and the abdomen was soft positive bowel sounds accepted that there is a left lower quadrant and the flank area which is minimal tenderness much improvement from the time that she arrived to the hospital. Her loss lactic acid on February and was 1.6 and she came with elevated lactic acid at that time. The extremities right below knee amputation for referral vascular disease and also infection probably was osteomyelitis in the past. The she had also history of the lumbar fracture with inability to walk as well as hip surgery left hip surgery and she has atrophic muscle on the left lower extremities could not carry her body and could not stand up and she has also foot drop and deviation of the foot and she is bed bound. Assessment: #1 acute diverticular disease was bleeding with diverticular bleed currently g radual improvement. #2 nephrolithiasis of the left kidney with renal dysfunction. Underlying hypocalcemia with borderline vitamin D 25-hydroxy however we don't have yet the 1,25 hydroxy level No evidence of C. difficile. And Plan : We'll continue the current medication and we will ask infectious disease for follow-up with the medication probably she will be on Flagyl by mouth as well as oral medication antibiotic Ceftin or other antibiotic according to Dr. Penn evaluation and treatment. We will be planning for [facility] tomorrow with the consultation of the discharge nurse. He had a dictation by Dr. Peter Objective - Vital Signs Vital signs: Vital Signs Temp 97.7 F 03/14/19 05:00 Pulse 68 03/14/19 05:00 Resp 20 03/14/19 05:00 BP 156/88 03/14/19 05:00 Pulse Ox 93 L 03/14/19 05:00 Intake & Output 03/13/19 03/14/19 03/14/19 18:59 06:59 18:59 Intake Total 300 300 Balance 300 300 Intake: Oral 300 300 Other: Voiding Method Diaper Diaper Diaper Incontinent Incontinent # Voids 1 3 - Labs CBC & Chem 7: 03/13/19 07:41 03/13/19 07:41 Labs: Abnormal Lab Results - Last 24 Hours (Table) 03/13/19 Range/Units 07:41 Vitamin D 25-Hydroxy 29.6 L (30.0-100.0) ng/mL
[2019-03-14] MEDS: HYDROcodone/APAP 5-325MG 1 EACH TAB PO PRN ×2 (13:56→21:03)
[2019-03-14] MEDS: ONDANSETRON 4 MG/2 ML VIAL IVP PRN ×2 (13:56→21:05)
--- NOTE | 2019-03-14 14:10 | P.PN ---
Subjective Progress Note Date: 03/14/19 Principal diagnosis: Diverticulitis No new complaints. Tolerating a diet Objective - Vital Signs Vital signs: Vital Signs Temp 97.7 F 03/14/19 05:00 Pulse 68 03/14/19 05:00 Resp 20 03/14/19 05:00 BP 156/88 03/14/19 05:00 Pulse Ox 93 L 03/14/19 05:00 Intake & Output 03/13/19 03/14/19 03/14/19 18:59 06:59 18:59 Intake Total 300 300 Balance 300 300 Intake: Oral 300 300 Other: Voiding Method Diaper Diaper Diaper Incontinent Incontinent # Voids 1 3 - Constitutional General appearance: Present: cooperative, no acute distress - Gastrointestinal General gastrointestinal: Present: normal bowel sounds, soft, tenderness (LLQ, slowly improving) - Labs CBC & Chem 7: 03/13/19 07:41 03/13/19 07:41 Labs: Abnormal Lab Results - Last 24 Hours (Table) 03/13/19 Range/Units 07:41 Vitamin D 25-Hydroxy 29.6 L (30.0-100.0) ng/mL Assessment and Plan (1) Diverticulitis Current Visit: Yes Status: Acute Code(s): K57.92 - DVTRCLI OF INTEST, PART UNSP, W/O PERF OR ABSCESS W/O BLEED SNOMED Code(s): 539670828 (2) Lower gastrointestinal hemorrhage Current Visit: Yes Status: Acute Code(s): K92.2 - GASTROINTESTINAL HEMORRHAGE, UNSPECIFIED SNOMED Code(s): 50944902 Plan: Doing well from a surgical perspective. Surgically stable for discharge. Will followup as needed
[2019-03-14] MEDS: metroNIDAZOLE 500 MG TAB PO SCH (17:55)
[2019-03-14] MEDS: MELATONIN 3 MG TABLET PO SCH (20:59)
--- NOTE | 2019-03-14 22:53 | PN ---
PROGRESS NOTE DATE OF SERVICE: 03/14/2019 REASON FOR FOLLOWUP: Acute sigmoid diverticulitis. INTERVAL HISTORY: The patient is currently afebrile. The patient has been breathing comfortably. Denies having any chest pain, shortness of breath or cough. Abdominal pain has slightly improved. No nausea, no vomiting, no diarrhea or hematochezia. PHYSICAL EXAMINATION: Blood pressure is 149/85 with a pulse of 73, temperature 97.7. She is 93% on 2 L nasal cannula. General description is an elderly female lying in bed in no distress. RESPIRATORY SYSTEM: Unlabored breathing. Clear to auscultation anteriorly. HEART: S1, S2. Regular rate and rhythm. ABDOMEN: Soft. No tenderness. EXTREMITIES: No edema of the feet. LABS: Hemoglobin is 13.5, white count 9.3, BUN of 7, creatinine 0.49. DIAGNOSTIC IMPRESSION AND PLAN: Patient with acute sigmoid diverticulitis that seems to have shown some clinical improvement. Currently on Rocephin and Flagyl with a plan to finish therapy with oral Ceftin and Flagyl for another 7-10 days with close outpatient followup. MMODL / IJN: [id number] /
[2019-03-15 00:09] VITALS: RESP 20
[2019-03-15] MEDS: metroNIDAZOLE 500 MG TAB PO SCH ×3 (00:40→10:36)
[2019-03-15] MEDS: ONDANSETRON 4 MG/2 ML VIAL IVP PRN (05:41)
[2019-03-15] MEDS: HYDROcodone/APAP 5-325MG 1 EACH TAB PO PRN ×2 (05:42→10:44)
[2019-03-15] MEDS: SODIUM CHLORIDE 0.9% 1,000 ML IV SCH (05:44)
[2019-03-15 06:02] VITALS: BP 152/80; PULSE 71; TEMP 97.3
[2019-03-15] MEDS ORDERED: ENOXAPARIN 40 MG/0.4 ML SYRINGE SQ SCH (09:00)
[2019-03-15] MEDS: METOPROLOL TARTRATE 50 MG TAB PO SCH (09:11)
[2019-03-15] MEDS: risperiDONE 0.25 MG TAB PO SCH (09:11)
[2019-03-15] MEDS: TRIAMCINOLONE ACET 0.5% CREAM 15 GM TUBE TOPICAL SCH (09:13)
[2019-03-15] MEDS: NYSTATIN 100,000 UNIT/GM POWD 15 GM TOPICAL SCH (09:13)
[2019-03-15] MEDS: ARTIFICIAL TEARS-HYPROMELLOSE DROPS 15 ML BTL BOTH EYES SCH (09:13)
[2019-03-15] MEDS: NYSTATIN 100,000UNIT/GM CREAM 30 GM TUBE TOPICAL SCH (09:13)
--- NOTE | 2019-03-15 11:39 | DS ---
DISCHARGE SUMMARY DATE OF ADMISSION: 03/12/2019 DATE OF DISCHARGE: 03/15/2019 ATTENDING PHYSICIAN: Dr. Brittani MD. DISPOSITION: Transfer back to the [facility] as she is living there. FINAL DIAGNOSES: 1. Acute sigmoid diverticulitis. 2. Gastrointestinal bleeding resolved secondary to diverticular bleed with the stability of the hemoglobin. 3. Left kidney nephrolithiasis with history of staghorn stone removed by Urology, Dr. Bahena with the future plan for referral to Dr. Bahena for evaluation. 4. She has underlying chronic kidney disease of the left kidney with nephrolithiasis. 5. She has also another diagnosis of compression fracture of the spine of the lumbar with difficulty and inability of walking. Status post right above-knee amputation by the history due to infection and peripheral vascular disease. 6. Chronic pain syndrome, require pain medication chronically used Duragesic patch 50 mcg q.72 hour as well as D[place]an[place]. Currently, she is on 5/325 mg every 6 hours, was 10/325 and we able to decrease this dose. 7. Hypertension with hypertensive heart disease. 8. History of psychiatric disorder with depression and bipolar. 9. Left lower extremities, she had left hip open reduction and internal fixation. 10.Atrophic muscles of the left lower extremities. 11.Left foot drop. 12.Patient is bed ridden in the group home. 13.History of hypocalcemia. 14.Lactic acid elevation on admission, resolved. PATIENT PRESENTATION: Patient presented to the emergency room as transfer from [facility] due to the fact the aid looked at her diaper, pull-ups with the stool was bloody stool and they sent her because of GI bleeding and the pain in the left side of the abdomen. Subsequently, patient admitted after she had CT scan of the abdomen and found to be acute diverticular disease. Patient has pain at the time and the pain was in two locations, one in the lower left lower quadrant and the other one in the left kidney. HOSPITAL COURSE: Patient admitted to the hospital, put on n.p.o. and consultation with Dr. Stuart, the surgeon, as well as consultation with Infectious Disease, Dr. Boogie. The patient gradually improved with adding the antibiotic and she was on Flagyl as well as she was on Rocephin because of allergy of other antibiotic. Patient did well and gradually progressed and the advance of the diet by Dr. Stuart and subsequently she is on a regular diet. Her pain in the left lower quadrant due to the acute diverticulitis improved and she had a bowel movement without blood and her vital sign is stable and hemoglobin was stable and subsequently is planned to discharge to [facility] where she lives at this time, back again with the continuation of her previous medication. The patient was n.p.o. when she had acute problem and gradually we started her medication back as well. She did not have any acute psychiatric problem at the time in presence of the hospital and she continued on the Duragesic patch. However, the patient was initially on morphine IV and subsequently changed it to oral and we decreased the doses of the [place] from 10, now it is 5, but q.6 hours for the frequency increased. As patient is stable general condition, patient plan for discharge to the group home and on the discharge exam she has vital sign indicating temperature 97.3 axillary and her blood pressure 152/80, and pulse ox 94 on room air. LABORATORIES: The last lab was done on 03/13/2019, and she had normal white count 9.3 with hemoglobin 13.5 and hematocrit 42.5, and her chemistry indicating that her sodium 142, potassium 3.7, and her chloride 110, and her BUN was 7, creatinine 0.49. The estimated glomerular filtration rate for non- more than 90, which is very good in spite that she had left kidney nephrolithiasis and decreased function on the left kidney. Calcium was low and we are checking the calcium with borderline, the vitamin D25 hydroxy was 29.6. We also checked for C difficile was negative and her liver enzyme was normal. Her currently on the 22, her lactic acid was 1.6. However, on admission was elevated and subsequently resolved. With this finding, patient will be discharged home with the current medication and resume her medication at the group home. The medication reviewed as well and discussed with the discharge nurse. The antibiotic will be continued by Dr. Boogie and that will be the Flagyl 500 mg every 6 hours orally for 1 week duration and he will be starting her on Ceftin 500 mg twice a day for 1 week. MMODL / IJN: [id number] /
--- NOTE | 2019-03-15 16:54 | PN ---
PROGRESS NOTE DATE OF SERVICE: 03/15/2019. REASON FOR FOLLOW UP: Sigmoid diverticulitis. INTERVAL HISTORY: The patient is seen on rounds early this afternoon. The patient has been afebrile. Patient is breathing comfortably. The patient left lower abdominal pain has improved. No further hematochezia. No nausea, vomiting. PHYSICAL EXAMINATION: Blood pressure is 152/80 with a pulse of 71. Temperature 97.3. She is 94% on room air. General description is an elderly female, lying in bed in no distress. Respiratory system: Unlabored breathing. Clear to auscultation anteriorly. Heart: S1, S2. Regular rate and rhythm. ABDOMEN: Soft, no tenderness. LABS: No new labs have been obtained today. DIAGNOSTIC IMPRESSION AND PLAN: Patient with sigmoid diverticulitis. Overall improvement on Rocephin and Flagyl. Finish therapy with oral Ceftin, Flagyl for about a week. Prescription provided to the patient. Continue supportive care. MMODL / IJN: [id number] /
== END 2019-03-15 12:22 | DRG 378 ==
LOC: EC 01:08 → 3NMEDONC 05:41 → 4SSUR 08:32 → 4MS4W 03-12 02:01 → OBSVTOIN 03-12 14:30
PROVIDERS: ADMIT Internal Medicine; ATTEND Internal Medicine
DX: K57.33 Diverticulitis of large intestine without perforation or abscess with bleeding (principal); I13.0 Hypertensive heart and chronic kidney disease with heart failure and stage 1 through stage 4 chronic kidney disease, or unspecified chronic kidney disease; M48.57XA Collapsed vertebra, not elsewhere classified, lumbosacral region, initial encounter for fracture; E87.2 Acidosis; E11.22 Type 2 diabetes mellitus with diabetic chronic kidney disease; E11.51 Type 2 diabetes mellitus with diabetic peripheral angiopathy without gangrene; F41.9 Anxiety disorder, unspecified; F31.9 Bipolar disorder, unspecified; G40.909 Epilepsy, unspecified, not intractable, without status epilepticus; G89.4 Chronic pain syndrome; H91.90 Unspecified hearing loss, unspecified ear; I25.10 Atherosclerotic heart disease of native coronary artery without angina pectoris; I50.9 Heart failure, unspecified; J44.9 Chronic obstructive pulmonary disease, unspecified; K02.9 Dental caries, unspecified; K21.9 Gastro-esophageal reflux disease without esophagitis; K52.9 Noninfective gastroenteritis and colitis, unspecified; N18.9 Chronic kidney disease, unspecified; N20.0 Calculus of kidney; Z74.01 Bed confinement status; Z79.02 Long term (current) use of antithrombotics/antiplatelets; Z79.82 Long term (current) use of aspirin; Z79.899 Other long term (current) drug therapy; Z82.49 Family history of ischemic heart disease and other diseases of the circulatory system; Z82.5 Family history of asthma and other chronic lower respiratory diseases; Z86.14 Personal history of Methicillin resistant Staphylococcus aureus infection; Z86.73 Personal history of transient ischemic attack (TIA), and cerebral infarction without residual deficits; Z87.11 Personal history of peptic ulcer disease; Z87.442 Personal history of urinary calculi; Z87.891 Personal history of nicotine dependence; Z88.1 Allergy status to other antibiotic agents; Z88.0 Allergy status to penicillin; Z88.8 Allergy status to other drugs, medicaments and biological substances; Z89.611 Acquired absence of right leg above knee; Z90.49 Acquired absence of other specified parts of digestive tract; Z87.01 Personal history of pneumonia (recurrent); Z87.440 Personal history of urinary (tract) infections; R15.9 Full incontinence of feces; R32 Unspecified urinary incontinence; H93.13 Tinnitus, bilateral; M54.5 Low back pain; Z79.891 Long term (current) use of opiate analgesic; M19.90 Unspecified osteoarthritis, unspecified site; M62.50 Muscle wasting and atrophy, not elsewhere classified, unspecified site
CPT/HCPCS: 36415; 71046; 74177; 80048; 80053; 82306; 82652; 83605; 83735; 84484; 85025; 85730; 87324; 93005; 96365; 96366; 96375; 99285

== ENCOUNTER 2019-05-04 03:53 | Inpatient (IN) | payer MEDICARE, OTHER ==
[2019-05-04] MEDS ORDERED: cefTRIAXone IN SWFI 1,000 MG/10 ML SYRINGE IVP ONE (04:55)
[2019-05-04] MEDS ORDERED: diphenhydrAMINE 50 MG/ML 1 ML VIAL ONE (04:55)
[2019-05-04] MEDS ORDERED: FAMOTIDINE 20 MG/2 ML VIAL ONE (04:55)
[2019-05-04] MEDS ORDERED: SODIUM CHLORIDE 0.9% 1,000 ML BAG ONE ×2 (04:55)
[2019-05-04] MEDS ORDERED: MORPHINE SULFATE 4 MG/ML SYRINGE ONE (04:55)
[2019-05-04] MEDS ORDERED: ONDANSETRON 4 MG/2 ML VIAL ONE (04:55)
--- NOTE | 2019-05-04 10:18 | CT ---
EXAM: CT Abdomen and Pelvis With Intravenous Contrast CLINICAL HISTORY: abd pain x 4 days TECHNIQUE: Axial computed tomography images of the abdomen and pelvis with intravenous contrast. CTDI is 13.8 mGy and DLP is 1366 mGy-cm. This CT exam was performed using one or more of the following dose reduction techniques: automated exposure control, adjustment of the mA and/or kV according to patient size, and/or use of iterative reconstruction technique. COMPARISON: 03/10/19 FINDINGS: Lung bases: No pleural effusions or airspace consolidation. Moderate emphysematous changes. ABDOMEN: Liver: Unremarkable. No mass. Gallbladder and bile ducts: Gallbladder surgically absent. Moderate dilatation of the common bile duct is unchanged and likely within postsurgical limits.. Pancreas: Unremarkable. No mass. No ductal dilation. Spleen: Unremarkable. No splenomegaly. Adrenals: Unremarkable. No mass. Kidneys and ureters: No evidence of acute obstructive uropathy. Nonobstructing calculi within the left renal collecting system. There is marked left renal cortical scarring and thinning, unchanged. Moderate cortical scarring also seen in the right kidney. Stomach and bowel: No evidence of bowel obstruction. No definite bowel wall thickening. There is colonic diverticulosis, without evidence of an acute diverticulitis. PELVIS: Appendix: No findings to suggest acute appendicitis. Bladder: Unremarkable. No mass. Reproductive: Unremarkable as visualized. ABDOMEN and PELVIS: Intraperitoneal space: Unremarkable. No free air. No significant fluid collection. Bones/joints: No acute fracture. No dislocation. Soft tissues: Unremarkable. Vasculature: No abdominal aortic aneurysmal dilatation or dissection. Endovascular stent seen within the right external iliac artery and right common femoral artery. Lymph nodes: Unremarkable. No enlarged lymph nodes. IMPRESSION: No acute inflammatory or obstructive process is identified within the abdomen or pelvis.
[2019-05-04 11:13] LABS: HCT 48.4 % (34.0-46.0); HGB 15.2 gm/dL (11.4-16.0); MCH 25.1 pg (25.0-35.0); MCHC 31.3 g/dL (31.0-37.0); Platelet Count 231 k/uL (150-450); RBC 6.05 m/uL (3.80-5.40); RDW 14.7 % (11.5-15.5); WBC 12.5 k/uL (3.8-10.6)
[2019-05-04 11:14] LABS: Basophils # (A) 0.1 k/uL (0-0.2); Basophils % (A) 1 %; Eosinophils # (A) 0.2 k/uL (0-0.7); Eosinophils % (A) 2 %; Lymphocytes # (A) 1.3 k/uL (1.0-4.8); Lymphocytes % (A) 10 %; Mean Platelet Volume 6.3; Monocytes # (A) 0.5 k/uL (0-1.0); Monocytes % (A) 4 %; Neutrophils # (A) 10.3 k/uL (1.3-7.7); Neutrophils % (A) 82 %
[2019-05-04 11:15] LABS: Appearance,Urine Cloudy (Clear); Bacteria,Urine Many /hpf; Bilirubin,Urine Negative (Negative); Blood,Urine Small (Negative); Color,Urine Yellow; Glucose,Urine (UA) Negative (Negative); Hyaline Casts,Urine 14 /lpf (0-2); Ketones,Urine Negative (Negative); Leukocyte Esterase,Urine Large (Negative); Mucus,Urine Rare /hpf; Nitrite,Urine Negative (Negative); PH, Urine 6.5 (5.0-8.0); Protein,Urine Trace (Negative); RBC,Urine 14 /hpf (0-5); Specific Gravity,Urine 1.019 (1.001-1.035); Squamous Epithelial Cell,Urine 10 /hpf (0-4); Urobilinogen,Urine <2.0 mg/dL (<2.0); WBC,Urine >182 /hpf (0-5)
[2019-05-04 11:54] LABS: ALT 34 U/L (9-52); AST 25 U/L (14-36); African American GFR (CKD) >90 (>60 ml/min/1.73 sqM); Albumin 3.8 g/dL (3.5-5.0); Alkaline Phosphatase 153 U/L (38-126); Amylase 57 U/L (30-110); Anion Gap 12 mmol/L; Blood Urea Nitrogen 14 mg/dL (7-17); Calcium 8.7 mg/dL (8.4-10.2); Carbon Dioxide 26 mmol/L (22-30); Chloride 103 mmol/L (98-107); Glucose 132 mg/dL (74-99); Magnesium 1.9 mg/dL (1.6-2.3); Non-African American GFR(CKD) >90 (>60 ml/min/1.73 sqM); Potassium 3.3 mmol/L (3.5-5.1); Sodium 141 mmol/L (137-145); Total Bilirubin 0.2 mg/dL (0.2-1.3); Total Protein 7.3 g/dL (6.3-8.2)
[2019-05-04] MEDS ORDERED: ACETAMINOPHEN TAB 325 MG TAB PO PRN (12:59)
[2019-05-04] MEDS: MORPHINE SULFATE 2 MG/ML SYRINGE IVP PRN ×2 (13:05→19:55)
[2019-05-04 13:20] VITALS: BMI 20.2
--- NOTE | 2019-05-04 13:25 | P.HPIM ---
History of Present Illness H&P Date: 05/04/19 (Abdominal pain) Chief Complaint: Patient had complained of abdominal pain found in the ER to have also UTI. History and physical: Chief complaint patient had complaining of abdominal pain since Thursday night however she did not have loose bowel and also she did not have blood in the stools or diarrhea. Her abdominal pain was persistent in spite of the treatment and she has also pain medication, subsequently transferred from [facility] to [facility] this morning. History of present illness: Patient with multiple complicated medical problems and she had also chronic pain she has several surgery for stones of the kidneys and also under went a cholecystectomy, history of right above-knee amputation and left hip fracture with inability to ambulate with incontinence of the urine and stools. Patient had the abdominal pain with the continuation since Thursday night and we put her on full liquid diet and did not help and as well as she complained this is progressive and severe, usp nurse called me at 4 AM in the morning and requested the patient to be transferred to Hospital and subsequently patient transferred to the hospital with the failure of symptomatic treatment. In the hospital seen in the ER and they did a CAT scan of the abdomen and pelvis and there is no findings to indicate diverticulitis she has thinning of the cortex of the kidney bilateral CAT scan did not show stones. However patient has history of stones in the past The did the laboratory indicating leukocytosis, as well as the did urine analysis and was infected at that time she received 1 dose of Rocephin. Patient subsequently admitted to the hospital for for further treatment. Her list of medication from the [facility]p #1 aspirin 81 mg daily #2 Ativan 0.5 mg twice a day when necessary for anxiety. She is on Cozaar 25 mg half a tablet for hypertension docusate sodium 100 mg once a day centennial patch 72 hour 25 g patch every 72 hours next for a sulfate 325 History of isosorbide mononitrate ER extended release next the she is on Lasix 40 mg twice a day Maalox and lubricant eyedrops for dry eyes she had down Maalox regular strength suspension and she has metoprolol 50 mg twice a day magnesium milk of magnesia suspension for constipation multivitamin and Nexium 40 mg before meals once a day before meals breakfast the other medication has been adjusted she's taken Tegretol X are every 12 hour 200 mg twice a day for underlying bipolar disorder trazodone 25 mg 1 time and try medicine alone respiratory illness on the skin of the buttocks and she had Zofran 4 mg and that's 1 tablet by mouth every 12 hour and she is also on Zoloft and that's for her bipolar. He had current medication had been adjusted Her computed tomography scan of the abdomen the the lower end of the lung basis moderate emphysematous changes Gallbladder his absent and the pancreas negative screen negative adrenal negative kidney and ureter there is no evidence of acute obstructive uropathy nonferrous obstructive calculi within the left renal collecting system is marketed renal left renal cortical scarring and thinning moderate cortical scarring right kidney.Small bowel and stomach was negative and the there is a chronic diverticulosis without diverticulitis. Her pelvis was negative and it is into vascular stent in the right external external iliac artery and right common femoral artery with the history of peripheral vascular disease and status post above-knee amputation due to vascular improvements. Past medical history she had history of left hip fracture. Right above-knee amputation for underlying ischemia and peripheral vascular disease with placement of a stent. History of bipolar disorder and chronic pain syndrome, severe entry and no ambulation and incontinent of bowel and stool. Review of system She lives in [facility] and rehab she is on ambulatory and she is full care. She had a severe dental indicating and future need for dental care and she had some soft tissue swelling of the common in the right upper jaw. Neck supple no JVD no thyromegaly no lymphadenopathy. Head normocephalic and atraumatic pupil was equal reactive she had seborrheic dermatitis of the skin. Chest is clear to auscultation and percussion and no wheezes no rhonchi's no coughing no fever no chills. Heart: Regular sinus rhythm no dysrhythmia. Abdomen: Is negative. Get tenderness in the 4 quadrants no specific pain in one quadrant or lasts and the bowel movement is intact and she had a bowel movement and no bloody no mucus and she is incontinent. The extremities: Right above-knee amputation was peripheral vascular disease, and the left lower extremities able to have mild movement but she could not carry her weight on it with a history of left hip fracture. Psychiatry she has chronic pain syndrome as well as she has bipolar disorder and depression. The And assessment: #1. Abdominal pain with unclear etiology. #2 UTI. Could be associated with cystitis. #3 chronic kidney disease with the scarring of both kidney and decrease function with previous history of multiple stones however currently she has nonobstructing calculi in the left renal. Plan obtaining urine analysis culture and sensitivity, start Rocephin 1 g every 12 hours, hydration, and pain medication as adjustment. And the resuming her usp medication after the adjustment. Past Medical History Past Medical History: Coronary Artery Disease (CAD), Heart Failure, COPD, Diabetes Mellitus, GERD/Reflux, GI Bleed, Hearing Disorder / Deafness, Hypertension, Osteoarthritis (OA), Pneumonia, Renal Disease, Seizure Disorder, S kin Disorder, Vascular Disorder Additional Past Medical History / Comment(s): NIDDM type II-pt states she was on oral meds for about 6 months once, CVA-pt states no residual, L foot drop, last seizure 20 yrs ago, bronchitis, gastric ulcer, bloody stool in past, kidney stones with surgeries, PVD-R AKA, gastric ulcer, diverticular disease, hemorrhoids, UTIs, migraines, chronic low back pain and R stump pain, tinnitis bilaterally, CHINIK R ear, anemia, dermatitis, incontinence of urine and stool, past L elbow fracture. History of Any Multi-Drug Resistant Organisms: MRSA Date of last positivie culture/infection: 2012 MDRO Source:: right leg Past Surgical History: Appendectomy, Cholecystectomy, Orthopedic Surgery, Tonsillectomy Additional Past Surgical History / Comment(s): EGD, colonoscopies, bilateral percutaneous nephroscopies, arch/aortagrams, R foot 5th toe amp then R AKA, L hip ORIF with plate/screws, laparatomy for rupture ovarian cyst, cox-since removed, PICC-since removed. Past Anesthesia/Blood Transfusion Reactions: No Reported Reaction Additional Past Anesthesia/Blood Transfusion Reaction / Comment(s): care provider doesn't know anesthesia hx. Smoking Status: Former smoker - Past Family History Father Family Medical History: COPD, Myocardial Infarction (VT) Additional Family Medical History / Comment(s): Father was a smoker with emphysema. He from his 3rd VT at the age of 67yrs. Mother Family Medical History: No Reported History Additional Family Medical History / Comment(s): Mother was healthy and lived to be 95yrs old. Medications and Allergies Home Medications Medication Instructions Recorded Confirmed Type Clopidogrel [Plavix] 75 mg PO DAILY 03/21/15 05/04/19 History Docusate Sodium [Dulcolax Stool 100 mg PO DAILY 03/21/15 05/04/19 History Softener] Furosemide [Lasix] 40 mg PO BID 03/21/15 05/04/19 History Lactobacillus Acidophilus 1 tab PO TID@0800,1400,2000 03/21/15 05/04/19 History [Acidophilus] Multivit with Calcium,Iron,Min 1 tab PO DAILY 03/21/15 05/04/19 History [Women's Daily Multivitamin] Potassium Chloride [Klor-Con 20] 20 meq PO DAILY 03/21/15 05/04/19 History Sertraline [Zoloft] 100 mg PO DAILY 03/19/17 05/04/19 History Ferrous Sulfate [Iron (65 MG 325 mg PO DAILY@1700 02/12/18 05/04/19 History Elemental)] carBAMazepine [TEGretol XR] 200 mg PO BID 02/17/18 05/04/19 History Acetaminophen [Tylenol 8 Hour] 650 mg PO Q4H PRN 03/10/19 05/04/19 History Cholecalciferol [Vitamin D3] 1,200 unit PO DAILY@1700 03/10/19 05/04/19 History LORazepam [Ativan] 0.5 mg PO BID PRN 03/10/19 05/04/19 History Lactose-Reduced Food [Ensure Plus] 1 can PO BID 03/10/19 05/04/19 History Lubricant Drops Solution 1.4% 1 drop BOTH EYES BID 03/10/19 05/04/19 History Magnesium Hydroxide [Milk of 2,400 mg PO DAILY PRN 03/10/19 05/04/19 History Magnesia] Metoprolol Tartrate [Lopressor] 50 mg PO BID@0800,1700 03/10/19 05/04/19 History Nitroglycerin Sl Tabs [Nitrostat] 0.4 mg SUBLINGUAL Q5M PRN 03/10/19 05/04/19 History Nystatin 100,000 Unit/gm Powd 1 applic TOPICAL BID 03/10/19 05/04/19 History [Mycostatin Powder] Triamcinolone 0.5% Cream [Kenalog 1 applic TOPICAL BID 03/10/19 05/04/19 History 0.5% Cream] risperiDONE [RisperDAL] 0.25 mg PO BID 03/10/19 05/04/19 History Aspirin 81 mg PO DAILY 05/04/19 05/04/19 History Esomeprazole Magnesium [NexIUM] 40 mg PO DAILY 05/04/19 05/04/19 History HYDROcodone/APAP 5-325MG [[place] 1 tab PO Q6HR PRN 05/04/19 05/04/19 History 5-325] Isosorbide Mononitrate ER [Imdur] 30 mg PO DAILY 05/04/19 05/04/19 History Losartan [Cozaar] 12.5 mg PO DAILY 05/04/19 05/04/19 History Mag Hydrox/Al Hydrox/Simeth 30 ml PO QID PRN 05/04/19 05/04/19 History [Maalox] Simethicone 80 mg PO TID@0800,1200,1700 05/04/19 05/04/19 History fentaNYL 25MCG/HR PATCH [Duragesic 1 patch TRANSDERM Q72H 05/04/19 05/04/19 His tory 25MCG/HR] traZODone HCL [Desyrel] 25 mg PO DAILY 05/04/19 05/04/19 History Allergies Allergy/AdvReac Type Severity Reaction Status Date / Time ciprofloxacin [From Cipro] Allergy Unknown Verified 05/04/19 09:42 iodine Allergy Unknown Verified 05/04/19 09:42 Penicillins Allergy Unknown Verified 05/04/19 09:42 Phenylpiperazine Allergy Unknown Verified 05/04/19 09:42 Antidepressant red dye Allergy Unknown Verified 05/04/19 09:42 Sulfa (Sulfonamide Allergy Unknown Verified 05/04/19 09:42 Antibiotics) Physical Exam Vitals: Vital Signs Pulse Resp BP Pulse Ox 05/04/19 10:44 82 16 130/70 98 Intake and Output 05/03/19 05/04/19 05/04/19 22:59 06:59 14:59 Other: Weight 60.3 kg Results CBC & Chem 7: 05/04/19 04:40 05/04/19 04:40 Labs: Abnormal Lab Results - Last 24 Hours (Table) 05/04/19 05/04/19 05/04/19 Range/Units 04:40 04:40 05:30 WBC 12.5 H (3.8-10.6) k/uL RBC 6.05 H (3.80-5.40) m/uL Hct 48.4 H (34.0-46.0) % Neutrophils # 10.3 H (1.3-7.7) k/uL Potassium 3.3 L (3.5-5.1) mmol/L Glucose 132 H (74-99) mg/dL Alkaline Phosphatase 153 H (38-126) U/L Urine Appearance Cloudy H (Clear) Urine Protein Trace H (Negative) Urine Blood Small H (Negative) Ur Leukocyte Esterase Large H (Negative) Urine RBC 14 H (0-5) /hpf Urine WBC >182 H (0-5) /hpf Urine WBC Clumps Many H (None) /hpf Ur Squamous Epith Cells 10 H (0-4) /hpf Urine Bacteria Many H (None) /hpf Hyaline Casts 14 H (0-2) /lpf Urine Mucus Rare H (None) /hpf
[2019-05-04] MEDS: ASPIRIN 81 MG PO SCH (13:45)
[2019-05-04] MEDS: CLOPIDOGREL 75 MG TAB PO SCH (14:25)
[2019-05-04] MEDS: ONDANSETRON 4 MG/2 ML VIAL IVP PRN (16:54)
[2019-05-04] MEDS: CHOLECALCIFEROL 400 UNIT TAB PO SCH (17:42)
[2019-05-04] MEDS ORDERED: LORazepam 2 MG/ML INJ IV STA (17:54)
[2019-05-05] MEDS: ONDANSETRON 4 MG/2 ML VIAL IVP PRN ×2 (04:34→17:25)
[2019-05-05] MEDS: MORPHINE SULFATE 2 MG/ML SYRINGE IVP PRN ×4 (04:35→17:25)
[2019-05-05] MEDS: PANTOPRAZOLE 40 MG TABLET PO SCH (08:02)
[2019-05-05] MEDS: DOCUSATE 100 MG CAP PO SCH (08:02)
[2019-05-05] MEDS: ASPIRIN 81 MG PO SCH (08:03)
[2019-05-05] MEDS: CLOPIDOGREL 75 MG TAB PO SCH (08:03)
[2019-05-05 09:55] LABS: Basophils % (A) 0 %; Eosinophils # (A) 0.2 k/uL (0-0.7); Eosinophils % (A) 2 %; HCT 44.4 % (34.0-46.0); HGB 13.7 gm/dL (11.4-16.0); Hypochromasia Slight; Lymphocytes % (A) 10 %; MCH 25.5 pg (25.0-35.0); MCHC 30.8 g/dL (31.0-37.0); MCV 82.9 fL (80.0-100.0); Mean Platelet Volume 6.4; Monocytes # (A) 0.4 k/uL (0-1.0); Monocytes % (A) 4 %; Neutrophils # (A) 8.3 k/uL (1.3-7.7); Neutrophils % (A) 83 %; Platelet Count 198 k/uL (150-450); RBC 5.36 m/uL (3.80-5.40); RDW 14.5 % (11.5-15.5); WBC 9.9 k/uL (3.8-10.6)
[2019-05-05 10:03] LABS: African American GFR (CKD) >90 (>60 ml/min/1.73 sqM); Anion Gap 9 mmol/L; Blood Urea Nitrogen 6 mg/dL (7-17); Calcium 8.3 mg/dL (8.4-10.2); Carbon Dioxide 24 mmol/L (22-30); Chloride 109 mmol/L (98-107); Glucose 127 mg/dL (74-99); Non-African American GFR(CKD) >90 (>60 ml/min/1.73 sqM); Potassium 3.6 mmol/L (3.5-5.1); Sodium 142 mmol/L (137-145)
--- NOTE | 2019-05-05 14:15 | P.CN ---
Psychiatric Consult - . Consult date: 05/05/19 Consult:: 05/05/19 14:07 IDENTIFYING DATA: This patient is a 68-year-old female who currently has 2 kids and lives [facility]. HISTORY OF PRESENT ILLNESS: The patient was brought into the emergency room for evaluation for abdominal pain and was found to have a UTI. Patient has a history of chronic pain and his had several surgeries. Computed tomography scan of patient's abdomen was negative. Patient has a history of suspected "bipolar disorder" and has been treated with Tegretol, trazodone, Risperdal, Zoloft and Ativan. Patient was asked to be seen today for bipolar chronic pain. Patient was appropriate with the video games storywriter, claimed that she has been on her psychiatric medications for a long time. She states that she does not know the name of most of them does remember Tegretol and risperidone. She states that medications help her with her mood. At this time she denies any depressive symptoms and denies any guilt or difficulties with concentration. When asked about previous manic episodes, patient claims that she could not remember and denies. She states that she does not have any flight of ideas or increase in goal-directed behavior at this time. She states that she is having some difficulty sleeping due to her abdominal pain however sleeps well on her medications. At this time patient denies any suicidal or homical ideations, intent or plan. Patient denies any auditory, visual hallucinations and denies any paranoia or delusions. PAST PSYCHIATRIC HISTORY: Patient claims that she believe she has bipolar disorder however is not confirmed, denies any previous psychiatric admissions denies any previous suicide attempts and does not have a psychiatrist which follow-up follows up with. PAST MEDICAL HISTORY: Hypertension, peripheral vascular disease, hip fracture. ALLERGIES: as per EMR. CHEMICAL DEPENDENCY HISTORY: At this time patient denies any substance use including marijuana cigarettes or alcohol. 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 She claims that she completed high school and finish college. Patient claims that she has 2 kids and currently lives at [facility]. MENTAL STATUS EXAM: General Appearance: Patient appears to be older than stated age is alert, pleasant, and cooperative. Patient has fair hygiene and fair grooming and fair eye contact. Behavior: Patient is calmly lying in bed without any agitated behavior. Speech: Patient's speech is fluent and nonpressured. Mood/Affect: Patient reports their mood is "fine", affect is congruent Suicidality/Homicidality: Patient denies having any suicidal or homicidal ideation intent or plan. Perceptions: Patient denies any auditory or visual hallucinations. Though content/process: There is no evidence of any delusional thought content and thought process is linear and goal-directed. Memory and concentration: AOX3, grossly intact for the purposes of this session. Can spell "WORLD" backwards Judgment and insight: Limited IMPRESSIONS: Mood disorder unspecified, rule out bipolar disorder PLAN: -At this time patient does NOT meet criteria for inpatient psychiatric admission. -Would recommend the following medication changes/additions: Restarted trazodone 25 mg daily at bedtime for mood insomnia, Tegretol-XR 200 mg twice a day for mood stabilization, decrease Zoloft to 50 mg daily for mood. Ativan 0.5 mg daily when necessary for anxiety -Patient can follow up with her primary care provider at [facility] for further titration and observation of her psychiatric/medical condition. -Psychiatry will sign off at this point 05/05/19 14:11
[2019-05-05] MEDS: CHOLECALCIFEROL 400 UNIT TAB PO SCH (15:48)
[2019-05-05] MEDS ORDERED: VANCOMYCIN IV PER PHARMACY 1 EACH MISC MISCELLANE PRN (16:22)
--- NOTE | 2019-05-05 16:43 | PN ---
PROGRESS NOTE DATE OF SERVICE: 05/05/2019 She is currently FULL CODE. DATA: Height 5 feet 8 inches, weight 60.3 kg. BSA 1.72 m2. BMI 20.2 kg/m2. ALLERGIES: She is ALLERGIC TO: 1. CIPROFLOXACIN. 2. IODINE. 3. PENICILLIN. 4. PHENYLPIPERAZINE ANTIDEPRESSANT. 5. RED DYE. 6. . Patient still has abdominal pain, but she is feeling slightly improved. She is still on a clear liquid diet which advanced to full liquid, and if tolerated we will be giving her a regular diet. Still she has the abdominal pain. She stated today she had loose bowel. I spoke to the nurse taking care of her, indicating that if she has loose bowel, we need to send for C difficile, as she has been on antibiotic. We also started obtaining stool sample for H pylori as well as stool culture as mentioned. Urinalysis showed urinary tract infection. For the culture, however, we do not have sensitivity yet. It was Enterococcus group D and the patient has multiple allergies. We will be consulting Infectious Disease, Dr. Boogie, to see the patient and evaluate the antibiotic needed. Meanwhile, we are obtaining the stool culture hopefully today and to see if any further treatment is needed. We consulted Psychiatry because of her medication that she had and the diagnosis of bipolar. Unfortunately the psychiatrist, Dr. Hoffman, did call me on the phone and stated that he is in the hospital for acute psychiatric emergency only; not for treatment or seeing patients that have chronic psychiatric problems. He told me that they are very busy to take care of evaluation or finding out whether the patient is bipolar or not, or what the definite diagnosis is. I did discuss with him that we just need help for the diagnosis, and patient actually does not have a psychiatrist or is seen by a psychiatrist, and the only has Nurse Psychiatry, but does not appear to be adjusting or diagnostic facility to get appropriate treatment. We accepted the knowledge that they are very busy and they do not see psychiatric patients, and he acknowledged that the patient should be seen as outpatient. Otherwise, the patient is seen today. Discussed with her the program of eating and that we will be consulting Infectious Disease with the underlying continuing abdominal pain. She also has gum disease and decayed teeth, which were discussed with the patient; this can cause constant seeping of bacteria and infection in her system. LABORATORIES: Her white count was 9.9, hemoglobin 13.7 and hematocrit is 44.4, which is in normal ranges. Her chemistry is indicating sodium 142, potassium 3.6, which is corrected. Her BUN is 6 and creatinine 0.51. Her estimated glomerular filtration rate is more than 90. Blood sugar was 127; however, that is not fasting. Calcium was 8.3. Microbiology: culture grew D enterococcus and we are consulting Infectious Disease, Dr. Boogie. The patient is currently on Rocephin. Her systemic response was very good, with the white count down from 12 to 9, and we will see if any other medication is needed. I found that ampicillin is the best treatment; however, the patient has ALLERGY TO AMPICILLIN. She also has ALLERGY TO OTHER MEDICATIONS, CIPROFLOXACIN and ANTIDEPRESSANT. Currently the vital signs show temperature 96.6 orally, pulse 84, respiratory rate 20, blood pressure 143/75, and oxygen saturation was 95%. On the examination, HEENT was negative. She has severe gum disease and dental disease. I discussed with the patient that she needs to be evaluated as an outpatient if the facility can help this patient from the dental point of view. On examination, chest was clear. No wheezes. No rhonchi. Lungs clear, inspiratory and expiratory. The heart: PMI in the fifth intercostal space. Normal S1, S2. No gallop. The abdomen had no palpable masses and no tenderness on palpation. However, she stated she still has pain in her abdomen. We did a CT scan of the abdomen, which was essentially negative except for the kidney scarring. Extremities: She has a right above-knee amputation and she has a stent in the right leg with peripheral vascular disease. On the left, she had left hip surgery for fracture. Atrophic muscles and perfusion were present, but she could not stand up or carry weight on it with the atrophic muscles. ASSESSMENT: 1. Patient is conscious, alert, oriented, and she has a urinary tract infection with group D enterococcus. We will be consulting Dr. Boogie, Infectious Disease, for evaluation and treatment. 2. Abdominal pain, which brought her to the hospital. So far we do not have any evidence of abnormalities. However, we will check today the stool sample. Meanwhile, if she has loose bowel, she will be tested for C difficile. Currently she is not on IV fluid, but she is getting the IV fluid when she gets the Rocephin, which is every 12 hours. That will be maybe changed. But if the diarrhea is persistent, we will have to send a stool sample for C difficile. I did speak with the RN Gregoria regarding this procedure, and at that time we will be continuing, if this is loose bowel, the IV fluid. PLAN: We will see if we can obtain the antibiotic in oral form and then subsequently we can transfer the patient back to [facility]. PUSHPA / MYN: [id number] /
[2019-05-05] MEDS: VANCOMYCIN 1,250 MG in SODIUM CHLORIDE 0.9% 250 ML IVPB SCH (17:59)
[2019-05-05] MEDS: risperiDONE 0.25 MG TAB PO SCH (21:25)
[2019-05-05] MEDS: traZODone HCL 50 MG TAB PO SCH (21:25)
[2019-05-05] MEDS: HYDROcodone/APAP 5-325MG 1 EACH TAB PO PRN (21:53)
--- NOTE | 2019-05-05 23:09 | P.CONS ---
History of Present Illness - Reason for Consult Consult date: 05/05/19 Urinary tract infection Requesting physician: Ian Peter - Chief Complaint Abdominal pain and burning urination 2 days - History of Present Illness Patient is a 68 year female snf resident started having a problem with lower abdominal pain apparently her symptoms started on Thursday that is about 3-4 days before the patient presented to hospital patient pain has been lower abdominal area scabbed tomorrow for delaying pain intensity about 5-10 no radiation the patient did have associated urinary burning and frequency denies having any flank pain no nausea no vomiting and no diarrhea or constipation with a March the patient has been admitted to the hospital, on admission to hospital the patient was afebrile did have mildly elevated white count of 12,000 patient did have C. diff, and pelvis was negative for any diverticulitis patient did have significant positive UA with concern for urinary tract infection she was started on Rocephin with urine culture now showing enterococcus species hence infectious disease was consulted for further recommendation regarding antibiotic because of her multiple antibiotic ALLERGIES Review of Systems Positive point has been mentioned in the HPI rest of the systems are negative Past Medical History Past Medical History: Coronary Artery Disease (CAD), Heart Failure, COPD, Diabetes Mellitus, GERD/Reflux, GI Bleed, Hearing Disorder / Deafness, Hypertension, Osteoarthritis (OA), Pneumonia, Renal Disease, Seizure Disorder, Skin Disorder, Vascular Disorder Additional Past Medical History / Comment(s): NIDDM type II-pt states she was on oral meds for about 6 months once, CVA-pt states no residual, L foot drop, last seizure 20 yrs ago, bronchitis, gastric ulcer, bloody stool in past, kidney stones with surgeries, PVD-R AKA, gastric ulcer, diverticular disease, hemorrhoids, UTIs, migraines, chronic low back pain and R stump pain, tinnitis bilaterally, WALES R ear, anemia, dermatitis, incontinence of urine and stool, past L elbow fracture. History of Any Multi-Drug Resistant Organisms: MRSA Year Discovered:: 2012 MDRO Source:: right leg Past Surgical History: Appendectomy, Cholecystectomy, Orthopedic Surgery, Tonsillectomy Additional Past Surgical History / Comment(s): EGD, colonoscopies, bilateral percutaneous nephroscopies, arch/aortagrams, R foot 5th toe amp then R AKA, L hip ORIF with plate/screws, laparatomy for rupture ovarian cyst, cox-since removed, PICC-since removed. Past Anesthesia/Blood Transfusion Reactions: No Reported Reaction Additional Past Anesthesia/Blood Transfusion Reaction / Comm: care provider doesn't know anesthesia hx. Smoking Status: Former smoker - Past Family History Father Family Medical History: COPD, Myocardial Infarction ([place]) Additional Family Medical History / Comment(s): Father was a smoker with emphysema. He from his 3rd [place] at the age of 67yrs. Mother Family Medical History: No Reported History Additional Family Medical History / Comment(s): Mother was healthy and lived to be 95yrs old. Medications and Allergies Home Medications Medication Instructions Recorded Confirmed Type Clopidogrel [Plavix] 75 mg PO DAILY 03/21/15 05/04/19 History Docusate Sodium [Dulcolax Stool 100 mg PO DAILY 03/21/15 05/04/19 History Softener] Furosemide [Lasix] 40 mg PO BID 03/21/15 05/04/19 History Lactobacillus Acidophilus 1 tab PO TID@0800,1400,199903/21/15 05/04/19 History [Acidophilus] Multivit with Calcium,Iron,Min 1 tab PO DAILY 03/21/15 05/04/19 History [Women's Daily Multivitamin] Potassium Chloride [Klor-Con 20] 20 meq PO DAILY 03/21/15 05/04/19 History Sertraline [Zoloft] 100 mg PO DAILY 03/19/17 05/04/19 History Ferrous Sulfate [Iron (65 MG 325 mg PO DAILY@1700 02/12/18 05/04/19 History Elemental)] carBAMazepine [TEGretol XR] 200 mg PO BID 02/17/18 05/04/19 History Acetaminophen [Tylenol 8 Hour] 650 mg PO Q4H PRN 03/10/19 05/04/19 History Cholecalciferol [Vitamin D3] 1,200 unit PO DAILY@1700 03/10/19 05/04/19 History LORazepam [Ativan] 0.5 mg PO BID PRN 03/10/19 05/04/19 History Lactose-Reduced Food [Ensure Plus] 1 can PO BID 03/10/19 05/04/19 History Lubricant Drops Solution 1.4% 1 drop BOTH EYES BID 03/10/19 05/04/19 History Magnesium Hydroxide [Milk of 2,400 mg PO DAILY PRN 03/10/19 05/04/19 History Magnesia] Metoprolol Tartrate [Lopressor] 50 mg PO BID@0800,1700 03/10/19 05/04/19 History Nitroglycerin Sl Tabs [Nitrostat] 0.4 mg SUBLINGUAL Q5M PRN 03/10/19 05/04/19 History Nystatin 100,000 Unit/gm Powd 1 applic TOPICAL BID 03/10/19 05/04/19 History [Mycostatin Powder] Triamcinolone 0.5% Cream [Kenalog 1 applic TOPICAL BID 03/10/19 05/04/19 History 0.5% Cream] risperiDONE [RisperDAL] 0.25 mg PO BID 03/10/19 05/04/19 History Aspirin 81 mg PO DAILY 05/04/19 05/04/19 History Esomeprazole Magnesium [NexIUM] 40 mg PO DAILY 05/04/19 05/04/19 History HYDROcodone/APAP 5-325MG [[place] 1 tab PO Q6HR PRN 05/04/19 05/04/19 History 5-325] Isosorbide Mononitrate ER [Imdur] 30 mg PO DAILY 05/04/19 05/04/19 History Losartan [Cozaar] 12.5 mg PO DAILY 05/04/19 05/04/19 History Mag Hydrox/Al Hydrox/Simeth 30 ml PO QID PRN 05/04/19 05/04/19 History [Maalox] Simethicone 80 mg PO TID@0800,1200,1700 05/04/19 05/04/19 History fentaNYL 25MCG/HR PATCH [Duragesic 1 patch TRANSDERM Q72H 05/04/19 05/04/19 History 25MCG/HR] traZODone HCL [Desyrel] 25 mg PO DAILY 05/04/19 05/04/19 History Allergies Allergy/AdvReac Type Severity Reaction Status Date / Time ciprofloxacin [From Cipro] Allergy Unknown Verified 05/04/19 09:42 iodine Allergy Unknown Verified 05/04/19 09:42 Penicillins Allergy Unknown Verified 05/04/19 09:42 Phenylpiperazine Allergy Unknown Verified 05/04/19 09:42 Antidepressant red dye Allergy Unknown Verified 05/04/19 09:42 Sulfa (Sulfonamide Allergy Unknown Verified 05/04/19 09:42 Antibiotics) Physical Exam Vitals: Vital Signs Temp Pulse Resp BP Pulse Ox 05/05/19 15:00 97.1 F L 76 16 139/101 96 05/05/19 04:30 96.6 F L 84 20 143/75 95 05/04/19 19:02 96.8 F L 78 18 120/66 97 05/04/19 17:52 84 20 147/53 94 L Intake and Output 05/05/19 05/05/19 05/05/19 06:59 14:59 22:59 Intake Total 690 Output Total 400 800 Balance -400 690 -800 Intake: IV 50 cefTRIAXone 1 gm In 50 Sodium Chloride 0.9% 50 ml @ 100 mls/hr IVPB Q12HR [facility] Rx#:[id number] Oral 640 Output: Urine 400 800 Other: Voiding Method Incontinent # Bowel Movements 2 GENERAL DESCRIPTION: An elderly female lying in bed, no distress. No tachypnea or accessory muscle of respiration use. HEENT: Shows Pallor , no scleral icterus. Oral mucous membrane is dry. No pharyngeal erythema or thrush NECK: Trachea central, no thyromegaly. LUNGS: Unlabored breathing. Clear to auscultation anteriorly. No wheeze or crackle. HEART: S1, S2, regular rate and rhythm. No loud murmur ABDOMEN: Soft, no tenderness , guarding or rigidity, no organomegaly EXTREMITIES: No edema of feet. SKIN: No rash, no masses palpable. NEUROLOGICAL: The patient is awake, alert, oriented x3, mood and affect normal. Results CBC & Chem 7: 05/05/19 08:49 05/05/19 08:49 Labs: Abnormal Lab Results - Last 24 Hours (Table) 05/05/19 05/05/19 Range/Units 08:49 08:49 MCHC 30.8 L (31.0-37.0) g/dL Neutrophils # 8.3 H (1.3-7.7) k/uL Chloride 109 H (98-107) mmol/L BUN 6 L (7-17) mg/dL Creatinine 0.51 L (0.52-1.04) mg/dL Glucose 127 H (74-99) mg/dL Calcium 8.3 L (8.4-10.2) mg/dL Microbiology - Last 24 Hours (Table) 05/04/19 05:30 Urine Culture - Preliminary Urine,Catheterized Group D Enterococcus 05/04/19 04:40 Blood Culture - Preliminary Blood No Growth after 24 hours Assessment and Plan Assessment: 1-patient presented to hospital no abdominal pain and urinary burning frequency positive UA elevated white count likely symptomatic urinary tract infection with urine showing enterococcus likely the offending pathogen 2-Patient with multiple antibiotic ALLERGIES that would limit the number of antibiotic safe to use (1) Allergy to multiple antibiotics Current Visit: Yes Status: Acute Code(s): Z88.1 - ALLERGY STATUS TO OTHER ANTIBIOTIC AGENTS STATUS SNOMED Code(s): 791580400232966 (2) Urinary tract infection Current Visit: No Status: Acute Code(s): N39.0 - URINARY TRACT INFECTION, SITE NOT SPECIFIED SNOMED Code(s): 14678463 Plan: 1-discontinue the Rocephin 2-Vancomycin pharmacy to dose target trough of 15 while watching his kidney func tion and Vanco trough closely 3-gentle IV fluid We will follow on clinical condition and cultures to further adjust medication if needed Thank you for this consultation will follow this patient with you Time with Patient: Greater than 30
[2019-05-06] MEDS: ONDANSETRON 4 MG/2 ML VIAL IVP PRN ×2 (05:47→16:18)
[2019-05-06] MEDS: VANCOMYCIN 1,250 MG in SODIUM CHLORIDE 0.9% 250 ML IVPB SCH ×2 (05:47→17:35)
[2019-05-06] MEDS: HYDROcodone/APAP 5-325MG 1 EACH TAB PO PRN ×3 (05:50→20:00)
[2019-05-06] MEDS: DOCUSATE 100 MG CAP PO SCH ×2 (08:02→08:04)
[2019-05-06] MEDS: ASPIRIN 81 MG PO SCH (08:04)
[2019-05-06] MEDS: PANTOPRAZOLE 40 MG TABLET PO SCH (08:04)
[2019-05-06] MEDS: CLOPIDOGREL 75 MG TAB PO SCH (08:04)
[2019-05-06] MEDS: risperiDONE 0.25 MG TAB PO SCH ×2 (08:04→21:08)
[2019-05-06] MEDS: SERTRALINE 50 MG TAB PO SCH (08:04)
[2019-05-06] MEDS: MAG HYDROX/AL HYDROX/SIMETH 30 ML CUP PO PRN (14:11)
--- NOTE | 2019-05-06 16:53 | PN ---
PROGRESS NOTE DATE OF SERVICE: 05/06/2019 REASON FOR FOLLOWUP: Enterococcus urinary tract infection. INTERVAL HISTORY: The patient is currently afebrile. The patient has been breathing comfortably. The patient's abdominal pain has slightly improved. Denies having any further nausea, vomiting or diarrhea. No chest pain, shortness of breath or cough. PHYSICAL EXAMINATION: Blood pressure 150/70 with a pulse of 80, temperature 97.3. She is 92% on room air. General description is an elderly female lying in bed in no distress. RESPIRATORY SYSTEM: Unlabored breathing. Clear to auscultation anteriorly. HEART: S1, S2. Regular rate and rhythm. ABDOMEN: Soft. No tenderness. LABS: No new labs have been obtained today. Urine culture showing group D Enterococcus. Sensitivities pending. Blood culture has been negative. DIAGNOSTIC IMPRESSION AND PLAN: Patient with group D Enterococcus urinary tract infection in this patient who has PENICILLIN ALLERGY. Patient is currently on vancomycin. We are waiting for the sensitivity to finalize to determine discharge antibiotics. Plan of care was discussed with the admitting physician. Continue with supportive care. MMODL / IJN: [id number] /
--- NOTE | 2019-05-06 17:31 | PN ---
PROGRESS NOTE DATE OF SERVICE: 05/06/2019 FULL CODE. HER DATA: Height is 5 feet 8 inches, weight 60.3 kg. BSA 1.72 m2, BMI 20.2 kg/m2. ALLERGIES: MULTIPLE. 1. CIPROFLOXACIN. 2. IODINE. 3. PENICILLIN. 4. PHENYLPIPERAZINE ANTIDEPRESSANT. 5. RED DYE. 6. SULFA. Patient is seen today, evaluated. She is conscious, alert, oriented. She was also seen by Dr. Boogie. She has underlying UTI and abdominal pain. It was found that the urine has Enterococcus group D, more than 100,000, and subsequently she was seen by Dr. Boogie. At that time her Rocephin was discontinued, as it is resistant. She was started on vancomycin. I did discuss this with the patient. She was planning to go back to [facility]. However, with the current antibiotic resistance, we will be continuing the vancomycin IV until next week, Thursday. At that time she probably will be placed on oral medication, after receiving enough antibiotic from the vancomycin. I did discuss this with Dr. Boogie of Infectious Disease as well. Her blood culture was negative. The patient still stated that she has abdominal pain and we did some stool testing to find the problem for the stool. However, today _lab and I do not see any other results from the stool test that was ordered. We did those to see if she had inflammatory disease of the wall of the colon, with the presence of some discomfort on the left side of the colon. Today her vital signs showed temperature 97.3 orally, pulse 80, respiratory rate 16 and blood pressure 150/70, pulse ox 92%. She was seen in consultation by Psychiatry, Dr. Elver Hoffman. He did see the patient and we appreciate his input as well as the help from his psychiatric consultation. His recommendation is also very appreciated. I was glad that the patient was seen by the psychiatrist. We will be following his opinion. He recommended to continue trazodone 25 mg once a day at bedtime for the mood and insomnia. She is on Tegretol XR 200 mg twice a day for mood stabilization. He decreased the Zoloft to 50 mg for her mood. He suggested continuing observation with her psychiatric medication as outpatient. We appreciate his consult and the help he already delivered. Dr. Boogie of Infectious Disease noted the infection and the presence of enterococcus. We do not have the sensitivity; however, he changed her to vancomycin due to the patient's multiple allergies. Her CT scan of the abdomen was negative. No evidence of diverticulitis. PHYSICAL EXAMINATION: The patient was conscious, alert. She had severe decayed teeth and gum disease, which will be entertained as outpatient in her senior care at [facility], as that is currently her home. She is with the underlying right below-knee amputation with a stent to stent in the right leg with peripheral vascular disease and history of infection and followed by above-knee amputation. Also she has underlying history of left hip fracture with atrophy of the thigh and the leg and unable to carry herself up. The neck was supple. No JVD. No thyromegaly and no lymph node as I did examine her. Probably with the continuous infection and seeping from her infected tooth and caries of the oropharynx, actually she needs to be done as outpatient with pulling out all the teeth and maybe needs dentures. There is an insurance problem with that, and we will see if the senior care can be helpful with this. The chest was clear on examination and no wheezes, no rhonchi. The heart revealed regular sinus rhythm and no arrhythmias. The abdomen is soft, nontender with palpation of the 4 quadrants and also the renal aspect, but the patient said that she had abdominal pain; or having any symptoms while I was doing the examination. Extremities showed perfusion of the left lower extremity at 1+/2+. The above-knee amputation showed good perfusion. The patient is bedridden, incontinent of the bowel and stools. Nonambulatory. ASSESSMENT:and plan Patient currently in the progression of the use of the new antibiotic, which is vancomycin. I did discuss this with Dr. Boogie, Infectious Disease, and he told me at that time that we are going to wait until Thursday and continue the IV antibiotic. Then Thursday we can recheck or at that time find medication with her list of all medications that are resistant or ALLERGY; subsequently we will send her to [facility] and she will be with the current changes on the psychiatric medication. MMODL / IJN: [id number] / MTDD
[2019-05-06] MEDS: CHOLECALCIFEROL 400 UNIT TAB PO SCH (17:35)
[2019-05-06] MEDS: traZODone HCL 50 MG TAB PO SCH (21:08)
[2019-05-06] MEDS: LORazepam 0.5 MG TAB PO PRN (21:13)
[2019-05-07] MEDS: VANCOMYCIN 1,250 MG in SODIUM CHLORIDE 0.9% 250 ML IVPB SCH ×2 (05:59→17:20)
[2019-05-07] MEDS: HYDROcodone/APAP 5-325MG 1 EACH TAB PO PRN ×3 (06:04→20:47)
[2019-05-07] MEDS: MAG HYDROX/AL HYDROX/SIMETH 30 ML CUP PO PRN ×3 (06:04→20:47)
[2019-05-07] MEDS: ASPIRIN 81 MG PO SCH (08:01)
[2019-05-07] MEDS: PANTOPRAZOLE 40 MG TABLET PO SCH (08:01)
[2019-05-07] MEDS: DOCUSATE 100 MG CAP PO SCH (08:01)
[2019-05-07] MEDS: SERTRALINE 50 MG TAB PO SCH (08:01)
[2019-05-07] MEDS: risperiDONE 0.25 MG TAB PO SCH ×2 (08:01→20:39)
[2019-05-07] MEDS: CLOPIDOGREL 75 MG TAB PO SCH (08:01)
[2019-05-07 08:23] LABS: African American GFR (CKD) >90 (>60 ml/min/1.73 sqM); Non-African American GFR(CKD) >90 (>60 ml/min/1.73 sqM)
[2019-05-07] MEDS: ONDANSETRON 4 MG/2 ML VIAL IVP PRN (12:50)
[2019-05-07] MEDS ORDERED: ENALAPRILAT 1.25 MG/ML 1 ML VIAL IVP PRN (13:09)
--- NOTE | 2019-05-07 13:22 | P.PN ---
Subjective Progress Note Date: 05/07/19 Principal diagnosis: Enterococcus group D only sensitive to vancomycin the best, daptomycin, tetracycline less or equal to 4, linezolid S or equal to 1. Multiple antibiotic ALLERGY. Penicillin ALLERGY Currently on vancomycin with clinical response. Abdominal pain improving now on regular diet Progress note date of service 05/07/2019. Patient seen and evaluated she is feeling improving. Vital sign 98.1 pulse 87 and regular respiratory rate 18/m nonlabored, her blood pressure. The and yesterday and today has been elevated 158/94 and 155/78 with the pulse ox 93-91. On the examination Patient is able to eat however she had severe dental care is and gum disease. Neck was supple no lumps no lymph node Chest was clear no wheezes no rhonchi's. Heart was regular sinus rhythm The abdomen is soft no tenderness in the 4 quadrants. Extremities right above-knee amputation with us 2 stent indication of peripheral vascular disease and history of infection. Left lower extremities at the hip fracture atrophic muscles inability to use it for ambulation or standing up and patient is bedridden. She had some excoriation of the buttock area. Creatinine 0.46 and her renal function estimated glomerular filtration rate more than 90 stable. Assessment and plan We'll start on Vasotec IV push 1.25 mg with the blood pressure about 130 systolic to keep control on the blood pressure and as a when necessary. Continue the vancomycin and the Dr. Penn infectious disease will evaluate on Thursday and subsequently if she is ready to be transferred tomorrow [facility] . Objective - Vital Signs Vital signs: Vital Signs Temp 98.1 F 05/07/19 05:00 Pulse 87 05/07/19 05:00 Resp 18 05/07/19 05:00 BP 155/78 05/07/19 05:00 Pulse Ox 91 L 05/07/19 05:00 Intake & Output 05/06/19 05/07/19 05/07/19 18:59 06:59 18:59 Intake Total 1280 400 320 Output Total 1100 500 Balance 180 -100 320 Intake: Oral 1280 400 320 Output: Urine 1100 500 Other: Voiding Method Incontinent Incontinent Incontinent # Voids 0 # Bowel Movements 0 - Labs CBC & Chem 7: 05/05/19 08:49 05/07/19 07:23 Labs: Abnormal Lab Results - Last 24 Hours (Table) 05/07/19 Range/Units 07:23 Creatinine 0.46 L (0.52-1.04) mg/dL Microbiology - Last 24 Hours (Table) 05/04/19 05:30 Urine Culture - Final Urine,Catheterized Enterococcus faecium 05/04/19 04:40 Blood Culture - Preliminary Blood No Growth after 72 hours
[2019-05-07] MEDS ORDERED: VANCOMYCIN TROUGH DUE 1 EACH MISC MISCELLANE ONE (17:00)
[2019-05-07] MEDS: HEPARIN SODIUM,PORCINE 5,000 UNIT/ML 1 ML VIAL SQ SCH (17:18)
[2019-05-07] MEDS: CHOLECALCIFEROL 400 UNIT TAB PO SCH (17:19)
[2019-05-07] MEDS: traZODone HCL 50 MG TAB PO SCH (20:39)
[2019-05-07] MEDS: LORazepam 0.5 MG TAB PO PRN (20:42)
[2019-05-08] MEDS: HEPARIN SODIUM,PORCINE 5,000 UNIT/ML 1 ML VIAL SQ SCH ×4 (01:37→23:33)
[2019-05-08] MEDS: HYDROcodone/APAP 5-325MG 1 EACH TAB PO PRN ×3 (04:35→20:25)
[2019-05-08] MEDS: ONDANSETRON 4 MG/2 ML VIAL IVP PRN ×3 (04:48→23:33)
[2019-05-08] MEDS: MAG HYDROX/AL HYDROX/SIMETH 30 ML CUP PO PRN ×3 (04:49→20:23)
[2019-05-08] MEDS: VANCOMYCIN 1,250 MG in SODIUM CHLORIDE 0.9% 250 ML IVPB SCH ×2 (05:01→17:06)
[2019-05-08] MEDS: PANTOPRAZOLE 40 MG TABLET PO SCH (08:21)
[2019-05-08] MEDS: ASPIRIN 81 MG PO SCH (08:22)
[2019-05-08] MEDS: risperiDONE 0.25 MG TAB PO SCH ×2 (08:22→20:25)
[2019-05-08] MEDS: CLOPIDOGREL 75 MG TAB PO SCH (08:22)
[2019-05-08] MEDS: SERTRALINE 50 MG TAB PO SCH (08:22)
[2019-05-08] MEDS: DOCUSATE 100 MG CAP PO SCH (08:22)
--- NOTE | 2019-05-08 14:09 | P.PN ---
Subjective Progress Note Date: 05/08/19 Dictation on progress note date of service 05/08/2019. Patient seen and evaluated. No specific complaint, abdominal pain has been improved, she said that she had loose bowel, discussed with [facility] nursing staff for stool sample if there is no diarrhea or loose bowel and that will be for C. difficile, stool culture, fecal leukocyte,. Vital signs stable with temperature 97.4 F oral. Her pulse rate 84 per minute regular respiratory rate 18/m nonlabored, her blood pressure still with the hypertension 162/95 with a mean 117, she is on Vasotec 1.25 mg every 6 hour if the blood pressure above 1:30 systolic still persistently elevated. We will start her on lisinopril 5 mg twice a day. Her pulse ox is 93 on the room air. HEENT: The head was normocephalic and atraumatic pupil was equal reactive conju nctiva was pink sclera was nonicteric. Oropharynx she had severe gum disease and dental care S we discussed with the patient in regard to see the dentist in the halfway tomorrow [place]. Neck was supple no JVD. Chest is clear no wheezes no rhonchi's, Heart was regular sinus rhythm compensated with a history of hypertension. Abdomen soft nontender and marketed improvement on her abdominal pain which initially the CAT scan did not show abnormalities. Genitourinary underlying Enterococcus faecalis group D and she is currently on vancomycin because of multiple antibiotic resistance. Extremities peripheral vascular disease with the stenting 2 stent in the right femoral and iliac, status post above-knee amputation. Left hip surgery for fracture with the atrophy of the muscle of the thigh and the leg with minimal movement and decreased pulses but able to raise up her leg. Unable to carry weight on her neck. Assessment and plan. We'll continue the current treatment. Will wait for Dr. Boogie tomorrow for the assessment and if possible changes to oral medication subsequently patient will be transferred to [facility] with the stability. Objective - Vital Signs Vital signs: Vital Signs Temp 97.4 F L 05/08/19 05:00 Pulse 84 05/08/19 05:00 Resp 18 05/08/19 05:00 BP 162/95 05/08/19 05:00 Pulse Ox 93 L 05/08/19 05:00 Intake & Output 1005/08/19 05/08/19 18:59 06:59 18:59 Intake Total 1190 550 600 Output Total 800 650 800 Balance 390 -100 -200 Intake: IV 250 Vancomycin 1,250 mg In 250 Sodium Chloride 0.9% 250 ml @ 125 mls/hr IVPB Q12H [facility] Rx#:[id number] Oral 940 550 600 Output: Urine 800 650 800 Other: Voiding Method Incontinent Incontinent Incontinent # Voids 0 # Bowel Movements 2 - Labs CBC & Chem 7: 05/05/19 08:49 05/07/19 07:23 Labs: Microbiology - Last 24 Hours (Table) 05/04/19 04:40 Blood Culture - Preliminary Blood No Growth after 96 hours
[2019-05-08] MEDS: CHOLECALCIFEROL 400 UNIT TAB PO SCH (16:10)
[2019-05-08] MEDS: LORazepam 0.5 MG TAB PO PRN (20:23)
[2019-05-08] MEDS: traZODone HCL 50 MG TAB PO SCH (20:25)
[2019-05-08] MEDS: LISINOPRIL 5 MG TAB PO SCH (20:25)
--- NOTE | 2019-05-08 22:42 | PN ---
PROGRESS NOTE DATE OF SERVICE: 05/08/2019. REASON FOR FOLLOWUP: Enterococcus urinary tract infection. INTERVAL HISTORY: The patient is currently afebrile. Patient has been breathing comfortably. The patient denies having any chest pain or any cough. No nausea, vomiting. No abdominal pain. Her renal symptoms have improved. PHYSICAL EXAMINATION: Blood pressure 152/83 with a pulse of 84, temperature 97.9. She is 92% on room air. General description is an elderly female lying in bed in no distress. Respiratory system: Unlabored breathing. Clear to auscultation anteriorly. Heart S1, S2. Regular rate and rhythm. ABDOMEN: Soft, no tenderness. LABS: The urine to be finalized with Enterococcus faecium with resistance to ampicillin, though vancomycin sensitive and sensitive to linezolid. DIAGNOSTIC IMPRESSION AND PLAN: Patient with Enterococcus faecium urinary tract infection in this patient who is currently covered with vancomycin. We will obtain a repeat UA which if negative will not need any further antibiotic therapy as the patient's symptom have resolved on their own and continue supportive care. MMODL / IJN: [id number] /
[2019-05-08 23:37] LABS: Appearance,Urine Clear (Clear); Bilirubin,Urine Negative (Negative); Blood,Urine Negative (Negative); Color,Urine Yellow; Glucose,Urine (UA) Negative (Negative); Ketones,Urine Negative (Negative); Leukocyte Esterase,Urine Trace (Negative); Mucus,Urine Rare /hpf; Nitrite,Urine Negative (Negative); Protein,Urine Negative (Negative); RBC,Urine 6 /hpf (0-5); Specific Gravity,Urine 1.015 (1.001-1.035); Urobilinogen,Urine <2.0 mg/dL (<2.0); WBC,Urine 8 /hpf (0-5)
[2019-05-09] MEDS: VANCOMYCIN 1,250 MG in SODIUM CHLORIDE 0.9% 250 ML IVPB SCH (05:11)
[2019-05-09] MEDS: CLOPIDOGREL 75 MG TAB PO SCH (08:05)
[2019-05-09] MEDS: MAG HYDROX/AL HYDROX/SIMETH 30 ML CUP PO PRN (08:05)
[2019-05-09] MEDS: HYDROcodone/APAP 5-325MG 1 EACH TAB PO PRN (08:05)
[2019-05-09] MEDS: HEPARIN SODIUM,PORCINE 5,000 UNIT/ML 1 ML VIAL SQ SCH (08:06)
[2019-05-09] MEDS: SERTRALINE 50 MG TAB PO SCH (08:06)
[2019-05-09] MEDS: risperiDONE 0.25 MG TAB PO SCH (08:06)
[2019-05-09] MEDS: ASPIRIN 81 MG PO SCH (08:06)
[2019-05-09] MEDS: LISINOPRIL 5 MG TAB PO SCH (08:06)
[2019-05-09] MEDS: PANTOPRAZOLE 40 MG TABLET PO SCH (08:06)
[2019-05-09] MEDS: DOCUSATE 100 MG CAP PO SCH (08:07)
[2019-05-09] MEDS: ONDANSETRON 4 MG/2 ML VIAL IVP PRN (12:46)
--- NOTE | 2019-05-09 13:09 | P.DS ---
Providers Date of admission: 05/04/19 07:00 Expected date of discharge: 05/09/19 (Enterococcus fascia UTI) Attending physician: Ian Peter Consults: 05/04/19 13:28 Consult Physician Urgent Consulting Provider: Elver Hoffman Consult Reason/Comments: Bipolar, chronic pain, divergent/conversion disorder. Do you want consulting provider notified?: Yes Placement Type Exists?: Yes 05/05/19 13:21 Consult Physician Urgent Consulting Provider: Jacquelin Boogie Consult Reason/Comments: Enterococcus faecalis group D UTI Do you want consulting provider notified?: Yes Primary care physician: Ian Peter Dictation of discharge summary date of service 05/09/2019. Final diagnosis: #1 acute urinary tract infection with enterococcus fascia on resistant to 1 insulin and other antibiotic however sensitive to vancomycin and patient treated with #2 Abdominal pain acute resolved. #3 right [id number] amputation with a history of peripheral vascular disease and 2 stents in the femoral artery. #4 left hip fracture with the atrophic muscle of the left thigh and leg only passive movement unable to carry weight. #5 patient is bedridden with the underlying chronic pain syndrome on pain medication chronically and narcotics. #6 patient on Plavix and aspirin no evidence of bleeding. #7 hypertension with the adjusting medication and change from losartan to lisinopril 5 mg twice a day. #8 history of bipolar was questionable, major depression, psychiatric consultation was obtained in the hospital and adjusted her medication and discontinuation of benzodiazepine patient tolerated that #9 discontinuation of the Lasix and potassium. Hospital ER presentation patient transferred from [facility] and rehab where she lives to ER at [facility] after continuation of abdominal pain, found that she had urinary tract infection with the resistant bacteria enterococcus fascia, consultation with the infectious disease. Hospital course: Patient was started on Rocephin subsequently culture of the urine obtained indicating enterococcus group D, consultation with Dr. Fili lópez infectious disease with the finding of enterococcus fascia treated with vancomycin according to the culture and sensitivity. Patient did very well repeat UA was negative. Blood pressure was increased during her presence and medication adjusted with the discontinuation of losartan and the starting on lisinopril 5 mg twice a day with the good control of the blood pressure. Examination on discharge: Patient is conscious alert oriented 3. Head was normocephalic and atraumatic pupil was equal reactive conjunctiva was pink sclera was nonicteric. Oropharynx she has extensive infection and done disease needs to be taking care at [facility] facility. Normal hearing Neck was supple no JVD no thyromegaly no lymphadenopathy trachea midline. Chest was clear to auscultation and percussion and no wheezes no rhonchi's. The heart was regular sinus rhythm no dysrhythmia. Abdomen soft positive bowel sounds no organ enlargement and the pain resolved could be function had a CAT scan on admission was negative of the abdomen and pelvis. Extremities: No edema and positive pulses with the right [id number] amputation in the left minimal passive movement with the left hip fracture and surgery inability to sit or ambulate and bedridden. Assessment and plan Vital signs stable and no complain and patient will be discharged today to [facility] and rehab. We'll follow the patient in the snf [facility] and her medication has been advised. Plan - Discharge Summary New Discharge Prescriptions: New Lisinopril [Zestril] 5 mg PO BID tab Continue Clopidogrel [Plavix] 75 mg PO DAILY Multivit with Calcium,Iron,Min [Women's Daily Multivitamin] 1 tab PO DAILY Lactobacillus Acidophilus [Acidophilus] 1 tab PO TID@0800,1400,2000 Ferrous Sulfate [Iron (65 MG Elemental)] 325 mg PO DAILY@1700 carBAMazepine [TEGretol XR] 200 mg PO BID Nitroglycerin Sl Tabs [Nitrostat] 0.4 mg SUBLINGUAL Q5M PRN PRN Reason: Chest Pain Acetaminophen [Tylenol 8 Hour] 650 mg PO Q4H PRN PRN Reason: GENERAL DISCOMFORT Nystatin 100,000 Unit/gm Powd [Mycostatin Powder] 1 applic TOPICAL BID Metoprolol Tartrate [Lopressor] 50 mg PO BID@0800,1700 Lubricant Drops Solution 1.4% 1 drop BOTH EYES BID Cholecalciferol [Vitamin D3] 1,200 unit PO DAILY@1700 Aspirin 81 mg PO DAILY Esomeprazole Magnesium [NexIUM] 40 mg PO DAILY Isosorbide Mononitrate ER [Imdur] 30 mg PO DAILY Mag Hydrox/Al Hydrox/Simeth [Maalox] 30 ml PO QID PRN PRN Reason: Gi Upset fentaNYL 25MCG/HR PATCH [Duragesic 25MCG/HR] 1 patch TRANSDERM Q72H #1 patch HYDROcodone/APAP 5-325MG [[place] 5-325] 1 tab PO Q6HR PRN #10 tab PRN Reason: Pain Discontinued Magnesium Hydroxide [Milk of Magnesia] 2,400 mg PO DAILY PRN PRN Reason: Constipation Losartan [Cozaar] 12.5 mg PO DAILY Simethicone 80 mg PO TID@0800,1200,1700 No Action Furosemide [Lasix] 40 mg PO BID Potassium Chloride [Klor-Con 20] 20 meq PO DAILY Docusate Sodium [Dulcolax Stool Softener] 100 mg PO DAILY Sertraline [Zoloft] 100 mg PO DAILY Triamcinolone 0.5% Cream [Kenalog 0.5% Cream] 1 applic TOPICAL BID risperiDONE [RisperDAL] 0.25 mg PO BID Lactose-Reduced Food [Ensure Plus] 1 can PO BID LORazepam [Ativan] 0.5 mg PO BID PRN PRN Reason: Anxiety traZODone HCL [Desyrel] 25 mg PO DAILY Discharge Medication List Clopidogrel [Plavix] 75 mg PO DAILY 03/21/15 [History] Docusate Sodium [Dulcolax Stool Softener] 100 mg PO DAILY 03/21/15 [History] Furosemide [Lasix] 40 mg PO BID 03/21/15 [History] Lactobacillus Acidophilus [Acidophilus] 1 tab PO TID@0800,1400,2000 03/21/15 [History] Multivit with Calcium,Iron,Min [Women's Daily Multivitamin] 1 tab PO DAILY 03/21/15 [History] Potassium Chloride [Klor-Con 20] 20 meq PO DAILY 03/21/15 [History] Sertraline [Zoloft] 100 mg PO DAILY 03/19/17 [History] Ferrous Sulfate [Iron (65 MG Elemental)] 325 mg PO DAILY@1700 02/12/18 [History] carBAMazepine [TEGretol XR] 200 mg PO BID 02/17/18 [History] Acetaminophen [Tylenol 8 Hour] 650 mg PO Q4H PRN 03/10/19 [History] Cholecalciferol [Vitamin D3] 1,200 unit PO DAILY@1700 03/10/19 [History] LORazepam [Ativan] 0.5 mg PO BID PRN 03/10/19 [History] Lactose-Reduced Food [Ensure Plus] 1 can PO BID 03/10/19 [History] Lubricant Drops Solution 1.4% 1 drop BOTH EYES BID 03/10/19 [History] Metoprolol Tartrate [Lopressor] 50 mg PO BID@0800,1700 03/10/19 [History] Nitroglycerin Sl Tabs [Nitrostat] 0.4 mg SUBLINGUAL Q5M PRN 03/10/19 [History] Nystatin 100,000 Unit/gm Powd [Mycostatin Powder] 1 applic TOPICAL BID 03/10/19 [History] Triamcinolone 0.5% Cream [Kenalog 0.5% Cream] 1 applic TOPICAL BID 03/10/19 [History] risperiDONE [RisperDAL] 0.25 mg PO BID 03/10/19 [History] Aspirin 81 mg PO DAILY 05/04/19 [History] Esomeprazole Magnesium [NexIUM] 40 mg PO DAILY 05/04/19 [History] Isosorbide Mononitrate ER [Imdur] 30 mg PO DAILY 05/04/19 [History] Mag Hydrox/Al Hydrox/Simeth [Maalox] 30 ml PO QID PRN 05/04/19 [History] traZODone HCL [Desyrel] 25 mg PO DAILY 05/04/19 [History] HYDROcodone/APAP 5-325MG [Felton 5-325] 1 tab PO Q6HR PRN #10 tab 05/09/19 [Rx] Lisinopril [Zestril] 5 mg PO BID tab 05/09/19 [Rx] fentaNYL 25MCG/HR PATCH [Duragesic 25MCG/HR] 1 patch TRANSDERM Q72H #1 patch 05/09/19 [Rx]
[2019-05-09 15:24] VITALS: BP 152/81; PULSE 91; RESP 16; TEMP 98.3
--- NOTE | 2019-05-09 21:55 | PN ---
PROGRESS NOTE DATE OF SERVICE: 05/09/2019 REASON FOR FOLLOWUP: Enterococcus faecium urinary tract infection. INTERVAL HISTORY: The patient was seen on rounds earlier this afternoon. The patient has been afebrile. She was breathing comfortably. Denies having any chest pain or shortness of breath or cough. Abdominal pain has improved. Urinary symptoms resolved. She did have some diarrhea per the nursing staff. PHYSICAL EXAMINATION: Blood pressure 152/81 with a pulse of 91, temperature 98.3. She is 93% on room air. General description is an elderly female lying in bed in no distress. RESPIRATORY SYSTEM: Unlabored breathing. Clear to auscultation anteriorly. HEART: S1, S2. Regular rate and rhythm. ABDOMEN: Soft. No tenderness. LABS: UA obtained last night has been negative. DIAGNOSTIC IMPRESSION AND PLAN: 1. Patient with Enterococcus faecium urinary tract infection, adequately treated with resolution of her urinary symptoms. UA has been negative. No need for any antibiotic on discharge. 2. Diarrhea, possibly antibiotic-associated, with improvement vancomycin will be discontinued. She has been advised to increase her probiotic and yogurt intake. MMODL / IJN: [id number] / NIRALI
[2019-05-10] MEDS ORDERED: VANCOMYCIN TROUGH DUE 1 EACH MISC MISCELLANE ONE (05:00)
== END 2019-05-09 15:41 | DRG 690 ==
LOC: EC 03:53 → 4MS4W 07:00
PROVIDERS: ADMIT Internal Medicine; ATTEND Internal Medicine
PROC: 05HD33Z Insertion of Infusion Device into Right Cephalic Vein, Percutaneous Approach (ICD-10-PCS; principal; 2019-05-06 12:40)
DX: N39.0 Urinary tract infection, site not specified (principal); Z16.24 Resistance to multiple antibiotics; E11.51 Type 2 diabetes mellitus with diabetic peripheral angiopathy without gangrene; I11.0 Hypertensive heart disease with heart failure; I50.9 Heart failure, unspecified; R15.9 Full incontinence of feces; J44.9 Chronic obstructive pulmonary disease, unspecified; B95.2 Enterococcus as the cause of diseases classified elsewhere; F31.9 Bipolar disorder, unspecified; F41.9 Anxiety disorder, unspecified; F44.9 Dissociative and conversion disorder, unspecified; G40.909 Epilepsy, unspecified, not intractable, without status epilepticus; G89.4 Chronic pain syndrome; H91.90 Unspecified hearing loss, unspecified ear; I25.10 Atherosclerotic heart disease of native coronary artery without angina pectoris; K21.9 Gastro-esophageal reflux disease without esophagitis; K57.90 Diverticulosis of intestine, part unspecified, without perforation or abscess without bleeding; L21.9 Seborrheic dermatitis, unspecified; N20.0 Calculus of kidney; R32 Unspecified urinary incontinence; M19.90 Unspecified osteoarthritis, unspecified site; R19.7 Diarrhea, unspecified; M62.552 Muscle wasting and atrophy, not elsewhere classified, left thigh; K64.9 Unspecified hemorrhoids; G43.909 Migraine, unspecified, not intractable, without status migrainosus; M54.5 Low back pain; H93.13 Tinnitus, bilateral; Z74.01 Bed confinement status; Z79.02 Long term (current) use of antithrombotics/antiplatelets; Z79.82 Long term (current) use of aspirin; Z79.899 Other long term (current) drug therapy; Z88.0 Allergy status to penicillin; Z88.2 Allergy status to sulfonamides; Z88.1 Allergy status to other antibiotic agents; Z91.041 Radiographic dye allergy status; Z89.611 Acquired absence of right leg above knee; Z87.891 Personal history of nicotine dependence; Z86.73 Personal history of transient ischemic attack (TIA), and cerebral infarction without residual deficits; Z87.442 Personal history of urinary calculi; Z87.01 Personal history of pneumonia (recurrent); Z87.11 Personal history of peptic ulcer disease; Z87.440 Personal history of urinary (tract) infections; Z90.49 Acquired absence of other specified parts of digestive tract; Z86.14 Personal history of Methicillin resistant Staphylococcus aureus infection; Z82.49 Family history of ischemic heart disease and other diseases of the circulatory system; Z82.5 Family history of asthma and other chronic lower respiratory diseases
CPT/HCPCS: 36410; 74177; 76937; 80048; 80053; 80202; 81001; 82150; 82565; 83605; 83735; 85025; 87040; 87077; 87086; 87186; 94760; 96361; 96374; 96375; 96376; 99285

== ENCOUNTER 2019-12-14 01:01 | Inpatient (IN) | payer MEDICARE, OTHER ==
[2019-12-14 01:50] LABS: Basophils # (A) 0.1 k/uL (0-0.2); Basophils % (A) 0 %; Eosinophils # (A) 0.1 k/uL (0-0.7); Eosinophils % (A) 1 %; HCT 49.6 % (34.0-46.0); Lymphocytes # (A) 0.6 k/uL (1.0-4.8); Lymphocytes % (A) 4 %; MCH 26.3 pg (25.0-35.0); MCHC 32.3 g/dL (31.0-37.0); MCV 81.3 fL (80.0-100.0); Mean Platelet Volume 7.1; Monocytes # (A) 0.8 k/uL (0-1.0); Monocytes % (A) 5 %; Neutrophils # (A) 15.8 k/uL (1.3-7.7); Neutrophils % (A) 91 %; Platelet Count 185 k/uL (150-450); RDW 14.7 % (11.5-15.5); WBC 17.4 k/uL (3.8-10.6)
[2019-12-14 02:02] LABS: ALT 26 U/L (4-34); AST 32 U/L (14-36); African American GFR (CKD) >90 (>60 ml/min/1.73 sqM); Albumin 4.2 g/dL (3.5-5.0); Alkaline Phosphatase 152 U/L (38-126); Anion Gap 11 mmol/L; Blood Urea Nitrogen 19 mg/dL (7-17); C Reactive Protein 31.2 mg/L (<10.0); Calcium 9.1 mg/dL (8.4-10.2); Carbon Dioxide 29 mmol/L (22-30); Chloride 99 mmol/L (98-107); Glucose 167 mg/dL (74-99); LDH 497 U/L (313-618); Magnesium 1.9 mg/dL (1.6-2.3); Non-African American GFR(CKD) 84 (>60 ml/min/1.73 sqM); Potassium 3.9 mmol/L (3.5-5.1); Sodium 139 mmol/L (137-145); Total Bilirubin 0.7 mg/dL (0.2-1.3); Total Protein 7.6 g/dL (6.3-8.2)
[2019-12-14 02:04] LABS: Partial Thromboplastin Time 23.9 sec (22.0-30.0); Prothrombin Time 10.2 sec (9.0-12.0)
[2019-12-14 02:16] LABS: D-Dimer 2.11 mg/L FEU (<0.60)
[2019-12-14] MEDS ORDERED: SODIUM CHLORIDE 0.9% 2,000 ML IV ONE (02:18)
--- NOTE | 2019-12-14 02:19 | XR ---
EXAMINATION TYPE: XR chest 1V portable DATE OF EXAM: 12/14/2019 COMPARISON: 03/10/2019 HISTORY: Pneumonia. Chest pain. TECHNIQUE: FINDINGS: There is coarse interstitial density in both lungs. There is no pulmonary consolidation. He art size is normal. There is no heart failure. There are chest leads. Bony thorax appears intact. IMPRESSION: Pulmonary interstitial fibrosis without change compared to old exam. No heart failure see n.
[2019-12-14] MEDS ORDERED: methylPREDNISolone SOD SUCCI 125 MG/2 ML VIAL IV STA (02:21)
[2019-12-14] MEDS ORDERED: diphenhydrAMINE 50 MG/ML 1 ML VIAL IVP STA (02:22)
[2019-12-14] MEDS ORDERED: FAMOTIDINE 20 MG/2 ML VIAL IV STA (02:22)
[2019-12-14 02:48] LABS: Appearance,Urine Cloudy (Clear); Bacteria,Urine Many /hpf; Bilirubin,Urine Negative (Negative); Blood,Urine Small (Negative); Color,Urine Yellow; Glucose,Urine (UA) Negative (Negative); Hyaline Casts,Urine 6 /lpf (0-2); Ketones,Urine Negative (Negative); Leukocyte Esterase,Urine Large (Negative); Mucus,Urine Rare /hpf; Nitrite,Urine Negative (Negative); Protein,Urine 1+ (Negative); RBC,Urine 14 /hpf (0-5); Specific Gravity,Urine 1.019 (1.001-1.035); Squamous Epithelial Cell,Urine <1 /hpf (0-4); Urobilinogen,Urine <2.0 mg/dL (<2.0); WBC,Urine >182 /hpf (0-5)
--- NOTE | 2019-12-14 03:23 | CT ---
EXAMINATION TYPE: CT chest angio for PE DATE OF EXAM: 12/14/2019 COMPARISON: 05/29/2013 HISTORY: elevated d-dimer CT DLP: 525.8 mGycm Automated exposure control for dose reduction was used. CONTRAST: Performed with IV Contrast, patient injected with 70 mL of Isovue 370. There are 3-D post processed images. FINDINGS: There is coarse interstitial and airspace infiltrate in both upper lobes. There is mild subsegmental atelectasis at the lung bases. Heart size is normal. There is no pericardial effusion. Thoracic aorta appears intact. There is no aneurysm or dissection. Ascending aorta measures 3 cm. There are no radha r masses. There is normal contrast opacification of the pulmonary arteries. I see no filling defect. There is no mediastinal adenopathy. Thoracic spine is intact. There is no compression fracture. IMPRESSION: No evidence of pulmonary embolism. Chronic bilateral upper lobe infiltrates consistent with scarring not significantly different than ol d CT scan 7 years ago.
--- NOTE | 2019-12-14 06:17 | ED ---
Fever HPI - General Chief Complaint: Shortness of Breath Stated Complaint: MANDEEP Time Seen by Provider: 12/14/19 01:11 Source: patient, RN/MD, EMS Mode of arrival: EMS Limitations: physical limitation - History of Present Illness Initial Comments: This patient is a 69-year-old woman transferred here from group home to have evaluation after she was found to have a fever. The patient stated that she also had been a little bit short of breath and she has had a little bit of a cough though she states not very prominent. She is not producing any sputum. The patient denies other complaints. MD Complaint: fever -: hour(s) Associated Symptoms: chills, cough Treatments Prior to Arrival: none - Related Data Home Medications Medication Instructions Recorded Confirmed Clopidogrel [Plavix] 75 mg PO DAILY 03/21/15 05/04/19 Docusate Sodium [Dulcolax Stool 100 mg PO DAILY 03/21/15 05/04/19 Softener] Furosemide [Lasix] 40 mg PO BID 03/21/15 05/04/19 Lactobacillus Acidophilus 1 tab PO TID@0800,1400,199903/21/15 05/04/19 [Acidophilus] Multivit with Calcium,Iron,Min 1 tab PO DAILY 03/21/15 05/04/19 [Women's Daily Multivitamin] Potassium Chloride [Klor-Con 20] 20 meq PO DAILY 03/21/15 05/04/19 Sertraline [Zoloft] 100 mg PO DAILY 03/19/17 05/04/19 Ferrous Sulfate [Iron (65 MG 325 mg PO DAILY@1700 02/12/18 05/04/19 Elemental)] carBAMazepine [TEGretol XR] 200 mg PO BID 02/17/18 05/04/19 Acetaminophen [Tylenol 8 Hour] 650 mg PO Q4H PRN 03/10/19 05/04/19 Cholecalciferol [Vitamin D3] 1,200 unit PO DAILY@1700 03/10/19 05/04/19 LORazepam [Ativan] 0.5 mg PO BID PRN 03/10/19 05/04/19 Lactose-Reduced Food [Ensure Plus] 1 can PO BID 03/10/19 05/04/19 Lubricant Drops Solution 1.4% 1 drop BOTH EYES BID 03/10/19 05/04/19 Metoprolol Tartrate [Lopressor] 50 mg PO BID@0800,1700 03/10/19 05/04/19 Nitroglycerin Sl Tabs [Nitrostat] 0.4 mg SUBLINGUAL Q5M PRN 03/10/19 05/04/19 Nystatin 100,000 Unit/gm Powd 1 applic TOPICAL BID 03/10/19 05/04/19 [Mycostatin Powder] Triamcinolone 0.5% Cream [Kenalog 1 applic TOPICAL BID 03/10/19 05/04/19 0.5% Cream] risperiDONE [RisperDAL] 0.25 mg PO BID 03/10/19 05/04/19 Aspirin 81 mg PO DAILY 05/04/19 05/04/19 Esomeprazole Magnesium [NexIUM] 40 mg PO DAILY 05/04/19 05/04/19 Isosorbide Mononitrate ER [Imdur] 30 mg PO DAILY 05/04/19 05/04/19 Mag Hydrox/Al Hydrox/Simeth 30 ml PO QID PRN 05/04/19 05/04/19 [Maalox] traZODone HCL [Desyrel] 25 mg PO DAILY 05/04/19 05/04/19 Previous Rx's Medication Instructions Recorded HYDROcodone/APAP 5-325MG [[address] 1 tab PO Q6HR PRN #10 tab 05/09/19 5-325] Lisinopril [Zestril] 5 mg PO BID tab 05/09/19 fentaNYL 25MCG/HR PATCH [Duragesic 1 patch TRANSDERM Q72H #1 patch 05/09/19 25MCG/HR] Allergies Allergy/AdvReac Type Severity Reaction Status Date / Time ciprofloxacin [From Cipro] Allergy Unknown Verified 05/04/19 09:42 iodine Allergy Unknown Verified 05/04/19 09:42 Penicillins Allergy Unknown Verified 05/04/19 09:42 Phenylpiperazine Allergy Unknown Verified 05/04/19 09:42 Antidepressant red dye Allergy Unknown Verified 05/04/19 09:42 Sulfa (Sulfonamide Allergy Unknown Verified 05/04/19 09:42 Antibiotics) Review of Systems ROS Statement: Those systems with pertinent positive or pertinent negative responses have been documented in the HPI. ROS Other: All systems not noted in ROS Statement are negative. Constitutional: Reports: fever, chills, weakness Respiratory: Reports: cough. Denies: dyspnea, wheezes Cardiovascular: Denies: chest pain, syncope Gastrointestinal: Denies: abdominal pain, nausea, vomiting Genitourinary: Denies: dysuria, hematuria Musculoskeletal: Reports: back pain (Chronic) Skin: Denies: rash, lesions Neurological: Denies: headache, weakness, numbness Past Medical History Past Medical History: Coronary Artery Disease (CAD), Heart Failure, COPD, Diabetes Mellitus, GERD/Reflux, GI Bleed, Hearing Disorder / Deafness, Hype rtension, Osteoarthritis (OA), Pneumonia, Renal Disease, Seizure Disorder, Skin Disorder, Vascular Disorder Additional Past Medical History / Comment(s): NIDDM type II-pt states she was on oral meds for about 6 months once, CVA-pt states no residual, L foot drop, last seizure 20 yrs ago, bronchitis, gastric ulcer, bloody stool in past, kidney stones with surgeries, PVD-R AKA, gastric ulcer, diverticular disease, hemorrhoids, UTIs, migraines, chronic low back pain and R stump pain, tinnitis bilaterally, [place] R ear, anemia, dermatitis, incontinence of urine and stool, pas t L elbow fracture. History of Any Multi-Drug Resistant Organisms: MRSA Date of last positivie culture/infection: 2012 MDRO Source:: right leg Past Surgical History: Appendectomy, Cholecystectomy, Orthopedic Surgery, Tonsillectomy Additional Past Surgical History / Comment(s): EGD, colonoscopies, bilateral percutaneous nephroscopies, arch/aortagrams, R foot 5th toe amp then R AKA, L hip ORIF with plate/screws, laparatomy for rupture ovarian cyst, cox-since removed, PICC-since removed. Past Anesthesia/Blood Transfusion Reactions: No Reported Reaction Additional Past Anesthesia/Blood Transfusion Reaction / Comment(s): care provider doesn't know anesthesia hx. Past Psychological History: Anxiety, Bipolar, Depression Smoking Status: Former smoker - Past Family History Father Family Medical History: COPD, Myocardial Infarction (NC) Additional Family Medical History / Comment(s): Father was a smoker with emphysema. He from his 3rd NC at the age of 67yrs. Mother Family Medical History: No Reported History Additional Family Medical History / Comment(s): Mother was healthy and lived to be 95yrs old. General Exam Limitations: physical limitation General appearance: alert, in no apparent distress Head exam: Present: atraumatic, normocephalic Eye exam: Present: normal appearance. Absent: scleral icterus, conjunctival injection ENT exam: Present: mucous membranes dry Neck exam: Present: normal inspection, full ROM. Absent: meningismus Respiratory exam: Present: rhonchi. Absent: respiratory distress, wheezes, rales, accessory muscle use, decreased breath sounds Cardiovascular Exam: Present: tachycardia, normal heart sounds. Absent: systolic murmur, diastolic murmur, rubs, gallop GI/Abdominal exam: Present: soft. Absent: distended, tenderness, guarding, rebound, rigid, mass Extremities exam: Present: other (Right leg above-knee amputation.). Absent: tenderness, pedal edema Neurological exam: Present: alert Skin exam: Present: warm, dry, intact, normal color. Absent: rash Course Vital Signs 12/14/19 12/14/19 12/14/19 01:02 01:11 01:12 Temperature 101.9 F H Pulse Rate 111 H Respiratory 20 20 Rate Blood Pressure 106/82 O2 Sat by Pulse 86 L 95 Oximetry 12/14/19 12/14/19 12/14/19 02:00 04:00 05:00 Temperature Pulse Rate 103 H 93 90 Respiratory 22 22 22 Rate Blood Pressure 123/86 104/60 116/68 O2 Sat by Pulse 95 96 96 Oximetry 12/14/19 12/14/19 05:12 06:53 Temperature 98.7 F Pulse Rate 84 Respiratory 24 Rate Blood Pressure 100/58 O2 Sat by Pulse 96 96 Oximetry Procedures - Mallard Protocol (Time Out) Nurse: Aida Aguirre Medical Decision Making - Medical Decision Making Patient is 69-year-old woman sent from group home for fever. There is urinary tract infection and patient started on antibiotics. Patient also received sepsis bolus based on IV of body weight. - Lab Data Result diagrams: 12/14/19 01:27 12/14/19 01:27 Lab Results 12/14/19 12/14/19 12/14/19 Range/Units 01:27 01:27 01:27 WBC 17.4 H (3.8-10.6) k/uL RBC 6.10 H (3.80-5.40) m/uL Hgb 16.0 (11.4-16.0) gm/dL Hct 49.6 H (34.0-46.0) % MCV 81.3 (80.0-100.0) fL MCH 26.3 (25.0-35.0) pg MCHC 32.3 (31.0-37.0) g/dL RDW 14.7 (11.5-15.5) % Plt Count 185 (150-450) k/uL Neutrophils % 91 % Lymphocytes % 4 % Monocytes % 5 % Eosinophils % 1 % Basophils % 0 % Neutrophils # 15.8 H (1.3-7.7) k/uL Lymphocytes # 0.6 L (1.0-4.8) k/uL Monocytes # 0.8 (0-1.0) k/uL Eosinophils # 0.1 (0-0.7) k/uL Basophils # 0.1 (0-0.2) k/uL PT 10.2 (9.0-12.0) sec INR 1.0 (<1.2) APTT 23.9 (22.0-30.0) sec D-Dimer 2.11 H (<0.60) mg/L FEU Sodium 139 (137-145) mmol/L Potassium 3.9 (3.5-5.1) mmol/L Chloride 99 (98-107) mmol/L Carbon Dioxide 29 (22-30) mmol/L Anion Gap 11 mmol/L BUN 19 H (7-17) mg/dL Creatinine 0.73 (0.52-1.04) mg/dL Est GFR (CKD-EPI)AfAm >90 (>60 ml/min/1.73 sqM) Est GFR (CKD-EPI)NonAf 84 (>60 ml/min/1.73 sqM) Glucose 167 H (74-99) mg/dL Lactic Ac Sepsis Rflx Plasma Lactic Acid Jacinto (0.7-2.0) mmol/L Calcium 9.1 (8.4-10.2) mg/dL Magnesium 1.9 (1.6-2.3) mg/dL Total Bilirubin 0.7 (0.2-1.3) mg/dL AST 32 (14-36) U/L ALT 26 (4-34) U/L Alkaline Phosphatase 152 H (38-126) U/L Lactate Dehydrogenase 497 (313-618) U/L C-Reactive Protein 31.2 H (<10.0) mg/L Total Protein 7.6 (6.3-8.2) g/dL Albumin 4.2 (3.5-5.0) g/dL Urine Color Urine Appearance (Clear) Urine pH (5.0-8.0) Ur Specific Point (1.001-1.035) Urine Protein (Negative) Urine Glucose (UA) (Negative) Urine Ketones (Negative) Urine Blood (Negative) Urine Nitrite (Negative) Urine Bilirubin (Negative) Urine Urobilinogen (<2.0) mg/dL Ur Leukocyte Esterase (Negative) Urine RBC (0-5) /hpf Urine WBC (0-5) /hpf Urine WBC Clumps (None) /hpf Ur Squamous Epith Cells (0-4) /hpf Urine Bacteria (None) /hpf Hyaline Casts (0-2) /lpf Urine Mucus (None) /hpf 12/14/19 12/14/19 12/14/19 Range/Units 01:27 02:10 02:18 WBC (3.8-10.6) k/uL RBC (3.80-5.40) m/uL Hgb (11.4-16.0) gm/dL Hct (34.0-46.0) % MCV (80.0-100.0) fL MCH (25.0-35.0) pg MCHC (31.0-37.0) g/dL RDW (11.5-15.5) % Plt Count (150-450) k/uL Neutrophils % % Lymphocytes % % Monocytes % % Eosinophils % % Basophils % % Neutrophils # (1.3-7.7) k/uL Lymphocytes # (1.0-4.8) k/uL Monocytes # (0-1.0) k/uL Eosinophils # (0-0.7) k/uL Basophils # (0-0.2) k/uL PT (9.0-12.0) sec INR (<1.2) APTT (22.0-30.0) sec D-Dimer (<0.60) mg/L FEU Sodium (137-145) mmol/L Potassium (3.5-5.1) mmol/L Chloride (98-107) mmol/L Carbon Dioxide (22-30) mmol/L Anion Gap mmol/L BUN (7-17) mg/dL Creatinine (0.52-1.04) mg/dL Est GFR (CKD-EPI)AfAm (>60 ml/min/1.73 sqM) Est GFR (CKD-EPI)NonAf (>60 ml/min/1.73 sqM) Glucose (74-99) mg/dL Lactic Ac Sepsis Rflx Y Plasma Lactic Acid Jacinto 2.7 H* (0.7-2.0) mmol/L Calcium (8.4-10.2) mg/dL Magnesium (1.6-2.3) mg/dL Total Bilirubin (0.2-1.3) mg/dL AST (14-36) U/L ALT (4-34) U/L Alkaline Phosphatase (38-126) U/L Lactate Dehydrogenase (313-618) U/L C-Reactive Protein (<10.0) mg/L Total Protein (6.3-8.2) g/dL Albumin (3.5-5.0) g/dL Urine Color Yellow Urine Appearance Cloudy H (Clear) Urine pH 7.0 (5.0-8.0) Ur Specific Point 1.019 (1.001-1.035) Urine Protein 1+ H (Negative) Urine Glucose (UA) Negative (Negative) Urine Ketones Negative (Negative) Urine Blood Small H (Negative) Urine Nitrite Negative (Negative) Urine Bilirubin Negative (Negative) Urine Urobilinogen <2.0 (<2.0) mg/dL Ur Leukocyte Esterase Large H (Negative) Urine RBC 14 H (0-5) /hpf Urine WBC >182 H (0-5) /hpf Urine WBC Clumps Many H (None) /hpf Ur Squamous Epith Cells <1 (0-4) /hpf Urine Bacteria Many H (None) /hpf Hyaline Casts 6 H (0-2) /lpf Urine Mucus Rare H (None) /hpf 12/14/19 Range/Units 05:37 WBC (3.8-10.6) k/uL RBC (3.80-5.40) m/uL Hgb (11.4-16.0) gm/dL Hct (34.0-46.0) % MCV (80.0-100.0) fL MCH (25.0-35.0) pg MCHC (31.0-37.0) g/dL RDW (11.5-15.5) % Plt Count (150-450) k/uL Neutrophils % % Lymphocytes % % Monocytes % % Eosinophils % % Basophils % % Neutrophils # (1.3-7.7) k/uL Lymphocytes # (1.0-4.8) k/uL Monocytes # (0-1.0) k/uL Eosinophils # (0-0.7) k/uL Basophils # (0-0.2) k/uL PT (9.0-12.0) sec INR (<1.2) APTT (22.0-30.0) sec D-Dimer (<0.60) mg/L FEU Sodium (137-145) mmol/L Potassium (3.5-5.1) mmol/L Chloride (98-107) mmol/L Carbon Dioxide (22-30) mmol/L Anion Gap mmol/L BUN (7-17) mg/dL Creatinine (0.52-1.04) mg/dL Est GFR (CKD-EPI)AfAm (>60 ml/min/1.73 sqM) Est GFR (CKD-EPI)NonAf (>60 ml/min/1.73 sqM) Glucose (74-99) mg/dL Lactic Ac Sepsis Rflx Plasma Lactic Acid Jacinto 1.2 (0.7-2.0) mmol/L Calcium (8.4-10.2) mg/dL Magnesium (1.6-2.3) mg/dL Total Bilirubin (0.2-1.3) mg/dL AST (14-36) U/L ALT (4-34) U/L Alkaline Phosphatase (38-126) U/L Lactate Dehydrogenase (313-618) U/L C-Reactive Protein (<10.0) mg/L Total Protein (6.3-8.2) g/dL Albumin (3.5-5.0) g/dL Urine Color Urine Appearance (Clear) Urine pH (5.0-8.0) Ur Specific Point (1.001-1.035) Urine Protein (Negative) Urine Glucose (UA) (Negative) Urine Ketones (Negative) Urine Blood (Negative) Urine Nitrite (Negative) Urine Bilirubin (Negative) Urine Urobilinogen (<2.0) mg/dL Ur Leukocyte Esterase (Negative) Urine RBC (0-5) /hpf Urine WBC (0-5) /hpf Urine WBC Clumps (None) /hpf Ur Squamous Epith Cells (0-4) /hpf Urine Bacteria (None) /hpf Hyaline Casts (0-2) /lpf Urine Mucus (None) /hpf - EKG Data -: EKG Interpreted by Me EKG shows normal: sinus rhythm, axis (Normal), intervals (Normal), QRS complexes (There are T waves in the inferior leads, suggestive of old inferior infarct), ST-T waves (Normal) Rate: tachycardia (Rate 106 bpm.) Disposition Clinical Impression: Urinary tract infection Disposition: ADMITTED IP TO THIS HOSP Condition: Fair
[2019-12-14] MEDS ORDERED: ACETAMINOPHEN TAB 325 MG TAB PO PRN ×2 (06:21→13:32)
[2019-12-14] MEDS ORDERED: NITROGLYCERIN SL TABS 0.4 MG TAB SUBLINGUAL PRN (06:21)
[2019-12-14] MEDS ORDERED: LORazepam 1 MG TAB PO PRN (09:00)
[2019-12-14] MEDS ORDERED: NON FORMULARY DRUG (Lactose-Reduced Food [Ensure Plus] 1 CAN) PO SCH (09:00)
[2019-12-14] MEDS: METOPROLOL TARTRATE 50 MG TAB PO SCH ×2 (09:27→17:19)
[2019-12-14] MEDS: LISINOPRIL 5 MG TAB PO SCH ×3 (09:27→22:37)
[2019-12-14] MEDS: TRIAMCINOLONE ACET 0.5% CREAM 15 GM TUBE TOPICAL SCH ×2 (09:31→22:39)
[2019-12-14] MEDS: NYSTATIN 100,000 UNIT/GM POWD 15 GM TOPICAL SCH ×2 (09:31→22:39)
[2019-12-14] MEDS: DOCUSATE 100 MG CAP PO SCH (09:34)
[2019-12-14] MEDS: ISOSORBIDE MONONITRATE ER 30 MG TAB.ER.24H PO SCH (09:36)
[2019-12-14] MEDS: traZODone HCL 50 MG TAB PO SCH (09:36)
[2019-12-14] MEDS: PANTOPRAZOLE 40 MG TABLET PO SCH (09:36)
[2019-12-14] MEDS: risperiDONE 0.25 MG TAB PO SCH ×2 (09:37→22:37)
[2019-12-14] MEDS: MULTIVITAMINS, THERA 1 EACH TAB PO SCH (09:37)
[2019-12-14] MEDS: FERROUS SULFATE 325 MG TAB PO SCH ×2 (09:38→17:20)
[2019-12-14] MEDS: SERTRALINE 100 MG TAB PO SCH (09:38)
[2019-12-14] MEDS: CLOPIDOGREL 75 MG TAB PO SCH (09:40)
[2019-12-14] MEDS: ASPIRIN 81 MG PO SCH (09:50)
[2019-12-14] MEDS: POTASSIUM CHLORIDE ER 20 MEQ TAB.ER PO SCH (09:50)
[2019-12-14] MEDS: ARTIFICIAL TEARS-HYPROMELLOSE DROPS 15 ML BTL BOTH EYES SCH ×2 (09:50→22:37)
[2019-12-14] MEDS: FUROSEMIDE 40 MG TAB PO SCH ×2 (10:10→22:37)
[2019-12-14 11:55] LABS: Ferritin 84.9 ng/mL (10.0-291.0)
[2019-12-14 12:16] LABS: Glucose,Whole Blood 143 mg/dL (75-99)
[2019-12-14] MEDS: INSULIN ASPART (NovoLOG) 100 UNIT/ML VIAL SQ SCH ×3 (13:18→22:28)
[2019-12-14] MEDS ORDERED: ALBUTEROL NEBULIZED 2.5 MG/3 ML INHALATION PRN (13:32)
[2019-12-14] MEDS ORDERED: BISACODYL 10 MG SUPP RECTAL PRN (13:32)
--- NOTE | 2019-12-14 15:10 | P.HPIM ---
History of Present Illness H&P Date: 12/14/19 (Resident at [facility]) Chief Complaint: Fever or chills and shortness of breath and not feeling well Chief complaint: Patient stated that she had fever and chills started on Thursday, on Thursday she had nausea and vomited on Thursday she complained of shortness of breath. Vomiting 3 times and feeling chills and found that she had temperature 101 [facility] and at that time requested to be transferred to the hospital for evaluation and treatment and also to rule out [id number] 19. History of present illness: Patient living in [facility] re[facility] and on Thursday she had some shortness of breath and felt nauseated, on Thursday she was progressed with the fever and chills and she requested to blanket because of feeling cold. On Thursday she had vomited 3 times with the fever 101 and above and chills patient transported to the emergency room at [facility] where she was seen by Dr. León ER physician and they did COVID19 with [place] on the early education teacher are today and results will be pending it may take couple days to have the result. On arrival her temperature was 101.9 F and the heart rate 111. The blood pressure 106/82 and oxygen saturation was 86. ER: They did laboratories WBC 17.4, RBCs 6.1 and 0, hemoglobin 16, platelet 185, and the neutrophil 15.8, d-dimer 2.1 and the PT and INR within normal limit. Her chemistry: Indicating sodium 139 potassium 3.9, her BMI 19 and creatinine 0.73 with a GFR more than 90. Glucose 167, alk phos 152 and C-reactive protein was 31.2 with normal total protein and albumin Found also that lactic acid 2.7 elevated with the low blood pressure and consideration of sepsis associated with as UTI. He analysis found large leukocyte esterase and RBCs 13 and WBCs more than 182 and bacteria is many. They started the sepsis protocol with hydration and the lactic acid went down to 1.2 and with the UTI started on Rocephin 1 g every 24 hours in the ER however I increased it to every 12 hours or on reviewing the patient's condition. She is with the hemoglobin and hematocrit elevation and mild dehydration. Patient has a chronic history of nephrolithiasis with the treatments in the past rendered by Dr. Bahena the urologist. We'll be obtaining KUB and possible ultr asound of the kidneys if there KUB did not help for about a diagnosis. Especially with the possibility of nephrolithiasis and pyelonephritis. Review of system Neuropsychiatry history of depression chronic pain syndrome and bipolar. Cardiovascular no complaint, no chest pain no syncope GI she complained with nausea and vomiting 3 times. Genitourinary found that she had the hematuria as well as UTI. Skin: Seborrheic dermatitis fascial. 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 Drop a nd muscle atrophy with a history of CVA in the past. Review of the rest of the 14 bowlegged was noncontributory. Past medical history: She had history of coronary artery disease, heart failure, COPD, diabetes mellitus, GERD disease with reflux, GI bleeding, hearing disorder with slight deafness, hypertension, osteoarthritis, pneumonia, renal disease, seizure disorder, vascular disorder. She used to be on oral hypoglycemic agent which was discontinued because of hypoglycemia. CVA no residual effect foot drop left foot drop for her last 20 years she has history of bronchitis, gastric ulcer, bloody stools, kidney stones with a secondary, peripheral vascular disease, above-knee amputation, div erticular disease, hemorrhoids, UTIs, migraine, chronic low back pain, right stump pain, tinnitus, anemia resolved dermatitis still incontinent for urine and stool left elbow fracture. History of MRSA in 2013. From the right leg stump which is resolved over the treatment and no recurrence for 7 years. Surgical appendectomy cholecystectomy orthopedic surgery tonsillectomy. EKG colonoscopy bilateral Continuous arthroscopes for nephrolithiasis left hip open reduction internal fixation with fracture with plate and screw, laparotomy for ruptured ovarian cyst. History of been placement and removed and a PICC line placement and then removed no transfusion reaction, to being on. She has history of panic exactly depression and bipolar. She is a former smoker. Family history: COPD [place], father was a smoker with emphysema, a dilated with his started [place] at age of 67. Gen. examination: Patient with physical limitation, inability to stand up or walk with the presence of right above-knee amputation and left side hip fracture with with left sided weakness associated with a previous CVA and left foot drop and atrophic muscles. HEENT: The head was normocephalic and atraumatic. Patient has severe dental disease with dental caries with inability to have any dental care through her insurance patient however able to eat and swallow and no fascial asymmetry. Pupil is equal reactive and able to hear bilateral. The neck was supple no JVD no thyromegaly no lymphadenopathy trachea midline. Respiratory she had opening crackles with the underlying pulmonary fibrosis and intermittent hypoxemia. And shortness of breath. Cardiovascular: Patient had tachycardia through the emergency room but also she had hypo-tension and there is no edema of the left lower extremities and no JVD the heart is compensated and the heart rate improved to 80s after patient stabilized The abdomen: Is positive bowel sound however she had tenderness along the left sided flank with the possible nephrolithiasis versus stool retention but she had associated UTI and will try to rule out pyelonephritis. Extremities she has decreased pulses on the left posterior tibial or dorsalis pedis and popliteal on the left side however the femoral head was impacted the right side she had above-knee amputation within the positive femoral pulses Neurological examination: She is conscious alert oriented 3, with a history of weakness on the left lower extremities with a history of CVA in the past. Patient not ambulatory. Assessment and plan: #1 urinary tract infection. #2 rule out sepsis with the hypotension, tachycardia, leukocytosis 17,000 and #3 nephrolithiasis and rule out pyelonephritis. #4 lactic acidosis resolved with the protocol in the ER. #5 Jillian Rausch with the presence of fever chills and mild shortness of breath with the hypoxemia on admission. #6 pulmonary fibrosis overlying by chest x-ray and CT. #7 CT angiogram negative for PE with the underlying elevated D dimers mildly. #8 chronic pain syndrome with phantom pain in the stump of the right above-knee amputation. #9 lactose intolerance #10 hyperglycemia and rule out diabetes mellitus2. #11 mild dehydration with elevated hemoglobin and hematocrit. Plan: #1 obtain lab tomorrow #2 obtain KUB and if there is suspicion abnormality we will obtain ultrasound of the kidney. #3 Rocephin IV piggyback every 12 hours so far tolerating it with no problems. #4 glucose monitoring before meals meals and covered with the scale with insulin along. #5 waiting for the result of Dr. Jillian Rausch. #6 continue hydration. Past Medical History Past Medical History: Coronary Artery Disease (CAD), Heart Failure, COPD, Diab etes Mellitus, GERD/Reflux, GI Bleed, Hearing Disorder / Deafness, Hypertension, Osteoarthritis (OA), Pneumonia, Renal Disease, Seizure Disorder, Skin Disorder, Vascular Disorder Additional Past Medical History / Comment(s): NIDDM type II-pt states she was on oral meds for about 6 months once, CVA-pt states no residual, L foot drop, last seizure 20 yrs ago, bronchitis, gastric ulcer, bloody stool in past, kidney stones with surgeries, PVD-R AKA, gastric ulcer, diverticular disease, hemorrhoids, UTIs, migraines, chronic low back pain and R stump pain, tinnitis bilaterally, SPOKANE R ear, anemia, dermatitis, incontinence of urine and stool, past L elbow fracture. History of Any Multi-Drug Resistant Organisms: MRSA Date of last positivie culture/infection: 2012 MDRO Source:: right leg Past Surgical History: Appendectomy, Cholecystectomy, Orthopedic Surgery, Tonsillectomy Additional Past Surgical History / Comment(s): EGD, colonoscopies, bilateral percutaneous nephroscopies, arch/aortagrams, R foot 5th toe amp then R AKA, L hip ORIF with plate/screws, laparatomy for rupture ovarian cyst, cox-since removed, PICC-since removed. Past Anesthesia/Blood Transfusion Reactions: No Reported Reaction Additional Past Anesthesia/Blood Transfusion Reaction / Comment(s): care provider doesn't know anesthesia hx. Past Psychological History: Anxiety, Bipolar, Depression Smoking Status: Former smoker - Past Family History Father Family Medical History: COPD, Myocardial Infarction ([place]) Additional Family Medical History / Comment(s): Father was a smoker with emphys binu. He from his 3rd [place] at the age of 67yrs. Mother Family Medical History: No Reported History Additional Family Medical History / Comment(s): Mother was healthy and lived to be 95yrs old. Medications and Allergies Home Medications Medication Instructions Recorded Confirmed Type Clopidogrel [Plavix] 75 mg PO DAILY@0800 03/21/15 12/14/19 History Docusate Sodium [Dulcolax Stool 100 mg PO DAILY@0800 03/21/15 12/14/19 History Softener] Furosemide [Lasix] 40 mg PO BID@0800,1700 03/21/15 12/14/19 History Lactobacillus Acidophilus 1 tab PO TID@0800,1200,1700 03/21/15 12/14/19 History [Acidophilus] Multivit with Calcium,Iron,Min 1 tab PO DAILY@0800 03/21/15 12/14/19 History [Women's Daily Multivitamin] Potassium Chloride [Klor-Con 20] 20 meq PO DAILY@0800 03/21/15 12/14/19 History Sertraline [Zoloft] 100 mg PO DAILY@0803/19/17 12/14/19 History Ferrous Sulfate [Iron (65 MG 325 mg PO DAILY@0802/12/18 12/14/19 History Elemental)] carBAMazepine [TEGretol XR] 200 mg PO BID@0800,2100 02/17/18 12/14/19 History Cholecalciferol [Vitamin D3] 1,200 unit PO DAILY@169903/10/19 12/14/19 History LORazepam [Ativan] 0.5 mg PO BID@0800,2100 PRN 03/10/19 12/14/19 History Lactose-Reduced Food [Ensure Plus] 1 can PO BID@0800,169903/10/19 12/14/19 History Lubricant Drops Solution 1.4% 1 drop BOTH EYES BID@0800,0 03/10/19 12/14/19 History Metoprolol Tartrate [Lopressor] 50 mg PO BID@0800,169903/10/19 12/14/19 History Nitroglycerin Sl Tabs [Nitrostat] 0.4 mg SUBLINGUAL Q5M PRN 03/10/19 12/14/19 History Nystatin 100,000 Unit/gm Powd 1 applic TOPICAL BID 03/10/19 12/14/19 History [Mycostatin Powder] Triamcinolone 0.5% Cream [Kenalog 1 applic TOPICAL BID PRN 03/10/19 12/14/19 History 0.5% Cream] risperiDONE [RisperDAL] 0.25 mg PO BID@0800,1700 03/10/19 12/14/19 History Aspirin 81 mg PO DAILY@0800 05/04/19 12/14/19 History Esomeprazole Magnesium [NexIUM] 40 mg PO DAILY@0600 05/04/19 12/14/19 History Isosorbide Mononitrate ER [Imdur] 30 mg PO DAILY@0805/04/1920 History Mag Hydrox/Al Hydrox/Simeth 30 ml PO QID PRN 05/04/19 12/14/19 History [Maalox] HYDROcodone/APAP 5-325MG [[place] 1 tab PO Q6HR PRN #10 tab 05/09/19 12/14/19 Rx 5-325] fentaNYL 25MCG/HR PATCH [Duragesic 1 patch TRANSDERM Q72H #1 patch 05/09/19 12/14/19 Rx 25MCG/HR] Acetaminophen Tab [Tylenol] 650 mg PO Q4H PRN 12/14/19 12/14/19 History Albuterol Nebulized [Ventolin 2.5 mg INHALATION RT-Q4H PRN 12/14/19 12/14/19 History Nebulized] Bisacodyl [Dulcolax] 10 mg RECTAL DAILY PRN 12/14/19 12/14/19 History Cyclobenzaprine [Flexeril] 5 mg PO BID@0800,1700 12/14/19 12/14/19 History Gabapentin [Neurontin] 300 mg PO TID@0800,1200,1700 12/14/19 12/14/19 History Lidocaine 5% Cream 1 applic TOPICAL DAILY PRN 12/14/19 12/14/19 History Lisinopril [Zestril] 5 mg PO BID@0800,1700 12/14/19 12/14/19 History Loperamide HCl [Imodium A-D] 2 - 4 mg PO DAILY PRN 12/14/19 12/14/19 History Magnesium Hydroxide [Milk of 2,400 mg PO DAILY PRN 12/14/19 12/14/19 History Magnesia] Na Phos,M-B/Na Phos,Di-Ba [Fleet 133 ml RECTAL ONCE PRN 12/14/19 12/14/19 History Adult] Ondansetron [Zofran] 4 mg PO Q6H PRN 12/14/19 12/14/19 History Simethicone 80 mg PO TID PRN 12/14/19 12/14/19 History traZODone HCL [Desyrel] 100 mg PO HS@2100 12/14/19 12/14/19 History Allergies Allergy/AdvReac Type Severity Reaction Status Date / Time ciprofloxacin [From Cipro] Allergy Unknown Verified 12/14/19 13:08 iodine Allergy Unknown Verified 12/14/19 13:08 Penicillins Allergy Unknown Verified 12/14/19 13:08 Phenylpiperazine Allergy Unknown Verified 12/14/19 13:08 Antidepressant red dye Allergy Unknown Verified 12/14/19 13:08 Sulfa (Sulfonamide Allergy Unknown Verified 12/14/19 13:08 Antibiotics) Physical Exam Vitals: Vital Signs Temp Pulse Resp BP Pulse Ox 12/14/19 10:56 16 12/14/19 09:00 16 12/14/19 08:54 98.9 F 12/14/19 07:32 98.0 F 84 18 103/70 96 12/14/19 06:53 84 24 100/58 96 12/14/19 05:12 98.7 F 96 12/14/19 05:00 90 22 116/68 96 12/14/19 04:00 93 22 104/60 96 12/14/19 02:00 103 H 22 123/86 95 12/14/19 01:12 20 12/14/19 01:11 95 12/14/19 01:02 101.9 F H 111 H 20 106/82 86 L Intake and Output 12/13/19 12/14/19 12/14/19 22:59 06:59 14:59 Other: Weight 65.771 kg Results CBC & Chem 7: 12/14/19 01:27 12/14/19 01:27 Labs: Abnormal Lab Results - Last 24 Hours (Table) 12/14/19 12/14/19 12/14/19 Range/Units 01:27 01:27 01:27 WBC 17.4 H (3.8-10.6) k/uL RBC 6.10 H (3.80-5.40) m/uL Hct 49.6 H (34.0-46.0) % Neutrophils # 15.8 H (1.3-7.7) k/uL Lymphocytes # 0.6 L (1.0-4.8) k/uL D-Dimer 2.11 H (<0.60) mg/L FEU BUN 19 H (7-17) mg/dL Glucose 167 H (74-99) mg/dL POC Glucose (mg/dL) (75-99) mg/dL Plasma Lactic Acid Jacinto (0.7-2.0) mmol/L Alkaline Phosphatase 152 H (38-126) U/L C-Reactive Protein 31.2 H (<10.0) mg/L Procalcitonin (0.02-0.09) ng/mL Urine Appearance (Clear) Urine Protein (Negative) Urine Blood (Negative) Ur Leukocyte Esterase (Negative) Urine RBC (0-5) /hpf Urine WBC (0-5) /hpf Urine WBC Clumps (None) /hpf Urine Bacteria (None) /hpf Hyaline Casts (0-2) /lpf Urine Mucus (None) /hpf 12/14/19 12/14/19 12/14/19 Range/Units 01:27 01:27 02:10 WBC (3.8-10.6) k/uL RBC (3.80-5.40) m/uL Hct (34.0-46.0) % Neutrophils # (1.3-7.7) k/uL Lymphocytes # (1.0-4.8) k/uL D-Dimer (<0.60) mg/L FEU BUN (7-17) mg/dL Glucose (74-99) mg/dL POC Glucose (mg/dL) (75-99) mg/dL Plasma Lactic Acid Jacinto 2.7 H* (0.7-2.0) mmol/L Alkaline Phosphatase (38-126) U/L C-Reactive Protein (<10.0) mg/L Procalcitonin 0.74 H (0.02-0.09) ng/mL Urine Appearance Cloudy H (Clear) Urine Protein 1+ H (Negative) Urine Blood Small H (Negative) Ur Leukocyte Esterase Large H (Negative) Urine RBC 14 H (0-5) /hpf Urine WBC >182 H (0-5) /hpf Urine WBC Clumps Many H (None) /hpf Urine Bacteria Many H (None) /hpf Hyaline Casts 6 H (0-2) /lpf Urine Mucus Rare H (None) /hpf 12/14/19 Range/Units 12:15 WBC (3.8-10.6) k/uL RBC (3.80-5.40) m/uL Hct (34.0-46.0) % Neutrophils # (1.3-7.7) k/uL Lymphocytes # (1.0-4.8) k/uL D-Dimer (<0.60) mg/L FEU BUN (7-17) mg/dL Glucose (74-99) mg/dL POC Glucose (mg/dL) 143 H (75-99) mg/dL Plasma Lactic Acid Jacinto (0.7-2.0) mmol/L Alkaline Phosphatase (38-126) U/L C-Reactive Protein (<10.0) mg/L Procalcitonin (0.02-0.09) ng/mL Urine Appearance (Clear) Urine Protein (Negative) Urine Blood (Negative) Ur Leukocyte Esterase (Negative) Urine RBC (0-5) /hpf Urine WBC (0-5) /hpf Urine WBC Clumps (None) /hpf Urine Bacteria (None) /hpf Hyaline Casts (0-2) /lpf Urine Mucus (None) /hpf Microbiology - Last 24 Hours (Table) 12/14/19 02:10 Urine Culture - Preliminary Urine,Catheterized
[2019-12-14] MEDS: LACTOBACILLUS ACIDOPH & BULGAR 1 EACH PACKET PO SCH ×2 (15:29→22:37)
--- NOTE | 2019-12-14 15:35 | XR ---
EXAMINATION TYPE: XR KUB portable DATE OF EXAM: 12/14/2019 COMPARISON: NONE HISTORY: Pain TECHNIQUE: Single supine KUB image of the abdomen is obtained FINDINGS: Small bowel demonstrates no evidence for dilatation or air fluid levels. Gas and fecal material is seen in non-distended colon. No convincing evidence for pneumoperitoneum. Bilateral nephrolithiasis noted measuring up to 5 mm upper pole left kidney and 3 mm lower pole right kidney. No definite calculi seen along the expected course of the ureters although overlying bowel c ontent limits evaluation. The lung bases are clear. The osseous structures are intact. IMPRESSION: 1. Bilateral nephrolithiasis noted measuring up to 5 mm upper pole left kidney and 3 mm lower pole r ight kidney. No definite calculi seen along the expected course of the ureters although overlying bow el content limits evaluation.
[2019-12-14] MEDS: HYDROcodone/APAP 5-325MG 1 EACH TAB PO PRN ×2 (16:06→22:36)
[2019-12-14 17:08] LABS: Glucose,Whole Blood 126 mg/dL (75-99)
[2019-12-14] MEDS: GABAPENTIN 300 MG CAP PO SCH (17:19)
[2019-12-14] MEDS: CHOLECALCIFEROL 1,000 UNIT TAB PO SCH (17:20)
[2019-12-14] MEDS: CYCLOBENZAPRINE 5 MG TAB PO SCH (17:20)
[2019-12-14 19:01] LABS: Hemoglobin A1C 5.2 % (4.0-6.0)
[2019-12-14 22:25] LABS: Glucose,Whole Blood 112 mg/dL (75-99)
[2019-12-14] MEDS: MAG HYDROX/AL HYDROX/SIMETH 30 ML CUP PO PRN (22:38)
[2019-12-15 06:43] LABS: Glucose,Whole Blood 129 mg/dL (75-99)
[2019-12-15 08:12] LABS: Basophils # (A) 0.1 k/uL (0-0.2); Basophils % (A) 1 %; Eosinophils # (A) 0.2 k/uL (0-0.7); Eosinophils % (A) 2 %; HCT 44.7 % (34.0-46.0); HGB 14.2 gm/dL (11.4-16.0); Lymphocytes # (A) 1.4 k/uL (1.0-4.8); Lymphocytes % (A) 17 %; MCH 26.4 pg (25.0-35.0); MCHC 31.7 g/dL (31.0-37.0); MCV 83.4 fL (80.0-100.0); Mean Platelet Volume 7.4; Monocytes # (A) 0.5 k/uL (0-1.0); Monocytes % (A) 6 %; Neutrophils # (A) 5.9 k/uL (1.3-7.7); Neutrophils % (A) 73 %; Platelet Count 156 k/uL (150-450); RBC 5.36 m/uL (3.80-5.40); RDW 14.8 % (11.5-15.5); WBC 8.1 k/uL (3.8-10.6)
[2019-12-15] MEDS: INSULIN ASPART (NovoLOG) 100 UNIT/ML VIAL SQ SCH ×4 (08:23→21:37)
[2019-12-15] MEDS: GABAPENTIN 300 MG CAP PO SCH ×3 (08:25→17:50)
[2019-12-15] MEDS: SERTRALINE 100 MG TAB PO SCH (08:25)
[2019-12-15] MEDS: POTASSIUM CHLORIDE ER 20 MEQ TAB.ER PO SCH ×2 (08:26→20:55)
[2019-12-15] MEDS: LACTOBACILLUS ACIDOPH & BULGAR 1 EACH PACKET PO SCH ×3 (08:26→20:54)
[2019-12-15] MEDS: traZODone HCL 50 MG TAB PO SCH (08:26)
[2019-12-15] MEDS: CYCLOBENZAPRINE 5 MG TAB PO SCH ×2 (08:26→17:50)
[2019-12-15] MEDS: CLOPIDOGREL 75 MG TAB PO SCH (08:27)
[2019-12-15] MEDS: MULTIVITAMINS, THERA 1 EACH TAB PO SCH (08:27)
[2019-12-15] MEDS: risperiDONE 0.25 MG TAB PO SCH ×2 (08:27→20:53)
[2019-12-15] MEDS: ASPIRIN 81 MG PO SCH (08:27)
[2019-12-15] MEDS: DOCUSATE 100 MG CAP PO SCH (08:28)
[2019-12-15] MEDS: ISOSORBIDE MONONITRATE ER 30 MG TAB.ER.24H PO SCH (08:28)
[2019-12-15] MEDS: LISINOPRIL 5 MG TAB PO SCH ×2 (08:28→20:54)
[2019-12-15] MEDS: PANTOPRAZOLE 40 MG TABLET PO SCH (08:28)
[2019-12-15] MEDS: FUROSEMIDE 40 MG TAB PO SCH (08:29)
[2019-12-15] MEDS: METOPROLOL TARTRATE 50 MG TAB PO SCH ×2 (08:29→17:51)
[2019-12-15] MEDS: TRIAMCINOLONE ACET 0.5% CREAM 15 GM TUBE TOPICAL SCH ×2 (08:31→20:57)
[2019-12-15] MEDS: NYSTATIN 100,000 UNIT/GM POWD 15 GM TOPICAL SCH ×2 (08:31→20:56)
[2019-12-15] MEDS: ARTIFICIAL TEARS-HYPROMELLOSE DROPS 15 ML BTL BOTH EYES SCH ×2 (08:32→20:57)
[2019-12-15 08:45] LABS: African American GFR (CKD) >90 (>60 ml/min/1.73 sqM); Anion Gap 11 mmol/L; Blood Urea Nitrogen 17 mg/dL (7-17); Calcium 7.7 mg/dL (8.4-10.2); Carbon Dioxide 23 mmol/L (22-30); Chloride 107 mmol/L (98-107); Glucose 120 mg/dL (74-99); Non-African American GFR(CKD) >90 (>60 ml/min/1.73 sqM); Potassium 3.4 mmol/L (3.5-5.1); Sodium 141 mmol/L (137-145)
[2019-12-15] MEDS: MAG HYDROX/AL HYDROX/SIMETH 30 ML CUP PO PRN ×2 (08:51→21:42)
[2019-12-15 11:48] LABS: Glucose,Whole Blood 121 mg/dL (75-99)
[2019-12-15 15:18] VITALS: BMI 22.0
--- NOTE | 2019-12-15 15:46 | PN ---
PROGRESS NOTE DATE OF SERVICE: 12/15/2019 Patient is seen evaluated today at 2 pm. She is a 69-year-old white female, . Her current location in the 4th floor, [facility]. Patient admitted to the hospital with a UTI and sepsis and associated fever, nausea and vomiting. Also she had bloating and she had a cough and chills. Patient has history of CVA in the past and on admission, found that she had lactic acid elevation with the hypotension and they started her on sepsis protocol. As patient admitted to the hospital, started on antibiotic IV Rocephin which adjusted subsequently to q.12 hours 1 g. Patient did well on admission. Her leukocytosis with 17,000 and subsequently with the antibiotic and the protocol for sepsis down and improved significantly, but patient had still the pain in the flank. We did a KUB which found to have both kidneys nephrolithiasis with the fever and chills. She had tested for COVID-19, result is pending. Meanwhile, the suspicious of pyelonephritis with nephrolithiasis was entertained and consultation with the Urology who has seen her in the past for the nephrolithiasis as she had history of that. Dr. Bahena, who will be Urology associated will be seeing her as well. Patient on IV fluid with the underlying found that she had hypocalcemia and could be associated with vitamin D as well as with nephrolithiasis could be associated with a parathyroid hormone. For that reason, we ordered today PTH as well as we ordered ionized calcium to check on that. The white count has been improved with the underlying persistent hypokalemia and in spite of the supplementation with the IV fluid with potassium is 20 mEq/hour and we had added the potassium which already she is on 20 mEq and we increased it to twice a day and we changed IV to 50 mL an hour and normal saline. PHYSICAL EXAMINATION: Today, she was complaining of increased distention of her abdomen which pressuring on the diaphragm causing shortness of breath. However, the chest x-ray was not indicating pneumonia. She had probably underlying pulmonary fibrosis with the chest x-ray indicating that which done on the admission, pulmonary interstitial fibrosis without changes as compared with the old exam and that she has as well. KUB as mentioned above and a KUB was indicating bilateral nephrolithiasis noted measuring up to 5 mm in the upper pole of the left kidney and 3 mm in the lower pole of the right kidney and with her pain in the flank area. The possibility of bilobed nephritis was considered and we consulted the Urology for evaluation and treatment and advice. Patient currently on the antibiotic and doing well. Her vital sign stable both on the low side and we discontinued the hypertensive medication. Still her blood pressure on the low side. She used to be hypertensive. with the underlying mild dehydration, we decreased the Lasix to only 40 mg once a day. And increased the IV fluid to 50 mL an hour normal saline. The physical examination today, she is conscious, alert, oriented x3, and she asked about the pills for gas as she is descended and we had that to her program of medication. On exam, she has the abdominal discomfort on the flank, but also she is distended with the bowel sounds present. Her chest is clear. No wheezes. No rhonchi and the heart was regular sinus rhythm. Oropharynx was negative. When she was in the ER, she received steroid and she had 1 dose. She had hyperglycemia subsequently and she used to be diabetic and we ordered CBG to scale and her hemoglobin A1c was very good, not indicating diabetes and currently she is on the protocol with insulin coverage only and we monitoring that for this time. Her extremities, she had history of right above-knee amputation with the phantom pain needed for the pain medication. She has also history of CVA affecting the hemiparesis of the left side including fracture of the left hip with device, screw, and plate and also affected her left foot with left foot drop and atrophy of the muscle and minimal movement. She is unable to walk and unable to stand up and she has so for no skin tears or decubitus. ASSESSMENT: As mentioned above: 1. Underlying sepsis. 2. Associated with the hypotension and underlying lactic acid elevation, which has been improved now to normal and leukocytosis, which already improved to the normal range. 3. Electrolyte imbalance with hypokalemia and hypocalcemia. 4. Nephrolithiasis with underlying sepsis and fever and chills on admission and also at the [facility]. The possibility of a pyelonephritis could not be excluded. 5. The patient is non ambulatory as well. 6. History of hypertension; however, currently she is hypotensive and medication adjusted for that at this time. 7. She had glucose intolerance and flatulence and we consulted Nutrition and Dietitian to arrange for the appropriate diet. PLAN: We will wait for Dr. Bahena for evaluation and any further treatment and meanwhile she is on antibiotic because of the sepsis and we rechecked her other laboratory including the PTH to rule out parathyroid abnormalities as well as calcium level ionized calcium and further treatment depends on the results. PUSHPA / MYN: [id number] /
[2019-12-15] MEDS: SIMETHICONE 80 MG CHEWABLE PO SCH ×3 (16:01→22:47)
[2019-12-15] MEDS: SODIUM CHLORIDE 0.9% 1,000 ML IV SCH (16:01)
[2019-12-15 16:49] LABS: Glucose,Whole Blood 104 mg/dL (75-99)
[2019-12-15] MEDS: CHOLECALCIFEROL 1,000 UNIT TAB PO SCH (17:50)
[2019-12-15] MEDS: FERROUS SULFATE 325 MG TAB PO SCH (17:50)
[2019-12-15 20:42] LABS: Glucose,Whole Blood 104 mg/dL (75-99)
[2019-12-16 06:50] LABS: Glucose,Whole Blood 99 mg/dL (75-99)
[2019-12-16] MEDS: INSULIN ASPART (NovoLOG) 100 UNIT/ML VIAL SQ SCH ×3 (07:08→17:48)
--- NOTE | 2019-12-16 07:32 | P.GSCN ---
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 She lives at a fdc was found to have an elevated temperature and some shortness of breath and was admitted to the hospital. She is Covid negative. She is found to have urinary tract infection. Dr. Peetr asked me to see the patient. The patient had a percutaneous nephrostolithotomy on the left side a couple years ago. She has a poorly functioning left kidney with thinning of the parenchyma. She had a KUB showed a tiny stone in the left kidney. On admission her white count was 17,000 with antibiotics it has dropped to 8000. She is afebrile and feeling better. She has not had any flank pain. Her creatinine is normal. Review of Systems - Constitutional Reports fever - Genitourinary Genitourinary: Reports as per HPI Past Medical History Past Medical History: Coronary Artery Disease (CAD), Heart Failure, COPD, Diabetes Mellitus, GERD/Reflux, GI Bleed, Hearing Disorder / Deafness, Hypertension, Osteoarthritis (OA), Pneumonia, Renal Disease, Seizure Disorder, Skin Disorder, Vascular Disorder Additional Past Medical History / Comment(s): NIDDM type II-pt states she was on oral meds for about 6 months once, CVA-pt states no residual, L foot drop, last seizure 20 yrs ago, bronchitis, gastric ulcer, bloody stool in past, kidney stones with surgeries, PVD-R AKA, gastric ulcer, diverticular disease, hemorrhoids, UTIs, migraines, chronic low back pain and R stump pain, tinnitis bilaterally, MASHPEE R ear, anemia, dermatitis, incontinence of urine and stool, past L elbow fracture. History of Any Multi-Drug Resistant Organisms: MRSA Year Discovered:: 2012 MDRO Source:: right leg Past Surgical History: Appendectomy, Cholecystectomy, Orthopedic Surgery, Tonsillectomy Additional Past Surgical History / Comment(s): EGD, colonoscopies, bilateral percutaneous nephroscopies, arch/aortagrams, R foot 5th toe amp then R AKA, L hip ORIF with plate/screws, laparatomy for rupture ovarian cyst, cox-since removed, PICC-since removed. Past Anesthesia/Blood Transfusion Reactions: No Reported Reaction Additional Past Anesthesia/Blood Transfusion Reaction / Comm: care provider doesn't know anesthesia hx. Past Psychological History: Anxiety, Bipolar, Depression Smoking Status: Former smoker - Past Family History Father Family Medical History: COPD, Myocardial Infarction ([place]) Additional Family Medical History / Comment(s): Father was a smoker with emphysema. He from his 3rd TX at the age of 67yrs. Mother Family Medical History: No Reported History Additional Family Medical History / Comment(s): Mother was healthy and lived to be 95yrs old. Medications and Allergies Home Medications Medication Instructions Recorded Confirmed Type Clopidogrel [Plavix] 75 mg PO DAILY@0800 03/21/15 12/14/19 History Docusate Sodium [Dulcolax Stool 100 mg PO DAILY@79903/21/15 12/14/19 History Softener] Furosemide [Lasix] 40 mg PO BID@0800,169903/21/15 12/14/19 History Lactobacillus Acidophilus 1 tab PO TID@0800,1200,169903/21/15 12/14/19 History [Acidophilus] Multivit with Calcium,Iron,Min 1 tab PO DAILY@0803/21/15 12/14/19 History [Women's Daily Multivitamin] Potassium Chloride [Klor-Con 20] 20 meq PO DAILY@0803/21/15 12/14/19 History Sertraline [Zoloft] 100 mg PO DAILY@0800 03/19/17 12/14/19 History Ferrous Sulfate [Iron (65 MG 325 mg PO DAILY@0800 02/12/18 12/14/19 History Elemental)] carBAMazepine [TEGretol XR] 200 mg PO BID@0800,2100 02/17/18 12/14/19 History Cholecalciferol [Vitamin D3] 1,200 unit PO DAILY@169903/10/19 12/14/19 History LORazepam [Ativan] 0.5 mg PO BID@0800,2099 PRN 03/10/19 12/14/19 History Lactose-Reduced Food [Ensure Plus] 1 can PO BID@0800,1700 03/10/19 12/14/19 History Lubricant Drops Solution 1.4% 1 drop BOTH EYES BID@0800,169903/10/19 12/14/19 History Metoprolol Tartrate [Lopressor] 50 mg PO BID@0800,1700 03/10/19 12/14/19 History Nitroglycerin Sl Tabs [Nitrostat] 0.4 mg SUBLINGUAL Q5M PRN 03/10/19 12/14/19 History Nystatin 100,000 Unit/gm Powd 1 applic TOPICAL BID 03/10/19 12/14/19 History [Mycostatin Powder] Triamcinolone 0.5% Cream [Kenalog 1 applic TOPICAL BID PRN 03/10/19 12/14/19 H istory 0.5% Cream] risperiDONE [RisperDAL] 0.25 mg PO BID@0800,1700 03/10/19 12/14/19 History Aspirin 81 mg PO DAILY@0800 05/04/19 12/14/19 History Esomeprazole Magnesium [NexIUM] 40 mg PO DAILY@0600 05/04/19 12/14/19 History Isosorbide Mononitrate ER [Imdur] 30 mg PO DAILY@0800 05/04/19 12/14/19 History Mag Hydrox/Al Hydrox/Simeth 30 ml PO QID PRN 05/04/19 12/14/19 History [Maalox] HYDROcodone/APAP 5-325MG [[place] 1 tab PO Q6HR PRN #10 tab 05/09/19 12/14/19 Rx 5-325] fentaNYL 25MCG/HR PATCH [Duragesic 1 patch TRANSDERM Q72H #1 patch 05/09/19 12/14/19 Rx 25MCG/HR] Acetaminophen Tab [Tylenol] 650 mg PO Q4H PRN 12/14/19 12/14/19 History Albuterol Nebulized [Ventolin 2.5 mg INHALATION RT-Q4H PRN 12/14/19 12/14/19 History Nebulized] Bisacodyl [Dulcolax] 10 mg RECTAL DAILY PRN 12/14/19 12/14/19 History Cyclobenzaprine [Flexeril] 5 mg PO BID@0800,17012/14/19 12/14/19 History Gabapentin [Neurontin] 300 mg PO TID@0800,1200,1700 12/14/19 12/14/19 History Lidocaine 5% Cream 1 applic TOPICAL DAILY PRN 12/14/19 12/14/19 History Lisinopril [Zestril] 5 mg PO BID@0800,1700 12/14/19 12/14/19 History Loperamide HCl [Imodium A-D] 2 - 4 mg PO DAILY PRN 12/14/19 12/14/19 History Magnesium Hydroxide [Milk of 2,400 mg PO DAILY PRN 12/14/19 12/14/19 History Magnesia] Na Phos,M-B/Na Phos,Di-Ba [Fleet 133 ml RECTAL ONCE PRN 12/14/19 12/14/19 History Adult] Ondansetron [Zofran] 4 mg PO Q6H PRN 12/14/19 12/14/19 History Simethicone 80 mg PO TID PRN 12/14/19 12/14/19 History traZODone HCL [Desyrel] 100 mg PO HS@2100 12/14/19 12/14/19 History Allergies Allergy/AdvReac Type Severity Reaction Status Date / Time ciprofloxacin [From Cipro] Allergy Unknown Verified 12/14/19 13:08 iodine Allergy Unknown Verified 12/14/19 13:08 Penicillins Allergy Unknown Verified 12/14/19 13:08 Phenylpiperazine Allergy Unknown Verified 12/14/19 13:08 Antidepressant red dye Allergy Unknown Verified 12/14/19 13:08 Sulfa (Sulfonamide Allergy Unknown Verified 12/14/19 13:08 Antibiotics) Surgical - Exam Vital Signs Temp Pulse Resp BP Pulse Ox 101.9 F H 111 H 20 106/82 86 L 12/14/19 01:02 12/14/19 01:02 12/14/19 01:02 12/14/19 01:02 12/14/19 01:02 - General well developed, well nourished, no distress - Eyes PERRL - ENT no hearing loss - Neck no masses - Respiratory normal expansion, normal respiratory effort - Cardiovascular Rhythm: regular - Abdomen Abdomen: soft, non tender - Neurologic normal sensation - Musculoskeletal Right AKA normal posture - Psychiatric oriented to time, oriented to person Results - Labs 12/15/19 07:49 12/15/19 07:49 Abnormal Lab Results - Last 24 Hours (Table) 12/15/19 12/15/19 12/15/19 Range/Units 07:49 11:47 16:48 Potassium 3.4 L (3.5-5.1) mmol/L Glucose 120 H (74-99) mg/dL POC Glucose (mg/dL) 121 H 104 H (75-99) mg/dL Calcium 7.7 L (8.4-10.2) mg/dL 12/15/19 Range/Units 20:41 Potassium (3.5-5.1) mmol/L Glucose (74-99) mg/dL POC Glucose (mg/dL) 104 H (75-99) mg/dL Calcium (8.4-10.2) mg/dL Microbiology - Last 24 Hours (Table) 12/14/19 01:27 Blood Culture - Preliminary Blood No Growth after 48 hours 12/14/19 02:10 Urine Culture - Preliminary Urine,Catheterized Gram Neg Bacilli Diabetes panel 12/15/19 Range/Units 07:49 Sodium 141 (137-145) mmol/L Potassium 3.4 L (3.5-5.1) mmol/L Chloride 107 (98-107) mmol/L Carbon Dioxide 23 (22-30) mmol/L BUN 17 (7-17) mg/dL Creatinine 0.59 (0.52-1.04) mg/dL Glucose 120 H (74-99) mg/dL Calcium 7.7 L (8.4-10.2) mg/dL Calcium panel 12/15/19 Range/Units 07:49 Calcium 7.7 L (8.4-10.2) mg/dL Pituitary panel 12/15/19 Range/Units 07:49 Sodium 141 (137-145) mmol/L Potassium 3.4 L (3.5-5.1) mmol/L Chloride 107 (98-107) mmol/L Carbon Dioxide 23 (22-30) mmol/L BUN 17 (7-17) mg/dL Creatinine 0.59 (0.52-1.04) mg/dL Glucose 120 H (74-99) mg/dL Calcium 7.7 L (8.4-10.2) mg/dL Adrenal panel 12/15/19 Range/Units 07:49 Sodium 141 (137-145) mmol/L Potassium 3.4 L (3.5-5.1) mmol/L Chloride 107 (98-107) mmol/L Carbon Dioxide 23 (22-30) mmol/L BUN 17 (7-17) mg/dL Creatinine 0.59 (0.52-1.04) mg/dL Glucose 120 H (74-99) mg/dL Calcium 7.7 L (8.4-10.2) mg/dL - Imaging Abdominal x-ray: report reviewed, image reviewed CT scan - abdomen: report reviewed, image reviewed CT scan - pelvis: report reviewed, image reviewed Assessment and Plan Assessment: Impression: Urinary tract infection with sepsis. Multiple medical illnesses. history of kidney stones. History of poorly functioning kidney left. Recommendations. Since the patient is feeling better, her white count is normalized her fever is disappeared and her creatinine is normal I do not think that there is any stone disease contributing to this infection. I do not feel further imaging is required. I would treat her with culture specific antibiotics. If further urologic care is required please contact me.
[2019-12-16 07:45] LABS: Basophils % (A) 1 %; Eosinophils # (A) 0.2 k/uL (0-0.7); Eosinophils % (A) 3 %; HCT 42.4 % (34.0-46.0); HGB 13.8 gm/dL (11.4-16.0); Hypochromasia Slight; Lymphocytes # (A) 1.4 k/uL (1.0-4.8); Lymphocytes % (A) 22 %; MCH 27.2 pg (25.0-35.0); MCHC 32.5 g/dL (31.0-37.0); MCV 83.8 fL (80.0-100.0); Mean Platelet Volume 7.2; Monocytes # (A) 0.3 k/uL (0-1.0); Monocytes % (A) 5 %; Neutrophils # (A) 4.4 k/uL (1.3-7.7); Neutrophils % (A) 68 %; Platelet Count 139 k/uL (150-450); RBC 5.06 m/uL (3.80-5.40); RDW 14.8 % (11.5-15.5); WBC 6.5 k/uL (3.8-10.6)
[2019-12-16 08:08] LABS: African American GFR (CKD) >90 (>60 ml/min/1.73 sqM); Anion Gap 8 mmol/L; Blood Urea Nitrogen 15 mg/dL (7-17); Calcium 7.9 mg/dL (8.4-10.2); Carbon Dioxide 24 mmol/L (22-30); Chloride 109 mmol/L (98-107); Glucose 100 mg/dL (74-99); Non-African American GFR(CKD) >90 (>60 ml/min/1.73 sqM); Potassium 4.2 mmol/L (3.5-5.1); Sodium 141 mmol/L (137-145)
[2019-12-16 08:17] LABS: Ionized Calcium 4.6 mg/dL (4.5-5.3)
[2019-12-16] MEDS: METOPROLOL TARTRATE 50 MG TAB PO SCH ×2 (08:45→17:45)
[2019-12-16] MEDS: SODIUM CHLORIDE 0.9% 1,000 ML IV SCH (08:45)
[2019-12-16] MEDS: SERTRALINE 100 MG TAB PO SCH (08:46)
[2019-12-16] MEDS: traZODone HCL 50 MG TAB PO SCH (08:46)
[2019-12-16] MEDS: MULTIVITAMINS, THERA 1 EACH TAB PO SCH (08:48)
[2019-12-16] MEDS: CLOPIDOGREL 75 MG TAB PO SCH (08:48)
[2019-12-16] MEDS: risperiDONE 0.25 MG TAB PO SCH ×2 (08:48→21:27)
[2019-12-16] MEDS: CYCLOBENZAPRINE 5 MG TAB PO SCH ×2 (08:49→17:47)
[2019-12-16] MEDS: GABAPENTIN 300 MG CAP PO SCH ×3 (08:49→17:46)
[2019-12-16] MEDS: PANTOPRAZOLE 40 MG TABLET PO SCH (08:49)
[2019-12-16] MEDS: DOCUSATE 100 MG CAP PO SCH (08:49)
[2019-12-16] MEDS: ARTIFICIAL TEARS-HYPROMELLOSE DROPS 15 ML BTL BOTH EYES SCH ×2 (08:50→21:29)
[2019-12-16] MEDS: ASPIRIN 81 MG PO SCH (08:50)
[2019-12-16] MEDS: SIMETHICONE 80 MG CHEWABLE PO SCH ×4 (08:50→21:27)
[2019-12-16] MEDS: POTASSIUM CHLORIDE ER 20 MEQ TAB.ER PO SCH ×2 (08:50→21:27)
[2019-12-16] MEDS: NYSTATIN 100,000 UNIT/GM POWD 15 GM TOPICAL SCH ×2 (08:51→21:28)
[2019-12-16] MEDS: TRIAMCINOLONE ACET 0.5% CREAM 15 GM TUBE TOPICAL SCH ×2 (08:52→21:29)
[2019-12-16] MEDS: FUROSEMIDE 40 MG TAB PO SCH (08:58)
[2019-12-16] MEDS: MAG HYDROX/AL HYDROX/SIMETH 30 ML CUP PO PRN ×2 (08:58→13:08)
[2019-12-16] MEDS: LISINOPRIL 5 MG TAB PO SCH ×2 (08:58→21:27)
[2019-12-16] MEDS: ISOSORBIDE MONONITRATE ER 30 MG TAB.ER.24H PO SCH (08:58)
[2019-12-16] MEDS: LACTOBACILLUS ACIDOPH & BULGAR 1 EACH PACKET PO SCH ×3 (08:58→19:23)
[2019-12-16 11:32] LABS: Glucose,Whole Blood 106 mg/dL (75-99)
--- NOTE | 2019-12-16 12:56 | CDI ---
Documentation Clarification Form Date: 12/16/2019 12:43:41 PM From: Shea Rodriguez CCS, CCDS Admit Date: 12/15/2019 03:51:00 PM Patient Name: Prema Krause Visit Number: [id number] Discharge Date: ATTENTION: The Clinical Documentation Specialists (CDI) and [facility] Coding Staff appreciate your assistance in clarifying documentation. Please respond to the clarification below the line at the bottom and electronically sign. The CDI & [facility] Coding staff will review the response and follow-up if needed. Please note: Queries are made part of the Legal Health Record. If you have any questions, please contact the author of this message via ITS. Dr. Ian Peter: Per the 12/13 History & Physical, heart failure is listed without further specificity. History/Risk Factors: CAD, COPD, DM II, GERD, Hypertension, OA, Seizure disorder, [place], resides in a [facility]. Clinical Indicators: Presented with SOB, fever, cough & chills on 12/13, admitted to Observation with a UTI, possible Sepsis. Admitted as Inpatient on 12/14 with Sepsis due to UTI, COVID 19. VS 12/14: T 97.4*, P 65, R 18, BP 98/55, PO 94 RA - 96 2Lnc, 93 RA LAB 12/14: K 3.4*, Gluc 120^, Calcium 7.7*. COVID-19 12/13: Negative BNP: Not done. Echocardiogram Results (most recent) 02/23/2017: Difficult study. Mild LVH, Left ventricular systolic normal w/EF 55-60%, Trace TR/MR. Chest X Ray 12/13: Pulmonary interstitial fibrosis w/o change in comparison, no heart failure. Treatment: 12/13: Home dose Lasix po 40 mg BID. 12/14: IV Rocephin, Fentanyl patch, IV fluid 1,000 mls @ 50 mls/hr, po KDur, po Lasix 40 mg BI. In your professional opinion, can you please clarify the acuity and type of CHF if known? Heart Failure ruled out Systolic Heart Failure: o Chronic Diastolic Heart Failure: o Chronic Systolic & Diastolic Heart Failure: o Chronic Unable to Determine Other, please specify_no evidence of congestive heart failure, chest x-ray indicating pulmonary fibrosis. (Last Revision: October 2017) MTDD
[2019-12-16] MEDS: HYDROcodone/APAP 5-325MG 1 EACH TAB PO PRN (14:35)
[2019-12-16 16:35] LABS: Glucose,Whole Blood 106 mg/dL (75-99)
[2019-12-16] MEDS: CHOLECALCIFEROL 1,000 UNIT TAB PO SCH (17:46)
[2019-12-16] MEDS: FERROUS SULFATE 325 MG TAB PO SCH (17:47)
--- NOTE | 2019-12-16 19:04 | P.PN ---
Subjective Progress Note Date: 12/16/19 (No congestive heart failure) Principal diagnosis: Principal diagnosis: #1 fever and chills secondary to sepsis with the elevated white count 17,000. Cleared with normal white count currently. #2 Klebsiella pneumonia sensitive to Rocephin IV antibiotic. For the urinary tract infection. #3 negative Covid 19. #4 nephrolithiasis bilateral evaluated by Dr. Yan Wiseman urologist. With no farther testing. #5 blood culture is negative. #6 pyelonephritis has been ruled out, left renal function impaired mentioned by Dr. Roxy Wiseman status post history of stone removal or on the left side by nephrostomy. #7 distention, flatulence, causing pressure on the diaphragm, causing int ermittent shortness of breath. #8 bilateral pulmonary fibrosis. Admission x-ray with the underlying hypoxemia. #9 no evidence of congestive heart failure systolic or diastolic. #10 chronic history of right [id number] amputation secondary to infection and peripheral vascular disease. #11 chronic history of left hip fracture and left hemiplegia with left foot drop and muscle atrophy, #12 inability to stand or walk. #13. Dental caries. #14 epigastric pain with distention consultation with Dr. Abel Sanabria gastroenterology requested today. #15 lactose intolerance, still abdominal distention and despite of lactate free diet #16 no evidence of diabetes mellitus and her blood sugar monitoring and a hemoglobin A1c was negative for diabetes, hyperglycemia on admission due to receiving steroid IV in the ER. Progress note date of service 12/16/2019. Patient seen and evaluated and discussed with her the consultation with urology Dr. Cai. She Patient is conscious alert oriented 3. Patient complained today of the distention and epigastric discomfort and tenderness on the exam, consultation with the GI I Dr. Abel Sanabria for evaluation and treatment. Her blood sugar has maintained in the normal and the hemoglobin A1c was normal 5.2 no evidence of diabetes mellitus with the evidence of hyperglycemia at the time of admission due to steroid injection IV piggyback orally once. Her blood pressure was low at the time of admission with the underlying dehydration as patient also had a hemoglobin and hematocrit was elevated and currently with dehydration gently she is improved. The chest x-ray on admission showed pulmonary fibrosis, no evidence of congestive heart failure systolic or diastolic. Because of the blood pressure start to leaf size picker systolic 158 we will resume that amlodipine that has been held on admission with the underlying history of essential hypertension. On the physical examination and reviewing the laboratories: Ionized calcium was normal, PTH was normal, no evidence of parathyroid abnormalities, vitamin vitamin D1, 25 hydroxy vitamin D not available on the time of dictation. HEENT: Negative Neck supple, no JVD no thyromegaly no lymphadenopathy trachea midline. Chest clear to auscultation and percussion no wheezes and no rhonchi's no rales. Cardiovascular: Heart was regular sinus rhythm on admission she had a mild tachycardia currently stable, she had history of peripheral vascular disease with no ischemic changes in the lower extremities however decreased pulses. Abdomen: Positive bowel sound with growling and flatulence mild epigastric tenderness. No tenderness on the other 4 quadrants or the flank. 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 #2 left lower extremities with the muscle atrophy and decreased pulses on dorsalis pedis and posterior tibial and hip fracture in the past with inability to ambulate. Neuropsychiatry: And she had history of right CVA with left hemiparesis and she currently on Plavix. Psychiatry: Chronic pain syndrome, major depressive disorder, bipolar disorder, intermittent anxiety with panic attacks. Assessment Patient progressively improving, except for the epigastric discomfort, abdominal distention, intermittent nausea, epigastric discomfort, consultation with gastroenterology has been placed. #2 lactic acidosis, leukocytosis, fever and chills resolved with sepsis. And the hypotension. #3 urinary tract infection Klebsiella pneumonia sensitive to the current IV antibiotic Rocephin. #4 nephrolithiasis bilateral small stone with the consultation with Dr. Yan hough urology no farther investigation or treatment. #5 pyelonephritis ruled out. #6 lactose intolerance. #7 mild dehydration on admission indicated by elevated the hemoglobin and hematocrit and gentle hydration currently stabilized. Plan: #1 consultation with the gastroenterology to evaluate and treat. #2 decrease IV fluid to keep vein open 20 mL an hour. #3 will continue the antibiotic antral discharge. #[address] Sanabria the waste machine tender evaluate and if there is no farther procedure or testing will transfer patient to [facility] as she is living in [facility] and rehab. #5 patient started on amlodipine 5 mg once a day and we'll see what his her blood pressure improved or not she was hypotensive on admission and her medication has been held until today where her blood pressure start to leaf size picker again with a history of essential hypertension. #6 we decreased her Lasix to only 40 mg once a day. Objective - Vital Signs Vital signs: Vital Signs Temp 97.6 F 12/16/19 14:35 Pulse 86 12/16/19 14:35 Resp 18 12/16/19 16:00 BP 153/82 12/16/19 14:35 Pulse Ox 96 12/16/19 14:35 Intake & Output 12/15/19 12/16/19 12/16/19 18:59 06:59 18:59 Intake Total 100 450 Output Total 800 Balance 100 -350 Weight 65.771 kg 65.771 kg Intake: Intake, IV Titration 100 450 Amount Sodium Chloride 0.9% 1, 400 000 ml @ 50 mls/hr IV . Q20H MARIA LUISA Rx#:[id number] cefTRIAXone 1 gm In 100 50 Sodium Chloride 0.9% 50 ml @ 100 mls/hr IVPB Q12HR MARIA LUISA Rx#:[id number] Output: Urine 800 Other: Voiding Method Diaper Diaper Diaper Incontinent Incontinent Incontinent # Voids 1 1 3 - Labs CBC & Chem 7: 12/16/19 07:25 12/16/19 07:25 Labs: Abnormal Lab Results - Last 24 Hours (Table) 12/15/19 12/16/19 12/16/19 Range/Units 20:41 07:25 07:25 Plt Count 139 L (150-450) k/uL Chloride 109 H (98-107) mmol/L Glucose 100 H (74-99) mg/dL POC Glucose (mg/dL) 104 H (75-99) mg/dL Calcium 7.9 L (8.4-10.2) mg/dL 12/16/19 12/16/19 Range/Units 11:31 16:33 Plt Count (150-450) k/uL Chloride (98-107) mmol/L Glucose (74-99) mg/dL POC Glucose (mg/dL) 106 H 106 H (75-99) mg/dL Calcium (8.4-10.2) mg/dL Microbiology - Last 24 Hours (Table) 12/14/19 02:10 Urine Culture - Final Urine,Catheterized Klebsiella pneumoniae 12/14/19 01:27 Blood Culture - Preliminary Blood No Growth after 48 hours
[2019-12-16 20:38] LABS: Glucose,Whole Blood 115 mg/dL (75-99)
[2019-12-16] MEDS: amLODIPine 5 MG TAB PO SCH (21:28)
[2019-12-17] MEDS: MAG HYDROX/AL HYDROX/SIMETH 30 ML CUP PO PRN ×3 (02:26→21:31)
[2019-12-17] MEDS: SODIUM CHLORIDE 0.9% 1,000 ML IV SCH (05:59)
[2019-12-17 06:40] LABS: Glucose,Whole Blood 109 mg/dL (75-99)
[2019-12-17] MEDS: PANTOPRAZOLE 40 MG TABLET PO SCH ×2 (08:23→17:02)
[2019-12-17] MEDS: ISOSORBIDE MONONITRATE ER 30 MG TAB.ER.24H PO SCH (08:23)
[2019-12-17] MEDS: GABAPENTIN 300 MG CAP PO SCH ×3 (08:23→17:02)
[2019-12-17] MEDS: SERTRALINE 100 MG TAB PO SCH (08:23)
[2019-12-17] MEDS: MULTIVITAMINS, THERA 1 EACH TAB PO SCH (08:23)
[2019-12-17] MEDS: DOCUSATE 100 MG CAP PO SCH (08:23)
[2019-12-17] MEDS: LISINOPRIL 5 MG TAB PO SCH ×2 (08:24→21:27)
[2019-12-17] MEDS: CLOPIDOGREL 75 MG TAB PO SCH (08:24)
[2019-12-17] MEDS: METOPROLOL TARTRATE 50 MG TAB PO SCH ×2 (08:24→17:02)
[2019-12-17] MEDS: traZODone HCL 50 MG TAB PO SCH (08:24)
[2019-12-17] MEDS: FUROSEMIDE 40 MG TAB PO SCH (08:24)
[2019-12-17] MEDS: NYSTATIN 100,000 UNIT/GM POWD 15 GM TOPICAL SCH ×2 (08:25→21:28)
[2019-12-17] MEDS: POTASSIUM CHLORIDE ER 20 MEQ TAB.ER PO SCH ×2 (08:25→21:28)
[2019-12-17] MEDS: LACTOBACILLUS ACIDOPH & BULGAR 1 EACH PACKET PO SCH ×3 (08:25→21:26)
[2019-12-17] MEDS: CYCLOBENZAPRINE 5 MG TAB PO SCH ×2 (08:25→17:02)
[2019-12-17] MEDS: risperiDONE 0.25 MG TAB PO SCH ×2 (08:25→21:28)
[2019-12-17] MEDS: ARTIFICIAL TEARS-HYPROMELLOSE DROPS 15 ML BTL BOTH EYES SCH ×2 (08:25→21:26)
[2019-12-17] MEDS: SIMETHICONE 80 MG CHEWABLE PO SCH ×4 (08:25→21:28)
[2019-12-17] MEDS: ASPIRIN 81 MG PO SCH (08:25)
[2019-12-17] MEDS: TRIAMCINOLONE ACET 0.5% CREAM 15 GM TUBE TOPICAL SCH ×2 (08:26→21:28)
[2019-12-17 11:09] LABS: Glucose,Whole Blood 112 mg/dL (75-99)
--- NOTE | 2019-12-17 11:21 | P.PN ---
Subjective Progress Note Date: 12/17/19 Principal diagnosis: Principal diagnosis: #1 fever and chills secondary to sepsis with the elevated white count 17,000. Cleared with normal white count currently. #2 Klebsiella pneumonia sensitive to Rocephin IV antibiotic. For the urinary tract infection. #3 negative Covid 19. #4 nephrolithiasis bilateral evaluated by Dr. Yan Wiseman urologist. With no farther testing. #5 blood culture is negative. #6 pyelonephritis has been ruled out, left renal function impaired mentioned by Dr. Roxy Wiseman status post history of stone removal or on the left side by nephrostomy. #7 distention, flatulence, causing pressure on the diaphragm, causing intermittent shortness of breath. #8 bilateral pulmonary fibrosis. Admission x-ray with the underlying hypoxemia. #9 no evidence of congestive heart failure systolic or diastolic. #10 chronic history of right [id number] amputation secondary to infection and peripheral vascular disease. #11 chronic history of left hip fracture and left hemiplegia with left foot drop and muscle atrophy, #12 inability to stand or walk. #13. Dental caries. #14 epigastric pain with distention consultation with Dr. Abel Sanabria gastroenterology requested today. #15 lactose intolerance, still abdominal distention and despite of lactate free diet #16 no evidence of diabetes mellitus and her blood sugar monitoring and a hemoglobin A1c was negative for diabetes, hyperglycemia on admission due to receiving steroid IV in the ER. Progress note date of service 12/17/2019. Dictation by . Laboratory: Vitamin D 1, 25 hydroxy vitamin D not available yet with the underlying possibility of low, her serum cortisone is normal patient today blood pressure was checked by nursing. Was low systolic 81 subsequently rechecked by the nurse and was 130s systolic no evidence of hypotension at the time of the first reading of blood pressure and that was taken before her medication. Which consider erroneous. Patient is conscious alert oriented 3 however she could not stand up or sit up or ambulate with the reason is chronic she has right above-knee amputation, and she had history of stroke affecting her left side with hemiplegia and atrophy of the muscles of the left lower extremities and foot drop and history of fracture of the left hip. She complaining of epigastric discomfort with the flatulence and abdominal distention as well as history of lactose intolerance she is on the diet but she still have the abdominal pain epigastric in nature and difficulty of swallowing with the food goes down. I did consult Dr. Sanabria the gastroenterology and he is doing procedure now and he will see her today after the procedure then he will decide of future or current endoscopy was not or medical treatment. It is very difficult from the [facility] to send her by ambulance to see him as outpatient and his office in the second floor and usually in the ER the long see the patient by the specialist and it will be a second admission for procedure if it's elected to be done to be done whenever she is here now and during her hospitalization at [facility] currently, for that reason we will hold the patient from transfer to [facility] until patient seen by GI and decided that treatment because of difficulties to see him in his office and he will not see her in the [facility] as well as will not be seen in the ER. Patient vital signs stable she is conscious alert oriented 3 Main complaint now other than she came with sepsis and hypotension and lactic acidosis and leukocytosis and found that she had UTI with with Klebsiella pneumonia and treated with Rocephin IV piggyback and she is still on it. Her temperature resolved, lung was indicating pulmonary fibrosis and she is on oxygen surgery later and stable no congestive heart failure and no pneumonia. Current complaint is GI difficulty of swallowing and lower esophageal discomfort and with the food passing through and significant flatulence despite she is on lactase diet lactase intolerance diet. On examination: HEENT she has dental caries. Neck supple no JVD no thyromegaly no lymphadenopathy. Chest clear to auscultation and percussion Heart: Normal sinus rhythm and no chest pain. Abdomen: Distended positive bowel sounds with discomfort epigastric. Extremities right above-knee amputation with phantom pain has been improved significantly no complain now with palpation of the stump. The left lower extremities no edema with peripheral vascular disease with no ischemic changes and foot drop and atrophic muscles with the left hip fracture by the history. Neurologically stable. Assessment: #1 currently waiting for evaluation of the gastroenterology and will hold discharge today and waiting for tomorrow. #2 I did communicate and they spoke with her nurse LINO Roblero as well as a window caser [place] which she stated that still patient can be discharge Thursday tomorrow or Thursday depending on the evaluation of the gastroenterology and if there is a procedure will be independent. #3 will continue the current treatment will see her tomorrow and for further decision depend on the gastroenterology plan. Objective - Vital Signs Vital signs: Vital Signs Temp 97.8 F 12/17/19 07:00 Pulse 73 12/17/19 08:05 Resp 18 12/17/19 07:00 BP 134/71 12/17/19 08:05 Pulse Ox 95 12/17/19 07:00 Intake & Output 12/16/19 12/17/19 12/17/19 18:59 06:59 18:59 Intake Total 450 20 Output Total 800 Balance -350 20 Weight 65.771 kg Intake: Intake, IV Titration 450 Amount Sodium Chloride 0.9% 1, 400 000 ml @ 20 mls/hr IV . Q24H MARIA LUISA Rx#:[id number] cefTRIAXone 1 gm In 50 Sodium Chloride 0.9% 50 ml @ 100 mls/hr IVPB Q12HR MARIA LUISA Rx#:[id number] Oral 20 Output: Urine 800 Other: Voiding Method Diaper Incontinent Incontinent Incontinent # Voids 3 # Bowel Movements 1 - Labs CBC & Chem 7: 12/16/19 07:25 12/16/19 07:25 Labs: Abnormal Lab Results - Last 24 Hours (Table) 12/16/19 12/16/19 12/16/19 Range/Units 11:31 16:33 20:36 POC Glucose (mg/dL) 106 H 106 H 115 H (75-99) mg/dL 12/17/19 Range/Units 06:38 POC Glucose (mg/dL) 109 H (75-99) mg/dL Microbiology - Last 24 Hours (Table) 12/14/19 01:27 Blood Culture - Preliminary Blood No Growth after 72 hours 12/14/19 02:10 Urine Culture - Final Urine,Catheterized Klebsiella pneumoniae
[2019-12-17] MEDS: HYDROcodone/APAP 5-325MG 1 EACH TAB PO PRN (11:49)
[2019-12-17 16:47] LABS: Glucose,Whole Blood 106 mg/dL (75-99)
[2019-12-17] MEDS: CHOLECALCIFEROL 1,000 UNIT TAB PO SCH (17:02)
[2019-12-17] MEDS: FERROUS SULFATE 325 MG TAB PO SCH (17:02)
[2019-12-17 20:54] LABS: Glucose,Whole Blood 107 mg/dL (75-99)
[2019-12-17] MEDS: amLODIPine 5 MG TAB PO SCH (21:26)
--- NOTE | 2019-12-17 22:59 | P.CONS ---
History of Present Illness - Reason for Consult Consult date: 12/17/19 Epigastric pain Requesting physician: Ian Peter - Chief Complaint Fever or shortness of breath - History of Present Illness 69-year-old female with multiple medical comorbidities including COPD, CAD, GERD, history of peptic ulcer disease by her report, gastritis, small hiatal hernia, diabetes mellitus, hypertension, prior nephrolithiasis who presented with shortness of breath and fevers. Patient treated with antibiotic therapy for a urinary tract infection with improvement in her white count. The patient also complains of abdominal pain. She reports of pain and distention in the epigastric region of her abdomen. Pain is described as sharp in nature. She re ports of bloating with the abdominal distention as well as belching and flatulence. She does have a known history of dairy intolerance and tries to a year to a lactose-free diet. She denies any nausea or vomiting. She does have a known history of GERD. She reports of bowel movements have remained regular usually a bowel movement every 2-3 days normal in color and caliber without straining or black tarry stool or blood per rectum. She did have an EGD performed in 2014 significant for a small hiatal hernia and gastritis. Laboratory evaluation on presentation significant for WBC 6.5, hemoglobin 13.8, platelet counts 139,000. Review of Systems REVIEW OF SYSTEMS: CONSTITUTIONAL: Denies any fevers, chills, weight change or fatigue. CARDIOVASCULAR: Denies any chest pain, palpitations high or low blood pressures RESPIRATORY: Denies any shortness of breath, hemoptysis or cough. GENITOURINARY: No dysuria or hematuria, treated for urinary tract infection (hospitalization. MUSCULOSKELETAL: No weakness reported. SKIN: Denies any new rashes or lesions, jaundice or pallor. PSYCHIATRIC: Denies any depression or anxiety. NEUROLOGY: Denies headache, denies any new focal deficits. EARS/NOSE/THROAT: No recent hearing change, congestion, nasal discharge or sore throat. EYES: No pain in eyes, discharge or change in vision. GASTROINTESTINAL: As per HPI. Past Medical History Past Medical History: Coronary Artery Disease (CAD), Heart Failure, COPD, Diabetes Mellitus, GERD/Reflux, GI Bleed, Hearing Disorder / Deafness, Hypertension, Osteoarthritis (OA), Pneumonia, Renal Disease, Seizure Disorder, Skin Disorder, Vascular Disorder Additional Past Medical History / Comment(s): NIDDM type II-pt states she was on oral meds for about 6 months once, CVA-pt states no residual, L foot drop, last seizure 20 yrs ago, bronchitis, gastric ulcer, bloody stool in past, kidney stones with surgeries, PVD-R AKA, gastric ulcer, diverticular disease, hemorrhoids, UTIs, migraines, chronic low back pain and R stump pain, tinnitis bilaterally, [place] R ear, anemia, dermatitis, incontinence of urine and stool, past L elbow fracture. History of Any Multi-Drug Resistant Organisms: MRSA Year Discovered:: 2012 MDRO Source:: right leg Past Surgical History: Appendectomy, Cholecystectomy, Orthopedic Surgery, Tonsillectomy Additional Past Surgical History / Comment(s): EGD, colonoscopies, bilateral percutaneous nephroscopies, arch/aortagrams, R foot 5th toe amp then R AKA, L hip ORIF with plate/screws, laparatomy for rupture ovarian cyst, cox-since removed, PICC-since removed. Past Anesthesia/Blood Transfusion Reactions: No Reported Reaction Additional Past Anesthesia/Blood Transfusion Reaction / Comm: care provider doesn't know anesthesia hx. Past Psychological History: Anxiety, Bipolar, Depression Smoking Status: Former smoker - Past Family History Father Family Medical History: COPD, Myocardial Infarction ([place]) Additional Family Medical History / Comment(s): Father was a smoker with emphysema. He from his 3rd OH at the age of 67yrs. Mother Family Medical History: No Reported History Additional Family Medical History / Comment(s): Mother was healthy and lived to be 95yrs old. Medications and Allergies Home Medications Medication Instructions Recorded Confirmed Type Clopidogrel [Plavix] 75 mg PO DAILY@0800 03/21/15 12/14/19 History Docusate Sodium [Dulcolax Stool 100 mg PO DAILY@0800 03/21/15 12/14/19 History Softener] Furosemide [Lasix] 40 mg PO BID@0800,1700 03/21/15 12/14/19 History Lactobacillus Acidophilus 1 tab PO TID@0800,1200,1700 03/21/15 12/14/19 History [Acidophilus] Multivit with Calcium,Iron,Min 1 tab PO DAILY@0800 03/21/15 12/14/19 History [Women's Daily Multivitamin] Potassium Chloride [Klor-Con 20] 20 meq PO DAILY@0800 03/21/12/14/19 History Sertraline [Zoloft] 100 mg PO DAILY@0803/19/17 12/14/19 History Ferrous Sulfate [Iron (65 MG 325 mg PO DAILY@0800 02/12/18 12/14/19 History Elemental)] carBAMazepine [TEGretol XR] 200 mg PO BID@0800,2100 02/17/18 12/14/19 History Cholecalciferol [Vitamin D3] 1,200 unit PO DAILY@17003/10/19 12/14/19 History LORazepam [Ativan] 0.5 mg PO BID@0800,2100 PRN 03/10/19 12/14/19 History Lactose-Reduced Food [Ensure Plus] 1 can PO BID@0800,17003/10/19 12/14/19 History Lubricant Drops Solution 1.4% 1 drop BOTH EYES BID@0800,1700 03/10/19 12/14/19 History Metoprolol Tartrate [Lopressor] 50 mg PO BID@0800,1700 03/10/19 12/14/19 History Nitroglycerin Sl Tabs [Nitrostat] 0.4 mg SUBLINGUAL Q5M PRN 03/10/19 12/14/19 H istory Nystatin 100,000 Unit/gm Powd 1 applic TOPICAL BID 03/10/19 12/14/19 History [Mycostatin Powder] Triamcinolone 0.5% Cream [Kenalog 1 applic TOPICAL BID PRN 03/10/19 12/14/19 History 0.5% Cream] risperiDONE [RisperDAL] 0.25 mg PO BID@0800,1700 03/10/19 12/14/19 History Aspirin 81 mg PO DAILY@0800 05/04/19 12/14/19 History Esomeprazole Magnesium [NexIUM] 40 mg PO DAILY@0600 05/04/19 12/14/19 History Isosorbide Mononitrate ER [Imdur] 30 mg PO DAILY@0800 05/04/19 12/14/19 History Mag Hydrox/Al Hydrox/Simeth 30 ml PO QID PRN 05/04/19 12/14/19 History [Maalox] HYDROcodone/APAP 5-325MG [[place] 1 tab PO Q6HR PRN #10 tab 05/09/19 12/14/19 Rx 5-325] fentaNYL 25MCG/HR PATCH [Duragesic 1 patch TRANSDERM Q72H #1 patch 05/09/19 12/14/19 Rx 25MCG/HR] Acetaminophen Tab [Tylenol] 650 mg PO Q4H PRN 12/14/19 12/14/19 History Albuterol Nebulized [Ventolin 2.5 mg INHALATION RT-Q4H PRN 12/14/19 12/14/19 History Nebulized] Bisacodyl [Dulcolax] 10 mg RECTAL DAILY PRN 12/14/19 12/14/19 History Cyclobenzaprine [Flexeril] 5 mg PO BID@0800,1700 12/14/19 12/14/19 History Gabapentin [Neurontin] 300 mg PO TID@0800,1200,1700 12/14/19 12/14/19 History Lidocaine 5% Cream 1 applic TOPICAL DAILY PRN 12/14/19 12/14/19 History Lisinopril [Zestril] 5 mg PO BID@0800,1700 12/14/19 12/14/19 History Loperamide HCl [Imodium A-D] 2 - 4 mg PO DAILY PRN 12/14/19 12/14/19 History Magnesium Hydroxide [Milk of 2,400 mg PO DAILY PRN 12/14/19 12/14/19 History Magnesia] Na Phos,M-B/Na Phos,Di-Ba [Fleet 133 ml RECTAL ONCE PRN 12/14/19 12/14/19 Histo ry Adult] Ondansetron [Zofran] 4 mg PO Q6H PRN 12/14/19 12/14/19 History Simethicone 80 mg PO TID PRN 12/14/19 12/14/19 History traZODone HCL [Desyrel] 100 mg PO HS@2100 12/14/19 12/14/19 History Allergies Allergy/AdvReac Type Severity Reaction Status Date / Time ciprofloxacin [From Cipro] Allergy Unknown Verified 12/14/19 13:08 iodine Allergy Unknown Verified 12/14/19 13:08 Penicillins Allergy Unknown Verified 12/14/19 13:08 Phenylpiperazine Allergy Unknown Verified 12/14/19 13:08 Antidepressant red dye Allergy Unknown Verified 12/14/19 13:08 Sulfa (Sulfonamide Allergy Unknown Verified 12/14/19 13:08 Antibiotics) Physical Exam Vitals: Vital Signs Temp Pulse Resp BP Pulse Ox 12/17/19 08:05 73 134/71 12/17/19 07:00 97.8 F 70 18 81/21 95 12/17/19 00:40 97.5 F L 75 18 118/73 95 12/16/19 19:27 73 18 12/16/19 19:18 97.6 F 73 18 142/91 95 12/16/19 16:00 18 Intake and Output 12/16/19 12/17/19 12/17/19 22:59 06:59 14:59 Intake Total 20 Balance 20 Intake: Oral 20 Other: Voiding Method Diaper Incontinent Incontinent Incontinent # Bowel Movements 1 1 On physical examination, patient appears comfortable in no apparent distress. HEAD: Normocephalic, atraumatic. EYES: No scleral icterus. No conjunctival injection. MOUTH: No lesions, tongue midline. NECK: Trachea midline, no gross abnormalities. CHEST: Clear to auscultation with no wheezing or rhonchi appreciated. HEART: S1-S2 appreciated ABDOMEN: Soft, obese. Bowel sounds are positive. No organomegaly. No guarding or rigidity. EXTREMITIES: No pedal edema. SKIN: No rashes, no jaundice. NEUROLOGIC: Alert and oriented to person and place. No focal deficits. Results CBC & Chem 7: 12/16/19 07:25 12/16/19 07:25 Labs: Abnormal Lab Results - Last 24 Hours (Table) 12/16/19 12/16/19 12/17/19 Range/Units 16:33 20:36 06:38 POC Glucose (mg/dL) 106 H 115 H 109 H (75-99) mg/dL 12/17/19 Range/Units 11:08 POC Glucose (mg/dL) 112 H (75-99) mg/dL Microbiology - Last 24 Hours (Table) 12/14/19 01:27 Blood Culture - Preliminary Blood No Growth after 72 hours Abdominal x-ray: report reviewed (Bilateral nephrolithiasis on KUB x-ray) Assessment and Plan (1) Abdominal pain Narrative/Plan: 69-year-old female with multiple medical comorbidities who received treatment for a urinary tract infection, currently complaining of vague epigastric abdominal pain and bloating with associated belching and flatulence. She has a known history of dietary intolerances including lactose intolerance and tries to avoid dairy. She also has a known history of GERD and is on PPI therapy. She reports a prior history of peptic ulcer disease and believes her last EGD and colonoscopy were both 4-5 years ago with a known EGD in the medical record in 2015 with a small hiatal hernia and gastritis noted at that time. Unknown etiology, may be related to dietary intolerances and would recommend a low fiber diet to avoid bloating/gas/distention, we'll also perform EGD with plans for small bowel biopsies to rule out celiac disease and to rule out underlying esophagitis, gastritis or peptic ulcer disease. Current Visit: Yes Status: Acute Code(s): R10.9 - UNSPECIFIED ABDOMINAL PAIN SNOMED Code(s): 42074238 (2) GERD (gastroesophageal reflux disease) Current Visit: Yes Status: Acute Code(s): K21.9 - GASTRO-ESOPHAGEAL REFLUX DISEASE WITHOUT ESOPHAGITIS SNOMED Code(s): 170394923 Plan: Supportive care Okay for diet Dietary modifications including low fiber, lactose-free diet discussed at length Protonix increased to twice daily Nothing by mouth after midnight Plan for EGD tomorrow for further evaluation Thank you for allowing us to participate in the care of the patient, we will continue to follow
[2019-12-18] MEDS: HYDROcodone/APAP 5-325MG 1 EACH TAB PO PRN ×3 (00:11→20:34)
[2019-12-18 06:40] LABS: Glucose,Whole Blood 105 mg/dL (75-99)
[2019-12-18] MEDS: risperiDONE 0.25 MG TAB PO SCH ×2 (07:13→20:21)
[2019-12-18] MEDS: SODIUM CHLORIDE 0.9% 1,000 ML IV SCH (07:13)
[2019-12-18] MEDS: METOPROLOL TARTRATE 50 MG TAB PO SCH ×2 (07:13→17:15)
[2019-12-18] MEDS: PANTOPRAZOLE 40 MG TABLET PO SCH ×2 (07:13→17:14)
[2019-12-18] MEDS: GABAPENTIN 300 MG CAP PO SCH ×3 (07:13→17:14)
[2019-12-18] MEDS: ISOSORBIDE MONONITRATE ER 30 MG TAB.ER.24H PO SCH (07:13)
[2019-12-18] MEDS: NYSTATIN 100,000 UNIT/GM POWD 15 GM TOPICAL SCH ×2 (07:14→20:21)
[2019-12-18] MEDS: TRIAMCINOLONE ACET 0.5% CREAM 15 GM TUBE TOPICAL SCH ×2 (07:14→20:22)
[2019-12-18] MEDS: ARTIFICIAL TEARS-HYPROMELLOSE DROPS 15 ML BTL BOTH EYES SCH ×2 (07:14→20:21)
[2019-12-18] MEDS: CYCLOBENZAPRINE 5 MG TAB PO SCH ×2 (08:51→17:14)
[2019-12-18] MEDS: LACTOBACILLUS ACIDOPH & BULGAR 1 EACH PACKET PO SCH ×3 (08:52→20:21)
[2019-12-18] MEDS ORDERED: IV FLUID CONTINUATION 900 ML IV ONE (09:58)
[2019-12-18] MEDS ORDERED: PROPOFOL 10 MG/ML 20 ML VIAL IV ONE (10:26)
[2019-12-18] MEDS ORDERED: LIDOCAINE 1% INJ 10MG/ML (20 ML MDV) ONE (10:26)
--- NOTE | 2019-12-18 10:29 | P.PCN ---
Date of Procedure: 12/18/19 Description of Procedure: BRIEF HISTORY: 69-year-old female with multiple medical comorbidities including COPD, CAD, GERD, history of peptic ulcer disease by her report, gastritis, small hiatal hernia, diabetes mellitus, hypertension, prior nephrolithiasis who presented with shortness of breath and fevers. Patient treated with antibiotic therapy for a urinary tract infection with improvement in her white count. The patient also complains of abdominal pain. She reports of pain and distention in the epigastric region of her abdomen. Pain is described as sharp in nature. She reports of bloating with the abdominal distention as well as belching and flatulence. She does have a known history of dairy intolerance and tries to a year to a lactose-free diet. She denies any nausea or vomiting. She does have a known history of GERD. She reports of bowel movements have remained regular usually a bowel movement every 2-3 days normal in color and caliber without straining or black tarry stool or blood per rectum. She did have an EGD performed in 2014 significant for a small hiatal hernia and gastritis. PROCEDURE PERFORMED: Esophagogastroduodenoscopy with biopsy. PREOPERATIVE DIAGNOSIS: Epigastric abdominal pain, bloating, distention. ESTIMATED BLOOD LOSS: Minimal. IV sedation per anesthesia. PROCEDURE: After informed consent was obtained, the patient was brought into the endoscopy unit. IV sedation was administered by Anesthesia under continuous monitoring. Initially the Olympus GIF-190 video endoscope was inserted into the mouth. Esophagus intubated without any difficulty. It was gradually advanced into the stomach and duodenum and carefully examined. The bulb and the second part of the duodenum appeared normal, with biopsies taken to rule out celiac sprue. The scope at this time was withdrawn to the stomach, adequately insufflated with air, and upon careful examination, mucosa of the antrum, body, cardia and the fundus appeared normal, except for some mild scattered erythema in the antrum and body suggestive of mild gastritis with biopsies taken. The scope was then withdrawn into the esophagus. The GE junction was located at 41 cm from the incisors. The esophagus appeared normal. There were no erosions or ulcerations seen and the patient tolerated the procedure well. IMPRESSION: 1. Mild gastritis antrum and body, biopsied. 2. Duodenal biopsies. RECOMMENDATIONS: The findings of this examination were discussed with the patient. Okay to resume lactose-free low fiber low residual diet. Will initiate simethicone with meals. Can leave the patient on a trial of twice daily Protonix therapy for symptom relief. Otherwise okay for discharge from gastroenterology standpoint when otherwise medically stable.
[2019-12-18] MEDS: DOCUSATE 100 MG CAP PO SCH (11:01)
[2019-12-18] MEDS: SIMETHICONE 80 MG CHEWABLE PO SCH ×4 (11:02→20:22)
[2019-12-18 11:04] LABS: Glucose,Whole Blood 100 mg/dL (75-99)
--- NOTE | 2019-12-18 11:10 | P.PN ---
Subjective Progress Note Date: 12/18/19 (Procedure EGD 12/18/19) Principal diagnosis: Principal diagnosis: #1 fever and chills secondary to sepsis with the elevated white count 17,000. Cleared with normal white count currently. #2 Klebsiella pneumonia sensitive to Rocephin IV antibiotic. For the urinary tract infection. #3 negative Covid 19. #4 nephrolithiasis bilateral evaluated by Dr. Yan Wiseman urologist. With no farther testing. #5 blood culture is negative. #6 pyelonephritis has been ruled out, left renal function impaired mentioned by Dr. Roxy Wiseman status post history of stone removal or on the left side by nephrostomy. #7 distention, flatulence, causing pressure on the diaphragm, causing intermi ttent shortness of breath. #8 bilateral pulmonary fibrosis. Admission x-ray with the underlying hypoxemia. #9 no evidence of congestive heart failure systolic or diastolic. #10 chronic history of right [id number] amputation secondary to infection and peripheral vascular disease. #11 chronic history of left hip fracture and left hemiplegia with left foot drop and muscle atrophy, #12 inability to stand or walk. #13. Dental caries. #14 epigastric pain with distention consultation with Dr. Abel Sanabria gastroenterology requested today. #15 lactose intolerance, still abdominal distention and despite of lactate free diet #16 no evidence of diabetes mellitus and her blood sugar monitoring and a hemoglobin A1c was negative for diabetes, hyperglycemia on admission due to receiving steroid IV in the ER. This is a progress note Saturday 12/16 for . Because of the symptoms of GI, epigastric pain flatulence glucose intolerance abdominal discomfort, patient underwent EGD with the results indicating mild gastritis of the antrum and the body and biopsy was done as well as duodenal biopsy, it is okay to resume lactulose 3 with low fiber low residual diet and using semithicone with meals and continue the trial of Protonix twice a day. And this is the impression recommendation of Dr. ayala bottom scrubber. Patient seen today evaluated pulse procedure EGD. She had some bloody oropharynx secondary to gun disease and she may be a bite with the procedure, it will be cleared with gargling with salt and water. Her vital signs stable blood pressure is controlled, no fever no chills. Neck was supple no JVD no thyromegaly no lymphadenopathy trachea midline. Chest is clear to auscultation and percussion Heart was regular sinus rhythm no complain and no shortness of breath and t elemetry discontinued today on 12/18/19. Abdomen is positive bowel sound gargling with mild distention and post procedure EGD. Extremities no edema and right above-knee amputation the left lower ext remities with the fractured hip and atrophic muscle and foot drop on the left side no edema and decreased pulses with peripheral vascular disease no evidence of ischemic changes. Assessment: Patient stable general condition post EGD with the underlying above mentioned gastritis mild and biopsy was obtained and duodenal biopsy was obtained to rule out celiac disease and she has underlying lactose intolerance. The sepsis with the associated fever and elevated lactic acid as well UTI and pro-calcitonin. And the hypotension on admission resolved UTI Klebsiella and pneumonia sensitive to Rocephin with no evidence of ALLERGY. Pulmonary fibrosis on oxygen nasal cannula 3 L/m. Hypertension is controlled as well as no hypotension Gastritis and status post EGD on 12/18 2019. Plan: Patient completed today 5 days of antibiotic continue the antibiotic for tomorrow and will plan for tomorrow to be discharge to [facility] where she'll have without antibiotic as she completed course of the anti- biotic IV. Still continuing the medication for the gastritis for couple weeks and then decrease gradually the Protonix to once a day. Continue the Actos intolerance treatment was free O's diet. Vital sign is stable, however she required 3 L of oxygen with the underlying pulmonary fibrosis Objective - Vital Signs Vital signs: Vital Signs Temp 97.7 F 12/18/19 07:00 Pulse 69 12/18/19 07:00 Resp 16 12/18/19 07:00 BP 137/89 12/18/19 07:00 Pulse Ox 93 L 12/18/19 07:00 Intake & Output 12/17/19 12/18/19 12/18/19 18:59 06:59 18:59 Intake Total 1080 140 100 Output Total 1255 800 Balance -175 -660 100 Intake: IV 100 Intake, IV Titration 40 Amount Sodium Chloride 0.9% 1, 40 000 ml @ 20 mls/hr IV . Q24H [facility] Rx#:[id number] Oral 1080 100 Output: Urine 1255 800 Other: Voiding Method Incontinent # Bowel Movements 1 1 - Labs CBC & Chem 7: 12/16/19 07:25 12/16/19 07:25 Labs: Abnormal Lab Results - Last 24 Hours (Table) 12/17/19 12/17/19 12/17/19 Range/Units 11:08 16:45 20:29 POC Glucose (mg/dL) 112 H 106 H 107 H (75-99) mg/dL 12/18/19 Range/Units 06:39 POC Glucose (mg/dL) 105 H (75-99) mg/dL Microbiology - Last 24 Hours (Table) 12/14/19 01:27 Blood Culture - Preliminary Blood No Growth after 96 hours
[2019-12-18] MEDS: FUROSEMIDE 40 MG TAB PO SCH (11:12)
[2019-12-18] MEDS: LISINOPRIL 5 MG TAB PO SCH ×2 (11:12→20:21)
[2019-12-18] MEDS: ASPIRIN 81 MG PO SCH (11:12)
[2019-12-18] MEDS: MULTIVITAMINS, THERA 1 EACH TAB PO SCH (11:12)
[2019-12-18] MEDS: SERTRALINE 100 MG TAB PO SCH (11:12)
[2019-12-18] MEDS: POTASSIUM CHLORIDE ER 20 MEQ TAB.ER PO SCH ×2 (11:12→20:21)
[2019-12-18] MEDS: traZODone HCL 50 MG TAB PO SCH (11:12)
[2019-12-18] MEDS: CLOPIDOGREL 75 MG TAB PO SCH (11:13)
[2019-12-18 16:47] LABS: Glucose,Whole Blood 118 mg/dL (75-99)
[2019-12-18] MEDS: CHOLECALCIFEROL 1,000 UNIT TAB PO SCH (17:14)
[2019-12-18] MEDS: FERROUS SULFATE 325 MG TAB PO SCH (17:14)
[2019-12-18] MEDS: MAG HYDROX/AL HYDROX/SIMETH 30 ML CUP PO PRN (18:05)
[2019-12-18 20:13] LABS: Glucose,Whole Blood 118 mg/dL (75-99)
[2019-12-18] MEDS: amLODIPine 5 MG TAB PO SCH (20:21)
[2019-12-19 03:05] VITALS: PULSE 74
[2019-12-19 06:48] LABS: Glucose,Whole Blood 123 mg/dL (75-99)
[2019-12-19 07:13] VITALS: BP 123/70; TEMP 97.7
[2019-12-19] MEDS: HYDROcodone/APAP 5-325MG 1 EACH TAB PO PRN (07:24)
[2019-12-19] MEDS: GABAPENTIN 300 MG CAP PO SCH ×2 (07:25→12:34)
[2019-12-19] MEDS: DOCUSATE 100 MG CAP PO SCH (07:26)
[2019-12-19] MEDS: POTASSIUM CHLORIDE ER 20 MEQ TAB.ER PO SCH (07:26)
[2019-12-19] MEDS: PANTOPRAZOLE 40 MG TABLET PO SCH (07:27)
[2019-12-19] MEDS: CLOPIDOGREL 75 MG TAB PO SCH (07:27)
[2019-12-19] MEDS: traZODone HCL 50 MG TAB PO SCH (07:27)
[2019-12-19] MEDS: ISOSORBIDE MONONITRATE ER 30 MG TAB.ER.24H PO SCH (07:27)
[2019-12-19] MEDS: SERTRALINE 100 MG TAB PO SCH (07:29)
[2019-12-19] MEDS: FUROSEMIDE 40 MG TAB PO SCH (07:29)
[2019-12-19] MEDS: LISINOPRIL 5 MG TAB PO SCH (07:30)
[2019-12-19] MEDS: risperiDONE 0.25 MG TAB PO SCH (07:30)
[2019-12-19] MEDS: ASPIRIN 81 MG PO SCH (07:31)
[2019-12-19] MEDS: CYCLOBENZAPRINE 5 MG TAB PO SCH (07:31)
[2019-12-19] MEDS: MULTIVITAMINS, THERA 1 EACH TAB PO SCH (07:31)
[2019-12-19] MEDS: LACTOBACILLUS ACIDOPH & BULGAR 1 EACH PACKET PO SCH (07:32)
[2019-12-19] MEDS: SIMETHICONE 80 MG CHEWABLE PO SCH ×2 (07:37→12:34)
[2019-12-19] MEDS: ARTIFICIAL TEARS-HYPROMELLOSE DROPS 15 ML BTL BOTH EYES SCH (07:38)
[2019-12-19] MEDS: NYSTATIN 100,000 UNIT/GM POWD 15 GM TOPICAL SCH (07:39)
[2019-12-19] MEDS: TRIAMCINOLONE ACET 0.5% CREAM 15 GM TUBE TOPICAL SCH (07:39)
[2019-12-19] MEDS: SODIUM CHLORIDE 0.9% 1,000 ML IV SCH (07:39)
[2019-12-19] MEDS: METOPROLOL TARTRATE 50 MG TAB PO SCH (07:41)
[2019-12-19 09:51] VITALS: RESP 16
[2019-12-19 12:36] LABS: Glucose,Whole Blood 114 mg/dL (75-99)
[2019-12-19] MEDS: MAG HYDROX/AL HYDROX/SIMETH 30 ML CUP PO PRN (12:37)
--- NOTE | 2019-12-19 12:50 | P.DS ---
Providers Date of admission: 12/15/19 15:51 Expected date of discharge: 12/19/19 (patient could have an [facility]) Attending physician: Ian Peter Consults: 12/15/19 12:58 Consult Physician Urgent Consulting Provider: Yan Hough Consult Reason/Comments: hematuria,nephrolithasis,pyelonephitis,flank pain Do you want consulting provider notified?: Yes 12/16/19 12:53 Consult Physician Urgent Consulting Provider: Abel Tapia Consult Reason/Comments: abdominal pain Do you want consulting provider notified?: Yes Primary care physician: Ian Peter discharge summary dictated by , Final diagnosis: #1 sepsis. Associated with hypotension, leukocytosis, elevated lactic acid, elevated pro-calcitonin,fever and chills, hypoxemia. #2 urinary tract infection with Klebsiella pneumonia sensitive to Rocephin given start on 12/14/2019and that on 12/19/2019 with normalization of her white count and no fever no chills. #3 - negative Covid 19. #4 bilateral nephrolithiasis seen by urologist Dr. Yan hough. #5 gastritis, status post EGD by Dr. Abel Tapia floor care specialist. With the biopsy done and pending the result. 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 #7 dental care Edvin with gum disease and [facility]. #8 chronic pain syndrome has been controlled with multiple medication also with history of right above knee amputation phantom pain. #9 on admission chest x-ray indicating pulmonary fibrosis with the hypoxemia, patient currently on 3 L of oxygen to be continued as outpatient. #10 continue oxygen 3 L/m with the underlying pulmonary fibrosis. #11 peripheral vascular disease affecting the left lower extremities, no ischemic changes with the underlying history of right CVA and left hemiparesis. ALLERGY: Ciprofloxacin iodine penicillin and many more. Presentation to the ER: Fever 101 and chills for 2 days to 3 days prior to presentation to the ER. Associated with distention of the abdomen. Hospital course: This patient found that she had UTI, sepsis protocol with the presence of lactic acidosis, with the starting Rocephin and subsequent adjusting the dose to 1 g twice a day, fever resolved no more chills, her white count improved gradually to the normal range. Patient seen by urologist Dr. Cai. Patient also seen by gastroenterology Dr. Abel Tapia, underwent EGD and the finding indicating gastritis and increased her Nexium to twice a day 40 mg for couple weeks. Patient with lactase intolerance and continued on 3 lactose diet. Patient had flank pain associated with her nephrolithiasis and the UTI, and the pyelonephritis has been ruled out. As well as the white count improved dramatically from 17,000-8000. Patient currently stable. On physical examination on discharge: #1vital sign stable temperature 97.7 after oral, pulse 74/m regular respiratory rate is 20/m nonlabored, blood pressure 123/70 with them mean blood pressure 87, pulse ox 96 on 3 L/m #2 no evidence of diabetes mellitus. #3 examination: Patient is conscious alert oriented 3 she had severe gum disease and the infant's care S, her pupil is equal reactive, hearing is normal,. The head was normocephalic and atraumatic. The neck was supple no JVD no thyromegaly no lymphadenopathy trachea midline. Chest was clear to auscultation and percussion and the heart was regular sinus rhythm and the abdomen soft positive bowel sounds and she had mild distention which is improved, extremities the right above-knee amputation with no edema. The left lower extremities no edema decreased pulses with the underlying peripheral vascular disease and atrophic muscles of the thigh and the leg with the foot drop and history of fall and fractured leftHip. Psychiatry: She had a history of major depressive disorder and bipolar. CN as history of CVA in the past with the left hemiparesis with inability to walk. Assessment and plan: Patient stable general condition and prescription given to her nurse and she will be discharged tomorrow [place] today where it is reside as her home. With the recommendation of continuing the oxygen at 3 L. Medication changes we decreased her fentanyl to 12.5 g per hour for 72 hour and given 3 patch as well as prescription for Ativan and gabapentin and hydrocodone and adjusting as outpatient in the jail. Patient Condition at Discharge: Fair Plan - Discharge Summary Discharge Rx Participant: Yes New Discharge Prescriptions: New traZODone HCL [Desyrel] 25 mg PO DAILY tab Potassium Chloride ER [K-Dur 20] 20 meq PO BID tab.er.prt Furosemide [Lasix] 40 mg PO DAILY tab Simethicone Chew [Mylicon Chew] 80 mg PO QID chew amLODIPine [Norvasc] 5 mg PO HS tab Pantoprazole [Protonix] 40 mg PO AC-BID tablet. Cholecalciferol [Vitamin D3 (25 Mcg = 1000 Iu)] 1,000 unit PO DAILY@1700 tab Lisinopril [Zestril] 5 mg PO BID tab Continue Clopidogrel [Plavix] 75 mg PO DAILY@0800 Multivit with Calcium,Iron,Min [Women's Daily Multivitamin] 1 tab PO DAILY@0800 Lactobacillus Acidophilus [Acidophilus] 1 tab PO TID@0800,1200,1700 Docusate Sodium [Dulcolax Stool Softener] 100 mg PO DAILY@0800 Sertraline [Zoloft] 100 mg PO DAILY@0800 Ferrous Sulfate [Iron (65 MG Elemental)] 325 mg PO DAILY@0800 carBAMazepine [TEGretol XR] 200 mg PO BID@0800,2100 Nitroglycerin Sl Tabs [Nitrostat] 0.4 mg SUBLINGUAL Q5M PRN PRN Reason: Chest Pain Triamcinolone 0.5% Cream [Kenalog 0.5% Cream] 1 applic TOPICAL BID PRN PRN Reason: cuttocks/coccyx risperiDONE [RisperDAL] 0.25 mg PO BID@0800,1700 Nystatin 100,000 Unit/gm Powd [Mycostatin Powder] 1 applic TOPICAL BID Metoprolol Tartrate [Lopressor] 50 mg PO BID@0800,1700 Lubricant Drops Solution 1.4% 1 drop BOTH EYES BID@0800,1700 Lactose-Reduced Food [Ensure Plus] 1 can PO BID@0800,1700 LORazepam [Ativan] 0.5 mg PO BID@0800,2100 PRN PRN Reason: Anxiety Aspirin 81 mg PO DAILY@0800 Isosorbide Mononitrate ER [Imdur] 30 mg PO DAILY@0800 Mag Hydrox/Al Hydrox/Simeth [Maalox] 30 ml PO QID PRN PRN Reason: Gi Upset HYDROcodone/APAP 5-325MG [Cushing 5-325] 1 tab PO Q6HR PRN #10 tab PRN Reason: Pain Lidocaine 5% Cream 1 applic TOPICAL DAILY PRN PRN Reason: Pain Acetaminophen Tab [Tylenol] 650 mg PO Q4H PRN PRN Reason: Pain Albuterol Nebulized [Ventolin Nebulized] 2.5 mg INHALATION RT-Q4H PRN PRN Reason: Wheezing Bisacodyl [Dulcolax] 10 mg RECTAL DAILY PRN PRN Reason: Constipation Cyclobenzaprine [Flexeril] 5 mg PO BID@0800,1700 Gabapentin [Neurontin] 300 mg PO TID@0800,1200,1700 Loperamide HCl [Imodium A-D] 2 - 4 mg PO DAILY PRN PRN Reason: Loose Stool Magnesium Hydroxide [Milk of Magnesia] 2,400 mg PO DAILY PRN PRN Reason: Constipation traZODone HCL [Desyrel] 100 mg PO HS@2100 Discontinued Furosemide [Lasix] 40 mg PO BID@0800,1700 Potassium Chloride [Klor-Con 20] 20 meq PO DAILY@0800 Cholecalciferol [Vitamin D3] 1,200 unit PO DAILY@1700 Esomeprazole Magnesium [NexIUM] 40 mg PO DAILY@0600 fentaNYL 25MCG/HR PATCH [Duragesic 25MCG/HR] 1 patch TRANSDERM Q72H #1 patch Na Phos,M-B/Na Phos,Di-Ba [Fleet Adult] 133 ml RECTAL ONCE PRN PRN Reason: Constipation Ondansetron [Zofran] 4 mg PO Q6H PRN PRN Reason: Nausea Simethicone 80 mg PO TID PRN PRN Reason: gas No Action Lisinopril [Zestril] 5 mg PO BID@0800,1700 Discharge Medication List Clopidogrel [Plavix] 75 mg PO DAILY@0800 03/21/15 [History] Docusate Sodium [Dulcolax Stool Softener] 100 mg PO DAILY@0803/21/15 [History] Lactobacillus Acidophilus [Acidophilus] 1 tab PO TID@0800,1200,1700 03/21/15 [History] Multivit with Calcium,Iron,Min [Women's Daily Multivitamin] 1 tab PO DAILY@0800 03/21/15 [History] Sertraline [Zoloft] 100 mg PO DAILY@0800 03/19/17 [History] Ferrous Sulfate [Iron (65 MG Elemental)] 325 mg PO DAILY@0800 02/12/18 [History] carBAMazepine [TEGretol XR] 200 mg PO BID@0800,2100 02/17/18 [History] LORazepam [Ativan] 0.5 mg PO BID@0800,2100 PRN 03/10/19 [History] Lactose-Reduced Food [Ensure Plus] 1 can PO BID@0800,1700 03/10/19 [History] Lubricant Drops Solution 1.4% 1 drop BOTH EYES BID@0800,1700 03/10/19 [History] Metoprolol Tartrate [Lopressor] 50 mg PO BID@0800,1700 03/10/19 [History] Nitroglycerin Sl Tabs [Nitrostat] 0.4 mg SUBLINGUAL Q5M PRN 03/10/19 [History] Nystatin 100,000 Unit/gm Powd [Mycostatin Powder] 1 applic TOPICAL BID 03/10/19 [History] Triamcinolone 0.5% Cream [Kenalog 0.5% Cream] 1 applic TOPICAL BID PRN 03/10/19 [History] risperiDONE [RisperDAL] 0.25 mg PO BID@0800,1700 03/10/19 [History] Aspirin 81 mg PO DAILY@0800 05/04/19 [History] Isosorbide Mononitrate ER [Imdur] 30 mg PO DAILY@0800 05/04/19 [History] Mag Hydrox/Al Hydrox/Simeth [Maalox] 30 ml PO QID PRN 05/04/19 [History] HYDROcodone/APAP 5-325MG [Cushing 5-325] 1 tab PO Q6HR PRN #10 tab 05/09/19 [Rx] Acetaminophen Tab [Tylenol] 650 mg PO Q4H PRN 12/14/19 [History] Albuterol Nebulized [Ventolin Nebulized] 2.5 mg INHALATION RT-Q4H PRN 12/14/19 [History] Bisacodyl [Dulcolax] 10 mg RECTAL DAILY PRN 12/14/19 [History] Cyclobenzaprine [Flexeril] 5 mg PO BID@0800,1700 12/14/19 [History] Gabapentin [Neurontin] 300 mg PO TID@0800,1200,1700 12/14/19 [History] Lidocaine 5% Cream 1 applic TOPICAL DAILY PRN 12/14/19 [History] Lisinopril [Zestril] 5 mg PO BID@0800,1700 12/14/19 [History] Loperamide HCl [Imodium A-D] 2 - 4 mg PO DAILY PRN 12/14/19 [History] Magnesium Hydroxide [Milk of Magnesia] 2,400 mg PO DAILY PRN 12/14/19 [History] traZODone HCL [Desyrel] 100 mg PO HS@2100 12/14/19 [History] Cholecalciferol [Vitamin D3 (25 Mcg = 1000 Iu)] 1,000 unit PO DAILY@1700 tab 12/19/19 [Rx] Furosemide [Lasix] 40 mg PO DAILY tab 12/19/19 [Rx] Lisinopril [Zestril] 5 mg PO BID tab 12/19/19 [Rx] Pantoprazole [Protonix] 40 mg PO AC-BID tablet.dr 12/19/19 [Rx] Potassium Chloride ER [K-Dur 20] 20 meq PO BID tab.er.prt 12/19/19 [Rx] Simethicone Chew [Mylicon Chew] 80 mg PO QID chew 12/19/19 [Rx] amLODIPine [Norvasc] 5 mg PO HS tab 12/19/19 [Rx] traZODone HCL [Desyrel] 25 mg PO DAILY tab 12/19/19 [Rx] Follow up Appointment(s)/Referral(s): Ian Peter MD [Primary Care Provider] - 1-2 days
== END 2019-12-19 14:46 | DRG 872 ==
LOC: EC 01:01 → 4SSUR 06:21 → OBSVTOIN 12-15 15:51
PROVIDERS: ADMIT Internal Medicine; ATTEND Internal Medicine
PROC: 0DB98ZX Excision of Duodenum, Via Natural or Artificial Opening Endoscopic, Diagnostic (ICD-10-PCS; principal; 2019-12-18 09:13)
PROC: 0DB78ZX Excision of Stomach, Pylorus, Via Natural or Artificial Opening Endoscopic, Diagnostic (ICD-10-PCS; principal; 2019-12-18 09:13)
DX: A41.59 Other Gram-negative sepsis (principal); E87.2 Acidosis; I69.354 Hemiplegia and hemiparesis following cerebral infarction affecting left non-dominant side; N39.0 Urinary tract infection, site not specified; E83.51 Hypocalcemia; I11.0 Hypertensive heart disease with heart failure; I50.9 Heart failure, unspecified; J84.10 Pulmonary fibrosis, unspecified; G54.6 Phantom limb syndrome with pain; Z89.611 Acquired absence of right leg above knee; J44.9 Chronic obstructive pulmonary disease, unspecified; G40.909 Epilepsy, unspecified, not intractable, without status epilepticus; I73.9 Peripheral vascular disease, unspecified; F31.9 Bipolar disorder, unspecified; Z20.828 Contact with and (suspected) exposure to other viral communicable diseases; R40.2362 Coma scale, best motor response, obeys commands, at arrival to emergency department; K29.70 Gastritis, unspecified, without bleeding; E86.0 Dehydration; E87.6 Hypokalemia; N20.0 Calculus of kidney; R73.9 Hyperglycemia, unspecified; I25.10 Atherosclerotic heart disease of native coronary artery without angina pectoris; K21.9 Gastro-esophageal reflux disease without esophagitis; G89.4 Chronic pain syndrome; M54.5 Low back pain; M21.372 Foot drop, left foot; M62.50 Muscle wasting and atrophy, not elsewhere classified, unspecified site; R32 Unspecified urinary incontinence; F41.0 Panic disorder [episodic paroxysmal anxiety]; E73.9 Lactose intolerance, unspecified; K44.9 Diaphragmatic hernia without obstruction or gangrene; H91.93 Unspecified hearing loss, bilateral; M19.90 Unspecified osteoarthritis, unspecified site; R40.2142 Coma scale, eyes open, spontaneous, at arrival to emergency department; R40.2252 Coma scale, best verbal response, oriented, at arrival to emergency department; R09.02 Hypoxemia; R26.2 Difficulty in walking, not elsewhere classified; L21.9 Seborrheic dermatitis, unspecified; K02.9 Dental caries, unspecified; Z79.82 Long term (current) use of aspirin; Z79.02 Long term (current) use of antithrombotics/antiplatelets; Z79.891 Long term (current) use of opiate analgesic; Z79.899 Other long term (current) drug therapy; Z87.440 Personal history of urinary (tract) infections; Z87.01 Personal history of pneumonia (recurrent); Z87.19 Personal history of other diseases of the digestive system; Z87.11 Personal history of peptic ulcer disease; Z87.442 Personal history of urinary calculi; Z87.891 Personal history of nicotine dependence; Z86.14 Personal history of Methicillin resistant Staphylococcus aureus infection; Z87.81 Personal history of (healed) traumatic fracture; Z90.49 Acquired absence of other specified parts of digestive tract; Z90.89 Acquired absence of other organs; Z87.42 Personal history of other diseases of the female genital tract; Z98.890 Other specified postprocedural states; Z88.0 Allergy status to penicillin; Z88.2 Allergy status to sulfonamides; Z88.8 Allergy status to other drugs, medicaments and biological substances; Z88.1 Allergy status to other antibiotic agents; Z91.041 Radiographic dye allergy status; Z91.02 Food additives allergy status; Z82.5 Family history of asthma and other chronic lower respiratory diseases; Z82.49 Family history of ischemic heart disease and other diseases of the circulatory system; Z81.2 Family history of tobacco abuse and dependence
CPT/HCPCS: 36415; 43239; 71045; 71275; 74018; 80048; 80053; 81001; 82330; 82533; 82652; 82728; 83036; 83605; 83615; 83735; 83970; 84145; 85025; 85379; 85610; 85730; 86140; 87040; 87077; 87086; 87186; 88305; 93005; 96361; 96365; 96375; 99285

== ENCOUNTER 2020-08-18 17:20 | Inpatient (IN) | payer MEDICARE, OTHER ==
[2020-08-18] MEDS ORDERED: ALBUTEROL NEBULIZED 2.5 MG/3 ML INHALATION STA (17:32)
[2020-08-18] MEDS ORDERED: IPRATROPIUM 0.5 MG/2.5 ML NEBU INHALATION STA (17:32)
[2020-08-18] MEDS ORDERED: DEXAMETHASONE SOD PHOSPHATE 10 MG/ML 1 ML VIAL IV STA (17:33)
[2020-08-18] MEDS ORDERED: SODIUM CHLORIDE 0.9% 500 ML 500 ML IV STA (17:34)
--- NOTE | 2020-08-18 17:35 | ED ---
General Adult HPI - General Chief complaint: Shortness of Breath Stated complaint: poss aspiration Time Seen by Provider: 08/18/20 17:24 Source: patient, EMS Mode of arrival: EMS Limitations: no limitations - History of Present Illness Initial comments: Dictation was produced using [employer] dictation software. please excuse any grammatical, word or spelling errors. This patient was cared for during a federal and state declared state of emergency secondary to Covid 19 Chief Complaint: 69-year-old female presents to the emergency Department for [facility] for dyspnea History of Present Illness: 69-year-old female she has multiple comorbidities. Patient's history of coronary artery disease, heart failure, COPD, hypertension, pneumonia and renal disease. Over the last several days she's been having worsening shortness of breath. EMS was called and patient was brought to the emergency department patient is a poor historian. She states that she's been feeling sick, coughing. She also reports constitutional symptoms. The ROS documented in this emergency department record has been reviewed and confirmed by me. Those systems with pertinent positive or negative responses have been documented in the HPI. All other systems are other negative and/or noncontributory. PHYSICAL EXAM: General Impression: Alert and oriented x3, mildly dyspneic HEENT: Normocephalic atraumatic, extra-ocular movements intact, pupils equal and reactive to light bilaterally, dry mucous membranes Cardiovascular: Heart regular rate and rhythm Chest: Able to complete full sentences, mild retractions, mild tachypnea, diffuse lung wheezing with auscultation to the lungs Abdomen: abdomen soft, non-tender, non-distended, no organomegaly Musculoskeletal: Pulses present and equal in all extremities, no peripheral edema Motor: no focal deficits noted Neurological: CN II-XII grossly intact, no focal motor or sensory deficits noted Skin: Intact with no visualized rashes Psych: Normal affect and mood ED course: 69-year-old female with multiple cardiac and pulmonary comorbidities presents to the emergency department for dyspnea several days. Vital signs upon arrival shows heart rate of 121, respiratory rate of 30, 92% on 15 L nonrebreather. Patient mildly dyspneic she is not severely retracting. [id number] bedside ultrasound was performed showing a line pattern. Clinical presentation is most likely COPD exacerbation. EKG interpretation: Ventricular rate 112, sinus tachycardia,. Interval 1:30, QRS 72, QTc 455. No NV prolongation, no QTC prolongation, no ST or T-wave changes noted. EKG compared to a 02/06/2020 showing no changes. Overall, this EKG is unremarkable Arterial blood gas was obtained. PH 7.367, pCO2 49.6, pO2 of 64.1 on 6 L nasal cannula. Patient reevaluated at bedside still requiring large amounts of oxygen. In light of patient's hypoxia on her arterial blood gas patient be sent for CT angioma to rule out pulmonary embolism. CT angios shows no pulmonary embolism. There is bilateral pulmonary for transfer coalescent density at the lung apices. Not significantly different. Case was discussed with was agreeable to take on patient's care in the hospital. - Related Data Home Medications Medication Instructions Recorded Confirmed Clopidogrel [Plavix] 75 mg PO DAILY@0800 03/21/15 08/18/20 Lactobacillus Acidophilus 1 tab PO TID@0800,1200,1700 03/21/15 08/18/20 [Acidophilus] Multivit with Calcium,Iron,Min 1 tab PO DAILY@0800 03/21/15 08/18/20 [Women's Daily Multivitamin] Sertraline [Zoloft] 100 mg PO DAILY@0800 03/19/17 08/18/20 Ferrous Sulfate [Iron (65 MG 325 mg PO DAILY@0800 02/12/18 08/18/20 Elemental)] LORazepam [Ativan] 0.5 mg PO BID@0800,2100 PRN 03/10/19 08/18/20 Lactose-Reduced Food [Ensure Plus] 1 can PO BID@0800,1700 03/10/19 08/18/20 Lubricant Drops Solution 1.4% 1 drop BOTH EYES BID@0800,1700 03/10/19 08/18/20 Metoprolol Tartrate [Lopressor] 50 mg PO BID@0800,1700 03/10/19 08/18/20 Nitroglycerin Sl Tabs [Nitrostat] 0.4 mg SUBLINGUAL Q5M PRN 03/10/19 08/18/20 risperiDONE [RisperDAL] 0.25 mg PO BID@0800,1700 03/10/19 08/18/20 Aspirin 81 mg PO DAILY@0800 05/04/19 08/18/20 Isosorbide Mononitrate ER [Imdur] 30 mg PO DAILY@0800 05/04/19 08/18/20 Mag Hydrox/Al Hydrox/Simeth 30 ml PO QID PRN 05/04/19 08/18/20 [Maalox] Acetaminophen Tab [Tylenol] 650 mg PO Q4H PRN 12/14/19 08/18/20 Albuterol Nebulized [Ventolin 2.5 mg INHALATION RT-Q4H PRN 12/14/19 08/18/20 Nebulized] Cyclobenzaprine [Flexeril] 5 mg PO BID@0800,17012/14/19 08/18/20 Gabapentin [Neurontin] 300 mg PO BID@0800,199912/14/19 08/18/20 Lidocaine 5% Cream 1 applic TOPICAL DAILY PRN 12/14/19 08/18/20 Loperamide HCl [Imodium A-D] 4 mg PO DAILY PRN 12/14/19 08/18/20 lisinopriL [Zestril] 5 mg PO BID@0800,169912/14/19 08/18/20 traZODone HCL [Desyrel] 100 mg PO HS@209912/14/19 08/18/20 Cholecalciferol [Vitamin D3 (25 25 mcg PO DAILY 08/18/20 08/18/20 Mcg = 1000 Iu)] Furosemide [Lasix] 40 mg PO DAILY@0800 08/18/20 08/18/20 Magnesium Hydroxide [Milk of 7,200 mg PO DAILY PRN 08/18/20 08/18/20 Magnesia Concentrate] Na Phos,M-B/Na Phos,Di-Ba [Fleet 133 ml RECTAL DAILY PRN 08/18/20 08/18/20 Adult] Pantoprazole [Protonix] 40 mg PO DAILY@0600 08/18/20 08/18/20 Potassium Chloride ER [K-Dur 20] 20 meq PO BID@0800,169908/18/20 08/18/20 Simethicone Chew [Mylicon Chew] 80 mg PO TID@0800,1200,0 08/18/20 08/18/20 amLODIPine [Norvasc] 5 mg PO HS@209908/18/20 08/18/20 bisacodyL [Dulcolax] 10 mg RECTAL DAILY PRN 08/18/20 08/18/20 carBAMazepine [TEGretol] 200 mg PO BID@0800,2100 08/18/20 08/18/20 fentaNYL 12MCG/HR PATCH [Duragesic 1 patch TRANSDERM Q72H 08/18/20 08/18/20 12MCG/HR] Previous Rx's Medication Instructions Recorded HYDROcodone/APAP 5-325MG [Clark 1 tab PO Q6HR PRN #10 tab 05/09/19 5-325] Allergies Allergy/AdvReac Type Severity Reaction Status Date / Time ciprofloxacin [From Cipro] Allergy Unknown Verified 08/18/20 19:53 iodine Allergy Unknown Verified 08/18/20 19:53 Penicillins Allergy Unknown Verified 08/18/20 19:53 Phenylpiperazine Allergy Unknown Verified 08/18/20 19:53 Antidepressant red dye Allergy Unknown Verified 08/18/20 19:53 Sulfa (Sulfonamide Allergy Unknown Verified 08/18/20 19:53 Antibiotics) Review of Systems ROS Statement: Those systems with pertinent positive or pertinent negative responses have been documented in the HPI. ROS Other: All systems not noted in ROS Statement are negative. Past Medical History Past Medical History: Coronary Artery Disease (CAD), Heart Failure, COPD, Diabetes Mellitus, GERD/Reflux, GI Bleed, Hearing Disorder / Deafness, Hypertension, Osteoarthritis (OA), Pneumonia, Renal Disease, Seizure Disorder, Skin Disorder, Vascular Disorder Additional Past Medical History / Comment(s): NIDDM type II-pt states she was on oral meds for about 6 months once, CVA-pt states no residual, L foot drop, last seizure 20 yrs ago, bronchitis, gastric ulcer, bloody stool in past, kidney stones with surgeries, PVD-R AKA, gastric ulcer, diverticular disease, hemorrhoids, UTIs, migraines, chronic low back pain and R stump pain, tinnitis b ilaterally, [place] R ear, anemia, dermatitis, incontinence of urine and stool, past L elbow fracture. History of Any Multi-Drug Resistant Organisms: MRSA Date of last positivie culture/infection: 2012 MDRO Source:: right leg Past Surgical History: Appendectomy, Cholecystectomy, Orthopedic Surgery, Tons illectomy Additional Past Surgical History / Comment(s): EGD, colonoscopies, bilateral percutaneous nephroscopies, arch/aortagrams, R foot 5th toe amp then R AKA, L hip ORIF with plate/screws, laparatomy for rupture ovarian cyst, cox-since removed, PICC-since removed. Past Anesthesia/Blood Transfusion Reactions: No Reported Reaction Additional Past Anesthesia/Blood Transfusion Reaction / Comment(s): care provider doesn't know anesthesia hx. Past Psychological History: Anxiety, Bipolar, Depression Smoking Status: Former smoker Past Alcohol Use History: None Reported Past Drug Use History: None Reported - Past Family History Father Family Medical History: COPD, Myocardial Infarction ([place]) Additional Family Medical History / Comment(s): Father was a smoker with emphysema. He from his 3rd [place] at the age of 67yrs. Mother Family Medical History: No Reported History Additional Family Medical History / Comment(s): Mother was healthy and lived to be 95yrs old. General Exam Limitations: no limitations Course Vital Signs 08/18/20 08/18/20 08/18/20 17:24 17:29 18:07 Temperature 99.3 F Pulse Rate 121 H 106 H Respiratory 30 H 30 H 32 H Rate Blood Pressure 137/94 O2 Sat by Pulse 92 L Oximetry 08/18/20 08/18/20 08/18/20 18:13 18:17 18:27 Temperature Pulse Rate 107 H 100 Respiratory 24 24 24 Rate Blood Pressure 150/95 O2 Sat by Pulse 92 L 90 L Oximetry 08/18/20 08/18/20 18:51 19:00 Temperature Pulse Rate 101 H 98 Respiratory 24 24 Rate Blood Pressure 142/75 129/73 O2 Sat by Pulse 91 L 91 L Oximetry Medical Decision Making - Lab Data Result diagrams: 08/18/20 17:37 08/18/20 17:37 Lab Results 08/18/20 08/18/20 08/18/20 Range/Units 17:37 17:37 17:37 WBC 13.7 H (3.8-10.6) k/uL RBC 6.34 H (3.80-5.40) m/uL Hgb 17.2 H (11.4-16.0) gm/dL Hct 51.6 H (34.0-46.0) % MCV 81.4 (80.0-100.0) fL MCH 27.1 (25.0-35.0) pg MCHC 33.3 (31.0-37.0) g/dL RDW 15.2 (11.5-15.5) % Plt Count 221 (150-450) k/uL MPV 6.8 Neutrophils % 84 % Lymphocytes % 9 % Monocytes % 3 % Eosinophils % 2 % Basophils % 1 % Neutrophils # 11.5 H (1.3-7.7) k/uL Lymphocytes # 1.3 (1.0-4.8) k/uL Monocytes # 0.5 (0-1.0) k/uL Eosinophils # 0.2 (0-0.7) k/uL Basophils # 0.2 (0-0.2) k/uL PT 10.3 (9.0-12.0) sec INR 1.0 (<1.2) APTT 22.8 (22.0-30.0) sec Sample Site ABG pH (7.35-7.45) ABG pCO2 (35-45) mmHg ABG pO2 (83-108) mmHg ABG HCO3 (21-25) mmol/L ABG Total CO2 (19-24) mmol/L ABG O2 Saturation (94-97) % ABG Base Excess mmol/L Cisco Test FiO2 % Sodium 142 (137-145) mmol/L Potassium 4.5 (3.5-5.1) mmol/L Chloride 99 (98-107) mmol/L Carbon Dioxide 29 (22-30) mmol/L Anion Gap 14 mmol/L BUN 16 (7-17) mg/dL Creatinine 0.68 (0.52-1.04) mg/dL Est GFR (CKD-EPI)AfAm >90 (>60 ml/min/1.73 sqM) Est GFR (CKD-EPI)NonAf 89 (>60 ml/min/1.73 sqM) Glucose 165 H (74-99) mg/dL Lactic Ac Sepsis Rflx Plasma Lactic Acid Jacinto (0.7-2.0) mmol/L Calcium 9.1 (8.4-10.2) mg/dL Magnesium 1.8 (1.6-2.3) mg/dL Total Bilirubin 0.6 (0.2-1.3) mg/dL AST 43 H (14-36) U/L ALT 36 H (4-34) U/L Alkaline Phosphatase 141 H (38-126) U/L Troponin I (0.000-0.034) ng/mL Total Protein 8.5 H (6.3-8.2) g/dL Albumin 4.3 (3.5-5.0) g/dL Coronavirus (PCR) (Not Detectd) 08/18/20 08/18/20 08/18/20 Range/Units 17:37 17:37 17:48 WBC (3.8-10.6) k/uL RBC (3.80-5.40) m/uL Hgb (11.4-16.0) gm/dL Hct (34.0-46.0) % MCV (80.0-100.0) fL MCH (25.0-35.0) pg MCHC (31.0-37.0) g/dL RDW (11.5-15.5) % Plt Count (150-450) k/uL MPV Neutrophils % % Lymphocytes % % Monocytes % % Eosinophils % % Basophils % % Neutrophils # (1.3-7.7) k/uL Lymphocytes # (1.0-4.8) k/uL Monocytes # (0-1.0) k/uL Eosinophils # (0-0.7) k/uL Basophils # (0-0.2) k/uL PT (9.0-12.0) sec INR (<1.2) APTT (22.0-30.0) sec Sample Site ABG pH (7.35-7.45) ABG pCO2 (35-45) mmHg ABG pO2 (83-108) mmHg ABG HCO3 (21-25) mmol/L ABG Total CO2 (19-24) mmol/L ABG O2 Saturation (94-97) % ABG Base Excess mmol/L Cisco Test FiO2 % Sodium (137-145) mmol/L Potassium (3.5-5.1) mmol/L Chloride (98-107) mmol/L Carbon Dioxide (22-30) mmol/L Anion Gap mmol/L BUN (7-17) mg/dL Creatinine (0.52-1.04) mg/dL Est GFR (CKD-EPI)AfAm (>60 ml/min/1.73 sqM) Est GFR (CKD-EPI)NonAf (>60 ml/min/1.73 sqM) Glucose (74-99) mg/dL Lactic Ac Sepsis Rflx Plasma Lactic Acid Jacinto 2.6 H* (0.7-2.0) mmol/L Calcium (8.4-10.2) mg/dL Magnesium (1.6-2.3) mg/dL Total Bilirubin (0.2-1.3) mg/dL AST (14-36) U/L ALT (4-34) U/L Alkaline Phosphatase (38-126) U/L Troponin I <0.012 (0.000-0.034) ng/mL Total Protein (6.3-8.2) g/dL Albumin (3.5-5.0) g/dL Coronavirus (PCR) Not Detected (Not Detectd) 08/18/20 08/18/20 Range/Units 18:22 18:52 WBC (3.8-10.6) k/uL RBC (3.80-5.40) m/uL Hgb (11.4-16.0) gm/dL Hct (34.0-46.0) % MCV (80.0-100.0) fL MCH (25.0-35.0) pg MCHC (31.0-37.0) g/dL RDW (11.5-15.5) % Plt Count (150-450) k/uL MPV Neutrophils % % Lymphocytes % % Monocytes % % Eosinophils % % Basophils % % Neutrophils # (1.3-7.7) k/uL Lymphocytes # (1.0-4.8) k/uL Monocytes # (0-1.0) k/uL Eosinophils # (0-0.7) k/uL Basophils # (0-0.2) k/uL PT (9.0-12.0) sec INR (<1.2) APTT (22.0-30.0) sec Sample Site rrad ABG pH 7.37 (7.35-7.45) ABG pCO2 50 H (35-45) mmHg ABG pO2 64 L (83-108) mmHg ABG HCO3 28 H (21-25) mmol/L ABG Total CO2 30 H (19-24) mmol/L ABG O2 Saturation 92.5 L (94-97) % ABG Base Excess 3.1 mmol/L Cisco Test Yes FiO2 37 % Sodium (137-145) mmol/L Potassium (3.5-5.1) mmol/L Chloride (98-107) mmol/L Carbon Dioxide (22-30) mmol/L Anion Gap mmol/L BUN (7-17) mg/dL Creatinine (0.52-1.04) mg/dL Est GFR (CKD-EPI)AfAm (>60 ml/min/1.73 sqM) Est GFR (CKD-EPI)NonAf (>60 ml/min/1.73 sqM) Glucose (74-99) mg/dL Lactic Ac Sepsis Rflx Y Plasma Lactic Acid Jacinto (0.7-2.0) mmol/L Calcium (8.4-10.2) mg/dL Magnesium (1.6-2.3) mg/dL Total Bilirubin (0.2-1.3) mg/dL AST (14-36) U/L ALT (4-34) U/L Alkaline Phosphatase (38-126) U/L Troponin I (0.000-0.034) ng/mL Total Protein (6.3-8.2) g/dL Albumin (3.5-5.0) g/dL Coronavirus (PCR) (Not Detectd) Disposition Clinical Impression: Dyspnea, Hypoxia Disposition: ADMITTED IP TO THIS HOSP Condition: Fair Referrals: Ian Peter MD [Primary Care Provider] - 1-2 days Decision Time: 20:58
[2020-08-18 17:55] LABS: Basophils # (A) 0.2 k/uL (0-0.2); Basophils % (A) 1 %; Eosinophils # (A) 0.2 k/uL (0-0.7); Eosinophils % (A) 2 %; HCT 51.6 % (34.0-46.0); HGB 17.2 gm/dL (11.4-16.0); Lymphocytes # (A) 1.3 k/uL (1.0-4.8); Lymphocytes % (A) 9 %; MCH 27.1 pg (25.0-35.0); MCHC 33.3 g/dL (31.0-37.0); MCV 81.4 fL (80.0-100.0); Mean Platelet Volume 6.8; Monocytes # (A) 0.5 k/uL (0-1.0); Monocytes % (A) 3 %; Neutrophils # (A) 11.5 k/uL (1.3-7.7); Neutrophils % (A) 84 %; Platelet Count 221 k/uL (150-450); RBC 6.34 m/uL (3.80-5.40); RDW 15.2 % (11.5-15.5); WBC 13.7 k/uL (3.8-10.6)
--- NOTE | 2020-08-18 18:02 | XR ---
EXAMINATION TYPE: XR chest 1V portable DATE OF EXAM: 08/18/2020 COMPARISON: 12/14/2019 HISTORY: Short of breath TECHNIQUE: FINDINGS: Heart is normal. There is some coarse interstitial infiltrate in the upper lobes. Lung base s are clear. There is no pleural effusion. There are no hilar masses. There are chest leads. IMPRESSION: Coarse density in the upper lobes consistent with some pulmonary fibrosis. No definite ac namrata lung disease. No significant change compared to old exam.
[2020-08-18 18:08] LABS: ALT 36 U/L (4-34); AST 43 U/L (14-36); African American GFR (CKD) >90 (>60 ml/min/1.73 sqM); Albumin 4.3 g/dL (3.5-5.0); Alkaline Phosphatase 141 U/L (38-126); Anion Gap 14 mmol/L; Blood Urea Nitrogen 16 mg/dL (7-17); Calcium 9.1 mg/dL (8.4-10.2); Carbon Dioxide 29 mmol/L (22-30); Chloride 99 mmol/L (98-107); Glucose 165 mg/dL (74-99); Magnesium 1.8 mg/dL (1.6-2.3); Non-African American GFR(CKD) 89 (>60 ml/min/1.73 sqM); Potassium 4.5 mmol/L (3.5-5.1); Sodium 142 mmol/L (137-145); Total Bilirubin 0.6 mg/dL (0.2-1.3); Total Protein 8.5 g/dL (6.3-8.2)
[2020-08-18 18:11] LABS: Partial Thromboplastin Time 22.8 sec (22.0-30.0); Prothrombin Time 10.3 sec (9.0-12.0)
[2020-08-18] MEDS ORDERED: ONDANSETRON 4 MG/2 ML VIAL IVP STA (18:13)
[2020-08-18] MEDS ORDERED: MORPHINE SULFATE 4 MG/ML SYRINGE IV STA (18:13)
[2020-08-18 18:50] LABS: ABG Base Excess 3.1 mmol/L; ABG HCO3 28 mmol/L (21-25); ABG Oxygen Saturation 92.5 % (94-97); ABG PCO2 50 mmHg (35-45); ABG PH 7.37 (7.35-7.45); ABG PO2 64 mmHg (83-108); ABG TCO2 30 mmol/L (19-24); Allen Test Performed? Yes
[2020-08-18] MEDS ORDERED: diphenhydrAMINE 50 MG/ML 1 ML VIAL IVP STA (19:39)
[2020-08-18] MEDS ORDERED: FAMOTIDINE 20 MG/2 ML VIAL IV STA (19:39)
[2020-08-18] MEDS ORDERED: NALOXONE 0.4 MG/ML 1 ML VIAL IV PRN (20:53)
--- NOTE | 2020-08-18 20:54 | CT ---
EXAMINATION TYPE: CT angio chest DATE OF EXAM: 08/18/2020 COMPARISON: 11/24/2019 HISTORY: Positive d-dimer. Pt having SOB, possible aspiration CT DLP: 581.1 mGycm Automated exposure control for dose reduction was used. CONTRAST: Performed with IV Contrast, patient injected with 100 mL of Isovue 370. There are 3-D post processed images. There is coarse interstitial infiltrates throughout the lungs. There is some 3 cm area of coalescent density adjacent to the pleura in the posterior right upper lobe. There is pleural thickening at the left lung apex with somewhat rounded 3 cm infiltrate. There is no mediastinal adenopathy. Thoracic aorta shows no aneurysm or dissection. There is normal contrast opacification of the pulmonary arteries. There are no filling defect. There are a few bronchial lymph nodes that measure up to 1 cm. There is no pleural effusion. The thoracic s pine is intact. Sternum is intact. IMPRESSION: No evidence of pulmonary embolism. Bilateral pulmonary infiltrates with coalescent density at the jaimie g apices. Lung disease not significantly different than old exam. Lung apices not significantly diffe rent than old CT scan of 02/21/2017. Interstitial lung disease unchanged compared to 12/14/2019.
[2020-08-18] MEDS: AZITHROMYCIN 500 MG TAB PO SCH (23:06)
[2020-08-18] MEDS: SODIUM CHLORIDE 0.9% 1,000 ML IV SCH (23:06)
[2020-08-19] MEDS: IPRATROPIUM-ALBUTEROL 3 ML NEB INHALATION SCH ×4 (08:26→20:02)
[2020-08-19] MEDS: AZITHROMYCIN 500 MG TAB PO SCH (08:55)
[2020-08-19] MEDS: predniSONE 20 MG TAB PO SCH (08:55)
[2020-08-19] MEDS ORDERED: ALBUTEROL NEBULIZED 2.5 MG/3 ML INHALATION PRN (09:38)
[2020-08-19] MEDS ORDERED: bisacodyL 10 MG SUPP RECTAL PRN (09:38)
[2020-08-19] MEDS ORDERED: MAGNESIUM HYDROXIDE 2,400 MG/10 ML CUP PO PRN (09:38)
[2020-08-19] MEDS ORDERED: NA PHOS,M-B/NA PHOS,DI-BA 133 ML ENEMA RECTAL PRN (09:38)
[2020-08-19] MEDS ORDERED: LOPERAMIDE 2 MG CAP PO PRN (09:38)
[2020-08-19] MEDS ORDERED: NITROGLYCERIN SL TABS 0.4 MG TAB SUBLINGUAL PRN (09:38)
[2020-08-19] MEDS ORDERED: ACETAMINOPHEN TAB 325 MG TAB PO PRN (09:38)
[2020-08-19] MEDS: MORPHINE SULFATE 4 MG/ML SYRINGE IVP PRN ×2 (10:17→17:20)
[2020-08-19] MEDS: ONDANSETRON 4 MG/2 ML VIAL IVP PRN ×2 (10:17→17:21)
[2020-08-19] MEDS: GABAPENTIN 300 MG CAP PO SCH (12:30)
[2020-08-19] MEDS: SIMETHICONE 80 MG CHEWABLE PO SCH ×2 (12:30→17:34)
[2020-08-19] MEDS: LACTOBACILLUS ACIDOPH & BULGAR 1 EACH PACKET PO SCH ×2 (12:30→17:20)
[2020-08-19] MEDS: risperiDONE 0.25 MG TAB PO SCH (12:30)
--- NOTE | 2020-08-19 12:57 | P.HPIM ---
History of Present Illness H&P Date: 08/19/20 (Choking, hypoxemia, lactic acidosis, leukocytosis) Chief Complaint: At [facility] patient complained of choking after she took Diagnosis on admission: #1 according to the history from the [facility] repeated choking after she had her pills and medication. #2 negative PE by CTA of the chest with the presence of upper lung infiltrate suggestive of aspiration pneumonia with the drop in her oxygen and acute hypoxemic at the time and associated with shortness of breath symptomatic. #3 lactic acidosis with the episodic decrease in her oxygen. #4 acute hypoxic respiratory failure with the ABG indicating pCO2 50 and pO2 64 and saturation 91/92. #5 symptoms of chest pain. With the normal control BNP and troponin. #6 mild dehydration was a hemoconcentration with the elevated hemoglobin and RBCs , with elevated protein level #7 mild abnormalities of the liver enzyme #8 history of GERD disease in the past and peptic ulcer disease. #9 dysphagia. With the choking repeatedly. #10 wheezes in the upper extremities could be associated with the infiltrate versus pneumonia. #11 history of diabetes mellitus. Plan: #1 temporary hydration with the 0.9 normal saline. #2 start IV antibiotic Zosyn and I did discuss it with the pharmacist inpatient with the underlying her ALLERGY was none documented and patient is bipolar. #3 starting heparin subcu 5002 12 hour patient already" pedal Grell however with a hemoconcentration and she is a bedridden to avoid any DVT. #4 pulmonary consultation requested. #5 continue inhalation therapy with the albuterol. Bronchodilators. #6 speech therapy for evaluation of choking and aspiration pneumonia. #7 if the choking has continued probably we will consult gastroenterology however not indicated at this time #8 she had complained of chest pain, we did the EKG which is initially showed sinus tachycardia however currently now presented in the normal range and no chest pain, we will repeat troponin and will order echocardiogram, for further evaluation if needed. #9 with the probably do chest pain noncardiac in origin however we will still monitor the patient in presence of for further advance will be looking for consultation with the cardiology. Number [birth year]1930 evaluation with the laboratory as her condition needed. Past Medical History Past Medical History: Coronary Artery Disease (CAD), Heart Failure, COPD, GERD/Reflux, GI Bleed, Hearing Disorder / Deafness, Hypertension, Osteoarthritis (OA), Pneumonia, Renal Disease, Seizure Disorder, Skin Disorder, Vascular Disorder Additional Past Medical History / Comment(s): NIDDM type II-pt states she was on oral meds for about 6 months once, CVA-pt states no residual, L foot drop, last seizure 20 yrs ago, bronchitis, gastric ulcer, bloody stool in past, kidney stones with surgeries, PVD-R AKA, gastric ulcer, diverticular disease, hemorrhoids, UTIs, migraines, chronic low back pain and R stump pain, tinnitis bilaterally, [place] R ear, anemia, dermatitis, incontinence of urine and stool, p ast L elbow fracture. History of Any Multi-Drug Resistant Organisms: MRSA Date of last positivie culture/infection: 2012 MDRO Source:: right leg Past Surgical History: Appendectomy, Cholecystectomy, Orthopedic Surgery, Tonsillectomy Additional Past Surgical History / Comment(s): EGD, colonoscopies, bilateral percutaneous nephroscopies, arch/aortagrams, R foot 5th toe amp then R AKA, L hip ORIF with plate/screws, laparatomy for rupture ovarian cyst, cox-since removed, PICC-since removed. Past Anesthesia/Blood Transfusion Reactions: No Reported Reaction Additional Past Anesthesia/Blood Transfusion Reaction / Comment(s): care provider doesn't know anesthesia hx. Past Psychological History: Anxiety, Bipolar, Depression Additional Psychological History / Comment(s): Pt resides at [facility]. She is wheelchair bound. They use a jabari lift to wheelchair. Pt feeds herself-cut up meat small. Smoking Status: Former smoker Past Alcohol Use History: None Reported Additional Past Alcohol Use History / Comment(s): Pt started smoking in 1972 and quit in 2012. Past Drug Use History: None Reported - Past Family History Father Family Medical History: COPD, Myocardial Infarction ([place]) Additional Family Medical History / Comment(s): Father was a smoker with emphysema. He from his 3rd [place] at the age of 67yrs. Mother Family Medical History: No Reported History Additional Family Medical History / Comment(s): Mother was healthy and lived to be 95yrs old. Medications and Allergies Home Medications Medication Instructions Recorded Confirmed Type Clopidogrel [Plavix] 75 mg PO DAILY@0800 03/21/15 08/18/20 History Lactobacillus Acidophilus 1 tab PO TID@0800,1200,1700 03/21/15 08/18/20 History [Acidophilus] Multivit with Calcium,Iron,Min 1 tab PO DAILY@0800 03/21/15 08/18/20 History [Women's Daily Multivitamin] Sertraline [Zoloft] 100 mg PO DAILY@0800 03/19/17 08/18/20 History Ferrous Sulfate [Iron (65 MG 325 mg PO DAILY@0800 02/12/18 08/18/20 History Elemental)] LORazepam [Ativan] 0.5 mg PO BID@0800,2100 PRN 03/10/19 08/18/20 History Lactose-Reduced Food [Ensure Plus] 1 can PO BID@0800,1700 03/10/19 08/18/20 History Lubricant Drops Solution 1.4% 1 drop BOTH EYES BID@0800,1700 03/10/19 08/18/20 History Metoprolol Tartrate [Lopressor] 50 mg PO BID@0800,1700 03/10/19 08/18/20 History Nitroglycerin Sl Tabs [Nitrostat] 0.4 mg SUBLINGUAL Q5M PRN 03/10/19 08/18/20 History risperiDONE [RisperDAL] 0.25 mg PO BID@0800,1700 03/10/19 08/18/20 History Aspirin 81 mg PO DAILY@0800 05/04/19 08/18/20 History Isosorbide Mononitrate ER [Imdur] 30 mg PO DAILY@0800 05/04/19 08/18/20 History Mag Hydrox/Al Hydrox/Simeth 30 ml PO QID PRN 05/04/19 08/18/20 History [Maalox] HYDROcodone/APAP 5-325MG [[place] 1 tab PO Q6HR PRN #10 tab 05/09/19 08/18/20 Rx 5-325] Acetaminophen Tab [Tylenol] 650 mg PO Q4H PRN 12/14/19 08/18/20 History Albuterol Nebulized [Ventolin 2.5 mg INHALATION RT-Q4H PRN 12/14/19 08/18/20 History Nebulized] Cyclobenzaprine [Flexeril] 5 mg PO BID@0800,1700 12/14/19 08/18/20 History Gabapentin [Neurontin] 300 mg PO BID@0800,2000 12/14/19 08/18/20 History Lidocaine 5% Cream 1 applic TOPICAL DAILY PRN 12/14/19 08/18/20 History Loperamide HCl [Imodium A-D] 4 mg PO DAILY PRN 12/14/19 08/18/20 History lisinopriL [Zestril] 5 mg PO BID@0800,1700 12/14/19 08/18/20 History traZODone HCL [Desyrel] 100 mg PO HS@209912/14/19 08/18/20 History Cholecalciferol [Vitamin D3 (25 25 mcg PO DAILY 08/18/20 08/18/20 History Mcg = 1000 Iu)] Furosemide [Lasix] 40 mg PO DAILY@0800 08/18/20 08/18/20 History Magnesium Hydroxide [Milk of 7,200 mg PO DAILY PRN 08/18/20 08/18/20 History Magnesia Concentrate] Na Phos,M-B/Na Phos,Di-Ba [Fleet 133 ml RECTAL DAILY PRN 08/18/20 08/18/20 History Adult] Pantoprazole [Protonix] 40 mg PO DAILY@0600 08/18/20 08/18/20 History Potassium Chloride ER [K-Dur 20] 20 meq PO BID@0800,1700 08/18/20 08/18/20 History Simethicone Chew [Mylicon Chew] 80 mg PO TID@0800,1200,1700 08/18/20 08/18/20 History amLODIPine [Norvasc] 5 mg PO HS@209908/18/20 08/18/20 History bisacodyL [Dulcolax] 10 mg RECTAL DAILY PRN 08/18/20 08/18/20 History carBAMazepine [TEGretol] 200 mg PO BID@0800,2100 08/18/20 08/18/20 History fentaNYL 12MCG/HR PATCH [Duragesic 1 patch TRANSDERM Q72H 08/18/20 08/18/20 History 12MCG/HR] Allergies Allergy/AdvReac Type Severity Reaction Status Date / Time ciprofloxacin [From Cipro] Allergy Unknown Verified 08/18/20 19:53 iodine Allergy Unknown Verified 08/18/20 19:53 Penicillins Allergy Unknown Verified 08/18/20 19:53 Phenylpiperazine Allergy Unknown Verified 08/18/20 19:53 Antidepressant red dye Allergy Unknown Verified 08/18/20 19:53 Sulfa (Sulfonamide Allergy Unknown Verified 08/18/20 19:53 Antibiotics) Physical Exam Vitals: Vital Signs Temp Pulse Pulse Resp BP BP Pulse Ox 08/19/20 04:00 97.7 F 83 17 120/58 95 08/19/20 00:00 97.8 F 89 18 141/73 96 08/18/20 21:54 97.8 F 89 18 141/73 97 08/18/20 21:35 98.1 F 87 16 134/64 98 08/18/20 19:00 98 24 129/73 91 L 08/18/20 18:51 101 H 24 142/75 91 L 08/18/20 18:27 24 90 L 08/18/20 18:17 100 24 150/95 92 L 08/18/20 18:13 107 H 24 08/18/20 18:07 106 H 32 H 08/18/20 17:29 30 H 08/18/20 17:24 99.3 F 121 H 30 H 137/94 92 L Intake and Output 08/18/20 08/19/20 08/19/20 22:59 06:59 14:59 Intake Total 400 180 Balance 400 180 Intake: Oral 400 180 Other: Weight 68.946 kg 61 kg - Constitutional General appearance: cooperative, mild distress, obese - EENT Eyes: PERRLA ENT: hearing grossly normal Ears: bilateral: normal - Neck Neck: normal ROM Carotids: negative: upstroke normal Thyroid: negative: normal size - Respiratory Respiratory: bilateral: CTA (Upper lung infiltrate and no PE), wheezing, prolonged expiration, prolonged inspiration - Cardiovascular Tachycardia on admission Heart rate: 112 Rhythm: regular Heart sounds: normal: S1, S2 femoral Peripheral Pulses: right: Normal (Patient with the above knee amputation right lower extremities) - Gastrointestinal History of GERD disease and peptic ulcer disease in the past General gastrointestinal: normal bowel sounds - Genitourinary Deferred - Neurologic Left sided mild weakness in the upper extremities, lower extremities left hip fracture, foot drop, atrophy of the muscles with history of right CVA with left hemiparesis and bedridden. 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 Left lower extremities left hip fracture, atrophy of the muscles of the thigh and the leg with foot drop and ulnar deviation of the foot. Pulses was intact Musculoskeletal: generalized weakness (Patient is bipolar, depression, anxiety on multiple medication. Chronic pain syndrome with the muscle spasm and phantom pain.), left sided weakness Results CBC & Chem 7: 08/18/20 17:37 08/18/20 17:37 Labs: Abnormal Lab Results - Last 24 Hours (Table) 08/18/20 08/18/20 08/18/20 Range/Units 17:37 17:37 17:37 WBC 13.7 H (3.8-10.6) k/uL RBC 6.34 H (3.80-5.40) m/uL Hgb 17.2 H (11.4-16.0) gm/dL Hct 51.6 H (34.0-46.0) % Neutrophils # 11.5 H (1.3-7.7) k/uL ABG pCO2 (35-45) mmHg ABG pO2 (83-108) mmHg ABG HCO3 (21-25) mmol/L ABG Total CO2 (19-24) mmol/L ABG O2 Saturation (94-97) % Glucose 165 H (74-99) mg/dL Plasma Lactic Acid Jacinto 2.6 H* (0.7-2.0) mmol/L AST 43 H (14-36) U/L ALT 36 H (4-34) U/L Alkaline Phosphatase 141 H (38-126) U/L Total Protein 8.5 H (6.3-8.2) g/dL 08/18/20 08/18/20 Range/Units 18:52 21:21 WBC (3.8-10.6) k/uL RBC (3.80-5.40) m/uL Hgb (11.4-16.0) gm/dL Hct (34.0-46.0) % Neutrophils # (1.3-7.7) k/uL ABG pCO2 50 H (35-45) mmHg ABG pO2 64 L (83-108) mmHg ABG HCO3 28 H (21-25) mmol/L ABG Total CO2 30 H (19-24) mmol/L ABG O2 Saturation 92.5 L (94-97) % Glucose (74-99) mg/dL Plasma Lactic Acid Jacinto 2.5 H* (0.7-2.0) mmol/L AST (14-36) U/L ALT (4-34) U/L Alkaline Phosphatase (38-126) U/L Total Protein (6.3-8.2) g/dL Thrombosis Risk Factor Assmnt - Choose All That Apply Any of the Below Risk Factors Present?: Yes Each Factor Represents 1 point: Abnormal pulmonary function (COPD) Other Risk Factors: Yes Each Risk Factor Represents 2 Points: Age 61-74 years Other congenital or acquired thrombophilia - If yes, enter type in comment: No Thrombosis Risk Factor Assessment Total Risk Factor Score: 3 Thrombosis Risk Factor Assessment Level: Moderate Risk
--- NOTE | 2020-08-19 13:01 | P.CNPUL ---
History of Present Illness Consult date: 08/19/20 Requesting physician: Ian Peter Reason for consult: abnormal CXR/CT Chief complaint: Shortness of breath, cough, congestion History of present illness: This is a 69-year-old female patient who resides at [facility]. She has a history of previous CVA, coronary artery disease, congestive heart failure, diabetes mellitus, gastroesophageal reflux disease, GI bleed, hearing disorder, hypertension, seizure disorder, peripheral vascular disease status post right AKA, bipolar disorder. Yesterday she was choking on one of her pills and she continued with cough congestion and shortness of breath and brought into the emergency room for the same. She is some chest wall tenderness from coughing. She is not normally on oxygen. Not seen by a creping machine operator in the past. There is some history of pulmonary fibrosis dating back to 2017. Chest x-ray reveals areas of coarse density in the upper lobes bilaterally with some pulmonary fibrosis. No acute pulmonary disease. CT angiogram ruled out pulmonary embolism. There is again bilateral pulmonary infiltrates with coalescent density of the lung apices. Previous scarring. No acute disease. She is seen today in consultation on the selective care unit. She is currently resting comfortably in bed. Awake and alert in no acute distress. No worsening shortness of breath, cough or congestion. No hemoptysis. Taking O2 saturations in the mid 90s on 4 L/m per nasal cannula. She's afebrile. Hemodynamically stable. Arterial blood gases on 37% FiO2 revealed a PaO2 of 64, pCO2 of 50 and a pH of 7.37. White count 13.7. Hemoglobin 17.2. Sodium 132. Potassium 4.5. Creatinine 0.68. Troponin negative 2. ProBNP 165. Joe virus not detected. Review of Systems REVIEW OF SYSTEMS: CONSTITUTIONAL: Denies any recent significant weight loss or weight gain. EYES: Denies change in vision. EARS, NOSE, MOUTH, THROAT: Denies headaches, denies sore throat. CARDIOVASCULAR: Denies chest pain, palpitations or syncopal episodes. RESPIRATORY: Positive for shortness of breath, cough, congestion no hemoptysis. GASTROINTESTINAL: Denies change in appetite, denies abdominal pain GENITOURINARY: Denies hematuria, denies infections. MUSKULOSKELETAL: Denies pain, denies swelling. INTEGUMENTARY: Denies rash, denies eczema. NEUROLOGICAL: Denies recent memory loss, no recent seizure activity. PSYCHIATRIC: Denies anxiety, denies depression. HEMATOLOGIC/LYMPHATIC: Denies anemia, denies enlarged lymph nodes. Past Medical History Past Medical History: Coronary Artery Disease (CAD), Heart Failure, COPD, GERD/Reflux, GI Bleed, Hearing Disorder / Deafness, Hypertension, Osteoarthritis (OA), Pneumonia, Renal Disease, Seizure Disorder, Skin Disorder, Vascular Disorder Additional Past Medical History / Comment(s): NIDDM type II-pt states she was on oral meds for about 6 months once, CVA-pt states no residual, L foot drop, last seizure 20 yrs ago, bronchitis, gastric ulcer, bloody stool in past, kidney stones with surgeries, PVD-R AKA, gastric ulcer, diverticular disease, hemorrhoids, UTIs, migraines, chronic low back pain and R stump pain, tinnitis bilaterally, [place] R ear, anemia, dermatitis, incontinence of urine and stool, past L elbow fracture. History of Any Multi-Drug Resistant Organisms: MRSA Date of last positivie culture/infection: 2012 MDRO Source:: right leg Past Surgical History: Appendectomy, Cholecystectomy, Orthopedic Surgery, Tonsillectomy Additional Past Surgical History / Comment(s): EGD, colonoscopies, bilateral percutaneous nephroscopies, arch/aortagrams, R foot 5th toe amp then R AKA, L hip ORIF with plate/screws, laparatomy for rupture ovarian cyst, cox-since removed, PICC-since removed. Past Anesthesia/Blood Transfusion Reactions: No Reported Reaction Additional Past Anesthesia/Blood Transfusion Reaction / Comment(s): destiny reinoso doesn't know anesthesia hx. Past Psychological History: Anxiety, Bipolar, Depression Additional Psychological History / Comment(s): Pt resides at [facility]. She is wheelchair bound. They use a jabari lift to wheelchair. Pt feeds herself-cut up meat small. Smoking Status: Former smoker Past Alcohol Use History: None Reported Additional Past Alcohol Use History / Comment(s): Pt started smoking in 1972 and quit in 2012. Past Drug Use History: None Reported - Past Family History Father Family Medical History: COPD, Myocardial Infarction ([place]) Additional Family Medical History / Comment(s): Father was a smoker with emphysema. He from his 3rd [place] at the age of 67yrs. Mother Family Medical History: No Reported History Additional Family Medical History / Comment(s): Mother was healthy and lived to be 95yrs old. Medications and Allergies Home Medications Medication Instructions Recorded Confirmed Type Clopidogrel [Plavix] 75 mg PO DAILY@0800 03/21/15 08/18/20 History Lactobacillus Acidophilus 1 tab PO TID@0800,1200,1700 03/21/15 08/18/20 History [Acidophilus] Multivit with Calcium,Iron,Min 1 tab PO DAILY@0800 03/21/15 08/18/20 History [Women's Daily Multivitamin] Sertraline [Zoloft] 100 mg PO DAILY@0800 03/19/17 08/18/20 History Ferrous Sulfate [Iron (65 MG 325 mg PO DAILY@0800 02/12/18 08/18/20 History Elemental)] LORazepam [Ativan] 0.5 mg PO BID@0800,2100 PRN 03/10/19 08/18/20 History Lactose-Reduced Food [Ensure Plus] 1 can PO BID@0800,1700 03/10/19 08/18/20 History Lubricant Drops Solution 1.4% 1 drop BOTH EYES BID@0800,1700 03/10/19 08/18/20 History Metoprolol Tartrate [Lopressor] 50 mg PO BID@0800,1700 03/10/19 08/18/20 History Nitroglycerin Sl Tabs [Nitrostat] 0.4 mg SUBLINGUAL Q5M PRN 03/10/19 08/18/20 History risperiDONE [RisperDAL] 0.25 mg PO BID@0800,1700 03/10/19 08/18/20 History Aspirin 81 mg PO DAILY@0800 05/04/19 08/18/20 History Isosorbide Mononitrate ER [Imdur] 30 mg PO DAILY@0800 05/04/19 08/18/20 History Mag Hydrox/Al Hydrox/Simeth 30 ml PO QID PRN 05/04/19 08/18/20 History [Maalox] HYDROcodone/APAP 5-325MG [[place] 1 tab PO Q6HR PRN #10 tab 05/09/19 08/18/20 Rx 5-325] Acetaminophen Tab [Tylenol] 650 mg PO Q4H PRN 12/14/19 08/18/20 History Albuterol Nebulized [Ventolin 2.5 mg INHALATION RT-Q4H PRN 12/14/19 08/18/20 History Nebulized] Cyclobenzaprine [Flexeril] 5 mg PO BID@0800,169912/14/19 08/18/20 History Gabapentin [Neurontin] 300 mg PO BID@0800,199912/14/19 08/18/20 History Lidocaine 5% Cream 1 applic TOPICAL DAILY PRN 12/14/19 08/18/20 History Loperamide HCl [Imodium A-D] 4 mg PO DAILY PRN 12/14/19 08/18/20 History lisinopriL [Zestril] 5 mg PO BID@0800,169912/14/19 08/18/20 History traZODone HCL [Desyrel] 100 mg PO HS@209912/14/19 08/18/20 History Cholecalciferol [Vitamin D3 (25 25 mcg PO DAILY 08/18/20 08/18/20 History Mcg = 1000 Iu)] Furosemide [Lasix] 40 mg PO DAILY@0800 08/18/20 08/18/20 History Magnesium Hydroxide [Milk of 7,200 mg PO DAILY PRN 08/18/20 08/18/20 History Magnesia Concentrate] Na Phos,M-B/Na Phos,Di-Ba [Fleet 133 ml RECTAL DAILY PRN 08/18/20 08/18/20 History Adult] Pantoprazole [Protonix] 40 mg PO DAILY@0600 08/18/20 08/18/20 History Potassium Chloride ER [K-Dur 20] 20 meq PO BID@0800,169908/18/20 08/18/20 History Simethicone Chew [Mylicon Chew] 80 mg PO TID@0800,1200,0 08/18/20 08/18/20 History amLODIPine [Norvasc] 5 mg PO HS@209908/18/20 08/18/20 History bisacodyL [Dulcolax] 10 mg RECTAL DAILY PRN 08/18/20 08/18/20 History carBAMazepine [TEGretol] 200 mg PO BID@0800,209908/18/20 08/18/20 History fentaNYL 12MCG/HR PATCH [Duragesic 1 patch TRANSDERM Q72H 08/18/20 08/18/20 History 12MCG/HR] Allergies Allergy/AdvReac Type Severity Reaction Status Date / Time ciprofloxacin [From Cipro] Allergy Unknown Verified 08/18/20 19:53 iodine Allergy Unknown Verified 08/18/20 19:53 Penicillins Allergy Unknown Verified 08/18/20 19:53 Phenylpiperazine Allergy Unknown Verified 08/18/20 19:53 Antidepressant red dye Allergy Unknown Verified 08/18/20 19:53 Sulfa (Sulfonamide Allergy Unknown Verified 08/18/20 19:53 Antibiotics) Physical Exam Vitals: Vital Signs Temp Pulse Pulse Resp BP BP Pulse Ox 08/19/20 04:00 97.7 F 83 17 120/58 95 08/19/20 00:00 97.8 F 89 18 141/73 96 08/18/20 21:54 97.8 F 89 18 141/73 97 08/18/20 21:35 98.1 F 87 16 134/64 98 08/18/20 19:00 98 24 129/73 91 L 08/18/20 18:51 101 H 24 142/75 91 L 08/18/20 18:27 24 90 L 08/18/20 18:17 100 24 150/95 92 L 08/18/20 18:13 107 H 24 08/18/20 18:07 106 H 32 H 08/18/20 17:29 30 H 08/18/20 17:24 99.3 F 121 H 30 H 137/94 92 L Intake and Output 08/18/20 08/19/20 08/19/20 22:59 06:59 14:59 Intake Total 400 180 Balance 400 180 Intake: Oral 400 180 Other: Weight 68.946 kg 61 kg GENERAL EXAM: Alert, pleasant 77-year-old female patient, on 4 L nasal cannula, comfortable in no apparent distress. HEAD: Normocephalic. EYES: Normal reaction of pupils, equal size. NOSE: Clear with pink turbinates. THROAT: No erythema or exudates. NECK: No masses, no JVD. CHEST: No chest wall deformity. LUNGS: Equal air entry with no crackles, wheeze, rhonchi or dullness. CVS: S1 and S2 normal with no audible murmur, regular rhythm. ABDOMEN: No hepatosplenomegaly, normal bowel sounds, no guarding or rigidity. SPINE: No scoliosis or deformity SKIN: No rashes CENTRAL NERVOUS SYSTEM: No focal deficits, tone is normal in all 4 extremities. EXTREMITIES: Right [id number] amputation. There is no peripheral edema. No clubbing, no cyanosis. Peripheral pulses are intact. Results - Laboratory Findings CBC and BMP: 08/18/20 17:37 08/18/20 17:37 ABG ABG pH 7.37 (7.35-7.45) 08/18/20 18:52 ABG pCO2 50 mmHg (35-45) H 08/18/20 18:52 ABG pO2 64 mmHg (83-108) L 08/18/20 18:52 ABG O2 Saturation 92.5 % (94-97) L 08/18/20 18:52 PT/INR, D-dimer PT 10.3 sec (9.0-12.0) 08/18/20 17:37 INR 1.0 (<1.2) 08/18/20 17:37 Abnormal lab findings: Abnormal Labs 08/18/20 08/18/20 08/18/20 17:37 17:37 17:37 WBC 13.7 H RBC 6.34 H Hgb 17.2 H Hct 51.6 H Neutrophils # 11.5 H ABG pCO2 ABG pO2 ABG HCO3 ABG Total CO2 ABG O2 Saturation Glucose 165 H Plasma Lactic Acid Jacinto 2.6 H* AST 43 H ALT 36 H Alkaline Phosphatase 141 H Total Protein 8.5 H 08/18/20 08/18/20 18:52 21:21 WBC RBC Hgb Hct Neutrophils # ABG pCO2 50 H ABG pO2 64 L ABG HCO3 28 H ABG Total CO2 30 H ABG O2 Saturation 92.5 L Glucose Plasma Lactic Acid Jacinto 2.5 H* AST ALT Alkaline Phosphatase Total Protein - Diagnostic Findings Chest x-ray: image reviewed CT scan - chest: image reviewed Assessment and Plan Assessment: 1 Acute hypoxic respiratory failure secondary to an acute episode of aspiration on pills 2 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 7 Diabetes mellitus 8 Gastroesophageal reflux disease 9 History of GI bleed 10 Hearing disorder 11 Hypertension 12 History of seizures 13 History of bipolar disorder 14 [facility] resident Plan: The patient was seen and evaluated by Dr. Garcia Chest x-ray, CAT scans and labs reviewed Titrate down the FiO2 as tolerated Continue on empiric antibiotics Continue bronchodilators as needed Follow-up chest x-ray in a.m. Probable discharge in a.m. We'll continue to follow and make further recommendations based on her clinical status I, the cosigning physician, performed a history & physical examination of the patient. Lungs sounds are clear. Maintaining good O2 saturations in the 90s on 4 L/m per nasal cannula. I discussed the assessment and plan of care with my nurse practitioner, Prudence Chu. I attest to the above consultation as dictated by her. Time with Patient: Greater than 30
[2020-08-19] MEDS ORDERED: NON FORMULARY DRUG (Lactose-Reduced Food [Ensure Plus] 237 ML Liquid) PO SCH (17:00)
[2020-08-19] MEDS: PIPERACILLIN-TAZOBACTAM 3.375 GM in SODIUM CHLORIDE 0.9% 100 ML IVPB SCH ×2 (17:21→23:25)
[2020-08-19] MEDS: HEPARIN SODIUM,PORCINE 5,000 UNIT/ML 1 ML VIAL SQ SCH ×2 (17:21→23:31)
[2020-08-19] MEDS: CYCLOBENZAPRINE 5 MG TAB PO SCH (17:21)
[2020-08-19] MEDS: POTASSIUM CHLORIDE ER 20 MEQ TAB.ER PO SCH (17:21)
[2020-08-19] MEDS: METOPROLOL TARTRATE 50 MG TAB PO SCH (17:21)
[2020-08-19] MEDS: lisinopriL 5 MG TAB PO SCH (17:21)
[2020-08-19] MEDS: ARTIFICIAL TEARS-HYPROMELLOSE DROPS 15 ML BTL BOTH EYES SCH (17:33)
[2020-08-19] MEDS: traZODone HCL 100 MG TAB PO SCH (20:38)
[2020-08-19] MEDS: amLODIPine 5 MG TAB PO SCH (20:38)
[2020-08-19] MEDS: HYDROcodone/APAP 5-325MG 1 EACH TAB PO PRN (20:38)
[2020-08-19] MEDS: carBAMazepine 200 MG TAB PO SCH (20:38)
[2020-08-19] MEDS: LORazepam 0.5 MG TAB PO PRN (23:25)
[2020-08-20] MEDS: HYDROcodone/APAP 5-325MG 1 EACH TAB PO PRN ×3 (05:32→20:29)
[2020-08-20] MEDS: PANTOPRAZOLE 40 MG TABLET PO SCH (06:52)
[2020-08-20] MEDS: SODIUM CHLORIDE 0.9% 1,000 ML IV SCH ×3 (06:58→23:46)
[2020-08-20] MEDS: IPRATROPIUM-ALBUTEROL 3 ML NEB INHALATION SCH ×4 (07:55→20:41)
[2020-08-20] MEDS: PIPERACILLIN-TAZOBACTAM 3.375 GM in SODIUM CHLORIDE 0.9% 100 ML IVPB SCH ×3 (07:58→23:45)
[2020-08-20] MEDS: MORPHINE SULFATE 4 MG/ML SYRINGE IVP PRN (07:59)
[2020-08-20] MEDS: LACTOBACILLUS ACIDOPH & BULGAR 1 EACH PACKET PO SCH ×3 (08:00→16:16)
[2020-08-20] MEDS: ISOSORBIDE MONONITRATE ER 30 MG TAB.ER.24H PO SCH (08:00)
[2020-08-20] MEDS: ARTIFICIAL TEARS-HYPROMELLOSE DROPS 15 ML BTL BOTH EYES SCH ×2 (08:00→16:15)
[2020-08-20] MEDS: SERTRALINE 100 MG TAB PO SCH (08:00)
[2020-08-20] MEDS: CHOLECALCIFEROL 25 MCG (1000 IU) TABLET PO SCH (08:01)
[2020-08-20] MEDS: MULTIVITAMINS, THERA 1 EACH TAB PO SCH (08:01)
[2020-08-20] MEDS: predniSONE 20 MG TAB PO SCH (08:01)
[2020-08-20] MEDS: METOPROLOL TARTRATE 50 MG TAB PO SCH ×2 (08:01→16:16)
[2020-08-20] MEDS: CLOPIDOGREL 75 MG TAB PO SCH (08:01)
[2020-08-20] MEDS: SIMETHICONE 80 MG CHEWABLE PO SCH ×3 (08:01→16:18)
[2020-08-20] MEDS: AZITHROMYCIN 500 MG TAB PO SCH (08:01)
[2020-08-20] MEDS: POTASSIUM CHLORIDE ER 20 MEQ TAB.ER PO SCH ×2 (08:01→16:17)
[2020-08-20] MEDS: risperiDONE 0.25 MG TAB PO SCH ×2 (08:01→16:17)
[2020-08-20] MEDS: ASPIRIN 81 MG PO SCH (08:01)
[2020-08-20] MEDS: GABAPENTIN 300 MG CAP PO SCH ×2 (08:01→20:29)
[2020-08-20] MEDS: FUROSEMIDE 40 MG TAB PO SCH (08:02)
[2020-08-20] MEDS: FERROUS SULFATE 325 MG TAB PO SCH (08:02)
[2020-08-20] MEDS: HEPARIN SODIUM,PORCINE 5,000 UNIT/ML 1 ML VIAL SQ SCH ×2 (08:02→20:29)
[2020-08-20] MEDS: lisinopriL 5 MG TAB PO SCH ×2 (08:02→16:16)
[2020-08-20] MEDS: CYCLOBENZAPRINE 5 MG TAB PO SCH ×2 (08:02→16:16)
[2020-08-20] MEDS: carBAMazepine 200 MG TAB PO SCH ×2 (08:02→20:29)
[2020-08-20 08:13] LABS: Calcium 8.1 mg/dL (8.4-10.2); Potassium 4.1 mmol/L (3.5-5.1)
[2020-08-20 08:41] LABS: Basophils # (A) 0.1 k/uL (0-0.2); Basophils % (A) 1 %; Eosinophils # (A) 0.1 k/uL (0-0.7); Eosinophils % (A) 1 %; HCT 43.8 % (34.0-46.0); Hypochromasia Slight; Lymphocytes # (A) 2.3 k/uL (1.0-4.8); Lymphocytes % (A) 18 %; MCH 25.9 pg (25.0-35.0); MCHC 31.1 g/dL (31.0-37.0); MCV 83.3 fL (80.0-100.0); Mean Platelet Volume 7.2; Monocytes # (A) 0.7 k/uL (0-1.0); Monocytes % (A) 5 %; Neutrophils # (A) 9.3 k/uL (1.3-7.7); Neutrophils % (A) 73 %; Platelet Count 205 k/uL (150-450); RBC 5.26 m/uL (3.80-5.40); RDW 15.3 % (11.5-15.5); WBC 12.8 k/uL (3.8-10.6)
[2020-08-20] MEDS: MAG HYDROX/AL HYDROX/SIMETH 30 ML CUP PO PRN ×2 (08:47→16:06)
[2020-08-20 08:53] LABS: HGB 13.6 gm/dL (11.4-16.0)
--- NOTE | 2020-08-20 10:30 | ECHOF ---
Referral Reason:atrial fib .htnurgency,tia MEASUREMENTS -------- HEIGHT: 162.6 cm WEIGHT: 59.4 kg BP: RVIDd: 2.5 cm (< 3.3) IVSd: 1.1 cm (0.6 - 1.1) LVIDd: 3.3 cm (3.9 - 5.3) LVPWd: 1.2 cm (0.6 - 1.1) IVSs: 1.4 cm LVIDs: 2.2 cm LVPWs: 0.9 cm LA Diam: 1.8 cm (2.7 - 3.8) Ao Diam: 2.8 cm (2.0 - 3.7) AV Cusp: 2.0 cm (1.5 - 2.6) MV EXCURSION: 15.965 mm (> 18.000) MV EF SLOPE: 58 mm/s (70 - 150) EPSS: 0.5 cm MV E Kurt: 0.52 m/s MV DecT: 168 ms MV A Kurt: 0.55 m/s MV E/A Ratio: 0.95 RAP: 5.00 mmHg RVSP: 14.99 mmHg FINDINGS -------- Sinus rhythm. This was a techncally difficult study with suboptimal views, , Lumason utilized for enhancement of im ages. LV size, wall thickness and systolic function are normal, with an EF greater than 55%. The left josé luis tricular size is normal. The right ventricle is normal in size. The left atrial size is normal. The right atrial size is normal. The aortic valve was not well visualized. Mild mitral regurgitation is present. Mild tricuspid regurgitation present. Right ventricular systolic pressure is normal at < 35 mmHg. The pulmonic valve was not well visualized. The aortic root size is normal. There is a small, generalized pericardial effusion present. CONCLUSIONS -------- 1. This was a techncally difficult study with suboptimal views, , Lumason utilized for enhancement of images. 2. LV size, wall thickness and systolic function are normal, with an EF greater than 55%. 3. The left ventricular size is normal. 4. The right ventricle is normal in size. 5. The left atrial size is normal. 6. The right atrial size is normal. 7. The aortic valve was not well visualized. 8. Mild mitral regurgitation is present. 9. Mild tricuspid regurgitation present. 10. The pulmonic valve was not well visualized. 11. The aortic root size is normal. 12. There is a small, generalized pericardial effusion present. BANK ACCOUNTANT: Magdalene Hawng RDCS
--- NOTE | 2020-08-20 13:09 | P.PN ---
Subjective Progress Note Date: 08/20/20 (Upper lung field fibrosis, pneumonitis with the leukocytosis.) Dictation on progress note date of service 08/20/[address] Rodriguez Patient seen [id number] and examined. Vital sign temperature 97.5 F oral, pulse rate ranging between 76 and 93. Respiratory rate 16 normal nonlabored. Blood pressure 107/70 with controlled blood pressure with a mean 82 Oxygenation indicating 90% on 3 L nasal cannula with the hypoxemia secondary to pulmonary fibrosis. Laboratories: WBC 12.8 which is still elevated but improved and her hemoglobin is 13.7 with a hematocrit 43.8 and has been the hemoconcentration has been improved with dehydration IV fluids 0.9 normal saline. Chemistry indicating that sodium 139 potassium 4.1, chloride 103, carbon dioxide 29. Her creatinine 0.87 with the EGFR for non- 68 Troponin less than 0.012, echocardiogram was stable with normal ejection fraction greater than 55% her echocardiogram read by Dr. crane poly- material scheduler. Patient seen by consultation of pulmonary by Dr. Hernandez and followed up by his PA subsequently yesterday. And today seen by Dr. Shabazz however we don't have the dictation yet and we don't have any pain for for further treatment but definitely patient is needed the oxygen 73 L/m to continue as in the [facility] as well with the nasal cannula. Patient was on Zosyn with the consideration of aspiration pneumonitis with the leukocytosis and the shortness of breath. Azithromycin has been discontinued. With no more wheezing prednisone has been stopped. IV fluid will be continued tomorrow and with the possible transfer back to [facility] and rehab. On the physical exam: Patient's conscious alert oriented 3. HEENT was negative and the she had no ALLERGY documented before and currently need to be removed the ALLERGY to penicillin as she is taken Zosyn with no reaction. Who is a probability of hold her ALLERGY is none of it documented to be true ALLERGY and could be any adverse effect however currently no ALLERGY to penicillin. The she had mental problem and gum disease however in the [facility] could not get her to see a dental group. Neck was supple no JVD no thyromegaly no lymphadenopathy trachea midline. Her chest today markedly improved was no wheezes in the upper chest and no rhonchi's lung radiated. Heart: Echocardiogram was normal and her heart rate is normal. Was regular sinus rhythm and no chest pain which was noncardiac origin with normal troponin and normal EKG and normal echo. GI no nausea no vomiting. Abdomen is soft positive bowel sounds no tenderness in the four-quadrant. incontinent. Lower extremities: Right lower extremities with the intermittent phantom pain and muscle spasm with the above-knee amputation secondary to peripheral vascular disease and infection. Left lower extremities indicating left hip fracture with the prosthesis and atrophy of sign muscles as well as leg muscles with foot drop and deviation of the foot and unable to stand up as well patient is bed ridden. Neurologically she had history of a stroke in the past right CVA and left hemiparesis with the weakness of the left upper extremities as well weakness and the left lower extremities but improved in the upper extremities mildly was residual. Assessment and plan: #1 hemoconcentration with mild dehydration has been improved with hydration. #2 choking on her pills [facility] facility probably secondary to dryness with the negative speech pathology evaluation and no dysphagia. #3 underlying hypoxemia with the underlying upper lung fibrosis pulmonary is following the patient for the #4 leukocytosis with the possibility of mild pneumonitis still considered and the white count minimally improved. #5 hypoxemia with the need of oxygen at the [facility] 3 L 4 adjusting above 94%. The plan continue the antibiotic and plan we will discharge, transferred to [facility] tomorrow [facility] tomorrow. If okay with pulmonary. Objective - Vital Signs Vital signs: Vital Signs Temp 97.5 F L 08/20/20 08:00 Pulse 93 08/20/20 11:16 Resp 16 08/20/20 11:16 BP 107/70 08/20/20 11:16 Pulse Ox 90 L 08/20/20 11:16 Intake & Output 08/19/20 08/20/20 08/20/20 18:59 06:59 18:59 Intake Total 1380 600 480 Balance 1380 600 480 Weight 59.5 kg Intake: Oral 1380 600 480 Other: # Voids 2 1 # Bowel Movements 1 - Labs CBC & Chem 7: 08/20/20 07:18 08/20/20 07:18 Labs: Abnormal Lab Results - Last 24 Hours (Table) 08/20/20 08/20/20 Range/Units 07:18 07:18 WBC 12.8 H (3.8-10.6) k/uL Neutrophils # 9.3 H (1.3-7.7) k/uL BUN 23 H (7-17) mg/dL Glucose 103 H (74-99) mg/dL Calcium 8.1 L (8.4-10.2) mg/dL
--- NOTE | 2020-08-20 14:18 | P.PN ---
Subjective Progress Note Date: 08/20/20 Principal diagnosis: Shortness of breath, cough, congestion This is a 69-year-old female patient who resides at [facility]. She has a history of previous CVA, coronary artery disease, congestive heart failure, diabetes mellitus, gastroesophageal reflux disease, GI bleed, hearing disorder, hypertension, seizure disorder, peripheral vascular disease status post right AKA, bipolar disorder. Yesterday she was choking on one of her pills and she continued with cough congestion and shortness of breath and brought into the emergency room for the same. She is some chest wall tenderness from coughing. She is not normally on oxygen. Not seen by a doctor of nursing practice in the past. There is some history of pulmonary fibrosis dating back to 2017. Chest x-ray reveals areas of coarse density in the upper lobes bilaterally with some pulmonary fibrosis. No acute pulmonary disease. CT angiogram ruled out pulmonary embolism. There is again bilateral pulmonary infiltrates with coalescent density of the lung apices. Previous scarring. No acute disease. She is seen today in consultation on the selective care unit. She is currently resting comfortably in bed. Awake and alert in no acute distress. No worsening shortness of breath, cough or congestion. No hemoptysis. Taking O2 saturations in the mid 90s on 4 L/m per nasal cannula. She's afebrile. Hemodynamically sta ble. Arterial blood gases on 37% FiO2 revealed a PaO2 of 64, pCO2 of 50 and a pH of 7.37. White count 13.7. Hemoglobin 17.2. Sodium 132. Potassium 4.5. Creatinine 0.68. Troponin negative 2. ProBNP 165. Joe virus not detected. On 08/20/2020 patient seen in follow-up on selective care unit. She is awake and alert, in no acute distress, she is resting in bed, she is mild to moderate shortness of breath with conversation but no acute distress, she is on 0.9 normal seen at a rate of 20 ML per hour, no other drips, patient is on 3 L of oxygen pulse ox is between 90-94%, no fever no chills. No hemoptysis, no chest pain. CTA chest showed no evidence of pulmonary embolism, it showed bilateral pulmonary infiltrates with coalescent density at the lung apices. Echocardiogram showed preserved LV function with EF greater than 55%. Mild MR, mild TR, PA systolic was less than 35 mmHg, and there was a small generalized pericardial effusion. No altered mentation, no fever or chills, patient is in sinus mechanism. She is on Zosyn for empiric antibiotic coverage, she is on IV fluids. Normal seen a rate of 75 ML per hour, she is tolerating oral intake. Today's labs have been reviewed, white blood cell count is 12.8, hemoglobin of 13.6, electrolytes are within normal limits, B1 is 23 creatinine 0.87 troponins were negative 3 at less than 0.012, BNP was 165, COVID 19 PCR was negative Objective - Vital Signs Vital signs: Vital Signs Temp 97.5 F L 08/20/20 08:00 Pulse 93 08/20/20 11:16 Resp 16 08/20/20 11:16 BP 107/70 08/20/20 11:16 Pulse Ox 90 L 08/20/20 11:16 Intake & Output 08/19/20 08/20/20 08/20/20 18:59 06:59 18:59 Intake Total 8761 620 9990 Balance 8340 856 0138 Weight 59.5 kg Intake: Intake, IV Titration 250 Amount Piperacillin-Tazobactam 3 100 .375 gm In Sodium Chloride 0.9% 100 ml @ 25 mls/hr IVPB Q8HR MARIA LUISA Rx# :[id number] Sodium Chloride 0.9% 1, 150 000 ml @ 75 mls/hr IV . [id number] MARIA LUISA Rx#:[id number] Oral 1380 600 960 Other: # Voids 2 1 1 # Bowel Movements 1 - Exam GENERAL EXAM: Alert, very pleasant, 69-year-old white female on 3 L of oxygen pulse ox of 90-91% comfortable in no apparent distress. HEAD: Normocephalic/atraumatic. EYES: Normal reaction of pupils, equal size. Conjunctiva pink, sclera white. NOSE: Clear with pink turbinates. THROAT: No erythema or exudates. NECK: No masses, no JVD, no thyroid enlargement, no adenopathy. CHEST: No chest wall deformity. Symmetrical expansion. LUNGS: Equal air entry with mild bibasilar crackles, no wheezing CVS: Regular rate and rhythm, normal S1 and S2, no gallops, no murmurs, no rubs ABDOMEN: Soft, nontender. No hepatosplenomegaly, normal bowel sounds, no gu arding or rigidity. EXTREMITIES: No clubbing, no edema, no cyanosis, 2+ pulses and upper and lower e xtremities. MUSCULOSKELETAL: Muscle strength and tone normal. SPINE: No scoliosis or deformity, bilateral foot drop noted SKIN: No rashes CENTRAL NERVOUS SYSTEM: Alert and oriented -3. No focal deficits, tone is normal in all 4 extremities. PSYCHIATRIC: Alert and oriented -3. Appropriate affect. Intact judgment and insight. - Labs CBC & Chem 7: 08/20/20 07:18 08/20/20 07:18 Labs: Abnormal Lab Results - Last 24 Hours (Table) 08/20/20 08/20/20 Range/Units 07:18 07:18 WBC 12.8 H (3.8-10.6) k/uL Neutrophils # 9.3 H (1.3-7.7) k/uL BUN 23 H (7-17) mg/dL Glucose 103 H (74-99) mg/dL Calcium 8.1 L (8.4-10.2) mg/dL Assessment and Plan Plan: Assessment: #1. Acute hypoxic respiratory failure secondary to an acute episode of aspiration on pills #2. 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 Former smoker #4. History of CVA #5. Peripheral vascular disease with previous right [id number] amputation #6. History of congestive heart. #7. Diabetes mellitus #8. Gastroesophageal reflux disease #9. History of GI bleed #10. Hearing disorder #11. Hypertension #12. History of seizures #13. History of bipolar disorder #14. care home resident Plan: Continue current antibiotics, maintain aspiration precautions, continue bronchodilators, and pro-calcitonin level. GI and DVT prophylaxis, follow-up chest x-ray in the morning. I performed a history & physical examination of the patient and discussed their management with my nurse practitioner, Xochilt Noble. I reviewed the nurse practitioner's note and agree with the documented findings and plan of care. Lung sounds are positive for diminished breath sounds. The findings and the impression was discussed with the patient. I attest to the documentation by the nurse practitioner. Time with Patient: Less than 30
[2020-08-20] MEDS: ONDANSETRON 4 MG/2 ML VIAL IVP PRN (20:29)
[2020-08-20] MEDS: traZODone HCL 100 MG TAB PO SCH (20:29)
[2020-08-20] MEDS: amLODIPine 5 MG TAB PO SCH (20:29)
[2020-08-20] MEDS: LORazepam 0.5 MG TAB PO PRN (23:45)
[2020-08-21] MEDS: MAG HYDROX/AL HYDROX/SIMETH 30 ML CUP PO PRN ×3 (00:05→16:27)
[2020-08-21] MEDS: HYDROcodone/APAP 5-325MG 1 EACH TAB PO PRN ×3 (06:33→21:24)
[2020-08-21] MEDS: PANTOPRAZOLE 40 MG TABLET PO SCH (06:33)
--- NOTE | 2020-08-21 08:09 | XR ---
EXAMINATION TYPE: XR chest 1V portable DATE OF EXAM: 08/21/2020 COMPARISON: 08/18/2020 INDICATION: Pneumonia TECHNIQUE: Single frontal view of the chest is obtained. FINDINGS: The heart size is normal. The pulmonary vasculature is somewhat prominent. There is a small left pleural effusion. Some adjacent infiltrate is present. Scattered infiltrates in the right upper lobe. IMPRESSION: 1. Small left pleural effusion and left basilar right upper lobe infiltrate. Findings are worsening. Continued follow-up is recommended.
[2020-08-21] MEDS: ARTIFICIAL TEARS-HYPROMELLOSE DROPS 15 ML BTL BOTH EYES SCH ×2 (08:45→16:28)
[2020-08-21] MEDS: ASPIRIN 81 MG PO SCH (08:45)
[2020-08-21] MEDS: carBAMazepine 200 MG TAB PO SCH ×2 (08:46→21:26)
[2020-08-21] MEDS: LACTOBACILLUS ACIDOPH & BULGAR 1 EACH PACKET PO SCH ×3 (08:46→16:28)
[2020-08-21] MEDS: POTASSIUM CHLORIDE ER 20 MEQ TAB.ER PO SCH ×2 (08:46→16:28)
[2020-08-21] MEDS: METOPROLOL TARTRATE 50 MG TAB PO SCH ×2 (08:46→16:28)
[2020-08-21] MEDS: CLOPIDOGREL 75 MG TAB PO SCH (08:46)
[2020-08-21] MEDS: CYCLOBENZAPRINE 5 MG TAB PO SCH ×2 (08:46→16:28)
[2020-08-21] MEDS: ISOSORBIDE MONONITRATE ER 30 MG TAB.ER.24H PO SCH (08:46)
[2020-08-21] MEDS: GABAPENTIN 300 MG CAP PO SCH ×2 (08:46→21:25)
[2020-08-21] MEDS: FERROUS SULFATE 325 MG TAB PO SCH (08:46)
[2020-08-21] MEDS: lisinopriL 5 MG TAB PO SCH ×2 (08:46→16:28)
[2020-08-21] MEDS: FUROSEMIDE 40 MG TAB PO SCH (08:46)
[2020-08-21] MEDS: MULTIVITAMINS, THERA 1 EACH TAB PO SCH (08:46)
[2020-08-21] MEDS: risperiDONE 0.25 MG TAB PO SCH ×2 (08:46→16:28)
[2020-08-21] MEDS: HEPARIN SODIUM,PORCINE 5,000 UNIT/ML 1 ML VIAL SQ SCH ×2 (08:47→21:24)
[2020-08-21] MEDS: SERTRALINE 100 MG TAB PO SCH (08:47)
[2020-08-21] MEDS: PIPERACILLIN-TAZOBACTAM 3.375 GM in SODIUM CHLORIDE 0.9% 100 ML IVPB SCH ×2 (08:47→16:27)
[2020-08-21] MEDS: CHOLECALCIFEROL 25 MCG (1000 IU) TABLET PO SCH (08:47)
[2020-08-21] MEDS: SIMETHICONE 80 MG CHEWABLE PO SCH ×3 (08:47→16:29)
[2020-08-21 08:54] LABS: Basophils # (A) 0.1 k/uL (0-0.2); Basophils % (A) 1 %; Eosinophils # (A) 0.1 k/uL (0-0.7); Eosinophils % (A) 0 %; HCT 42.3 % (34.0-46.0); HGB 13.5 gm/dL (11.4-16.0); Hypochromasia Slight; Lymphocytes % (A) 19 %; MCH 26.8 pg (25.0-35.0); MCHC 31.9 g/dL (31.0-37.0); MCV 84.1 fL (80.0-100.0); Mean Platelet Volume 7.2; Monocytes # (A) 0.6 k/uL (0-1.0); Monocytes % (A) 5 %; Neutrophils % (A) 74 %; Platelet Count 179 k/uL (150-450); RBC 5.03 m/uL (3.80-5.40); RDW 15.4 % (11.5-15.5); WBC 10.8 k/uL (3.8-10.6)
[2020-08-21 09:02] LABS: Calcium 8.1 mg/dL (8.4-10.2); Potassium 4.1 mmol/L (3.5-5.1)
[2020-08-21] MEDS: IPRATROPIUM-ALBUTEROL 3 ML NEB INHALATION SCH ×4 (09:14→20:59)
[2020-08-21] MEDS: SODIUM CHLORIDE 0.9% 1,000 ML IV SCH (11:27)
--- NOTE | 2020-08-21 13:05 | P.PN ---
Subjective Progress Note Date: 08/21/20 (Hypoxemia, aspiration on her medication pills, pneumonitis, small pleural effusion.) Progress note date of service by Dr. Peter, Patient seen today [id number] evaluated and reviewed the chart. Patient is conscious alert oriented and feels better today. Her white count is 10.8 from 12.8 yesterday., Hemoglobin stable and the platelet count is normal. Still the need to feel is 8 and currently she is on antibiotic for aspiration. Chemistry is stable with a sodium 142, potassium 4.1, and glucose 103 97 no evidence of hyperglycemia. Lactic acid on admission was 2.6 secondary to hypoxemia with the aspiration. Currently his 1.8. Pro-calcitonin elevated 0.12 with the normal range 0.09 Patient is conscious alert oriented Vital sign temperature 97.6 F oral pulse rate 78 blood pressure 102/54 and oxygen saturation is 92 on 2 L and the still hypochromic summary hypoxemic and may increase to 3 L. Nasal cannula. And with the underlying pulmonary fibrosis and is still white count mildly marginal elevated elevation we'll continue the current treatment and plan for discharge to [facility] tomorrow. Head was normocephalic and atraumatic pupil was equal reactive conjunctiva was pink sclera was nonicteric. Chest improved however still decreased air entry with hypoxemia. On 2 L and increased to 3 L. Heart regular sinus rhythm no dysrhythmia no chest pain. Abdomen is soft positive bowel sounds no organ enlargement Extremity right below-knee amputation left hip fracture with the atrophy of the muscles and the history of CVA with deviation of the foot and ankle and foot drop. Pulses with intact. Neurologically stable. Assessment and plan #1 we'll continue the antibiotic #2 hypoxemia with the respiratory failure secondary to pulmonary fibrosis #3 lactic acidosis on admission result secondary to the aspiration and choking. #4 no evidence of the dysphagia. And the #5 leukocytosis still present at this time #6 chest x-ray today was indicating infiltrate and worsening with a small pleural effusion. Plan we'll continue the antibiotic today and the consulting social service director for the planning of discharge to [facility] to rule out with continuation of the antibiotic. Objective - Vital Signs Vital signs: Vital Signs Temp 97.6 F 08/21/20 12:25 Pulse 78 08/21/20 12:37 Resp 20 08/21/20 12:25 BP 102/54 08/21/20 12:25 Pulse Ox 92 L 08/21/20 12:25 Intake & Output 08/20/20 08/21/20 08/21/20 18:59 06:59 18:59 Intake Total 1450 200 Balance 1450 200 Weight 60.5 kg Intake: Intake, IV Titration 250 Amount Piperacillin-Tazobactam 3 100 .375 gm In Sodium Chloride 0.9% 100 ml @ 25 mls/hr IVPB Q8HR MARIA LUISA Rx# :[id number] Sodium Chloride 0.9% 1, 150 000 ml @ 75 mls/hr IV . [id number] MARIA LUISA Rx#:[id number] Oral 1200 200 Other: Voiding Method Diaper # Voids 1 1 - Labs CBC & Chem 7: 08/21/20 07:49 08/21/20 07:49 Labs: Abnormal Lab Results - Last 24 Hours (Table) 08/20/20 08/21/20 08/21/20 Range/Units 07:18 07:49 07:49 WBC 10.8 H (3.8-10.6) k/uL Neutrophils # 8.0 H (1.3-7.7) k/uL BUN 25 H (7-17) mg/dL Calcium 8.1 L (8.4-10.2) mg/dL Procalcitonin 0.12 H (0.02-0.09) ng/mL
--- NOTE | 2020-08-21 15:46 | P.PN ---
Subjective Progress Note Date: 08/21/20 Principal diagnosis: Shortness of breath, cough, congestion This is a 69-year-old female patient who resides at [facility]. She has a history of previous CVA, coronary artery disease, congestive heart failure, diabetes mellitus, gastroesophageal reflux disease, GI bleed, hearing disorder, hypertension, seizure disorder, peripheral vascular disease status post right AKA, bipolar disorder. Yesterday she was choking on one of her pills and she continued with cough congestion and shortness of breath and brought into the emergency room for the same. She is some chest wall tenderness from coughing. She is not normally on oxygen. Not seen by a scraper meat in the past. There is some history of pulmonary fibrosis dating back to 2017. Chest x-ray reveals areas of coarse density in the upper lobes bilaterally with some pulmonary fibrosis. No acute pulmonary disease. CT angiogram ruled out pulmonary embolism. There is again bilateral pulmonary infiltrates with coalescent density of the lung apices. Previous scarring. No acute disease. She is seen today in consultation on the selective care unit. She is currently resting comfortably in bed. Awake and alert in no acute distress. No worsening shortness of breath, cough or congestion. No hemoptysis. Taking O2 saturations in the mid 90s on 4 L/m per nasal cannula. She's afebrile. Hemodynamically sta ble. Arterial blood gases on 37% FiO2 revealed a PaO2 of 64, pCO2 of 50 and a pH of 7.37. White count 13.7. Hemoglobin 17.2. Sodium 132. Potassium 4.5. Creatinine 0.68. Troponin negative 2. ProBNP 165. Joe virus not detected. On 08/20/2020 patient seen in follow-up on selective care unit. She is awake and alert, in no acute distress, she is resting in bed, she is mild to moderate shortness of breath with conversation but no acute distress, she is on 0.9 normal seen at a rate of 20 ML per hour, no other drips, patient is on 3 L of oxygen pulse ox is between 90-94%, no fever no chills. No hemoptysis, no chest pain. CTA chest showed no evidence of pulmonary embolism, it showed bilateral pulmonary infiltrates with coalescent density at the lung apices. Echocardiogram showed preserved LV function with EF greater than 55%. Mild MR, mild TR, PA systolic was less than 35 mmHg, and there was a small generalized pericardial effusion. No altered mentation, no fever or chills, patient is in sinus mechanism. She is on Zosyn for empiric antibiotic coverage, she is on IV fluids. Normal seen a rate of 75 ML per hour, she is tolerating oral intake. Today's labs have been reviewed, white blood cell count is 12.8, hemoglobin of 13.6, electrolytes are within normal limits, B1 is 23 creatinine 0.87 troponins were negative 3 at less than 0.012, BNP was 165, COVID 19 PCR was negative On 08/21/2020 patient seen in follow-up on selective care unit, she is awake and alert, in no acute distress, resting comfortably in bed, breathing comfortably, currently on 4 L of oxygen pulse ox of 93-94%, afebrile, hemodynamically patient is stable. Patient has had no fever or chills, but pressure has been stable, no couplets or chest pain, no significant cough wheezing or congestion. Today's chest x-ray showed small left pleural effusion and left basilar right upper lobe infiltrate, and Dr. Gan felt that the findings were worsening. However clinically patient has remained stable, no worsening dyspnea, no fever or chills, patient remains on IV Zosyn for possibility of pneumonia, and she is on oral Lasix, Procardia acetone level was low at 0.12 is had no acute events over night. Objective - Vital Signs Vital signs: Vital Signs Temp 97.6 F 08/21/20 15:29 Pulse 81 08/21/20 15:29 Resp 20 08/21/20 15:29 BP 109/57 08/21/20 15:29 Pulse Ox 93 L 08/21/20 15:29 Intake & Output 08/20/20 08/21/20 08/21/20 18:59 06:59 18:59 Intake Total 1450 200 Balance 1450 200 Weight 60.5 kg Intake: Intake, IV Titration 250 Amount Piperacillin-Tazobactam 3 100 .375 gm In Sodium Chloride 0.9% 100 ml @ 25 mls/hr IVPB Q8HR MARIA LUISA Rx# :[id number] Sodium Chloride 0.9% 1, 150 000 ml @ 75 mls/hr IV . [id number] MARIA LUISA Rx#:[id number] Oral 1200 200 Other: Voiding Method Diaper # Voids 1 1 - Exam GENERAL EXAM: Alert, very pleasant, 69-year-old white female on 4 L of oxygen pulse ox of 94% comfortable in no apparent distress. HEAD: Normocephalic/atraumatic. EYES: Normal reaction of pupils, equal size. Conjunctiva pink, sclera white. NOSE: Clear with pink turbinates. THROAT: No erythema or exudates. NECK: No masses, no JVD, no thyroid enlargement, no adenopathy. CHEST: No chest wall deformity. Symmetrical expansion. LUNGS: Equal air entry with mild bibasilar crackles, no wheezing CVS: Regular rate and rhythm, normal S1 and S2, no gallops, no murmurs, no rubs ABDOMEN: Soft, nontender. No hepatosplenomegaly, normal bowel sounds, no guarding or rigidity. EXTREMITIES: No clubbing, no edema, no cyanosis, 2+ pulses and upper and lower extremities. MUSCULOSKELETAL: Muscle strength and tone normal. SPINE: No scoliosis or deformity, bilateral foot drop noted SKIN: No rashes CENTRAL NERVOUS SYSTEM: Alert and oriented -3. No focal deficits, tone is n ormal in all 4 extremities. PSYCHIATRIC: Alert and oriented -3. Appropriate affect. Intact judgment and insight. - Labs CBC & Chem 7: 08/21/20 07:49 08/21/20 07:49 Labs: Abnormal Lab Results - Last 24 Hours (Table) 08/20/20 08/21/20 08/21/20 Range/Units 07:18 07:49 07:49 WBC 10.8 H (3.8-10.6) k/uL Neutrophils # 8.0 H (1.3-7.7) k/uL BUN 25 H (7-17) mg/dL Calcium 8.1 L (8.4-10.2) mg/dL Procalcitonin 0.12 H (0.02-0.09) ng/mL Assessment and Plan Plan: Assessment: #1. Acute hypoxic respiratory failure secondary to an acute episode of aspiration on pills #2. 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 Former smoker #4. History of CVA #5. Peripheral vascular disease with previous right [id number] amputation #6. History of congestive heart. #7. Diabetes mellitus #8. Gastroesophageal reflux disease #9. History of GI bleed #10. Hearing disorder #11. Hypertension #12. History of seizures #13. History of bipolar disorder #14. senior living resident Plan: Procalcitonin level is low, vital signs have been stable, no fever or chills, continue oral diuretics, breathing treatments, clinically stable, no worsening dyspnea, maintain aspiration precautions, head of the bed up at least 30 at all times. No acute events overnight, patient could probably be considered for discharge back to the [facility] possibly in the next 24 hours if cleared by medicine I performed a history & physical examination of the patient and discussed their management with my nurse practitioner, Xochilt Noble. I reviewed the nurse practitioner's note and agree with the documented findings and plan of care. Lung sounds are positive for diminished breath sounds. The findings and the impression was discussed with the patient. I attest to the documentation by the nurse practitioner. Time with Patient: Less than 30
[2020-08-21] MEDS: amLODIPine 5 MG TAB PO SCH (21:25)
[2020-08-21] MEDS: LORazepam 0.5 MG TAB PO PRN (21:25)
[2020-08-21] MEDS: traZODone HCL 100 MG TAB PO SCH (21:26)
[2020-08-22] MEDS: PIPERACILLIN-TAZOBACTAM 3.375 GM in SODIUM CHLORIDE 0.9% 100 ML IVPB SCH ×2 (00:34→08:47)
[2020-08-22] MEDS: HYDROcodone/APAP 5-325MG 1 EACH TAB PO PRN (03:17)
[2020-08-22 04:43] VITALS: RESP 16
[2020-08-22] MEDS: SODIUM CHLORIDE 0.9% 1,000 ML IV SCH (04:44)
[2020-08-22] MEDS: PANTOPRAZOLE 40 MG TABLET PO SCH (06:27)
[2020-08-22] MEDS: IPRATROPIUM-ALBUTEROL 3 ML NEB INHALATION SCH ×2 (07:30→12:32)
[2020-08-22 08:12] LABS: Basophils # (A) 0.1 k/uL (0-0.2); Basophils % (A) 1 %; Eosinophils # (A) 0.2 k/uL (0-0.7); Eosinophils % (A) 3 %; HGB 13.2 gm/dL (11.4-16.0); Hypochromasia Slight; Lymphocytes # (A) 1.7 k/uL (1.0-4.8); Lymphocytes % (A) 25 %; MCH 27.3 pg (25.0-35.0); MCHC 32.2 g/dL (31.0-37.0); MCV 84.6 fL (80.0-100.0); Mean Platelet Volume 7.2; Monocytes # (A) 0.4 k/uL (0-1.0); Monocytes % (A) 5 %; Neutrophils # (A) 4.6 k/uL (1.3-7.7); Neutrophils % (A) 66 %; Platelet Count 141 k/uL (150-450); RBC 4.85 m/uL (3.80-5.40); RDW 15.7 % (11.5-15.5)
[2020-08-22] MEDS: ISOSORBIDE MONONITRATE ER 30 MG TAB.ER.24H PO SCH (08:43)
[2020-08-22] MEDS: POTASSIUM CHLORIDE ER 20 MEQ TAB.ER PO SCH (08:43)
[2020-08-22] MEDS: FERROUS SULFATE 325 MG TAB PO SCH (08:43)
[2020-08-22] MEDS: SERTRALINE 100 MG TAB PO SCH (08:43)
[2020-08-22] MEDS: GABAPENTIN 300 MG CAP PO SCH (08:43)
[2020-08-22] MEDS: MULTIVITAMINS, THERA 1 EACH TAB PO SCH (08:43)
[2020-08-22] MEDS: CHOLECALCIFEROL 25 MCG (1000 IU) TABLET PO SCH (08:43)
[2020-08-22] MEDS: HEPARIN SODIUM,PORCINE 5,000 UNIT/ML 1 ML VIAL SQ SCH (08:43)
[2020-08-22] MEDS: METOPROLOL TARTRATE 50 MG TAB PO SCH (08:43)
[2020-08-22] MEDS: carBAMazepine 200 MG TAB PO SCH (08:43)
[2020-08-22] MEDS: CLOPIDOGREL 75 MG TAB PO SCH (08:43)
[2020-08-22] MEDS: ASPIRIN 81 MG PO SCH (08:43)
[2020-08-22] MEDS: LACTOBACILLUS ACIDOPH & BULGAR 1 EACH PACKET PO SCH ×2 (08:44→13:31)
[2020-08-22] MEDS: CYCLOBENZAPRINE 5 MG TAB PO SCH (08:44)
[2020-08-22] MEDS: lisinopriL 5 MG TAB PO SCH (08:44)
[2020-08-22] MEDS: FUROSEMIDE 40 MG TAB PO SCH (08:44)
[2020-08-22] MEDS: SIMETHICONE 80 MG CHEWABLE PO SCH ×2 (08:54→13:31)
[2020-08-22] MEDS: ARTIFICIAL TEARS-HYPROMELLOSE DROPS 15 ML BTL BOTH EYES SCH (08:54)
[2020-08-22] MEDS: LORazepam 0.5 MG TAB PO PRN (08:54)
[2020-08-22] MEDS: risperiDONE 0.25 MG TAB PO SCH (08:54)
[2020-08-22 08:59] VITALS: TEMP 97
--- NOTE | 2020-08-22 14:09 | P.PN ---
Subjective Progress Note Date: 08/22/20 Principal diagnosis: Acute hypoxic respiratory failure secondary to acute aspiration of pills This is a 69-year-old female patient who resides at [facility]. She has a history of previous CVA, coronary artery disease, congestive heart failure, diabetes mellitus, gastroesophageal reflux disease, GI bleed, hearing disorder, hypertension, seizure disorder, peripheral vascular disease status post right AKA, bipolar disorder. Yesterday she was choking on one of her pills and she continued with cough congestion and shortness of breath and brought into the emergency room for the same. She is some chest wall tenderness from coughing. She is not normally on oxygen. Not seen by a college dean in the past. There is some history of pulmonary fibrosis dating back to 2017. Chest x-ray reveals areas of coarse density in the upper lobes bilaterally with some pulmonary fib rosis. No acute pulmonary disease. CT angiogram ruled out pulmonary embolism. There is again bilateral pulmonary infiltrates with coalescent density of the lung apices. Previous scarring. No acute disease. She is seen today in consultation on the selective care unit. She is currently resting comfortably in bed. Awake and alert in no acute distress. No worsening shortness of breath, cough or congestion. No hemoptysis. Taking O2 saturations in the mid 90s on 4 L/m per nasal cannula. She's afebrile. Hemodynamically stable. Arterial blood gases on 37% FiO2 revealed a PaO2 of 64, pCO2 of 50 and a pH of 7.37. White count 13.7. Hemoglobin 17.2. Sodium 132. Potassium 4.5. Creatinine 0.68. Troponin negative 2. ProBNP 165. Joe virus not detected. On 08/20/2020 patient seen in follow-up on selective care unit. She is awake and alert, in no acute distress, she is resting in bed, she is mild to moderate shortness of breath with conversation but no acute distress, she is on 0.9 normal seen at a rate of 20 ML per hour, no other drips, patient is on 3 L of oxygen pulse ox is between 90-94%, no fever no chills. No hemoptysis, no chest pain. CTA chest showed no evidence of pulmonary embolism, it showed bilateral pulmonary infiltrates with coalescent density at the lung apices. Echocardiogram showed preserved LV function with EF greater than 55%. Mild MR, mild TR, PA systolic was less than 35 mmHg, and there was a small generalized pericardial effusion. No altered mentation, no fever or chills, patient is in sinus mechanism. She is on Zosyn for empiric antibiotic coverage, she is on IV fluids. Normal seen a rate of 75 ML per hour, she is tolerating oral intake. Today's labs have been reviewed, white blood cell count is 12.8, hemoglobin of 13.6, electrolytes are within normal limits, B1 is 23 creatinine 0.87 troponins were negative 3 at less than 0.012, BNP was 165, COVID 19 PCR was negative On 08/21/2020 patient seen in follow-up on selective care unit, she is awake and alert, in no acute distress, resting comfortably in bed, breathing comfortably, currently on 4 L of oxygen pulse ox of 93-94%, afebrile, hemodynamically patient is stable. Patient has had no fever or chills, but pressure has been stable, no couplets or chest pain, no significant cough wheezing or congestion. Today's chest x-ray showed small left pleural effusion and left basilar right upper lobe infiltrate, and Dr. Gan felt that the findings were worsening. However clinically patient has remained stable, no worsening dyspnea, no fever or chills, patient remains on IV Zosyn for possibility of pneumonia, and she is on oral Lasix, Procardia acetone level was low at 0.12 is had no acute events overnight. The patient is seen today 08/22/2020 in follow-up on the selective care unit. She is awake and alert in no acute distress. Currently resting quite comfortab ly in bed. Denies any worsening shortness of breath, cough or congestion. Maintaining O2 saturations in the 90s on 2 L/m per nasal cannula. She's afebrile. Hemodynamically stable. White count 7.0. Hemoglobin 13.2. She remains on Zosyn. Objective - Vital Signs Vital signs: Vital Signs Temp 97 F L 08/22/20 08:00 Pulse 87 08/22/20 08:00 Resp 16 08/22/20 08:00 BP 124/56 08/22/20 08:00 Pulse Ox 94 L 08/22/20 08:00 Intake & Output 08/21/20 08/22/20 08/22/20 18:59 06:59 18:59 Intake Total 400 340 461 Balance 400 340 461 Weight 61.5 kg Intake: Intake, IV Titration 100 100 Amount Piperacillin-Tazobactam 3 100 100 .375 gm In Sodium Chloride 0.9% 100 ml @ 25 mls/hr IVPB Q8HR [facility] Rx# :[id number] Oral 400 240 361 Other: Voiding Method Diaper Diaper Diaper # Voids 1 3 # Bowel Movements 0 1 - Exam GENERAL EXAM: Alert, very pleasant, 69-year-old female patient on 2 L of oxygen pulse ox of 94% comfortable in no apparent distress. HEAD: Normocephalic/atraumatic. EYES: Normal reaction of pupils, equal size. Conjunctiva pink, sclera white. NOSE: Clear with pink turbinates. THROAT: No erythema or exudates. NECK: No masses, no JVD, no thyroid enlargement, no adenopathy. CHEST: No chest wall deformity. Symmetrical expansion. LUNGS: Equal air entry with mild bibasilar crackles, no wheezing CVS: Regular rate and rhythm, normal S1 and S2, no gallops, no murmurs, no rubs ABDOMEN: Soft, nontender. No hepatosplenomegaly, normal bowel sounds, no guarding or rigidity. EXTREMITIES: No clubbing, no edema, no cyanosis, 2+ pulses and upper and lower extremities. MUSCULOSKELETAL: Muscle strength and tone normal. SPINE: No scoliosis or deformity, bilateral foot drop noted SKIN: No rashes CENTRAL NERVOUS SYSTEM: No focal deficits, tone is normal in all 4 extremities. PSYCHIATRIC: Alert and oriented -3. Appropriate affect. Intact judgment and insight. - Labs CBC & Chem 7: 08/22/20 07:17 08/21/20 07:49 Labs: Abnormal Lab Results - Last 24 Hours (Table) 08/22/20 Range/Units 07:17 RDW 15.7 H (11.5-15.5) % Plt Count 141 L (150-450) k/uL Assessment and Plan Assessment: 1 Acute hypoxic respiratory failure secondary to an acute episode of aspiration on pills 2 Chronic scarring of the bilateral apices dating back to 2017 3 Former smoker 4 History of CVA 5 Peripheral vascular disease with previous right [id number] amputation 6 History of congestive heart. 7 Diabetes mellitus 8 Gastroesophageal reflux disease 9 History of GI bleed 10 Hearing disorder 11 Hypertension 12 History of seizures 13 History of bipolar disorder 14 snf resident Plan: The patient was seen and evaluated by Dr. Harika Peace for transfer back to the [facility] from the pulmonary standpoint I, the cosigning physician, performed a history & physical examination of the patient. Lungs sounds are clear. Maintaining good O2 saturations in the 90s on 2 L/m per nasal cannula. I discussed the assessment and plan of care with my zaida haro practitioner, Prudence Chu. I attest to the above note as dictated by her.
--- NOTE | 2020-08-22 14:17 | P.DS ---
Providers Date of admission: 08/18/20 20:53 Expected date of discharge: 08/22/20 (Transferred to [facility] and rehab) Attending physician: Ian Martell Consults: 08/18/20 20:51 Consult Physician Routine Consulting Provider: Quang Gracia Consult Reason/Comments: hypoxic respiratory failure, hx of pulmonary fibrosis Do you want consulting provider notified?: Yes Primary care physician: Ian Martell Dictation on discharge summary date of service 08/22/[address] martell Disposition: Transferred to [facility] rehab where she lived. Admission diagnosis and discharge diagnosis #1 choking after taken her medication by mouth seen by speech pathology and the hospital cleared her for the presence of dysphagia, no evidence of dysphagia and need to moist and her oropharynx was was her prior to taken details. #2 hypoxemia acute on the top of chronic with the presence of upper lung field pulmonary fibrosis. Seen by Dr. Hernandez and Dr. Mix pulmonary and critical care no added for third treatment. #3 lactic acidosis on admission secondary to the acute hypoxemia and result. #4 mild dehydration and hemoconcentration resolved with the IV fluid. #5 aspiration pneumonitis with the leukocytosis on admission and positive Thompson calcitonin and a chest x-ray added to low oxygen. #6 hypoxemia chronic with the pulmonary fibrosis need on oxygen 2 L/m continuous with humidifier. Oxygen on discharge 94 on 2 L. #7 no clear evidence of diabetes mellitus however hyperglycemia is present intermittently and patient is eating significant amount of sweets and carbohydrate the facility. #8 hypertension was hypertensive heart disease controlled. #9 chest pain noncardiac in origin with normal troponin and normal EKG however initially was tachycardia with the event of choking and now is resumed to level of 87 2 77 bpm regular. #10 she received the echocardiogram to [facility] was Doppler found that she has ejection fraction greater than 55%. Tricuspid regurgitation met mild mitral regurgitation mild right ventricular systolic pressure is normal less than 35 mmHg. And no evidence of motion abnormality. #11 right below knee amputation with the intermittent phantom pain and muscular spasm currently resolved with her pain medication and a muscle relaxant. #12 left hip fracture with repair at with the devices with the atrophy of the thigh and the leg muscles and ulnar deviation of the left foot with the foot drop with inability to stand or walk. #13 history of GERD disease and peptic ulcer disease and she is on chronic treatment with PPI. Presentation to the emergency room. Patient sent from [facility] rehab after she had episode of choking repeatedly on her medication during the evening medicines and at that time she become hypoxemic with the desensitization of the oxygen to below 90 the nursing staff at the facility referred the patient directly by ambulance to the emergency room where she was evaluated by the ER physician and admitted to the hospital and patient subsequently seen. Hospital course: I reviewed her medication and a history and found that she had high possibility of pneumonitis with the hypoxemia and aspiration. In the ER they did the computed tomography scan angiogram and no evidence of PE. However evidence of upper lung infiltrate and fibrosis. Patient started on antibiotic and consultation with pulmonary. Her ALLERGY has been all non-documented ALLERGY, patient started after discussion with the pharmacy on Zosyn and no evidence of ALLERGY to penicillin and no rash and ISU as well this most of her ALLERGY medication not documented to have that actual and could be just a side effect. Patient did well, able to eat, speech pathology did see the patient and no evidence of dysphagia subsequently. With the history of COPD and fibrosis started on inhalation therapy and the bronchial dilator. Her white count gradually improved from 13 today on discharge is 7. Patient feeling fine and she is wants to go back to the [facility] and will be discharging her today. [id number] exam INR 2 discharge Her temperature 90.7 F oral and the her pulse rate 87 beats per minutes regular respiratory rate steam per minute nonlabored and her blood pressure 124/56 with a mean 78 and on 2 L her nasal oxygen she is 4 and 94% which should be continued. Head normocephalic and atraumatic pupil was equal reactive conjunctiva was pink sclera was nonicteric and oropharynx he had a severe gum disease and a few teeth. Neck was supple no JVD no thyromegaly no lymphadenopathy trachea midline. The chest was clear bilateral with the underlying upper lung pulmonary fibrosis with mild diminished air entry and the The heart regular sinus rhythm and no chest pain. The The abdomen is soft nontender positive bowel sounds and the The no edema in the right [id number] amputation stump and no muscle spasm at this time on discharge. The left lower extremity was have fracture and atrophy of the muscles of the thi gh and the leg with ulnar deviation of the foot and foot drop with inability to walk or stand with bed ridden. However she had pulses bilateral on the dorsalis pedis on the left foot and the femoral in the right thigh Neurologically she had mild weakness on the handgrip on the left hand however she had history of the CVA and able to move her left upper extremities. With the minimal motion in the left lower extremities and the foot. The Assessment and plan: Patient stable general condition for discharge cleared by pulmonary and critical care. Patient will be discharged home today and she had IV antibiotic for 4 days. Her white count 7, her hemoglobin 13.2 and platelet count 141. And she had heparin during her presence in the hospital. Patient will be [facility] at this time. No added antibiotic to her regimen. Patient Condition at Discharge: Fair Plan - Discharge Summary New Discharge Prescriptions: Continue Clopidogrel [Plavix] 75 mg PO DAILY@0800 Multivit with Calcium,Iron,Min [Women's Daily Multivitamin] 1 tab PO DAILY@0800 Lactobacillus Acidophilus [Acidophilus] 1 tab PO TID@0800,1200,1700 Sertraline [Zoloft] 100 mg PO DAILY@0800 Nitroglycerin Sl Tabs [Nitrostat] 0.4 mg SUBLINGUAL Q5M PRN PRN Reason: Chest Pain risperiDONE [RisperDAL] 0.25 mg PO BID@0800,1700 Metoprolol Tartrate [Lopressor] 50 mg PO BID@0800,1700 Lubricant Drops Solution 1.4% 1 drop BOTH EYES BID@0800,1700 Lactose-Reduced Food [Ensure Plus] 1 can PO BID@0800,1700 LORazepam [Ativan] 0.5 mg PO BID@0800,2100 PRN PRN Reason: Anxiety Aspirin 81 mg PO DAILY@0800 Isosorbide Mononitrate ER [Imdur] 30 mg PO DAILY@0800 Mag Hydrox/Al Hydrox/Simeth [Maalox] 30 ml PO QID PRN PRN Reason: Gi Upset HYDROcodone/APAP 5-325MG [[place] 5-325] 1 tab PO Q6HR PRN #10 tab PRN Reason: Pain Lidocaine 5% Cream 1 applic TOPICAL DAILY PRN PRN Reason: Pain Acetaminophen Tab [Tylenol] 650 mg PO Q4H PRN PRN Reason: Pain Albuterol Nebulized [Ventolin Nebulized] 2.5 mg INHALATION RT-Q4H PRN PRN Reason: SOB/WHEEZING Cyclobenzaprine [Flexeril] 5 mg PO BID@0800,1700 Gabapentin [Neurontin] 300 mg PO BID@0800,2000 lisinopriL [Zestril] 5 mg PO BID@0800,1700 traZODone HCL [Desyrel] 100 mg PO HS@2100 Magnesium Hydroxide [Milk of Magnesia Concentrate] 7,200 mg PO DAILY PRN PRN Reason: Constipation Na Phos,M-B/Na Phos,Di-Ba [Fleet Adult] 133 ml RECTAL DAILY PRN PRN Reason: Constipation bisacodyL [Dulcolax] 10 mg RECTAL DAILY PRN PRN Reason: Constipation Simethicone Chew [Mylicon Chew] 80 mg PO TID@0800,1200,1700 Potassium Chloride ER [K-Dur 20] 20 meq PO BID@0800,1700 carBAMazepine [TEGretol] 200 mg PO BID@0800,2100 amLODIPine [Norvasc] 5 mg PO HS@2100 Pantoprazole [Protonix] 40 mg PO DAILY@0600 Furosemide [Lasix] 40 mg PO DAILY@0800 fentaNYL 12MCG/HR PATCH [Duragesic 12MCG/HR] 1 patch TRANSDERM Q72H Cholecalciferol [Vitamin D3 (25 Mcg = 1000 Iu)] 25 mcg PO DAILY Discontinued Ferrous Sulfate [Iron (65 MG Elemental)] 325 mg PO DAILY@0800 Loperamide HCl [Imodium A-D] 4 mg PO DAILY PRN PRN Reason: Loose Stool Discharge Medication List Clopidogrel [Plavix] 75 mg PO DAILY@0800 03/21/15 [History] Lactobacillus Acidophilus [Acidophilus] 1 tab PO TID@0800,1200,1700 03/21/15 [History] Multivit with Calcium,Iron,Min [Women's Daily Multivitamin] 1 tab PO DAILY@0800 03/21/15 [History] Sertraline [Zoloft] 100 mg PO DAILY@0800 03/19/17 [History] LORazepam [Ativan] 0.5 mg PO BID@0800,2100 PRN 03/10/19 [History] Lactose-Reduced Food [Ensure Plus] 1 can PO BID@0800,1700 03/10/19 [History] Lubricant Drops Solution 1.4% 1 drop BOTH EYES BID@0800,17003/10/19 [History] Metoprolol Tartrate [Lopressor] 50 mg PO BID@0800,169903/10/19 [History] Nitroglycerin Sl Tabs [Nitrostat] 0.4 mg SUBLINGUAL Q5M PRN 03/10/19 [History] risperiDONE [RisperDAL] 0.25 mg PO BID@0800,169903/10/19 [History] Aspirin 81 mg PO DAILY@0805/04/19 [History] Isosorbide Mononitrate ER [Imdur] 30 mg PO DAILY@79905/04/19 [History] Mag Hydrox/Al Hydrox/Simeth [Maalox] 30 ml PO QID PRN 05/04/19 [History] HYDROcodone/APAP 5-325MG [[place] 5-325] 1 tab PO Q6HR PRN #10 tab 05/09/19 [Rx] Acetaminophen Tab [Tylenol] 650 mg PO Q4H PRN 12/14/19 [History] Albuterol Nebulized [Ventolin Nebulized] 2.5 mg INHALATION RT-Q4H PRN 12/14/19 [History] Cyclobenzaprine [Flexeril] 5 mg PO BID@0800,169912/14/19 [History] Gabapentin [Neurontin] 300 mg PO BID@0800,199912/14/19 [History] Lidocaine 5% Cream 1 applic TOPICAL DAILY PRN 12/14/19 [History] lisinopriL [Zestril] 5 mg PO BID@0800,169912/14/19 [History] traZODone HCL [Desyrel] 100 mg PO HS@2100 12/14/19 [History] Cholecalciferol [Vitamin D3 (25 Mcg = 1000 Iu)] 25 mcg PO DAILY 08/18/20 [History] Furosemide [Lasix] 40 mg PO DAILY@0800 08/18/20 [History] Magnesium Hydroxide [Milk of Magnesia Concentrate] 7,200 mg PO DAILY PRN 08/18/20 [History] Na Phos,M-B/Na Phos,Di-Ba [Fleet Adult] 133 ml RECTAL DAILY PRN 08/18/20 [History] Pantoprazole [Protonix] 40 mg PO DAILY@0600 08/18/20 [History] Potassium Chloride ER [K-Dur 20] 20 meq PO BID@0800,1700 08/18/20 [History] Simethicone Chew [Mylicon Chew] 80 mg PO TID@0800,1200,1700 08/18/20 [History] amLODIPine [Norvasc] 5 mg PO HS@2100 08/18/20 [History] bisacodyL [Dulcolax] 10 mg RECTAL DAILY PRN 08/18/20 [History] carBAMazepine [TEGretol] 200 mg PO BID@0800,2100 08/18/20 [History] fentaNYL 12MCG/HR PATCH [Duragesic 12MCG/HR] 1 patch TRANSDERM Q72H 08/18/20 [History] Follow up Appointment(s)/Referral(s): Ian Martell MD [Primary Care Provider] - 1 Week
[2020-08-22 14:38] VITALS: BP 120/61; PULSE 81
== END 2020-08-22 16:20 | DRG 177 ==
LOC: EC 17:20 → 3SCARD 20:53
PROVIDERS: ADMIT Internal Medicine; ATTEND Internal Medicine
DX: J69.0 Pneumonitis due to inhalation of food and vomit (principal); J96.01 Acute respiratory failure with hypoxia; J44.1 Chronic obstructive pulmonary disease with (acute) exacerbation; E87.2 Acidosis; I31.3 Pericardial effusion (noninflammatory); G81.94 Hemiplegia, unspecified affecting left nondominant side; Z20.822 Contact with and (suspected) exposure to COVID-19; R13.10 Dysphagia, unspecified; I50.9 Heart failure, unspecified; K21.9 Gastro-esophageal reflux disease without esophagitis; G40.909 Epilepsy, unspecified, not intractable, without status epilepticus; T17.298A Other foreign object in pharynx causing other injury, initial encounter; F41.9 Anxiety disorder, unspecified; F31.9 Bipolar disorder, unspecified; E86.0 Dehydration; H91.90 Unspecified hearing loss, unspecified ear; I11.0 Hypertensive heart disease with heart failure; I25.10 Atherosclerotic heart disease of native coronary artery without angina pectoris; Z79.82 Long term (current) use of aspirin; Z79.899 Other long term (current) drug therapy; Z82.49 Family history of ischemic heart disease and other diseases of the circulatory system; Z82.5 Family history of asthma and other chronic lower respiratory diseases; Z79.02 Long term (current) use of antithrombotics/antiplatelets; Z86.73 Personal history of transient ischemic attack (TIA), and cerebral infarction without residual deficits; Z99.3 Dependence on wheelchair; Z89.611 Acquired absence of right leg above knee; Z87.891 Personal history of nicotine dependence; Z87.11 Personal history of peptic ulcer disease; Z88.0 Allergy status to penicillin; Z88.2 Allergy status to sulfonamides; Z88.1 Allergy status to other antibiotic agents; Z91.041 Radiographic dye allergy status; Z86.14 Personal history of Methicillin resistant Staphylococcus aureus infection; Z90.49 Acquired absence of other specified parts of digestive tract; Z90.89 Acquired absence of other organs; Z98.890 Other specified postprocedural states
CPT/HCPCS: 36415; 36600; 71045; 71275; 80048; 80053; 82805; 83605; 83735; 83880; 84145; 84484; 85025; 85610; 85730; 87635; 93005; 93306; 94640; 94760; 96361; 96374; 96375; 99285

== ENCOUNTER → 2021-05-15 | Outpatient (CLI) | payer MEDICARE, OTHER ==
--- NOTE | 2021-05-15 16:23 | XR ---
EXAMINATION TYPE: XR KUB DATE OF EXAM: 05/15/2021 HISTORY: Pain Comparison: 12/14/2019 Single KUB is submitted for interpretation. Findings: Right renal calculi: 4.3 mm right renal calculus. Right ureteral calculi: None Visualized. Left renal calculi: Multiple left-sided renal calculi measuring from several millimeters to 5.5 mm, 5.1 mm and 7.9 mm. Left ureteral calculi: None Visualized. Pelvic calcifications: Pelvic calcifications may reflect phlebolith formation. Bowel gas pattern is unremarkable. No free air. No mass effects. IMPRESSION: 1. Bilateral nephrolithiasis.
== END | disposition home or self-care (01) ==
LOC: RADXRMAIN 15:53
PROVIDERS: ATTEND Urology
DX: N20.0 Calculus of kidney (principal)
CPT/HCPCS: 74018

== ENCOUNTER 2023-08-19 05:42 | Day surgery (SDC) | payer MEDICARE, OTHER ==
[2023-08-10 15:33] VITALS: BMI 19.5
--- NOTE | 2023-08-18 12:21 | P.GSHP ---
History of Present Illness H&P Date: 08/18/23 72 yo female with painful bilateral renal stones who comes for bilateral ureteroscopy with laser lithotripsy and possible stents. the risks compliction and alternatives have been discussed. - Constitutional Constitutional: Denies chills, Denies fever - EENT Eyes: denies blurred vision, denies pain Ears, nose, mouth and throat: Denies headache, Denies sore throat - Cardiovascular Cardiovascular: Denies chest pain, Denies shortness of breath - Respiratory Respiratory: Denies cough, Denies 7 - Gastrointestinal Gastrointestinal: Denies abdominal pain, Denies diarrhea, Denies nausea, Denies vomiting - Genitourinary (Female) Genitourinary: Denies dysuria, Denies hematuria - Genitourinary (Male) Genitourinary: Denies dysuria, Denies hematuria - Musculoskeletal Musculoskeletal: Denies myalgias - Integumentary Integumentary: Denies pruritus, Denies rash - Neurological Neurological: Denies numbness, Denies weakness - Psychiatric Psychiatric: Denies anxiety, Denies depression - Endocrine Endocrine: Denies fatigue, Denies weight change Past Medical History Past Medical History: Coronary Artery Disease (CAD), Heart Failure, COPD, Diabetes Mellitus, GERD/Reflux, GI Bleed, Hearing Disorder / Deafness, Hyperlipidemia, Hypertension, Osteoarthritis (OA), Pneumonia, Renal Disease, Seizure Disorder, Skin Disorder, Vascular Disorder Additional Past Medical History / Comment(s): Chronic respiratory failure/pulmonary fibrosis. Hx CVA-Hemiplegia/hemaparesis affecting left non dominant side. Hypocalcemia. Left foot drop. Last seizure 20 yrs ago. Hx bronchitis, gastric ulcer, bloody stool in past, kidney stones with surgeries. PVD-Right AKA. Hx diverticular disease, hemorrhoids, UTIs, migraines, chronic low back pain and right stump pain, tinnitis bilaterally, NATIVE right ear, anemia, dermatitis, incontinence of urine and stool, past left elbow fracture. Date of last seizure unknown. Has some self inflicted scatches on left thigh, staff at [facility] tries to keep bandage on it. History of Any Multi-Drug Resistant Organisms: MRSA Date of last positivie culture/infection: 2012 MDRO Source:: right leg Past Surgical History: Appendectomy, Cholecystectomy, Orthopedic Surgery, Tonsillectomy Additional Past Surgical History / Comment(s): EGD, colonoscopies, bilateral percutaneous nephrolithotomy, arch/aortagrams, right foot 5th toe amputaion, then right above the knee amputation, left hip ORIF with plate/screws, laparatomy for ruptured ovarian cyst, cox-since removed, PICC Line-since removed. Past Anesthesia/Blood Transfusion Reactions: No Reported Reaction Additional Past Anesthesia/Blood Transfusion Reaction / Comment(s): Care provider doesn't know anesthesia hx, unable to update. Past Psychological History: Anxiety, Bipolar, Depression, PTSD Additional Psychological History / Comment(s): Pt resides at [facility]. She is wheelchair bound. They use a maxi lift to wheelchair. Smoking Status: Former smoker Past Alcohol Use History: None Reported Additional Past Alcohol Use History / Comment(s): Started smoking in 1972 and quit in 2012. Past Drug Use History: None Reported - Past Family History Father Family Medical History: COPD, Myocardial Infarction (AK) Additional Family Medical History / Comment(s): Father was a smoker with emphysema. He from his 3rd AK at the age of 67yrs. Mother Family Medical History: No Reported History Additional Family Medical History / Comment(s): Mother was healthy and lived to be 95yrs old. Medications and Allergies Home Medications Medication Instructions Recorded Confirmed Type Clopidogrel [Plavix] 75 mg PO DAILY 03/21/15 08/10/23 History Lactobacillus Acidophilus 1 tab PO TID 03/21/15 08/10/23 History [Acidophilus] Multivit with Calcium,Iron,Min 1 tab PO DAILY 03/21/15 08/10/23 History [Women's Daily Multivitamin] Sertraline [Zoloft] 100 mg PO DAILY 03/19/17 08/10/23 History LORazepam [Ativan] 0.5 mg PO TID 03/10/19 08/10/23 History Lubricant Drops Solution 1.4% 1 drop BOTH EYES BID 03/10/19 08/10/23 History Metoprolol Tartrate [Lopressor] 50 mg PO BID 03/10/19 08/10/23 History Nitroglycerin Sl Tabs [Nitrostat] 0.4 mg SUBLINGUAL Q5M PRN 03/10/19 08/10/23 History risperiDONE [RisperDAL] 0.25 mg PO Q12H 03/10/19 08/10/23 History Aspirin 81 mg PO DAILY 05/04/19 08/10/23 History Isosorbide Mononitrate ER [Imdur] 30 mg PO DAILY 05/04/19 08/10/23 History Mag Hydrox/Al Hydrox/Simeth 30 ml PO QID PRN 05/04/19 08/10/23 History [Maalox] HYDROcodone/APAP 5-325MG [[place] 1 tab PO Q6HR PRN #10 tab 05/09/19 08/10/23 Rx 5-325] Acetaminophen Tab [Tylenol] 650 mg PO Q4H PRN 12/14/19 08/10/23 History Albuterol Nebulized [Ventolin 2.5 mg INHALATION RT-Q4H PRN 12/14/19 08/10/23 History Nebulized] Cyclobenzaprine [Flexeril] 5 mg PO BID 12/14/19 08/10/23 History Gabapentin [Neurontin] 300 mg PO Q12H 12/14/19 08/10/23 History Lidocaine 5% Cream 1 applic TOPICAL DAILY PRN 12/14/19 08/10/23 History lisinopriL [Zestril] 5 mg PO DAILY 12/14/19 08/10/23 History traZODone HCL [Desyrel] 200 mg PO HS 12/14/19 08/10/23 History Cholecalciferol [Vitamin D3 (25 25 mcg PO DAILY 08/18/20 08/10/23 History Mcg = 1000 Iu)] Furosemide [Lasix] 40 mg PO DAILY 08/18/20 08/10/23 History Magnesium Hydroxide [Milk of 30 ml PO DAILY PRN 08/18/20 08/10/23 History Magnesia Concentrate] Na Phos,M-B/Na Phos,Di-Ba [Fleet 133 ml RECTAL DAILY PRN 08/18/20 08/10/23 History Adult] Pantoprazole [Protonix] 40 mg PO BID 08/18/20 08/10/23 History Simethicone Chew [Mylicon Chew] 80 mg PO Q8H PRN 08/18/20 08/10/23 History bisacodyL [Dulcolax] 10 mg RECTAL Q24H PRN 08/18/20 08/10/23 History carBAMazepine [TEGretol] 200 mg PO Q12H 08/18/20 08/10/23 History fentaNYL 12MCG/HR PATCH [Duragesic 1 patch TRANSDERM Q72H 08/18/20 08/10/23 History 12MCG/HR] Calcium Carbonate [Tums] 1,000 mg PO Q8H PRN 08/10/23 08/10/23 History Famotidine 20 mg PO DAILY 08/10/23 08/10/23 History Ferrous Sulfate [Feosol] 325 mg PO BID 08/10/23 08/10/23 History Fish Oil/Dha/Epa [Fish Oil 1,200 1 each PO BID 08/10/23 08/10/23 History mg Fish Oil] Folic Acid 1 mg PO DAILY 08/10/23 08/10/23 History INSULIN ASPART (NovoLOG) [NovoLOG 0 unit SQ BID PRN 08/10/23 08/10/23 History (formulary)] INSULIN LISPRO (humaLOG) [humaLOG] 0 units SQ BID PRN 08/10/23 08/10/23 History Loperamide HCl [Loperamide] 2 mg PO DIRECTED PRN 08/10/23 08/10/23 History Melatonin 3 mg PO HS 08/10/23 08/10/23 History Mupirocin 2% Oint [Bactroban 2% 1 applic TOPICAL Q8H 08/10/23 08/10/23 History Oint] Nystatin 100,000 Unit/gm Powd 1 applic TOPICAL BID 08/10/23 08/10/23 History [Mycostatin Powder] Nystatin 100,000Unit/gm Cream 1 applic TOPICAL BID 08/10/23 08/10/23 History [Mycostatin Cream] Nystatin/Triamcin 1 applic TOPICAL BID 08/10/23 08/10/23 History [Nystatin-Triamcinolone Cream] Ondansetron [Zofran] 4 mg PO Q6H PRN 08/10/23 08/10/23 History Potassium Chloride 10 meq PO DAILY 08/10/23 08/10/23 History Pramox-Calamine 1-8% Lotion 1 applic TOPICAL BID 08/10/23 08/10/23 History [Caladryl] Sodium Chloride [Cherry Mathis] 1 spray EA NOSTRIL BID 08/10/23 08/10/23 History Triamcinolone 0.5% Cream [Kenalog 1 applic TOPICAL BID 08/10/23 08/10/23 History 0.5% Cream] diphenhydrAMINE [Benadryl] 25 mg PO BID PRN 08/10/23 08/10/23 History Glucerna Shake 1 can PO BID 08/11/23 08/11/23 History Allergies Allergy/AdvReac Type Severity Reaction Status Date / Time ciprofloxacin [From Cipro] Allergy Unknown Verified 08/10/23 15:25 iodine Allergy Unknown Verified 08/10/23 15:25 Penicillins Allergy Unknown Verified 08/10/23 15:25 Phenylpiperazine Allergy Unknown Verified 08/10/23 15:25 Antidepressant red dye Allergy Unknown Verified 08/10/23 15:25 Sulfa (Sulfonamide Allergy Unknown Verified 08/10/23 15:25 Antibiotics) Surgical - Exam - General wheelchair dependent Results - Imaging Abdominal x-ray: report reviewed, image reviewed CT scan - abdomen: report reviewed, image reviewed CT scan - pelvis: report reviewed, image reviewed Assessment and Plan Assessment: Impression: bilateral renal stones Plan: bilateral ureteroscopy with laser lithotripsy
[~2023-08-19 05:42] MED LIST changes: -DEXAMETHASONE SOD PHOSPHATE 10 MG/ML 1 ML VIAL IV ONE; -GENTAMICIN 90 MG in SODIUM CHLORIDE 0.9% 100 ML IVPB ONE; +GENTAMICIN 90 MG in SODIUM CHLORIDE 0.9% 100 ML IVPB PRN; -HYDROmorphone 0.5 MG/0.5 ML SYRINGE IVP PRN; -LIDOCAINE 1% 20 ML VIAL (10MG/ML) FOR IV START INTRADERMA PRN; -MIDAZOLAM 2 MG/2 ML VIAL IV PRN; -ONDANSETRON 4 MG/2 ML VIAL IVP ONE; -SCOPOLAMINE 1.5MG/72HR PATCH TRANSDERM ONE; -cefTRIAXone IN SWFI 1,000 MG/10 ML SYRINGE IVP ONE
[2023-08-19] MEDS ORDERED: LACTATED RINGERS 1,000 ML IV SCH (06:25)
[2023-08-19] MEDS ORDERED: ONDANSETRON 4 MG/2 ML VIAL IVP ONE ×2 (06:25→07:19)
[2023-08-19] MEDS ORDERED: DEXAMETHASONE SOD PHOSPHATE 4 MG/ML 1 ML VIAL IV ONE (06:25)
[2023-08-19] MEDS ORDERED: HYDROmorphone 0.5 MG/0.5 ML SYRINGE IVP PRN (07:00)
[2023-08-19 07:10] LABS: Glucose,Whole Blood 129 mg/dL (70-110)
[2023-08-19] MEDS ORDERED: DEXAMETHASONE SOD PHOSPHATE 4 MG/ML 1 ML VIAL IVP ONE (07:21)
[2023-08-19] MEDS ORDERED: LIDOCAINE 1% INJ 10MG/ML (20 ML MDV) ONE (07:30)
[2023-08-19] MEDS ORDERED: NEOSTIGMINE 1 MG/ML 10 ML VIAL ONE (07:30)
[2023-08-19] MEDS ORDERED: PROPOFOL 10 MG/ML 20 ML VIAL IV ONE (07:30)
[2023-08-19] MEDS ORDERED: GLYCOPYRROLATE 0.2 MG/ML 2 ML VIAL ONE (07:30)
[2023-08-19] MEDS ORDERED: KETOROLAC 15 MG/ML 1 ML VIAL ONE (07:30)
[2023-08-19] MEDS ORDERED: ROCURONIUM 10 MG/ML (5 ML VIAL) IV ONE (07:30)
[2023-08-19] MEDS ORDERED: fentaNYL (PF) 50 MCG/ML 2 ML AMP ONE (07:30)
[2023-08-19] MEDS ORDERED: SUCCINYLCHOLINE CHLORIDE 200 MG/10 ML VIAL IV ONE (07:30)
[2023-08-19] MEDS ORDERED: PHENYLEPHRINE-0.9% NACL SYG 1,000 MCG/10 ML SYRINGE ONE (07:30)
[2023-08-19 07:34] VITALS: RESP 16; TEMP 97.2
--- NOTE | 2023-08-19 07:51 | XR ---
EXAMINATION TYPE: XR KUB DATE OF EXAM: 08/19/2023 COMPARISON: CT abdomen and pelvis 04/21/2023 HISTORY: Bladder stones TECHNIQUE: Single supine KUB view of the abdomen is obtained FINDINGS: Small bowel demonstrates no evidence for dilatation or air fluid levels. Gas and fecal material is seen in non-distended colon. Redemonstration of right renal 5 mm calculus. Redemonstrated are multiple left renal calcifications w ith largest measuring up to 6 cm. Pelvic phleboliths identified in stable position. No definitive maggi dder calculi. Cholecystectomy clips in the right upper quadrant. Surgical clips within the right ingu inal region. Right external iliac artery vascular stent identified. The visualized lung bases are clear. The osseous structures are intact. Partial visualization of left proximal femur fixation hardware. Os teoarthritic changes of the right hip. IMPRESSION: 1Bilateral renal calculi redemonstrated. No definitive bladder calculi.
[2023-08-19] MEDS ORDERED: IOPAMIDOL-370 100ML BTL MISCELLANE ONE (08:16)
--- NOTE | 2023-08-19 09:06 | FL ---
Intraoperative/procedural fluoroscopic services were provided for bilateral renal stones, retrograde urography. Total fluoroscopy time is 23 seconds with a total of 5 submitted images to PACS. Total DAP [id number] mGym2. Please see the operative note for further details.
--- NOTE | 2023-08-19 09:07 | P.OP ---
Date of Procedure: 08/19/23 Preoperative Diagnosis: Bilateral renal stones Postoperative Diagnosis: Same, left infundibular stenosis Procedure(s) Performed: Cystoscopy, bilateral ureteroscopy, bilateral laser lithotripsy, left infundibulotomy Anesthesia: HOLLI Surgeon: Yan Bahena Estimated Blood Loss (ml): 10 Pathology: other (Stone) Condition: stable Disposition: PACU Indications for Procedure: The patient is 72. She has penitentiary dependent. She is wheelchair dependent. She has bilateral renal stones are painful. She has chronic urine infection. She comes for bilateral ureteroscopy and laser lithotripsy Description of Procedure: Patient brought to the operating suite. She's been on preoperative antibiotics and is given intraoperative culture specific antibiotics. Cystoscopy Foroblique lens and 21-Wolof sheath after sterile prep and drape is performed. The bladder wall shows chronic inflammation. Both ureteral orifices are normal. The left ureteral orifice is intubated and an 035 wires passed into the kidney. Over the wires passed [id number] reentry sheath. The inner sheath is removed. Through the sheath a flexible ureteroscope was passed up into the kidney. The first stone in the upper pole was identified. The infundibula is stenotic. I h ave to do a laser infundibulotomy. I then am able to dust the stone into tiny fragments and flushed out of the ureter. Then moving to a middle pole calyx and do the same move in the lower pole calyx and do the same. I flush any stone out of the collecting system with irrigation a. I do an intraoperative nephrostogram and there is no remaining obstruction and I'm covered all the collecting system. I then reintroduced the cystoscope into the bladder and pass the 035 wire up into the right kidney. Over the wires passed [id number] reentry sheath inner sheath is removed. I then pass a flexible ureteroscope up into the kidney. Larger upper pole stone is dusted. I do not have to do an infundibulotomy. I move into the lower pole and identify second stone which is also dusted. We'll ureteroscopy is done on the right side and no remaining fragments. At also done on the left side without remaining fragments. The bladder is drained. Stones are sent to pathology. The patient is awake and returned recovery in good condition. She'll be discharged home upon recovery and found the office in 2 weeks for an ultrasound
[2023-08-19 10:07] LABS: Glucose,Whole Blood 159 mg/dL (70-110)
[2023-08-19 11:27] VITALS: BP 117/68; PULSE 65
== END 2023-08-19 11:58 ==
LOC: OR 05:42
PROVIDERS: ATTEND Urology
DX: N20.0 Calculus of kidney (principal); I25.10 Atherosclerotic heart disease of native coronary artery without angina pectoris; I11.0 Hypertensive heart disease with heart failure; J45.909 Unspecified asthma, uncomplicated; E11.9 Type 2 diabetes mellitus without complications; K21.9 Gastro-esophageal reflux disease without esophagitis; H91.90 Unspecified hearing loss, unspecified ear; E78.5 Hyperlipidemia, unspecified; M19.90 Unspecified osteoarthritis, unspecified site; J18.9 Pneumonia, unspecified organism; I99.9 Unspecified disorder of circulatory system; E11.51 Type 2 diabetes mellitus with diabetic peripheral angiopathy without gangrene; J96.10 Chronic respiratory failure, unspecified whether with hypoxia or hypercapnia; J84.10 Pulmonary fibrosis, unspecified; Z86.73 Personal history of transient ischemic attack (TIA), and cerebral infarction without residual deficits; E83.51 Hypocalcemia; Z87.442 Personal history of urinary calculi; Z87.11 Personal history of peptic ulcer disease; Z89.611 Acquired absence of right leg above knee; K57.90 Diverticulosis of intestine, part unspecified, without perforation or abscess without bleeding; Z87.440 Personal history of urinary (tract) infections; G89.29 Other chronic pain; Z87.19 Personal history of other diseases of the digestive system; D64.9 Anemia, unspecified; Z90.49 Acquired absence of other specified parts of digestive tract; F41.9 Anxiety disorder, unspecified; F32.A Depression, unspecified; F43.10 Post-traumatic stress disorder, unspecified; Z87.891 Personal history of nicotine dependence; Z82.49 Family history of ischemic heart disease and other diseases of the circulatory system; Z79.02 Long term (current) use of antithrombotics/antiplatelets; Z79.899 Other long term (current) drug therapy; Z88.1 Allergy status to other antibiotic agents; Z88.8 Allergy status to other drugs, medicaments and biological substances; Z91.041 Radiographic dye allergy status; G43.909 Migraine, unspecified, not intractable, without status migrainosus; Z88.2 Allergy status to sulfonamides; Z79.4 Long term (current) use of insulin; Z79.84 Long term (current) use of oral hypoglycemic drugs; Z79.51 Long term (current) use of inhaled steroids
CPT/HCPCS: 82365; 74420; 74018; 52353; C1769; J0330; J1100; J2710; J2405; J2001; J3010; J1580; J1885; J2704; Q9967; J2371

== ENCOUNTER 2023-08-22 00:49 | Emergency (ER) | payer MEDICARE, OTHER ==
--- NOTE | 2023-08-22 02:25 | CT ---
EXAMINATION TYPE: CT brain wo con DATE OF EXAM: 08/22/2023 HISTORY: AMS. UTI. CT DLP: 1109.2 mGycm. Automated Exposure Control for Dose Reduction was Utilized. TECHNIQUE: CT scan of the head is performed without contrast. COMPARISON: Prior CT brain July 03, 2012. FINDINGS: There is no acute intracranial hemorrhage or midline shift identified. There is mild to m oderate diffuse ventricular and sulcal prominence redemonstrated. There is mild to moderate low-atte nuation in the periventricular white matter redemonstrated. The globes are intact and the visualized sinuses are clear. IMPRESSION: No acute intracranial hemorrhage or midline shift. There is mild to moderate diffuse ag e-related cerebral atrophy and chronic small vessel ischemic change noted.
[2023-08-22 02:30] LABS: Basophils # (A) 0.1 k/uL (0-0.2); Basophils % (A) 1 %; Eosinophils # (A) 0.2 k/uL (0-0.7); Eosinophils % (A) 1 %; HGB 14.9 gm/dL (11.4-16.0); Lymphocytes # (A) 2.5 k/uL (1.0-4.8); Lymphocytes % (A) 18 %; MCH 27.5 pg (25.0-35.0); MCHC 33.1 g/dL (31.0-37.0); MCV 83.1 fL (80.0-100.0); Mean Platelet Volume 7.2; Monocytes # (A) 1.1 k/uL (0-1.0); Monocytes % (A) 8 %; Neutrophils # (A) 9.7 k/uL (1.3-7.7); Neutrophils % (A) 70 %; Platelet Count 206 k/uL (150-450); RBC 5.42 m/uL (3.80-5.40); WBC 13.9 k/uL (3.8-10.6)
--- NOTE | 2023-08-22 02:31 | XR ---
EXAMINATION TYPE: XR chest 1V portable DATE OF EXAM: 08/22/2023 COMPARISON: Chest x-ray August 21, 2020 HISTORY: Altered mental status TECHNIQUE: Single frontal view of the chest is obtained. FINDINGS: There is chronic parenchymal change greatest in the upper lungs redemonstrated. There is n o suspicious new focal air space opacity, pleural effusion, or pneumothorax seen. The cardiac silhou ette size remains within normal limits. The osseous structures are intact. IMPRESSION: No acute pulmonary process .
[2023-08-22 02:42] LABS: INR 1.1 (<1.2)
[2023-08-22 02:45] LABS: ALT 16 U/L (4-34); AST 23 U/L (14-36); African American GFR (CKD) 33 (>60 ml/min/1.73 sqM); Albumin 3.2 g/dL (3.5-5.0); Alkaline Phosphatase 95 U/L (38-126); Anion Gap 12 mmol/L; Blood Urea Nitrogen 38 mg/dL (7-17); Calcium 8.1 mg/dL (8.4-10.2); Carbon Dioxide 25 mmol/L (22-30); Chloride 103 mmol/L (98-107); Glucose 124 mg/dL (74-99); Non-African American GFR(CKD) 28 (>60 ml/min/1.73 sqM); Potassium 3.4 mmol/L (3.5-5.1); Sodium 140 mmol/L (137-145); Total Bilirubin 0.8 mg/dL (0.2-1.3); Total Protein 6.7 g/dL (6.3-8.2)
[2023-08-22 05:03] LABS: Amorphous Sediment,Urine Rare /hpf; Appearance,Urine Cloudy (Clear); Bacteria,Urine Occasional /hpf; Bilirubin,Urine Negative (Negative); Blood,Urine Large (Negative); Color,Urine Light Red; Glucose,Urine (UA) Negative (Negative); Ketones,Urine Negative (Negative); Leukocyte Esterase,Urine Moderate (Negative); Nitrite,Urine Negative (Negative); PH, Urine 6.5 (5.0-8.0); Protein,Urine 1+ (Negative); RBC,Urine >182 /hpf (0-5); Specific Gravity,Urine 1.007 (1.001-1.035); Urobilinogen,Urine <2.0 mg/dL (<2.0); WBC,Urine 57 /hpf (0-5)
[2023-08-22] MEDS: SODIUM CHLORIDE 0.9% 1,000 ML IV STA (05:41)
[2023-08-22] MEDS: SODIUM CHLORIDE 0.9% 1,000 ML IV ONE (05:41)
--- NOTE | 2023-08-22 07:34 | ED ---
Altered Mental Status HPI - General Chief Complaint: Altered Mental Status Stated Complaint: AMS Time Seen by Provider: 08/22/23 01:02 Source: EMS, RN notes reviewed Mode of arrival: EMS Limitations: altered mental status - History of Present Illness Initial Comments: This patient is a 72-year-old woman who arrives here from her assisted living to have evaluation for altered mental status. The patient had been in the hospital, found to have urinary tract infection and currently being treated as outpatient. She notes she has not really felt well, but not able to identify new symptoms. Per the report, the patient staring off tonight. MD Complaint: altered mental status -: hour(s) Severity: mild Context: other (Recent urinary tract infection) Associated Symptoms: weakness - Related Data Home Medications Medication Instructions Recorded Confirmed Clopidogrel [Plavix] 75 mg PO DAILY 03/21/15 08/19/23 Lactobacillus Acidophilus 1 tab PO TID 03/21/15 08/10/23 [Acidophilus] Multivit with Calcium,Iron,Min 1 tab PO DAILY 03/21/15 08/10/23 [Women's Daily Multivitamin] Sertraline [Zoloft] 100 mg PO DAILY 03/19/17 08/19/23 LORazepam [Ativan] 0.5 mg PO TID 03/10/19 08/19/23 Lubricant Drops Solution 1.4% 1 drop BOTH EYES BID 03/10/19 08/19/23 Metoprolol Tartrate [Lopressor] 50 mg PO BID 03/10/19 08/19/23 Nitroglycerin Sl Tabs [Nitrostat] 0.4 mg SUBLINGUAL Q5M PRN 03/10/19 08/10/23 risperiDONE [RisperDAL] 0.25 mg PO Q12H 03/10/19 08/10/23 Aspirin 81 mg PO DAILY 05/04/19 08/19/23 Isosorbide Mononitrate ER [Imdur] 30 mg PO DAILY 05/04/19 08/19/23 Mag Hydrox/Al Hydrox/Simeth 30 ml PO QID PRN 05/04/19 08/10/23 [Maalox] Acetaminophen Tab [Tylenol] 650 mg PO Q4H PRN 12/14/19 08/10/23 Albuterol Nebulized [Ventolin 2.5 mg INHALATION RT-Q4H PRN 12/14/19 08/10/23 Nebulized] Cyclobenzaprine [Flexeril] 5 mg PO BID 12/14/19 08/19/23 Gabapentin [Neurontin] 300 mg PO Q12H 12/14/19 08/19/23 Lidocaine 5% Cream 1 applic TOPICAL DAILY PRN 12/14/19 08/10/23 lisinopriL [Zestril] 5 mg PO DAILY 12/14/19 08/10/23 traZODone HCL [Desyrel] 200 mg PO HS 12/14/19 08/10/23 Cholecalciferol [Vitamin D3 (25 25 mcg PO DAILY 08/18/20 08/10/23 Mcg = 1000 Iu)] Furosemide [Lasix] 40 mg PO DAILY 08/18/20 08/10/23 Magnesium Hydroxide [Milk of 30 ml PO DAILY PRN 08/18/20 08/10/23 Magnesia Concentrate] Na Phos,M-B/Na Phos,Di-Ba [Fleet 133 ml RECTAL DAILY PRN 08/18/20 08/10/23 Adult] Pantoprazole [Protonix] 40 mg PO BID 08/18/20 08/10/23 Simethicone Chew [Mylicon Chew] 80 mg PO Q8H PRN 08/18/20 08/10/23 bisacodyL [Dulcolax] 10 mg RECTAL Q24H PRN 08/18/20 08/10/23 carBAMazepine [TEGretol] 200 mg PO Q12H 08/18/20 08/19/23 fentaNYL 12MCG/HR PATCH [Duragesic 1 patch TRANSDERM Q72H 08/18/20 08/19/23 12MCG/HR] Calcium Carbonate [Tums] 1,000 mg PO Q8H PRN 08/10/23 08/10/23 Famotidine 20 mg PO DAILY 08/10/23 08/10/23 Ferrous Sulfate [Feosol] 325 mg PO BID 08/10/23 08/10/23 Fish Oil/Dha/Epa [Fish Oil 1,200 1 each PO BID 08/10/23 08/10/23 mg Fish Oil] Folic Acid 1 mg PO DAILY 08/10/23 08/10/23 INSULIN ASPART (NovoLOG) [NovoLOG 0 unit SQ BID PRN 08/10/23 08/19/23 (formulary)] INSULIN LISPRO (humaLOG) [humaLOG] 0 units SQ BID PRN 08/10/23 08/10/23 Loperamide HCl [Loperamide] 2 mg PO DIRECTED PRN 08/10/23 08/10/23 Melatonin 3 mg PO HS 08/10/23 08/10/23 Mupirocin 2% Oint [Bactroban 2% 1 applic TOPICAL Q8H 08/10/23 08/10/23 Oint] Nystatin 100,000 Unit/gm Powd 1 applic TOPICAL BID 08/10/23 08/10/23 [Mycostatin Powder] Nystatin 100,000Unit/gm Cream 1 applic TOPICAL BID 08/10/23 08/10/23 [Mycostatin Cream] Nystatin/Triamcin 1 applic TOPICAL BID 08/10/23 08/10/23 [Nystatin-Triamcinolone Cream] Ondansetron [Zofran] 4 mg PO Q6H PRN 08/10/23 08/10/23 Potassium Chloride 10 meq PO DAILY 08/10/23 08/10/23 Pramox-Calamine 1-8% Lotion 1 applic TOPICAL BID 08/10/23 08/10/23 [Caladryl] Sodium Chloride [[place]] 1 spray EA NOSTRIL BID 08/10/23 08/10/23 Triamcinolone 0.5% Cream [Kenalog 1 applic TOPICAL BID 08/10/23 08/10/23 0.5% Cream] diphenhydrAMINE [Benadryl] 25 mg PO BID PRN 08/10/23 08/10/23 Glucerna Shake 1 can PO BID 08/11/23 08/11/23 Cephalexin [Keflex] 1 tab PO DAILY 08/19/23 08/19/23 Previous Rx's Medication Instructions Recorded HYDROcodone/APAP 5-325MG [[place] 1 tab PO Q6HR PRN #10 tab 05/09/19 5-325] Cephalexin [Keflex] 500 mg PO Q8HR 1 Days #20 cap 08/19/23 Allergies Allergy/AdvReac Type Severity Reaction Status Date / Time ciprofloxacin [From Cipro] Allergy Unknown Verified 08/19/23 07:09 iodine Allergy Unknown Verified 08/19/23 07:09 Penicillins Allergy Unknown Verified 08/19/23 07:09 Phenylpiperazine Allergy Unknown Verified 08/19/23 07:09 Antidepressant red dye Allergy Unknown Verified 08/19/23 07:09 Sulfa (Sulfonamide Allergy Unknown Verified 08/19/23 07:09 Antibiotics) Review of Systems ROS Statement: Those systems with pertinent positive or pertinent negative responses have been documented in the HPI. ROS Other: All systems not noted in ROS Statement are negative. Constitutional: Reports: weakness. Denies: fever, chills Eyes: Denies: vision change Respiratory: Denies: cough, dyspnea Cardiovascular: Denies: chest pain, palpitations, syncope Gastrointestinal: Denies: abdominal pain, nausea, vomiting, diarrhea Genitourinary: Reports: as per HPI. Denies: dysuria, frequency Musculoskeletal: Denies: back pain Skin: Denies: rash Neurological: Denies: headache, weakness Past Medical History Past Medical History: Coronary Artery Disease (CAD), Heart Failure, COPD, GERD/Reflux, GI Bleed, Hearing Disorder / Deafness, Hypertension, Osteoarthritis (OA), Pneumonia, Renal Disease, Seizure Disorder, Skin Disorder, Vascular Disorder Additional Past Medical History / Comment(s): NIDDM type II-pt states she was on oral meds for about 6 months once, CVA-pt states no residual, L foot drop, last seizure 20 yrs ago, bronchitis, gastric ulcer, bloody stool in past, kidney stones with surgeries, PVD-R AKA, gastric ulcer, diverticular disease, hemorrhoids, UTIs, migraines, chronic low back pain and R stump pain, tinnitis bilaterally, [place] R ear, anemia, dermatitis, incontinence of urine and stool, past L elbow fracture. History of Any Multi-Drug Resistant Organisms: MRSA Date of last positivie culture/infection: 2012 MDRO Source:: right leg Past Surgical History: Appendectomy, Cholecystectomy, Orthopedic Surgery, Tonsillectomy Additional Past Surgical History / Comment(s): EGD, colonoscopies, bilateral percutaneous nephroscopies, arch/aortagrams, R foot 5th toe amp then R AKA, L hip ORIF with plate/screws, laparatomy for rupture ovarian cyst, cox-since removed, PICC-since removed. Past Anesthesia/Blood Transfusion Reactions: No Reported Reaction Additional Past Anesthesia/Blood Transfusion Reaction / Comment(s): care provider doesn't know anesthesia hx. Past Psychological History: Anxiety, Bipolar, Depression Smoking Status: Former smoker Past Alcohol Use History: None Reported Past Drug Use History: None Reported - Past Family History Father Family Medical History: COPD, Myocardial Infarction (ME) Additional Family Medical History / Comment(s): Father was a smoker with emphysema. He from his 3rd ME at the age of 67yrs. Mother Family Medical History: No Reported History Additional Family Medical History / Comment(s): Mother was healthy and lived to be 95yrs old. General Exam Limitations: altered mental status General appearance: alert, in no apparent distress Head exam: Present: atraumatic, normocephalic Eye exam: Present: normal appearance. Absent: scleral icterus, conjunctival injection Neck exam: Present: normal inspection, full ROM Respiratory exam: Present: normal lung sounds bilaterally. Absent: respiratory distress, wheezes, rales, rhonchi, stridor Cardiovascular Exam: Present: regular rate, normal rhythm, normal heart sounds. Absent: systolic murmur, diastolic murmur, rubs, gallop GI/Abdominal exam: Present: soft. Absent: distended, tenderness, guarding, r ebound, rigid, mass Extremities exam: Present: normal inspection, normal capillary refill. Absent: pedal edema, calf tenderness Back exam: Present: normal inspection Neurological exam: Present: alert, oriented X3, CN II-XII intact. Absent: motor sensory deficit Skin exam: Present: warm, dry, intact, normal color. Absent: rash Course Vital Signs 08/22/23 08/22/23 08/22/23 01:08 02:19 03:19 Temperature 97.8 F Pulse Rate 94 87 88 Respiratory 16 24 22 Rate Blood Pressure 99/64 94/67 116/62 O2 Sat by Pulse 92 L 91 L 92 L Oximetry 08/22/23 08/22/23 08/22/23 04:22 05:00 06:08 Temperature Pulse Rate 89 90 84 Respiratory 21 24 22 Rate Blood Pressure 95/65 105/67 O2 Sat by Pulse 91 L 91 L 91 L Oximetry 08/22/23 08:01 Temperature 97.9 F Pulse Rate 86 Respiratory 18 Rate Blood Pressure 106/65 O2 Sat by Pulse 92 L Oximetry Medical Decision Making - Medical Decision Making The patient had chest x-ray that I interpreted as negative for acute infiltrate, pneumothorax, congestive heart failure The patient had CT of the brain that I interpreted as negative for acute injury or acute intracranial hemorrhage. Was pt. sent in by a medical professional or institution (JOHNATHON Krishnamurthy, VEHICLE SERVICE ATTENDANT, urgent care, hospital, or prison...) When possible be specific @ -[Yes sent from assisted living Did you speak to anyone other than the patient for history (EMS, parent, family, police, friend...)? What history was obtained from this source @ -[No] Did you review nursing and triage notes (agree or disagree)? Why? @ -[I reviewed and agree with nursing and triage notes] Were old charts reviewed (outside hosp., previous admission, EMS record, old EKG, old radiological studies, urgent care reports/EKG's, prison records)? Report findings @ -[No old charts were reviewed] Differential Diagnosis (chest pain, altered mental status, abdominal pain women, abdominal pain men, vaginal bleeding, weakness, fever, dyspnea, syncope, headache, dizziness, GI bleed, back pain, seizure, CVA, palpatations, mental health, musculoskeletal)? @ -[Differential Altered Mental Status: Hypoglycemia, DKA, hypercapnia, ETOH, overdose, CO poisoning, trauma, myxedema coma, HTN encephalopathy, infection, encephalitis, psychosis, intercranial hemorrhage, hepatic encephalopathy, meningitis, CVA, this is not meant to be an all-inclusive list EKG interpreted by me (3pts min.). @ -[As above] X-rays interpreted by me (1pt min.). @ -[I interpreted as above CT interpreted by me (1pt min.). @ -I interpreted as above U/S interpreted by me (1pt. min.). @ -[None done] What testing was considered but not performed or refused? (CT, X-rays, U/S, labs)? Why? @ -[None] What meds were considered but not given or refused? Why? @ -[None] Did you discuss the management of the patient with other professionals (professionals i.e. JOHNATHON Krishnamurthy, VEHICLE SERVICE ATTENDANT, lab, RT, psych nurse, social media manager, pictures editor, teacher, real estate officer, caser in)? Give summary @ -[No] Was smoking cessation discussed for >3mins.? @ -[No] Was critical care preformed (if so, how long)? @ -[No] Were there social determinants of health that impacted care today? How? (Homel essness, low income, unemployed, alcoholism, drug addiction, transportation, low edu. Level, literacy, decrease access to med. care, prison, rehab)? @ -[No] Was there de-escalation of care discussed even if they declined (Discuss DNR or withdrawal of care, Hospice)? DNR status @ -[No] What co-morbidities impacted this encounter? (DM, HTN, Smoking, COPD, CAD, Cancer, CVA, ARF, Chemo, Hep., AIDS, mental health diagnosis, sleep apnea, morbid obesity)? @ -[None] Was patient admitted / discharged? Hospital course, mention meds given and route, prescriptions, significant lab abnormalities, going to OR and other pertinent info. @ -[Patient is 72-year-old woman here to have evaluation for altered mental status. There is not appear to be new condition found. The patient currently taking course of antibiotic for urinary tract infection. Discussed admission but at this point they will try continuing outpatient antibiotic with close follow-up. The patient does get frequent attention at the assisted living facility. return parameters discussed. Undiagnosed new problem with uncertain prognosis? @ -[No] Drug Therapy requiring intensive monitoring for toxicity (Heparin, Nitro, Insulin, Cardizem)? @ -[No] Were any procedures done? @ -[No] Diagnosis/symptom? @ -[Urinary tract infection Acute, or Chronic, or Acute on Chronic? @ -[Acute Uncomplicated (without systemic symptoms) or Complicated (systemic symptoms)? @ -[Uncomplicated Side effects of treatment? @ -[No] Exacerbation, Progression, or Severe Exacerbation? @ -[No] Poses a threat to life or bodily function? How? (Chest pain, [place], ME, pneumonia, PE, COPD, DKA, ARF, appy, cholecystitis, CVA, Diverticulitis, Homicidal, [place] icidal, threat to staff... and all critical care pts) @ -There is some risk and patient to have close follow-up, return parameters reviewed - Lab Data Result diagrams: 08/22/23 01:21 08/22/23 01:21 Lab Results 08/22/23 08/22/23 08/22/23 Range/Units 01:21 01:21 01:21 WBC 13.9 H (3.8-10.6) k/uL RBC 5.42 H (3.80-5.40) m/uL Hgb 14.9 (11.4-16.0) gm/dL Hct 45.0 (34.0-46.0) % MCV 83.1 (80.0-100.0) fL MCH 27.5 (25.0-35.0) pg MCHC 33.1 (31.0-37.0) g/dL RDW 15.0 (11.5-15.5) % Plt Count 206 (150-450) k/uL MPV 7.2 Neutrophils % 70 % Lymphocytes % 18 % Monocytes % 8 % Eosinophils % 1 % Basophils % 1 % Neutrophils # 9.7 H (1.3-7.7) k/uL Lymphocytes # 2.5 (1.0-4.8) k/uL Monocytes # 1.1 H (0-1.0) k/uL Eosinophils # 0.2 (0-0.7) k/uL Basophils # 0.1 (0-0.2) k/uL PT 12.0 (10.0-12.5) sec INR 1.1 (<1.2) APTT 28.0 (22.0-30.0) sec Sodium 140 (137-145) mmol/L Potassium 3.4 L (3.5-5.1) mmol/L Chloride 103 (98-107) mmol/L Carbon Dioxide 25 (22-30) mmol/L Anion Gap 12 mmol/L BUN 38 H (7-17) mg/dL Creatinine 1.76 H (0.52-1.04) mg/dL Est GFR (CKD-EPI)AfAm 33 (>60 ml/min/1.73 sqM) Est GFR (CKD-EPI)NonAf 28 (>60 ml/min/1.73 sqM) Glucose 124 H (74-99) mg/dL Plasma Lactic Acid [place] (0.7-2.0) mmol/L Calcium 8.1 L (8.4-10.2) mg/dL Total Bilirubin 0.8 (0.2-1.3) mg/dL AST 23 (14-36) U/L ALT 16 (4-34) U/L Alkaline Phosphatase 95 (38-126) U/L Troponin I (0.000-0.034) ng/mL Total Protein 6.7 (6.3-8.2) g/dL Albumin 3.2 L (3.5-5.0) g/dL Urine Color Urine Appearance (Clear) Urine pH (5.0-8.0) Ur Specific [place] (1.001-1.035) Urine Protein (Negative) Urine Glucose (UA) (Negative) Urine Ketones (Negative) Urine Blood (Negative) Urine Nitrite (Negative) Urine Bilirubin (Negative) Urine Urobilinogen (<2.0) mg/dL Ur Leukocyte Esterase (Negative) Urine RBC (0-5) /hpf Urine WBC (0-5) /hpf Amorphous Sediment (None) /hpf Urine Bacteria (None) /hpf 08/22/23 08/22/23 08/22/23 Range/Units 01:21 01:21 04:49 WBC (3.8-10.6) k/uL RBC (3.80-5.40) m/uL Hgb (11.4-16.0) gm/dL Hct (34.0-46.0) % MCV (80.0-100.0) fL MCH (25.0-35.0) pg MCHC (31.0-37.0) g/dL RDW (11.5-15.5) % Plt Count (150-450) k/uL MPV Neutrophils % % Lymphocytes % % Monocytes % % Eosinophils % % Basophils % % Neutrophils # (1.3-7.7) k/uL Lymphocytes # (1.0-4.8) k/uL Monocytes # (0-1.0) k/uL Eosinophils # (0-0.7) k/uL Basophils # (0-0.2) k/uL PT (10.0-12.5) sec INR (<1.2) APTT (22.0-30.0) sec Sodium (137-145) mmol/L Potassium (3.5-5.1) mmol/L Chloride (98-107) mmol/L Carbon Dioxide (22-30) mmol/L Anion Gap mmol/L BUN (7-17) mg/dL Creatinine (0.52-1.04) mg/dL Est GFR (CKD-EPI)AfAm (>60 ml/min/1.73 sqM) Est GFR (CKD-EPI)NonAf (>60 ml/min/1.73 sqM) Glucose (74-99) mg/dL Plasma Lactic Acid [place] 1.3 (0.7-2.0) mmol/L Calcium (8.4-10.2) mg/dL Total Bilirubin (0.2-1.3) mg/dL AST (14-36) U/L ALT (4-34) U/L Alkaline Phosphatase (38-126) U/L Troponin I <0.012 (0.000-0.034) ng/mL Total Protein (6.3-8.2) g/dL Albumin (3.5-5.0) g/dL Urine Color Light Red Urine Appearance Cloudy H (Clear) Urine pH 6.5 (5.0-8.0) Ur Specific [place] 1.007 (1.001-1.035) Urine Protein 1+ H (Negative) Urine Glucose (UA) Negative (Negative) Urine Ketones Negative (Negative) Urine Blood Large H (Negative) Urine Nitrite Negative (Negative) Urine Bilirubin Negative (Negative) Urine Urobilinogen <2.0 (<2.0) mg/dL Ur Leukocyte Esterase Moderate H (Negative) Urine RBC >182 H (0-5) /hpf Urine WBC 57 H (0-5) /hpf Amorphous Sediment Rare H (None) /hpf Urine Bacteria Occasional H (None) /hpf Disposition Clinical Impression: Urinary tract infection, Hypotension Disposition: HOME SELF-CARE Condition: Fair Instructions (If sedation given, give patient instructions): Altered Mental Status (ED) Is patient prescribed a controlled substance at d/c from ED?: No Referrals: Ian Peter MD [Primary Care Provider] - 1-2 days
[2023-08-22 08:19] VITALS: BP 106/65; PULSE 86; RESP 18; TEMP 97.9
== END 2023-08-22 08:10 | disposition home or self-care (01) ==
LOC: EC 00:49
DX: N39.0 Urinary tract infection, site not specified (principal); I95.9 Hypotension, unspecified; I67.82 Cerebral ischemia; I25.10 Atherosclerotic heart disease of native coronary artery without angina pectoris; I11.0 Hypertensive heart disease with heart failure; I50.9 Heart failure, unspecified; J44.9 Chronic obstructive pulmonary disease, unspecified; K21.9 Gastro-esophageal reflux disease without esophagitis; I10 Essential (primary) hypertension; M19.90 Unspecified osteoarthritis, unspecified site; F41.9 Anxiety disorder, unspecified; F31.9 Bipolar disorder, unspecified; Z87.891 Personal history of nicotine dependence; Z79.82 Long term (current) use of aspirin; Z79.899 Other long term (current) drug therapy; Z79.4 Long term (current) use of insulin; Z79.02 Long term (current) use of antithrombotics/antiplatelets; Z79.1 Long term (current) use of non-steroidal anti-inflammatories (NSAID); Z91.041 Radiographic dye allergy status; Z88.2 Allergy status to sulfonamides; Z88.8 Allergy status to other drugs, medicaments and biological substances; Z88.1 Allergy status to other antibiotic agents; Z88.0 Allergy status to penicillin
CPT/HCPCS: 36415; 80053; 83605; 84484; 85025; 85610; 85730; 81001; 71045; 70450; 99285; 96365; 96361; J0696; 96366